=== PATIENT | female | born 1960 | race Caucasian/White ===

== ENCOUNTER 2016-07-01 20:29 | Inpatient (IN) | payer OTHER ==
[2016-07-01] MEDS ORDERED: ASPIRIN 81 MG CHEWABLE TABLETS PO ONE (20:53)
--- NOTE | 2016-07-01 20:59 | PDOC ---
History of Present Illness - General Exam Limitations: No Limitations <PeterJimmy ruffin - Last Filed: 07/01/16 21:15> - General History Source: Patient Exam Limitations: No Limitations <Joao Rose - Last Filed: 07/02/16 03:29> - General Chief Complaint: Chest Pain Stated Complaint: CHEST PAIN/HOT FLASHES - History of Present Illness Initial Comments: 07/01/16 21:01 The patient is a 55 year old female with past medical history of HTN, hypercholesterolemia, diabetes, GERD, hypothyroidism, and scleroderma, who presents to the emergency department with chest pain and hot flashes for 10 days. The patient states that her chest pain was initially intermittent but 2- 3 days ago it became constant. The patient notes that during her first episode of chest pain she lost vision briefly. The patient reports pain radiating pain through the left arm. The patient notes that pain is exacerbated on exertion. The patient reports associated clamminess, and sweats. She denies nausea, vomiting, and diarrhea. She denies fever, cough, and shortness of breath. (Jimmy Santana) Past History <EstherJimmy - Last Filed: 07/01/16 21:15> - Past Medical History Anemia: Yes Asthma: No Cancer: No Cardiac Disorders: Yes (Murmur) CVA: No COPD: No CHF: No Dementia: No Diabetes: Yes GI Disorders: Yes (GERD) Disorders: No HTN: Yes Hypercholesterolemia: Yes Liver Disease: No Suicide Attempt (Hx): No Seizures: No Thyroid Disease: Yes (HYPO) Other medical history: SCLERODERMA, HIATAL HERNIA - Surgical History Abdominal Surgery: No Appendectomy: No Cardiac Surgery: No Cholecystectomy: No Lung Surgery: No Neurologic Surgery: No Orthopedic Surgery: Yes (Laminectomy x3,Right hand surgery) - Immunization History Td Vaccination: Yes Immunization Up to Date: (UNSURE) - Psycho/Social/Smoking Cessation Hx Anxiety: No Suicidal Ideation: No Smoking Status: No Smoking History: Unknown if ever smoked Have you smoked in the past 12 months: No Number of Cigarettes Smoked Daily: 0 Information on smoking cessation initiated: No Hx Alcohol Use: No Drug/Substance Use Hx: No Substance Use Type: None Hx Substance Use Treatment: No <Joao Rose - Last Filed: 07/02/16 03:29> - Past Medical History Allergies/Adverse Reactions: Allergies Allergy/AdvReac Type Severity Reaction Status Date / Time Sulfa (Sulfonamide Allergy Mild Verified 04/07/16 15:20 Antibiotics) [Sulfa(Sulfonamide Antibiotics)] Home Medications: Ambulatory Orders Esomeprazole Mag Trihydrate [Nexium] 20 mg PO BID 01/26/12 Insulin Glargine,Hum.rec.anlog [Lantus] 46 unit SQ AM 01/26/12 Levothyroxine [Synthroid -] 50 mcg PO HS 01/26/12 Metformin HCl [Glucophage -] 800 mg PO BID@0700,1630 01/26/12 Simvastatin 40 mg PO HS 01/26/12 Zolpidem Tartrate [Ambien] 10 mg PO HS 09/25/15 Oxycodone HCl/Acetaminophen [Percocet 5-325 mg Tablet] 1 - 2 combo PO Q6H PRN # 30 tablet MDD 4 09/28/15 Iron,Carbonyl/Ascorbic Acid [Vitron-C Tablet] 1 each PO DAILY 11/13/15 Nifedipine [Nifedical Xl] 30 mg PO DAILY 11/13/15 Oxycodone HCl/Acetaminophen [Percocet 5-325 mg Tablet] 1 - 2 tab PO Q4H #20 tablet MDD 6 11/14/15 Cardiac Specific PMH - Complaint Specific PMHX Pacemaker: No <Joao Rose - Last Filed: 07/02/16 03:29> Review of Systems - Review of Systems Able to Perform ROS?: Yes Constitutional: Yes: Symptoms Reported, See HPI, Chills, Diaphoresis, Weakness HEENTM: Yes: Symptoms Reported, See HPI Cardiac (ROS): Yes: Symptoms Reported, See HPI Neurological: Yes: Symptoms reported, See HPI, Headache, Numbness <Jimmy Santana - Last Filed: 07/01/16 21:15> - Review of Systems Able to Perform ROS?: Yes Is the patient limited Portuguese proficient: No Constitutional: Yes: Symptoms Reported, See HPI, Diaphoresis HEENTM: No: Symptoms Reported Respiratory: Yes: Symptoms reported, See HPI, SOB with Exertion Cardiac (ROS): Yes: Symptoms Reported, See HPI, Chest Pain, Palpitations ABD/GI: No: Symptoms Reported : No: Symptoms Reported Musculoskeletal: No: Symptoms Reported All Other Systems: Reviewed and Negative <Joao Rose - Last Filed: 07/02/16 03:29> *Physical Exam - Physical Exam General Appearance: Yes: Nourished, Appropriately Dressed. No: Apparent Distress HEENT: positive: Normal ENT Inspection Neck: positive: Supple. negative: Tender Respiratory/Chest: positive: Lungs Clear, Normal Breath Sounds. negative: Chest Tender, Respiratory Distress Cardiovascular: positive: Regular Rhythm, Regular Rate Gastrointestinal/Abdominal: positive: Normal Bowel Sounds, Soft. negative: Tender Musculoskeletal: positive: Normal Inspection Extremity: positive: Normal Capillary Refill. negative: Pedal Edema Integumentary: positive: Normal Color Neurologic: positive: Fully Oriented, Alert, Normal Mood/Affect, Normal Response , Motor Strength 5/5 <Joao Rose - Last Filed: 07/02/16 03:29> - Vital Signs Last Vital Signs Temp Pulse Resp BP Pulse Ox 97.7 F 67 19 108/43 100 07/01/16 23:53 07/01/16 23:53 07/01/16 23:53 07/01/16 23:53 07/02/16 01:09 Heart Score/ECG Review <Jimmy Santana - Last Filed: 07/01/16 21:15> - Age Age: 45-65 - Risk Factors Risk Factors Heart Score: Yes Hx Hypercholesterolemia, Yes Hx Hypertension Based on the list above the patient has:: 1-2 risk factors - ECG Intrepretation Rhythm: Regular Rhythm - [place]: Normal - P and MT Prominent R with upright T in V1 (true posterior NE): No - QRS Poor R Wave Progression: No Q Wave Present: No - ST and T Early Repolarization: No Non Specific ST-T Wave changes: No Flattened T Waves: No - ECG Impressions Normal ECG: Yes <Joao Rose - Last Filed: 07/02/16 03:29> - ECG Impressions Comment:: 07/01/16 21:07 ECG: Normal sinus rhythm, minimal voltage criteria for LVH, may be normal variant. Borderline ECG (Jimmy Santana) ED Treatment Course - LABORATORY CBC & Chemistry Diagram: 07/01/16 20:58 07/02/16 00:30 <Joao Rose - Last Filed: 07/02/16 03:29> - ADDITIONAL ORDERS Additional order review: Laboratory Results 07/01/16 07/01/16 07/01/16 20:58 20:58 20:58 INR 1.16 Sodium 135 L Potassium 5.4 H D Chloride 110 H Carbon Dioxide 25 Anion Gap 0 L BUN 14 Creatinine 0.9 D Creat Clearance w eGFR > 60 Random Glucose 75 D Calcium 9.0 Magnesium 2.1 Total Bilirubin 2.1 H D AST 56 H D ALT 15 Alkaline Phosphatase 67 Creatine Kinase Cancelled Cancelled CK-MB (CK-2) Cancelled Troponin I Cancelled Cancelled Total Protein 6.5 Albumin 4.0 D 07/01/16 20:58 RBC 4.64 MCV 82.4 MCHC 31.5 L RDW 14.9 MPV 7.3 L Neutrophils % 58.2 Lymphocytes % 29.4 Monocytes % 6.3 Eosinophils % 3.3 Basophils % 2.8 H D - RADIOLOGY Radiology Studies Ordered: Category Date Time Status CHEST X-RAY PORTABLE* [RAD] Stat Radiology 07/01/16 20:53 Completed - Medications Given in the ED: ED Medications Discontinued Medications Generic Name Dose Route Start Last Admin Trade Name Freq PRN Reason Stop Dose Admin Aspirin 162 mg 07/01/16 20:53 07/01/16 21:03 Asa - PO 07/01/16 20:54 162 mg ONCE ONE Administration Progress Note <Jimmy Santana - Last Filed: 07/01/16 21:15> <Joao Rose - Last Filed: 07/02/16 03:29> - Progress Note Progress Note: crescendo angina? admit obs/tely fore ACS 3:00 AM trop 1.9 attempt to notify pmd and cards consult unsuccessful so far so floor called er start plavix and lovenox repeat ekg will contact cards for further management pt is pain free and hemodynamically stable (Joao Rose) Medical Decision Making <Jimmy Santana - Last Filed: 07/01/16 21:15> <Joao Rose - Last Filed: 07/02/16 03:29> - Medical Decision Making 07/01/16 20:54 Dr. Jenn Blanchard's service was called. 07/01/16 20:56 Dr. Jenn Blanchard's returned call. Case discussed. Agreed to admit. (Jimmy Santana) *DC/Admit/Observation/Transfer <Jimmy Santana - Last Filed: 07/01/16 21:15> - Discharge Dispostion Admit: Yes <Joao Rose - Last Filed: 07/02/16 03:29> Diagnosis at time of Disposition: ACS (acute coronary syndrome) - Discharge Dispostion Condition at time of disposition: Stable Decision to Admit order Date/Time: Decision to Admit Order Category Date Time Status Decision to Admit to Hospital Routine Phy Order 07/01/16 21:02 Ordered - Referrals - Attestations Scribe Attestion: 07/01/16 21:04 Documentation prepared by Jimmy Santana, acting as medical geneticist for Joao Rose MD. (Jimmy Santana)
--- NOTE | 2016-07-01 21:02 | PDOC ---
History of Present Illness - General Chief Complaint: Chest Pain Stated Complaint: CHEST PAIN/HOT FLASHES History Source: Parent(s) Exam Limitations: No Limitations - History of Present Illness Initial Comments: 07/01/16 21:01 The patient is a 55 year old female with past medical history of HTN, hypercholesterolemia, diabetes, GERD, hypothyroidism, and scleroderma, who presents to the emergency department with chest pain and hot flashes for 10 days. The patient states that her chest pain was initially intermittent but 2- 3 days ago it became constant. The patient reports pain radiating pain through the left arm. The patient notes that pain is exacerbated on exertion. The patient reports associated clamminess and sweats. She denies nausea, vomiting, and diarrhea. She denies fever, cough, and shortness of breath. Past History - Past Medical History Allergies/Adverse Reactions: Allergies Allergy/AdvReac Type Severity Reaction Status Date / Time Sulfa (Sulfonamide Allergy Mild Verified 04/07/16 15:20 Antibiotics) [Sulfa(Sulfonamide Antibiotics)] Home Medications: Ambulatory Orders Esomeprazole Mag Trihydrate [Nexium] 20 mg PO BID 01/26/12 Insulin Glargine,Hum.rec.anlog [Lantus] 46 unit SQ AM 01/26/12 Levothyroxine [Synthroid -] 50 mcg PO HS 01/26/12 Metformin HCl [Glucophage -] 800 mg PO BID@0700,1630 01/26/12 Simvastatin 40 mg PO HS 01/26/12 Zolpidem Tartrate [Ambien] 10 mg PO HS 09/25/15 Oxycodone HCl/Acetaminophen [Percocet 5-325 mg Tablet] 1 - 2 combo PO Q6H PRN # 30 tablet MDD 4 09/28/15 Iron,Carbonyl/Ascorbic Acid [Vitron-C Tablet] 1 each PO DAILY 11/13/15 Nifedipine [Nifedical Xl] 30 mg PO DAILY 11/13/15 Oxycodone HCl/Acetaminophen [Percocet 5-325 mg Tablet] 1 - 2 tab PO Q4H #20 tablet MDD 6 11/14/15 Anemia: Yes Asthma: No Cancer: No Cardiac Disorders: Yes (Murmur) CVA: No COPD: No CHF: No Dementia: No Diabetes: Yes GI Disorders: Yes (GERD) Disorders: No HTN: Yes Hypercholesterolemia: Yes Liver Disease: No Suicide Attempt (Hx): No Seizures: No Thyroid Disease: Yes (HYPO) Other medical history: SCLERODERMA, HIATAL HERNIA - Surgical History Abdominal Surgery: No Appendectomy: No Cardiac Surgery: No Cholecystectomy: No Lung Surgery: No Neurologic Surgery: No Orthopedic Surgery: Yes (Laminectomy x3,Right hand surgery) - Immunization History Td Vaccination: Yes Immunization Up to Date: (UNSURE) - Psycho/Social/Smoking Cessation Hx Anxiety: No Suicidal Ideation: No Smoking Status: No Smoking History: Unknown if ever smoked Have you smoked in the past 12 months: No Number of Cigarettes Smoked Daily: 0 Information on smoking cessation initiated: No Hx Alcohol Use: No Drug/Substance Use Hx: No Substance Use Type: None Hx Substance Use Treatment: No Cardiac Specific PMH - Complaint Specific PMHX Pacemaker: No *Physical Exam - Vital Signs Last Vital Signs Temp Pulse Resp BP Pulse Ox 98.6 F 65 15 146/74 100 07/01/16 20:33 07/01/16 20:33 07/01/16 20:33 07/01/16 20:33 07/01/16 20:33 *DC/Admit/Observation/Transfer - Discharge Dispostion Condition at time of disposition: Good
[2016-07-01 22:35] LABS: BASOPHIL 2.8 % (0-2.0); EOSINOPHIL 3.3 % (0-4.5); MCHC 31.5 g/dl (32.0-36.0); MEAN CELL VOLUME 82.4 fl (80-96); MEAN PLT VOLUME 7.3 fl (7.5-11.1); NEUTROPHILS 58.2 % (42.8-82.8); PLATELET COUNT 414 K/MM3 (134-434); RDW 14.9 % (11.6-15.6)
[2016-07-01 22:44] LABS: INR 1.16 (0.82-1.09); PROTHROMBIN TIME (PATIENT) 12.6 SEC (10.2-13.0)
[2016-07-01 22:50] LABS: ALK PHOS 67 U/L (32-92); ANION GAP 0 (8-16); BILIRUBIN,TOTAL 2.1 mg/dl (0.2-1.0); CO2 25 mmol/L (22-28); CREATININE 0.9 mg/dl (0.6-1.3); GLUCOSE,RANDOM 75 mg/dl (74-106); MAGNESIUM 2.1 mg/dL (1.8-2.4); SGOT/AST 56 U/L (10-42); SGPT/ALT 15 U/L (10-40); TOT PROT 6.5 g/dl (6.4-8.3)
[2016-07-01] MEDS ORDERED: OXYCODONE/APAP 5/325MG COMBO TABLET PO PRN (23:00)
[2016-07-01] MEDS ORDERED: ZOLPIDEM TARTRATE 5 MG TABLET PO PRN (23:14)
[2016-07-01] MEDS ORDERED: ASPIRIN 81 MG CHEWABLE TABLETS ONE (23:16)
[2016-07-02 01:35] VITALS: BMI 30.9
[2016-07-02 02:03] LABS: TROPONIN I 1.98 ng/ml (0.00-0.05)
[2016-07-02] MEDS ORDERED: CLOPIDOGREL BISULFATE 300 MG TABLET PO ONE (03:25)
[2016-07-02] MEDS ORDERED: ASPIRIN 81 MG CHEWABLE TABLETS PO ONE (03:25)
[2016-07-02] MEDS ORDERED: ENOXAPARIN NA (PORCINE) 60 MG/0.6 ML DISP.SYRIN SQ ONE (03:30)
[2016-07-02] MEDS ORDERED: ENOXAPARIN NA (PORCINE) 60 MG/0.6 ML DISP.SYRIN SQ SCH (03:30)
[2016-07-02] MEDS ORDERED: ATORVASTATIN CA 80 MG TABLET (FP) PO ONE (05:17)
[2016-07-02] MEDS ORDERED: morphine CARPU-JECT 2 MG/1 ML DISP.SYRIN IVPUSH ONE (05:19)
[2016-07-02] MEDS ORDERED: morphine CARPU-JECT 2 MG/1 ML DISP.SYRIN IVPUSH PRN (05:19)
[2016-07-02] MEDS ORDERED: NITROGLYCERIN SUBLINGUAL 1/150 0.4 MG TAB SL PRN (05:25)
--- NOTE | 2016-07-02 05:35 | CONSULT ---
Consult Consult Specialty:: Pulm/CC - History of Present Illness Chief Complaint: Chest pain/sob History of Present Illness: Pt is a 55yr old woman with PMHx of HTN, HLD, DM, GERD, hypothyroidism and scleroderma. She presents to the [place] ER with CC of chest pain and SOB intermittently x 10 days, now constant. Chest pain reported as left side, radiating through the arm, exacerbated by exertion. In the ER found to have + troponin of 1.98 without EKG changes. Pt transferred to [facility] ICU for further management. Upon assessment pt endorses 5/10 chest pain to the right side, nondescript, slight SOB and nausea and intermittent dizziness. Denies headache/ vomiting. SBP 120s, HR 60s, repeat EKG pending, 100% on NC. - History Source History Provided By: Patient, Medical Record - Past Medical History Cardio/Vascular: Yes: HTN Rheumatology: Yes: Other (scleroderma) Endocrine: Yes: Diabetes Mellitus - Alcohol/Substance Use Hx Alcohol Use: No - Smoking History Smoking history: Unknown if ever smoked Have you smoked in the past 12 months: No Aproximately how many cigarettes per day: 0 Home Medications - Allergies Allergies/Adverse Reactions: Allergies Allergy/AdvReac Type Severity Reaction Status Date / Time Sulfa (Sulfonamide Allergy Mild Verified 04/07/16 15:20 Antibiotics) [Sulfa(Sulfonamide Antibiotics)] - Home Medications Home Medications: Ambulatory Orders Esomeprazole Mag Trihydrate [Nexium] 20 mg PO BID 01/26/12 Insulin Glargine,Hum.rec.anlog [Lantus] 46 unit SQ AM 01/26/12 Levothyroxine [Synthroid -] 50 mcg PO HS 01/26/12 Metformin HCl [Glucophage -] 800 mg PO BID@0700,1630 01/26/12 Simvastatin 40 mg PO HS 01/26/12 Zolpidem Tartrate [Ambien] 10 mg PO HS 09/25/15 Oxycodone HCl/Acetaminophen [Percocet 5-325 mg Tablet] 1 - 2 combo PO Q6H PRN # 30 tablet MDD 4 09/28/15 Iron,Carbonyl/Ascorbic Acid [Vitron-C Tablet] 1 each PO DAILY 11/13/15 Nifedipine [Nifedical Xl] 30 mg PO DAILY 11/13/15 Oxycodone HCl/Acetaminophen [Percocet 5-325 mg Tablet] 1 - 2 tab PO Q4H #20 tablet MDD 6 11/14/15 Review of Systems - Review of Systems Cardiovascular: reports: Chest Pain, Shortness of Breath Respiratory: reports: SOB on Exertion Gastrointestinal: reports: Nausea Genitourinary: denies: Dysuria Musculoskeletal: reports: Other (diffuse pain secondary to scleroderma) Neurological: reports: Dizziness Physical Exam Vital Signs: Vital Signs Period Temp Pulse Resp BP Sys/Atkinson Pulse Ox Last 24 Hr 97.7 F-98.6 F 58-67 15-19 106-146/43-74 99-100 Intake & Output 06/29/16 06/30/16 07/01/16 07/02/16 23:59 23:59 23:59 23:59 Weight 175 lb 163 lb 2.273 oz Constitutional: Yes: Well Nourished, No Distress, Calm Eyes: Yes: WNL, PERRL HENT: Yes: WNL Neck: Yes: WNL Cardiovascular: Yes: Murmur (2/6 systolic), S1, S2, Other (5/10 rt side chest pain) Respiratory: Yes: WNL, CTA Bilaterally, On Nasal O2. No: Rhonchi, Tachypnea, Wheezes Gastrointestinal: Yes: Normal Bowel Sounds, Soft, Abdomen, Obese. No: Tenderness ...Rectal Exam: Yes: Deferred Extremities: Yes: Other (chronic pain secondary to scleraderma) Edema: No Peripheral Pulses WNL: (+1 left pedal, +2 rt pedal ) Integumentary: Yes: Other (diffuse skin thickening) Neurological: Yes: WNL Psychiatric: Yes: WNL Labs: Abnormal Lab Results 07/01/16 07/01/16 07/02/16 20:58 20:58 00:30 WBC 13.0 H MCHC 31.5 L MPV 7.3 L Basophils % 2.8 H D Sodium 135 L Potassium 5.4 H D Chloride 110 H Anion Gap 0 L Total Bilirubin 2.1 H D AST 56 H D CK-MB (CK-2) 4.672 H Troponin I 1.98 H* Imaging - Results Chest X-ray: Report Reviewed, Image Reviewed Assessment/Plan Pt is a 55yr old woman with PMHx of HTN, HLD, DM, GERD, hypothyroidism and scleroderma. Now in the ICU for management of acute NSTEMI. Pulm -O2 support in setting of NSTEMI ID: Leukocytosis, likely reactionary -f/u cultures -Will start empiric Ceftriaxone, though leukocytosis likely reactionary. Continue as clinically warranted -f/u lactic acid Cardiac: NSTEMI -Consult -Pt started on Lovenox in ER, will continue BID -Plavix/asa/statin -BB/ACEI as BP/HR allows -ECHO -Pt will need cardiac cath -Nitro PRN -Serial troponin -f/u repeat EKG Renal -Replete electrolytes prn for K 4-5, Magnesium goal 2.0 -I/Os Endo: DM, hypothyroid -BGM -Glycemic control -Continue home synthroid -f/u thyroid studies, pt bradycardic, rule out thyroid induced Neuro -Avoid NSAIDS in setting of acute GA -Pain management with morphine Prophylactic -DVT covered with lovenox -PPI for GERD -Zofran prn
[2016-07-02] MEDS ORDERED: CEFTRIAXONE 1 GM in DEXTROSE 5%-WATER - 50 ML IVPB SCH (06:00)
[2016-07-02] MEDS ORDERED: LISINOPRIL 5 MG TABLET (FP) PO SCH (06:00)
[2016-07-02] MEDS ORDERED: cefTRIAXone 1 GM/50 ML BAG (PRE-DOCKED) IVPB SCH (06:00)
[2016-07-02] MEDS ORDERED: METOPROLOL TARTRATE 25 MG TABLET (FP) PO SCH (06:00)
[2016-07-02 06:54] LABS: BASOPHIL 0.2 % (0-2.0); EOSINOPHIL 2.6 % (0-4.5); MCH 26.8 pg (25.7-33.7); MCHC 32.7 g/dl (32.0-36.0); MEAN CELL VOLUME 81.9 fl (80-96); MEAN PLT VOLUME 6.9 fl (7.5-11.1); NEUTROPHILS 57.9 % (42.8-82.8); PLATELET COUNT 364 K/MM3 (134-434); RDW 15.9 % (11.6-15.6); WHITE BLOOD COUNT 11.7 K/mm3 (4.0-10.0)
[2016-07-02] MEDS ORDERED: INSULIN SLIDING SCALE (NOVOLOG) 1 VIAL SQ SCH (07:00)
[2016-07-02] MEDS ORDERED: INSULIN DETEMIR 100 UNITS/ML MDV SQ SCH (07:00)
[2016-07-02 07:12] VITALS: TEMP 97.8
[2016-07-02 07:16] LABS: INR 1.25 (0.82-1.09); PROTHROMBIN TIME (PATIENT) 13.8 SEC (9.98-11.88)
[2016-07-02 07:19] LABS: ACTIVATED PTT 48.6 SECONDS (26.9-34.4)
[2016-07-02 07:20] LABS: ALBUMIN 3.4 g/dl (3.4-5.0); ALK PHOS 69 U/L (45-117); ANION GAP 11 (8-16); BILIRUBIN,TOTAL 0.5 mg/dL (0.2-1.0); CALCIUM 8.7 mg/dL (8.5-10.1); CO2 26 mmol/L (21-32); CREATININE 0.6 mg/dL (0.55-1.02); GLUCOSE,RANDOM 50 mg/dL (74-106); MAGNESIUM 2.2 mg/dL (1.8-2.4); PHOSPHOROUS 3.9 mg/dL (2.5-4.9); SGOT/AST 33 U/L (15-37); SGPT/ALT 23 U/L (12-78); TOT PROT 6.1 g/dl (6.4-8.2)
--- NOTE | 2016-07-02 08:15 | CON.CARD ---
Consult Consult Specialty:: Cardiology Referred by:: Dr. Valderrama Reason for Consultation:: chest pain, nstemi - History of Present Illness Chief Complaint: chest pain, diaphoresis, palpitations History of Present Illness: 55 year old woman with a history of HTN, HLD, DMII, scleroderma presented last night with intermittent chest pain for the past 10days. Pt. noted to have an elevated troponin. Pt. seen and examined this am in nad. She states that approx 10days ago after just standing up from eating she felt sudden onset severe palpitations, chest pressure, and diaphoresis, lightheadedness and blurry vision that lasted approx 20 minutes then resolved. she did not feel well the rest of the day so she just rested. Since then she has had daily intermittent similar symptoms that progressed until yesterday evening when it came on even more severe and didnt resolve thus she went to the ER. ER ekg showed nonspecific ST abnl, troponin was elevated with normal CK thus she was transferred to ICU. She was given Lovenox 80mg x1 at 330am, plavix 600mg, asa 325mg x1 and Lipitor. Currently pt states she still has substernal/Lsided chest discomfort that is more mild. Denies sob. No pnd, orthopnea, or LE edema. - History Source History Provided By: Patient, Medical Record Limitations to Obtaining History: No Limitations - Past Medical History Cardio/Vascular: Yes: HTN, Hyperlipdemia Rheumatology: Yes: Other (scleroderma) Endocrine: Yes: Diabetes Mellitus - Alcohol/Substance Use Hx Alcohol Use: No - Smoking History Smoking history: Unknown if ever smoked Have you smoked in the past 12 months: No Aproximately how many cigarettes per day: 0 - Social History ADL: Independent History of Recent Travel: No Home Medications - Allergies Allergies/Adverse Reactions: Allergies Allergy/AdvReac Type Severity Reaction Status Date / Time Sulfa (Sulfonamide Allergy Mild Verified 04/07/16 15:20 Antibiotics) [Sulfa(Sulfonamide Antibiotics)] - Home Medications Home Medications: Ambulatory Orders Esomeprazole Mag Trihydrate [Nexium] 20 mg PO BID 01/26/12 Insulin Glargine,Hum.rec.anlog [Lantus] 46 unit SQ AM 01/26/12 Levothyroxine [Synthroid -] 50 mcg PO HS 01/26/12 Metformin HCl [Glucophage -] 800 mg PO BID@0700,1630 01/26/12 Simvastatin 40 mg PO HS 01/26/12 Zolpidem Tartrate [Ambien] 10 mg PO HS 09/25/15 Oxycodone HCl/Acetaminophen [Percocet 5-325 mg Tablet] 1 - 2 combo PO Q6H PRN # 30 tablet MDD 4 09/28/15 Iron,Carbonyl/Ascorbic Acid [Vitron-C Tablet] 1 each PO DAILY 11/13/15 Nifedipine [Nifedical Xl] 30 mg PO DAILY 11/13/15 Oxycodone HCl/Acetaminophen [Percocet 5-325 mg Tablet] 1 - 2 tab PO Q4H #20 tablet MDD 6 11/14/15 Family Disease History - Family Disease History Family History: Denies Review of Systems - Review of Systems Constitutional: reports: Diaphoresis, Loss of Appetite. denies: No Symptoms, Chills, Fever, Lethargy, Malaise, Night Sweats, Unintentional Wgt. Loss, Weakness, Other Eyes: reports: Blurred Vision. denies: No Symptoms, Blind Spots, Double Vision , Eye Pain, Floaters, Photophobia, Recent Change in Vision, Other HENT: denies: No Symptoms, Difficult Swallowing, Ear Discharge, Ear Pain, Epistaxis, Gingival Bleeding, Hearing Loss, Mouth Swelling, Nasal Congestion, Ocular Prosthesis, Throat Pain, Toothache, Ringing in Ears, Other Neck: denies: No Symptoms, Decreased ROM, Lumps, Pain on Movement, Stiffness, Swollen Glands, Tenderness, Other Cardiovascular: reports: Chest Pain, Palpitations. denies: No Symptoms, Edema, Shortness of Breath, Other Respiratory: denies: No Symptoms, Cough, Exercise Intolerance, Hemoptysis, Orthopnea, PND, Snoring, SOB, SOB on Exertion, Wheezing, Other Gastrointestinal: denies: No Symptoms, Abdominal Pain, Bloating, Constipation, Diarrhea, Dysphagia, Indigestion, Melena, Nausea, Rectal Bleeding, Vomiting, Vomiting Blood, Other Genitourinary: denies: No Symptoms, Burning, Discharge, Dysuria, Flank Pain, Frequency, Hematuria, Incontinence, Lesions, Menses, Pain, Testicular Mass, Testicular Pain, Testicular Swelling, Urgency, Vaginal Bleeding, Other Breasts: denies: No Symptoms Reported, See HPI, Breast Implants, Discharge from Nipple, Lumps, Pain, Skin Changes, Other Musculoskeletal: denies: No Symptoms, Back Pain, Crepitus, Decreased ROM, Extremity Pain, Joint Pain, Joint Swelling, Muscle Pain, Muscle Cramps, Muscle Weakness, Other Integumentary: denies: No Symptoms, Blister, Bruising, Change in Color, Eczema, Erythema, Incision, Lesions, Lump, Pallor, Pruritis, Rash, Wound, Other Neurological: reports: Dizziness. denies: No Symptoms, Change in LOC, Change in Speech, Confusion, Headache, Incoordination, Numbness, Parasthesia, Pre- Existing Deficit, Seizure, Syncope, Tremors, Unsteady Gait, Weakness, Other Endocrine: denies: No Symptoms, Excessive Sweating, Flushing, Increased Hunger, Increased Thirst, Intolerance to Cold, Intolerance to Heat, Unexplained Weight Gain, Unexplained Weight Loss, Other Hematology/Lymphatic: denies: No Symptoms, Easily Bruised, Excessive Bleeding, Swollen Glands, Other Psychiatric: denies: No Symptoms, Altered Sleep Pattern, Anxiety, Depression, Hallucinations, Panic, Paranoia, Suicidal, Other - Risk Factors Known Risk Factors: Yes: Diabetes Mellitus, Hypercholesterolemia, Hypertension Vital Signs: Vital Signs Temperature 97.8 F 07/02/16 07:10 Pulse Rate 60 07/02/16 07:10 Respiratory Rate 18 07/02/16 07:10 Blood Pressure 90/56 07/02/16 07:10 O2 Sat by Pulse Oximetry (%) 100 07/02/16 05:23 Constitutional: Yes: Well Nourished, No Distress, Calm Eyes: Yes: WNL, Conjunctiva Clear, EOM Intact, PERRL HENT: Yes: WNL, Atraumatic, Normocephalic Neck: Yes: WNL, Supple, Trachea Midline Respiratory: Yes: WNL, Regular, CTA Bilaterally. No: Rales, Rhonchi, Wheezes Gastrointestinal: Yes: WNL, Normal Bowel Sounds, Soft. No: Distention, Tenderness Renal/: Yes: WNL Cardiovascular: Yes: WNL, Regular Rate and Rhythm. No: Bradycardia, Tachycardia , Pulse Irregular, Gallop, Rub, Varicosities JVD: No Carotid Bruit: No PMI: Non-Displaced Heart Sounds: Yes: S1, S2. No: Split S2, S3, S4, Clicks, Gallop, Rub, Bruit Murmur: No: Systolic Murmur, Diastolic Murmur Musculoskeletal: Yes: WNL Extremities: Yes: WNL Edema: No Peripheral Pulses WNL: Yes Peripheral Pulses: 2+ Left Doralis Pedis, 2+ Right Dorsalis Pedis Integumentary: Yes: WNL Neurological: Yes: WNL, Alert, Oriented, Cran Nerves II-XII Intact ...Motor Strength: WNL Psychiatric: Yes: WNL, Alert, Oriented - Other Data Labs, Other Data: CBC, BMP 07/02/16 06:15 07/02/16 06:15 INR, PTT INR 1.25 (0.82-1.09) H 07/02/16 06:15 Troponin, BNP 07/02/16 06:15 B-Natriuretic Peptide 244.56 H Troponin, BNP 07/02/16 06:15 B-Natriuretic Peptide 244.56 H ekg-sinus bradycardia 59bpm, poor R progression, nonspecific ST abnl, No sig change on subsequent ekg Imaging - Results Chest X-ray: Report Reviewed, Image Reviewed EKG: Report Reviewed, Image Reviewed Other: Report Reviewed, Image Reviewed (tele-nsr, sinus bradycardia, no sig arrhythmias) Problem List - Problems (1) ACS (acute coronary syndrome) Code(s): I24.9 - ACUTE ISCHEMIC HEART DISEASE, UNSPECIFIED (2) Diabetes mellitus Code(s): E11.9 - TYPE 2 DIABETES MELLITUS WITHOUT COMPLICATIONS Qualifiers: Diabetes mellitus type: type 2 Diabetes mellitus complication status: with skin complications Diabetes mellitus complication detail: with other skin complication Qualified Code(s): E11.628 - Type 2 diabetes mellitus with other skin complications (3) HTN (hypertension) Code(s): I10 - ESSENTIAL (PRIMARY) HYPERTENSION (4) NSTEMI (non-ST elevated myocardial infarction) Code(s): I21.4 - NON-ST ELEVATION (NSTEMI) MYOCARDIAL INFARCTION (5) HLD (hyperlipidemia) Code(s): E78.5 - HYPERLIPIDEMIA, UNSPECIFIED (6) CAD (coronary artery disease) Code(s): I25.10 - ATHSCL HEART DISEASE OF [place] CORONARY ARTERY W/O ANG PCTRS Assessment/Plan 55 year old woman with a history of HTN, HLD, DMII, scleroderma presented last night with intermittent chest pain for the past 10days and found to have an elevated troponin, with nonspecific EKG findings c/w NSTEMI. NSTEMI/Unstable angina-pt still having intermittent chest pain -given Lovenox 80mg at 330am, hold further doses -ASA 325mg x 1 given -Plavix 600mg given -hold metformin -hold anti-HTN meds for now, borderline low BP -will transfer to [facility] for cardiac cath this am -if cardiac cath shows no sig obstructive CAD would recc CTA to rule out PE
[2016-07-02 08:34] LABS: TROPONIN I 2.05 ng/ml (0.00-0.05)
--- NOTE | 2016-07-02 09:20 | HP ---
Admitting History and Physical - Primary Care Physician PCP: Jenn Valderrama - Admission Chief Complaint: chest pain History of Present Illness: 55 yrs old female admitted for chest pain She was initially at [facility] but transferred over to ICU here for elevated troponins. She c/o chest pain for the last 10 days-- everyday she had episode of chest pains. On the first day, she had severe sternal chest pain with radiation to her neck and left arm, with associated diaphoresis and palpitations which went away after few minutes. She did not seek medical attention thinking that it would go away on its own, but she called the office yesterday and was advised to go to ER . Today here in ICU , she has some mild chest pain - no dizziness, but felt dizzy yesterday and slightly SOB. History Source: Patient Limitations to Obtaining History: No Limitations - Past Medical History Cardiovascular: Yes: HTN, Hyperlipdemia Rheumatology: Yes: Other (scleroderma) Endocrine: Yes: Diabetes Mellitus - Smoking History Smoking history: Unknown if ever smoked Have you smoked in the past 12 months: No Aproximately how many cigarettes per day: 0 - Alcohol/Substance Use Hx Alcohol Use: No - Social History ADL: Independent History of Recent Travel: No Home Medications - Allergies Allergies/Adverse Reactions: Allergies Allergy/AdvReac Type Severity Reaction Status Date / Time Sulfa (Sulfonamide Allergy Mild Verified 04/07/16 15:20 Antibiotics) [Sulfa(Sulfonamide Antibiotics)] - Home Medications Home Medications: Ambulatory Orders Esomeprazole Mag Trihydrate [Nexium] 20 mg PO BID 01/26/12 Insulin Glargine,Hum.rec.anlog [Lantus] 46 unit SQ AM 01/26/12 Levothyroxine [Synthroid -] 50 mcg PO HS 01/26/12 Metformin HCl [Glucophage -] 800 mg PO BID@0700,1630 01/26/12 Simvastatin 40 mg PO HS 01/26/12 Zolpidem Tartrate [Ambien] 10 mg PO HS 09/25/15 Oxycodone HCl/Acetaminophen [Percocet 5-325 mg Tablet] 1 - 2 combo PO Q6H PRN # 30 tablet MDD 4 09/28/15 Iron,Carbonyl/Ascorbic Acid [Vitron-C Tablet] 1 each PO DAILY 11/13/15 Nifedipine [Nifedical Xl] 30 mg PO DAILY 11/13/15 Oxycodone HCl/Acetaminophen [Percocet 5-325 mg Tablet] 1 - 2 tab PO Q4H #20 tablet MDD 6 11/14/15 Review of Systems - Review of Systems Constitutional: denies: Chills, Fever, Loss of Appetite, Weakness Cardiovascular: reports: Chest Pain, Palpitations, Shortness of Breath. denies : Edema Gastrointestinal: reports: Nausea. denies: Abdominal Pain, Vomiting Physical Examination Vital Signs: Vital Signs Temperature 97.8 F 07/02/16 07:10 Pulse Rate 60 07/02/16 07:10 Respiratory Rate 18 07/02/16 07:10 Blood Pressure 90/56 07/02/16 07:10 O2 Sat by Pulse Oximetry (%) 100 07/02/16 05:23 Constitutional: Yes: No Distress, Calm Cardiovascular: Yes: Regular Rate and Rhythm, Murmur (systolic murmur heard at tricuspid area) Respiratory: Yes: CTA Bilaterally Gastrointestinal: Yes: Normal Bowel Sounds, Soft. No: Distention, Tenderness Edema: No Neurological: Yes: Alert, Oriented Psychiatric: Yes: Alert, Oriented Labs: CBC, BMP 07/02/16 06:15 07/02/16 06:15 Imaging - Results Chest X-ray: Image Reviewed EKG: Image Reviewed (sinus bradycardia) Problem List - Problems (1) Diabetes mellitus Code(s): E11.9 - TYPE 2 DIABETES MELLITUS WITHOUT COMPLICATIONS Qualifiers: Diabetes mellitus type: type 2 Diabetes mellitus complication status: with skin complications Diabetes mellitus complication detail: with other skin complication (2) ACS (acute coronary syndrome) Code(s): I24.9 - ACUTE ISCHEMIC HEART DISEASE, UNSPECIFIED (3) CAD (coronary artery disease) Code(s): I25.10 - ATHSCL HEART DISEASE OF [place] CORONARY ARTERY W/O ANG PCTRS Qualifiers: Coronary Disease-Associated Artery/Lesion type: [place] artery [place] vs. transplanted heart: [place] heart Associated angina: with unstable angina Qualified Code(s): I25.110 - Atherosclerotic heart disease of [place] coronary artery with unstable angina pectoris (4) HLD (hyperlipidemia) Code(s): E78.5 - HYPERLIPIDEMIA, UNSPECIFIED Qualifiers: Hyperlipidemia type: pure hypercholesterolemia Qualified Code(s): E78.0 - Pure hypercholesterolemia (5) HTN (hypertension) Code(s): I10 - ESSENTIAL (PRIMARY) HYPERTENSION Qualifiers: Hypertension type: essential hypertension Qualified Code(s): I10 - Essential (primary) hypertension (6) NSTEMI (non-ST elevated myocardial infarction) Code(s): I21.4 - NON-ST ELEVATION (NSTEMI) MYOCARDIAL INFARCTION (7) Scleroderma Code(s): M34.9 - SYSTEMIC SCLEROSIS, UNSPECIFIED Assessment/Plan PLAN -- spoke with Tent Assembler today -- pt currently having chest pain -- NTG as needed -- she received Lovenox, ASA and Plavix -- Keep NPO -- ON IV ceftriaxone empirically -- WBC trending down-- may dc antibiotics -- continue anticoagulation -- dc Metformin -- on sliding scale only as pt is NPO -- for transfer to [facility] for cardiac angiogram today -- Time spent 35 min
[2016-07-02 09:40] VITALS: BP 101/63
[2016-07-02 09:46] VITALS: PULSE 57
[2016-07-02 09:49] LABS: FREE T4 1.44 ng/dl (0.76-1.46); THYROID STIMULATING HORMONE 0.25 uIU/ml (0.358-3.74)
[2016-07-02] MEDS ORDERED: NIFEdipine E.R. 30 MG TABLET (FP) PO SCH (10:00)
--- NOTE | 2016-07-02 10:12 | PN ---
Teaching Attending Note Name of Resident: Aditya Avila ATTENDING PHYSICIAN STATEMENT I saw and evaluated the patient. I reviewed the resident's note and discussed the case with the resident. I agree with the resident's findings and plan as documented. SUBJECTIVE: Patient seen and examined in the ICU. Awake and alert. CP is 2/10. Intake & Output 06/29/16 06/30/16 07/01/16 07/02/16 23:59 23:59 23:59 23:59 Intake Total 100 Balance 100 Weight 175 lb 163 lb 9.328 oz Last Vital Signs Temp Pulse Resp BP Pulse Ox 97.8 F 57 L 16 101/63 100 07/02/16 07:10 07/02/16 09:41 07/02/16 09:41 07/02/16 09:41 07/02/16 09:41 Active Medications Aspirin (Asa -) 81 mg PO DAILY@2200 [facility] Atorvastatin Calcium (Lipitor -) 80 mg PO HS [facility] Ceftriaxone Sodium (Rocephin 1gm Ivpb (Pre-Docked)) 1 gm IVPB DAILY@0600 [facility] Last Admin: 07/02/16 07:10 Dose: 1 gm Clopidogrel Bisulfate (Plavix -) 75 mg PO DAILY@2200 [facility] Insulin Aspart (Novolog Vial Sliding Scale -) 1 vial SQ TIDAC [facility] PRN Reason: Protocol Last Admin: 07/02/16 07:20 Dose: Not Given Insulin Detemir (Levemir Vial) 46 units SQ AM [facility] Last Admin: 07/02/16 07:20 Dose: Not Given Levothyroxine Sodium (Synthroid -) 50 mcg PO HS [facility] Lisinopril (Prinivil) 2.5 mg PO DAILY@0600 [facility] Last Admin: 07/02/16 07:37 Dose: Not Given Metoprolol Tartrate (Lopressor -) 12.5 mg PO DAILY@0600 [facility] Last Admin: 07/02/16 07:37 Dose: Not Given Morphine Sulfate (Morphine Injection -) 1 mg IVPUSH Q3H PRN PRN Reason: PAIN Nifedipine (Procardia Xl -) 30 mg PO DAILY [facility] Nitroglycerin (Nitrostat -) 0.4 mg SL Q5M PRN PRN Reason: FOR CHEST PAIN Last Admin: 07/02/16 07:00 Dose: 0.4 mg Zolpidem Tartrate (Ambien -) 10 mg PO HS PRN PRN Reason: INSOMNIA Last Admin: 07/02/16 01:03 Dose: 10 mg Constitutional: Yes: No Distress, Calm Eyes: Yes: WNL, PERRL HENT: Yes: WNL Neck: Yes: WNL Cardiovascular: Yes: Murmur (2/6 systolic), S1, S2, Other (5/10 rt side chest pain) Respiratory: Yes: WNL, CTA Bilaterally, On Nasal O2. No: Rhonchi, Tachypnea, Wheezes Gastrointestinal: Yes: Normal Bowel Sounds, Soft, Abdomen, Obese. No: Tenderness ...Rectal Exam: Yes: Deferred Extremities: Yes: Other (chronic pain secondary to scleraderma) Edema: No Peripheral Pulses WNL: (+1 left pedal, +2 rt pedal ) Integumentary: Yes: Other (diffuse skin thickening) Neurological: Yes: WNL Psychiatric: Yes: WNL Labs: Laboratory Results - last 24 hr 07/01/16 07/01/16 07/01/16 20:58 20:58 20:58 WBC 13.0 H RBC 4.64 Hgb 12.1 Hct 38.3 MCV 82.4 MCHC 31.5 L RDW 14.9 Plt Count 414 D MPV 7.3 L Neutrophils % 58.2 Lymphocytes % 29.4 Monocytes % 6.3 Eosinophils % 3.3 Basophils % 2.8 H D INR 1.16 PTT (Actin FS) Sodium 135 L Potassium 5.4 H D Chloride 110 H Carbon Dioxide 25 Anion Gap 0 L BUN 14 Creatinine 0.9 D Creat Clearance w eGFR > 60 POC Glucometer Random Glucose 75 D Lactic Acid Calcium 9.0 Phosphorus Magnesium 2.1 Total Bilirubin 2.1 H D AST 56 H D ALT 15 Alkaline Phosphatase 67 Creatine Kinase Cancelled Creatine Kinase Index CK-MB (CK-2) Troponin I Cancelled B-Natriuretic Peptide Total Protein 6.5 Albumin 4.0 D TSH Free T4 07/01/16 07/01/16 07/02/16 20:58 23:35 00:30 WBC RBC Hgb Hct MCV MCHC RDW Plt Count MPV Neutrophils % Lymphocytes % Monocytes % Eosinophils % Basophils % INR PTT (Actin FS) Sodium Potassium Chloride Carbon Dioxide Anion Gap BUN Creatinine Creat Clearance w eGFR POC Glucometer Random Glucose Lactic Acid Calcium Phosphorus Magnesium Total Bilirubin AST ALT Alkaline Phosphatase Creatine Kinase Cancelled Cancelled Cancelled Creatine Kinase Index CK-MB (CK-2) Cancelled Troponin I Cancelled Cancelled Cancelled B-Natriuretic Peptide Total Protein Albumin TSH Free T4 07/02/16 07/02/16 07/02/16 00:30 00:30 06:15 WBC RBC Hgb Hct MCV MCHC RDW Plt Count MPV Neutrophils % Lymphocytes % Monocytes % Eosinophils % Basophils % INR PTT (Actin FS) Sodium Potassium 3.7 Chloride Carbon Dioxide Anion Gap BUN Creatinine Creat Clearance w eGFR POC Glucometer Random Glucose Lactic Acid Calcium Phosphorus Magnesium Total Bilirubin AST ALT Alkaline Phosphatase Creatine Kinase 156 142 Creatine Kinase Index 3.0 CK-MB (CK-2) 4.672 H Troponin I 1.98 H* 2.05 H* B-Natriuretic Peptide Total Protein Albumin TSH Free T4 07/02/16 07/02/16 07/02/16 06:15 06:15 06:15 WBC 11.7 H RBC 4.09 Hgb 11.0 Hct 33.4 MCV 81.9 MCHC 32.7 RDW 15.9 H Plt Count 364 MPV 6.9 L Neutrophils % 57.9 Lymphocytes % 32.1 Monocytes % 7.2 Eosinophils % 2.6 Basophils % 0.2 INR 1.25 H PTT (Actin FS) 48.6 H Sodium 143 Potassium 3.6 Chloride 106 Carbon Dioxide 26 Anion Gap 11 BUN 12 Creatinine 0.6 Creat Clearance w eGFR > 60 POC Glucometer Random Glucose 50 L Lactic Acid Calcium 8.7 Phosphorus 3.9 Magnesium 2.2 Total Bilirubin 0.5 AST 33 ALT 23 Alkaline Phosphatase 69 Creatine Kinase Creatine Kinase Index CK-MB (CK-2) Troponin I B-Natriuretic Peptide Total Protein 6.1 L Albumin 3.4 TSH Free T4 07/02/16 07/02/16 07/02/16 06:15 06:15 06:15 WBC RBC Hgb Hct MCV MCHC RDW Plt Count MPV Neutrophils % Lymphocytes % Monocytes % Eosinophils % Basophils % INR PTT (Actin FS) Sodium Potassium Chloride Carbon Dioxide Anion Gap BUN Creatinine Creat Clearance w eGFR POC Glucometer Random Glucose Lactic Acid 0.443 Calcium Phosphorus Magnesium Total Bilirubin AST ALT Alkaline Phosphatase Creatine Kinase Creatine Kinase Index CK-MB (CK-2) Troponin I B-Natriuretic Peptide 244.56 H Total Protein Albumin TSH 0.25 L D Free T4 1.44 D 07/02/16 07:17 WBC RBC Hgb Hct MCV MCHC RDW Plt Count MPV Neutrophils % Lymphocytes % Monocytes % Eosinophils % Basophils % INR PTT (Actin FS) Sodium Potassium Chloride Carbon Dioxide Anion Gap BUN Creatinine Creat Clearance w eGFR POC Glucometer 89.49324 Random Glucose Lactic Acid Calcium Phosphorus Magnesium Total Bilirubin AST ALT Alkaline Phosphatase Creatine Kinase Creatine Kinase Index CK-MB (CK-2) Troponin I B-Natriuretic Peptide Total Protein Albumin TSH Free T4 Assessment/Plan: NSTEMI HTN HPL DM GERD Hypothyroidism Scleroderma PLAN: Plavix ASA Leukocytosis O2 as needed Will be transferred to [facility] for Cardiac cath Dr Alvarez CCTime 35"
--- NOTE | 2016-07-02 11:11 | DS ---
Physical Examination Vital Signs: Vital Signs Temperature 97.8 F 07/02/16 07:10 Pulse Rate 57 L 07/02/16 09:41 Respiratory Rate 16 07/02/16 09:41 Blood Pressure 101/63 07/02/16 09:41 O2 Sat by Pulse Oximetry (%) 100 07/02/16 09:41 Labs: CBC, BMP 07/02/16 06:15 07/02/16 06:15 Discharge Summary Reason For Visit: ACUTE CORONERY SYNDROME Current Active Problems ACS (acute coronary syndrome) (Acute) CAD (coronary artery disease) (Acute) HLD (hyperlipidemia) (Acute) HTN (hypertension) (Acute) NSTEMI (non-ST elevated myocardial infarction) (Acute) Hospital Course: see H& P Condition: Stable - Instructions Referrals: Jenn Valderrama MD [Primary Care Provider] - Disposition: TRANSFER ACUTE CARE/OTHER HOSP - Home Medications Comprehensive Discharge Medication List: Ambulatory Orders Esomeprazole Mag Trihydrate [Nexium] 20 mg PO BID 01/26/12 Insulin Glargine,Hum.rec.anlog [Lantus] 46 unit SQ AM 01/26/12 Levothyroxine [Synthroid -] 50 mcg PO HS 01/26/12 Metformin HCl [Glucophage -] 800 mg PO BID@0700,1630 01/26/12 Simvastatin 40 mg PO HS 01/26/12 Zolpidem Tartrate [Ambien] 10 mg PO HS 09/25/15 Oxycodone HCl/Acetaminophen [Percocet 5-325 mg Tablet] 1 - 2 combo PO Q6H PRN # 30 tablet MDD 4 09/28/15 Iron,Carbonyl/Ascorbic Acid [Vitron-C Tablet] 1 each PO DAILY 11/13/15 Nifedipine [Nifedical Xl] 30 mg PO DAILY 11/13/15 Oxycodone HCl/Acetaminophen [Percocet 5-325 mg Tablet] 1 - 2 tab PO Q4H #20 tablet MDD 6 11/14/15
[2016-07-02 11:12] LABS: TROPONIN I 1.49 ng/ml (0.00-0.05)
--- NOTE | 2016-07-02 13:57 | EKG ---
Test Reason : Blood Pressure : / mmHG Vent. Rate : 066 BPM Atrial Rate : 066 BPM P-R Int : 160 ms QRS Dur : 070 ms QT Int : 414 ms P-R-T Axes : 025 -22 -06 degrees QTc Int : 434 ms Poor baseline [place] NORMAL SINUS RHYTHM MINIMAL VOLTAGE CRITERIA FOR LVH, MAY BE NORMAL VARIANT NO PREVIOUS ECGS AVAILABLE Confirmed by MD STEPHENS MARJORY ([id number]) on 07/02/2016 1:56:55 PM Referred By: MD HERNANDEZ Confirmed By:JOHNY STEPHENS MD
--- NOTE | 2016-07-02 14:11 | EKG ---
Test Reason : Blood Pressure : / mmHG Vent. Rate : 055 BPM Atrial Rate : 055 BPM P-R Int : 166 ms QRS Dur : 078 ms QT Int : 478 ms P-R-T Axes : 001 -15 007 degrees QTc Int : 457 ms SINUS BRADYCARDIA OTHERWISE NORMAL ECG WHEN COMPARED WITH ECG OF 01-JUL-2016 20:59, NO SIGNIFICANT CHANGE WAS FOUND Confirmed by OBDULIA HUMPHREY MD ([id number]) on 07/02/2016 2:10:55 PM Referred By: Confirmed By:OBDULIA HUMPHREY MD
[2016-07-02] MEDS ORDERED: ENOXAPARIN NA (PORCINE) 80 MG/0.8 ML DISP.SYRIN SQ SCH ×2 (18:00)
[2016-07-02] MEDS ORDERED: LEVOTHYROXINE NA 50 MCG TABLET (FP) PO SCH (22:00)
[2016-07-02] MEDS ORDERED: ATORVASTATIN CA 80 MG TABLET (FP) PO SCH (22:00)
[2016-07-02] MEDS ORDERED: CLOPIDOGREL BISULFATE 75 MG TABLET (FP) PO SCH (22:00)
[2016-07-02] MEDS ORDERED: ASPIRIN 81 MG CHEWABLE TABLETS PO SCH (22:00)
[2016-07-02] MEDS ORDERED: ATORVASTATIN CA 20 MG TABLET (FP) PO SCH (22:00)
--- NOTE | 2016-07-08 14:42 | EKG ---
Test Reason : Blood Pressure : / mmHG Vent. Rate : 059 BPM Atrial Rate : 059 BPM P-R Int : 158 ms QRS Dur : 078 ms QT Int : 438 ms P-R-T Axes : 003 -19 -16 degrees QTc Int : 433 ms SINUS BRADYCARDIA NONSPECIFIC T WAVE ABNORMALITY ABNORMAL ECG WHEN COMPARED WITH ECG OF 01-JUL-2016 20:59, NONSPECIFIC T WAVE ABNORMALITY NOW EVIDENT IN ANTERIOR LEADS Confirmed by JC PASCUAL MD ([id number]) on 07/08/2016 2:41:50 PM Referred By: Confirmed By:JC PASCUAL MD
== END 2016-07-02 10:30 | disposition short-term general hospital (02) | DRG 190 ==
LOC: FER 20:29 → FM/S 22:52 → UNDOADMOB 22:52 → JICU 22:52 → UNDOADMOB 23:22 → FM/S 23:22 → OBSVTOIN 07-02 05:10 → INTOOBSV 07-02 05:10 → JICU 07-02 05:18 → FM/S 07-02 05:18 → JICU 07-02 05:25 → UNDODISIN 07-02 10:30
PROVIDERS: ADMIT Internal Medicine; ATTEND Internal Medicine
DX: I21.4 Non-ST elevation (NSTEMI) myocardial infarction (principal); I20.0 Unstable angina; I25.10 Atherosclerotic heart disease of native coronary artery without angina pectoris; E78.5 Hyperlipidemia, unspecified; I10 Essential (primary) hypertension; K21.9 Gastro-esophageal reflux disease without esophagitis; E03.9 Hypothyroidism, unspecified; E11.9 Type 2 diabetes mellitus without complications; M34.9 Systemic sclerosis, unspecified; R07.9 Chest pain, unspecified
CPT/HCPCS: 36415; 71010-TC; 80053; 82550; 82553; 83605; 83735; 83880; 84100; 84132; 84439; 84443; 84481; 84484; 85025; 85610; 85730; 87040; 87254; 87804; 93005; 99285-25

== ENCOUNTER → 2016-08-24 | Emergency (ER) | payer OTHER ==
[2016-08-24 20:29] VITALS: BP 120/61; PULSE 64; TEMP 97.4; BMI 31.4
--- NOTE | 2016-08-24 23:54 | PDOC ---
History of Present Illness - General Chief Complaint: Blood Sugar Problem Stated Complaint: LOW BLOOD SUGAR Time Seen by Provider: 08/24/16 23:25 Past History - Past Medical History Allergies/Adverse Reactions: Allergies Allergy/AdvReac Type Severity Reaction Status Date / Time Sulfa (Sulfonamide Allergy Mild Verified 08/24/16 20:27 Antibiotics) [Sulfa(Sulfonamide Antibiotics)] Home Medications: Ambulatory Orders Esomeprazole Mag Trihydrate [Nexium] 20 mg PO BID 01/26/12 Insulin Glargine,Hum.rec.anlog [Lantus] 46 unit SQ AM 01/26/12 Levothyroxine [Synthroid -] 50 mcg PO HS 01/26/12 Metformin HCl [Glucophage -] 800 mg PO BID@0700,1630 01/26/12 Simvastatin 40 mg PO HS 01/26/12 Zolpidem Tartrate [Ambien] 10 mg PO HS 09/25/15 Oxycodone HCl/Acetaminophen [Percocet 5-325 mg Tablet] 1 - 2 combo PO Q6H PRN # 30 tablet MDD 4 09/28/15 Iron,Carbonyl/Ascorbic Acid [Vitron-C Tablet] 1 each PO DAILY 11/13/15 Nifedipine [Nifedical Xl] 30 mg PO DAILY 11/13/15 Oxycodone HCl/Acetaminophen [Percocet 5-325 mg Tablet] 1 - 2 tab PO Q4H #20 tablet MDD 6 11/14/15 Anemia: Yes Asthma: No Cancer: No Cardiac Disorders: Yes (Murmur) CVA: No COPD: No CHF: No Dementia: No Diabetes: Yes GI Disorders: Yes (GERD) Disorders: No HTN: Yes Hypercholesterolemia: Yes Liver Disease: No Suicide Attempt (Hx): No Seizures: No Thyroid Disease: Yes (HYPO) - Surgical History Abdominal Surgery: No Appendectomy: No Cardiac Surgery: No Cholecystectomy: No Lung Surgery: No Neurologic Surgery: No Orthopedic Surgery: Yes (Laminectomy x3,Right hand surgery) - Immunization History Td Vaccination: Yes Immunization Up to Date: (UNSURE) - Psycho/Social/Smoking Cessation Hx Anxiety: No Suicidal Ideation: No Smoking Status: No Smoking History: Never smoked Have you smoked in the past 12 months: No Number of Cigarettes Smoked Daily: 0 Information on smoking cessation initiated: No Hx Alcohol Use: No Drug/Substance Use Hx: No Substance Use Type: None Hx Substance Use Treatment: No *Physical Exam - Vital Signs Last Vital Signs Temp Pulse Resp BP Pulse Ox 97.4 F L 64 18 120/61 99 08/24/16 20:27 08/24/16 20:27 08/24/16 20:27 08/24/16 20:27 08/24/16 20:27 *DC/Admit/Observation/Transfer Diagnosis at time of Disposition: Hypoglycemia - Discharge Dispostion Disposition: AGAINST MEDICAL ADVICE - Patient Instructions Printed Discharge Instructions: DI for Hypoglycemia
--- NOTE | 2016-08-25 12:03 | EKG ---
Test Reason : Blood Pressure : / mmHG Vent. Rate : 062 BPM Atrial Rate : 062 BPM P-R Int : 164 ms QRS Dur : 074 ms QT Int : 436 ms P-R-T Axes : 013 -18 -06 degrees QTc Int : 442 ms NORMAL SINUS RHYTHM NORMAL ECG WHEN COMPARED WITH ECG OF 02-JUL-2016 09:21, NO SIGNIFICANT CHANGE WAS FOUND Confirmed by ANKUR IRAHETA MD ([id number]) on 08/25/2016 12:02:27 PM Referred By: Confirmed By:ANKUR IRAHETA MD
== END | disposition left against medical advice (07) ==
LOC: JER 20:18
DX: E11.649 Type 2 diabetes mellitus with hypoglycemia without coma (principal); Z79.4 Long term (current) use of insulin; Z79.84 Long term (current) use of oral hypoglycemic drugs; E03.9 Hypothyroidism, unspecified; I10 Essential (primary) hypertension; E78.00 Pure hypercholesterolemia, unspecified
CPT/HCPCS: 93005; 93010; 99282-25

== ENCOUNTER 2017-04-30 04:54 | Inpatient (IN) | payer MEDICARE, OTHER ==
--- NOTE | 2017-04-30 05:00 | PDOC ---
History of Present Illness - General Chief Complaint: Redness To Affected Area Stated Complaint: LT ELBOW REDNESS/SWELLING Time Seen by Provider: 04/30/17 04:59 - History of Present Illness Initial Comments: 04/30/17 05:38 This 56-year-old woman with a history of coronary artery disease (NSTEMI 06/23 with subsequent stent placement) insulin dependent diabetes mellitus, cellulitis and scleroderma presents with a one-day history of right elbow edema/ erythema/pain. Patient denies trauma to the area. She noted discomfort with movement of the elbow yesterday. Today () she noted progressive with worsening tenderness and swelling with severe pain on movement. There has been no fever or chills.Patient states that she has numerous small papules on her skin related to her scleroderma but has had no other lesions in the area of her current inflammation Patient has a history of right forearm cellulitis/abscess in September,. She required numerous incision and drainage procedures in this area which took months to heal. Patient states she was positive for MRSA from the abscess in this area. She denies chest pain/shortness of breath currently. She has had recent abdominal pain/constipation for which she is being evaluated by Dr. Ugalde Patient's PMD is Dr. Jenn Villegas Past History - Past Medical History Allergies/Adverse Reactions: Allergies Allergy/AdvReac Type Severity Reaction Status Date / Time Sulfa (Sulfonamide Allergy Mild Verified 08/24/16 20:27 Antibiotics) [Sulfa(Sulfonamide Antibiotics)] Home Medications: Ambulatory Orders Levothyroxine [Synthroid -] 100 mcg PO HS 01/26/12 Metformin HCl [Glucophage -] 500 mg PO BID@0700,1630 01/26/12 Zolpidem Tartrate [Ambien] 10 mg PO HS 09/25/15 Iron,Carbonyl/Ascorbic Acid [Vitron-C Tablet] 1 each PO DAILY 11/13/15 Nifedipine [Nifedical Xl] 30 mg PO DAILY 11/13/15 Aspirin [ASA -] 81 mg PO DAILY 08/25/16 Atorvastatin Ca [Lipitor] 40 mg PO HS 08/25/16 Carvedilol [Coreg -] 6.25 mg PO BID 08/25/16 Clopidogrel Bisulfate [Clopidogrel] 75 mg PO DAILY 08/25/16 Pantoprazole Sodium 40 mg PO BID 04/07/17 Metronidazole 250 mg PO TID 04/30/17 Oxycodone HCl/Acetaminophen [Percocet 5-325 mg Tablet] 1 - 2 tab PO TID MDD 6 Polyethylene Glycol [Polyox Wsr-301] 1 gm PO DAILY 04/30/17 Anemia: Yes Asthma: No Cancer: No Cardiac Disorders: Yes (Murmur) CVA: No COPD: No CHF: No Dementia: No Diabetes: Yes GI Disorders: Yes (GERD) Disorders: No HTN: Yes Hypercholesterolemia: Yes Liver Disease: No Seizures: No Thyroid Disease: Yes (HYPO) - Surgical History Abdominal Surgery: No Appendectomy: No Cardiac Surgery: No Cholecystectomy: No Lung Surgery: No Neurologic Surgery: No Orthopedic Surgery: Yes (Laminectomy x3,Right hand surgery) - Immunization History Td Vaccination: Yes Immunization Up to Date: (UNSURE) - Suicide/Smoking/Psychosocial Hx Smoking Status: No Smoking History: Never smoked Have you smoked in the past 12 months: No Number of Cigarettes Smoked Daily: 0 Hx Alcohol Use: No Drug/Substance Use Hx: No Substance Use Type: None Hx Substance Use Treatment: No Review of Systems - Review of Systems Able to Perform ROS?: Yes Comments:: 12 point review of systems is negative except for what is noted in the history of present illness *Physical Exam - Physical Exam Comments: GENERAL: Adult female, alert and oriented 3, in mild distress secondary to left elbow pain HEAD: Normal with no signs of trauma. EYES: PERRLA, EOMI, sclera anicteric, conjunctiva clear. ENT: Ears normal, nares patent, oropharynx clear without exudates. Dry mucous membranes. NECK: Normal range of motion, supple without lymphadenopathy, JVD, or masses. LUNGS: Breath sounds equal, clear to auscultation bilaterally. No wheezes, and no crackles. HEART:Regular rate and rhythm, normal S1 and S2 without murmur, rub or gallop. ABDOMEN:.normal bowel sounds No guarding,tenderness or rebound.No masses No distention. NEUROLOGICAL: Cranial nerves II through XII grossly intact. Normal speech. No focal neurological deficits. MUSCULOSKELETAL: Back non-tender to palpation, no CVA tenderness SKIN: Left elbow- Olecranon process-4 cm x 5 cm edematous/erythematous/warm to touch;nonfluctuant tiny central papule without drainage or lymphangitic streaking pain with passive and active extension of elbow left anterior tibial surface,distal aspect- 2cm X 2cm non-tender, erythematous shallow wound ED Treatment Course - LABORATORY CBC & Chemistry Diagram: 04/30/17 05:10 04/30/17 05:10 Medical Decision Making - Medical Decision Making Patient given vancomycin 1 g IV after blood cultures drawn. 2 mg morphine IV given for analgesia. Laboratory evaluation for white blood cell count of 15,900. Mild anemia is present with hemoglobin 8.9 and hematocrit of 28.9. Most recent comparable values (from June,) is Lactic acid is normal at 1.6. This 56-year-old woman with history of insulin-dependent diabetes mellitus, scleraderma and cellulitis of the right arm a year and a half ago has rapidly progressive left elbow cellulitis that will require IV antibiotics and close observation. On exam, there is no area is draining. There is a central, tiny papule that is not fluctuant. The patient much prefers not to be admitted to [facility]. The patient's PMD is Dr Jenn Villegas who does not admit to [facility]. since laboratory evaluation does not clearly indicate that the patient's infection is systemic is appropriate. Therefore, admission to [facility] was appropriate. [facility] hospitalist service has been contacted. *DC/Admit/Observation/Transfer Diagnosis at time of Disposition: Cellulitis of left elbow - Discharge Dispostion Condition at time of disposition: Stable Admit: Yes - Referrals Referrals: Jenn Valderrama MD [Primary Care Provider] - - Patient Instructions - Post Discharge Activity
[2017-04-30] MEDS ORDERED: morphine CARPU-JECT 2 MG/1 ML DISP.SYRIN IVPUSH ONE (05:36)
[2017-04-30] MEDS ORDERED: VANCOMYCIN 1,000 MG in DEXTROSE 5%-WATER - 250 ML IVPB ONE (05:37)
[2017-04-30] MEDS ORDERED: VANCOMYCIN 1,000 MG VIAL (RESTRICTED TO ID ONLY) ONE (05:40)
[2017-04-30] MEDS ORDERED: morphine CARPU-JECT 2 MG/1 ML DISP.SYRIN ONE (05:40)
[2017-04-30 05:41] LABS: BASO % 0.3 % (0-2.0); EOS % 5.6 % (0-4.5); HEMATOCRIT 28.9 % (32.4-45.2); HEMOGLOBIN 8.9 GM/dL (10.7-15.3); LYMPH % 18.3 % (8-40); MCHC 30.6 g/dl (32.0-36.0); MEAN CELL VOLUME 71.7 fl (80-96); MEAN PLT VOLUME 7.1 fl (7.5-11.1); MONO % 9.1 % (3.8-10.2); NEUT % 66.7 % (42.8-82.8); PLATELET COUNT 408 K/MM3 (134-434); RBC 4.03 M/mm3 (3.60-5.2); RDW 17.7 % (11.6-15.6); WHITE BLOOD COUNT 15.9 K/mm3 (4.0-10.0)
[2017-04-30 05:57] LABS: INR 1.12 (0.82-1.09); PROTHROMBIN TIME (PATIENT) 12.7 SEC (9.98-11.88)
[2017-04-30 06:20] LABS: ALBUMIN 3.6 g/dl (3.4-5.0); ALK PHOS 120 U/L (45-117); ANION GAP 9 (8-16); BILIRUBIN,TOTAL 0.6 mg/dL (0.2-1.0); BLOOD UREA NITROGEN 19 mg/dL (7-18); CALCIUM 8.8 mg/dL (8.5-10.1); CHLORIDE 106 mmol/L (98-107); CO2 26 mmol/L (21-32); CREATININE 0.8 mg/dL (0.55-1.02); GLUCOSE,RANDOM 137 mg/dL (74-106); POTASSIUM 4.3 mmol/L (3.5-5.1); SGOT/AST 19 U/L (15-37); SGPT/ALT 20 U/L (12-78); SODIUM 141 mmol/L (136-145); TOT PROT 6.4 g/dl (6.4-8.2)
[2017-04-30] MEDS ORDERED: morphine CARPU-JECT 4 MG/1 ML DISP.SYRIN IVPUSH ONE (06:36)
[2017-04-30] MEDS ORDERED: morphine SULFATE 4 MG/ML VIAL ONE (06:42)
[2017-04-30 08:23] LABS: URINE APPEARANCE Clear; URINE BILIRUBIN Negative (NEGATIVE); URINE GLUCOSE (UA) Negative (NEGATIVE); URINE KETONE Negative (NEGATIVE); URINE LEUK ESTERASE Negative (NEGATIVE); URINE NITRITE Negative (NEGATIVE); URINE PROTEIN Negative (NEGATIVE); URINE UROBILINOGEN 0.2 (0.2-1.0)
[2017-04-30 08:29] LABS: URINE BLOOD Trace-intact (NEGATIVE); URINE COLOR YELLOW
[2017-04-30 08:42] LABS: EPI CELLS FEW /HPF; URINE BACTERIA FEW /hpf (NEGATIVE); URINE RBC 0-3 /hpf (0-3); URINE WBC 0-3 (0-5)
[2017-04-30] MEDS: ACETAMINOPHEN 325 MG TABLET (FP) PO PRN ×2 (09:48→16:57)
--- NOTE | 2017-04-30 09:53 | PN ---
Progress Note (short form) - Note Progress Note: ID Consult dictated Cellulitis L UE Leukocytosis R/O sepsis Hx MRSA Await c/s Empiric Vancomycin Doppler L UE
[2017-04-30] MEDS ORDERED: VANCOMYCIN 1,000 MG in DEXTROSE 5%-WATER - 250 ML IVPB SCH (10:00)
[2017-04-30 12:06] VITALS: BMI 27.4
[2017-04-30] MEDS ORDERED: oxyCODONE HCL 5 MG TABLET PO ONE (12:09)
--- NOTE | 2017-04-30 13:27 | HP ---
CHIEF COMPLAINT: Right elbow pain and swelling PCP: Dr. Jenn Valderrama HISTORY OF PRESENT ILLNESS: 56 year-old woman with a PMH significant for CAD s/p NSTEMI s/p stent (06/2016) , NIDDM, scleroderma, hypothyroidism, and RUE MRSA cellulitis (multiple drainages/wound vac, 09/2015). Two days ago started to develop pain, redness, and swelling to LEFT elbow which has become progressively worse. She does not recall any trauma or skin break to the site. She reports fever at home to 99.0 and shaking chills since yesterday. Patient denies chest pain, palpitations, SOB , LA, and lower extremity edema. Denies headache, cough. Denies urinary tract symptoms. Patient was in [place] for 12 days in March where she developed an acute sinusitis. Over the past six weeks she has completed two courses of amoxicillin for a total of three weeks of treatment with resolution of sinusitis. Started on prophylactic metronidazole last week by Dr. Ugalde for severe constipation secondary to scleroderma. ER course was notable for: (1) WBC 15.9k (2) LUE duplex negative for DVT Recent Travel: [place], March 2017 PAST MEDICAL HISTORY: CAD s/p NSTEMI NIDDM Scleroderma RUE MRSA cellulitis PAST SURGICAL HISTORY: Coronary stent Social History: Smoking: no Alcohol: no Drugs: no Family History: Mother 47 colon cancer; father 50's CVA; brother alive with HTN, second brother a&w Allergies Sulfa (Sulfonamide Antibiotics) [Sulfa(Sulfonamide Antibiotics)] Allergy (Mild, Verified 08/24/16 20:27) HOME MEDICATIONS: Medication Instructions Recorded Levothyroxine [Synthroid -] 100 mcg PO HS 01/26/12 Metformin HCl [Glucophage -] 500 mg PO BID@0700,1630 01/26/12 Zolpidem Tartrate [Ambien] 10 mg PO HS 09/25/15 Iron,Carbonyl/Ascorbic Acid 1 each PO DAILY 11/13/15 [Vitron-C Tablet] Nifedipine [Nifedical Xl] 30 mg PO DAILY 11/13/15 Aspirin [ASA -] 81 mg PO DAILY 08/25/16 Atorvastatin Ca [Lipitor] 40 mg PO HS 08/25/16 Carvedilol [Coreg -] 6.25 mg PO BID 08/25/16 Clopidogrel Bisulfate [Clopidogrel] 75 mg PO DAILY 08/25/16 Pantoprazole Sodium 40 mg PO BID 09/11/16 Metronidazole 250 mg PO TID 04/30/17 Oxycodone HCl/Acetaminophen 1 - 2 tab PO TID MDD 6 04/30/17 [Percocet 5-325 mg Tablet] Polyethylene Glycol [Polyox 1 gm PO DAILY 04/30/17 Wsr-301] REVIEW OF SYSTEMS CONSTITUTIONAL: Present: fever, chills, loss of appetite, weight change Absent: diaphoresis, generalized weakness, malaise HEENT: Absent: rhinorrhea, nasal congestion, throat pain, throat swelling, difficulty swallowing, mouth swelling, ear pain, eye pain, visual changes CARDIOVASCULAR: Absent: chest pain, syncope, palpitations, irregular heart rate, lightheadedness , peripheral edema RESPIRATORY: Absent: cough, shortness of breath, dyspnea with exertion, orthopnea, wheezing, stridor, hemoptysis GASTROINTESTINAL: Absent: abdominal pain, abdominal distension, nausea, vomiting, diarrhea, constipation, melena, hematochezia GENITOURINARY: Absent: dysuria, frequency, urgency, hesitancy, hematuria, flank pain, genital pain MUSCULOSKELETAL: Absent: myalgia, arthralgia, joint swelling, back pain, neck pain SKIN: Absent: rash, itching, pallor HEMATOLOGIC/IMMUNOLOGIC: Absent: easy bleeding, easy bruising, lymphadenopathy, frequent infections ENDOCRINE: Absent: unexplained weight gain, unexplained weight loss, heat intolerance, cold intolerance NEUROLOGIC: Absent: headache, focal weakness or paresthesias, dizziness, unsteady gait, seizure, mental status changes, bladder or bowel incontinence PSYCHIATRIC: Absent: anxiety, depression, suicidal or homicidal ideation, hallucinations. PHYSICAL EXAMINATION Vital Signs - 24 hr 04/30/17 04/30/17 04/30/17 04:55 07:21 09:00 Temperature 98.9 F 99 F Pulse Rate 73 78 Respiratory 16 16 16 Rate Blood Pressure 124/55 128/70 O2 Sat by Pulse 95 95 95 Oximetry (%) GENERAL: Awake, alert, and fully oriented, in mild distress secondary to pain. HEAD: Normal with no signs of trauma. EYES: Pupils equal, round and reactive to light, extraocular movements intact, sclera anicteric, conjunctiva clear. No ptosis. EARS, NOSE, THROAT: Ears normal, nares patent, oropharynx clear without exudates. Dry mucous membranes. Poor dentition. NECK: Normal range of motion, supple without lymphadenopathy, JVD, or masses. LUNGS: Breath sounds equal, clear to auscultation bilaterally. No wheezes, and no crackles. No accessory muscle use. HEART: Regular rate and rhythm, normal S1 and S2 without murmur, rub or gallop. ABDOMEN: Soft, nontender, not distended, normoactive bowel sounds, no guarding, no rebound, no masses. UPPER EXTREMITIES: 2+ pulses, warm, well-perfused. No cyanosis. No clubbing. Right elbow with swelling, warmth, erythema and a small pustule; exquisitely tender; not fluctuant; limited ROM secondary to pain; no lymphangitis LOWER EXTREMITIES: 2+ pulses, warm, well-perfused. No calf tenderness. No peripheral edema. NEUROLOGICAL: Cranial nerves II-XII intact. Normal speech. Laboratory Results - last 24 hr 04/30/17 04/30/17 04/30/17 04:41 05:10 05:10 WBC 15.9 H D RBC 4.03 Hgb 8.9 L D Hct 28.9 L MCV 71.7 L MCH 22.0 L MCHC 30.6 L RDW 17.7 H D Plt Count 408 MPV 7.1 L Neutrophils % 66.7 Lymphocytes % 18.3 D Monocytes % 9.1 Eosinophils % 5.6 H D Basophils % 0.3 PT with INR INR Sodium 141 Potassium 4.3 Chloride 106 Carbon Dioxide 26 Anion Gap 9 BUN 19 H D Creatinine 0.8 D Creat Clearance w eGFR > 60 Random Glucose 137 H D Lactic Acid 1.6 Calcium 8.8 Total Bilirubin 0.6 AST 19 D ALT 20 Alkaline Phosphatase 120 H D Creatine Kinase Troponin I C-Reactive Protein Total Protein 6.4 Albumin 3.6 Urine Color Urine Appearance Urine pH Ur Specific [place] Urine Protein Urine Glucose (UA) Urine Ketones Urine Blood Urine Nitrite Urine Bilirubin Urine Urobilinogen Ur Leukocyte Esterase Urine RBC Urine WBC Ur Epithelial Cells Urine Bacteria 04/30/17 04/30/17 04/30/17 05:10 05:10 05:10 WBC RBC Hgb Hct MCV MCH MCHC RDW Plt Count MPV Neutrophils % Lymphocytes % Monocytes % Eosinophils % Basophils % PT with INR 12.70 H INR 1.12 Sodium Potassium Chloride Carbon Dioxide Anion Gap BUN Creatinine Creat Clearance w eGFR Random Glucose Lactic Acid Calcium Total Bilirubin AST ALT Alkaline Phosphatase Creatine Kinase 81 Troponin I < 0.02 C-Reactive Protein 0.5 H Total Protein Albumin Urine Color Urine Appearance Urine pH Ur Specific [place] Urine Protein Urine Glucose (UA) Urine Ketones Urine Blood Urine Nitrite Urine Bilirubin Urine Urobilinogen Ur Leukocyte Esterase Urine RBC Urine WBC Ur Epithelial Cells Urine Bacteria 04/30/17 08:03 WBC RBC Hgb Hct MCV MCH MCHC RDW Plt Count MPV Neutrophils % Lymphocytes % Monocytes % Eosinophils % Basophils % PT with INR INR Sodium Potassium Chloride Carbon Dioxide Anion Gap BUN Creatinine Creat Clearance w eGFR Random Glucose Lactic Acid Calcium Total Bilirubin AST ALT Alkaline Phosphatase Creatine Kinase Troponin I C-Reactive Protein Total Protein Albumin Urine Color Yellow Urine Appearance Clear Urine pH 6.0 Ur Specific [place] 1.015 Urine Protein Negative Urine Glucose (UA) Negative Urine Ketones Negative Urine Blood Trace-intact H Urine Nitrite Negative Urine Bilirubin Negative Urine Urobilinogen 0.2 Ur Leukocyte Esterase Negative Urine RBC 0-3 Urine WBC 0-3 Ur Epithelial Cells Few Urine Bacteria Few ASSESSMENT/PLAN: 56 year-old woman with a PMH significant for CAD s/p NSTEMI s/p stent (06/2016) , NIDDM, scleroderma, hypothyroidism, and RUE MRSA cellulitis (multiple drainages/wound vac, 09/2015). Admitted for right elbow cellulitis. Severe sepsis secondary to RUE abscess/cellulitis --fever 100.4, BP 89/59, cbc 15.5k, RR 24 all within 6 hours; lactic acid wnl --on clinical exam erythema, edema, warmth of right elbow with pustular head --CT RUE: subq edema along the posterior half of the elbow and at the level of the partially imaged upper arm and forearm; small amount of fluid within the deep subq tissues abutting the triceps from the mid upper arm to the olecranon process --start Vanc and Zosyn --ID following CAD s/p NSTEMI s/p stent --continue ASA, plavix, atorvastatin --hold nifedipine, carvedilol secondary to sepsis NIDDM --Novolog sliding scale coverage Scleroderma Severe constipation Dysphagia --patient states loss of 50lbs over past 6 months due to decreased PO intake secondary to dry mouth and difficulty swallowing secondary to scleroderma; she does not report choking or coughing with food intake --started last week on metronidazole by Dr. Ugalde for severe constipation that requires patient to self-disimpact --continue metronidazole PO TID, protonix BID, bowel regimen --swallow evaluation --close monitoring for signs of obstruction and/or abdominal infection Hypothyroidism --continue levothyroxine F/E/N Fluids: 2L bolus NS; then 125mL/hr Electrolytes: replete as indicated Nutrition: soft, diabetic, low sodium pending swallow evaluation DVT prophylaxis: subq heparin Physical therapy evaluation Dispo: continues to require inpatient care. Full code. Visit type - Emergency Visit Emergency Visit: Yes ED Registration Date: 04/30/17 Care time: The patient presented to the Emergency Department on the above date and was hospitalized for further evaluation of their emergent condition. - New Patient This patient is new to me today: Yes Date on this admission: 05/01/17 - Critical Care Critical Care patient: No
[2017-04-30] MEDS: CARVEDILOL 6.25 MG TABLET (FP) PO SCH ×2 (15:15→21:20)
[2017-04-30] MEDS: NIFEdipine E.R. 30 MG TABLET (FP) PO SCH (15:15)
[2017-04-30] MEDS: ASPIRIN 81 MG CHEWABLE TABLETS PO SCH (15:15)
[2017-04-30] MEDS: CLOPIDOGREL BISULFATE 75 MG TABLET (FP) PO SCH (15:15)
[2017-04-30] MEDS: DOCUSATE SODIUM 100 MG CAPSULE (FP) PO SCH ×2 (15:15→21:20)
[2017-04-30] MEDS: HEPARIN NA (PORCINE) 5,000 UNITS/ML 1ML VIAL SQ SCH ×2 (15:16→17:33)
[2017-04-30 15:50] LABS: BASO % 0.2 % (0-2.0); EOS % 4.1 % (0-4.5); HEMATOCRIT 26.8 % (32.4-45.2); HEMOGLOBIN 8.3 GM/dl (10.7-15.3); LYMPH % 16.3 % (8-40); MCH 22.1 pg (25.7-33.7); MEAN CELL VOLUME 71.3 fl (80-96); MEAN PLT VOLUME 7.6 fl (7.5-11.1); MONO % 9.7 % (3.8-10.2); NEUT % 69.7 % (42.8-82.8); PLATELET COUNT 373 K/MM3 (134-434); RBC 3.76 M/mm3 (3.60-5.2); RDW 16.9 % (11.6-15.6); WHITE BLOOD COUNT 15.5 K/mm3 (4.0-10.8)
[2017-04-30 15:58] LABS: ADD RBC MORPHOLOGY YES
[2017-04-30 16:00] LABS: MAGNESIUM 1.6 mg/dL (1.8-2.4); PHOSPHOROUS 3.4 mg/dl (2.5-4.6)
[2017-04-30] MEDS: PIPERACILLIN/TAZOB 3.375 GM/50 ML PRE-DOCKED IVPB SCH ×2 (16:08→23:20)
[2017-04-30] MEDS: POLYETHYLENE GLYCOL 3350 119 GM BTL PO SCH ×2 (16:08→21:20)
[2017-04-30] MEDS: PANTOPRAZOLE 40 MG TABLET (FP) PO SCH ×2 (16:08→21:19)
[2017-04-30] MEDS: metroNIDAZOLE 250 MG TABLET PO SCH ×2 (16:08→21:55)
[2017-04-30] MEDS: MAGNESIUM SULF 50% (8.12 MEQ/2 ML-1 GM VIAL) IVPB ONE ×2 (16:57→17:33)
[2017-04-30] MEDS: INSULIN (NOVOLOG) ASPART 100 UNITS/ML 10ML VIAL SQ SCH ×2 (16:57→21:56)
[2017-04-30] MEDS: VANCOMYCIN 1 GRAM (PRE-DOCKED) 1,000 MG/250 ML BAG IVPB SCH (17:33)
--- NOTE | 2017-04-30 18:24 | RAPID ---
Physical Examination Vital Signs: Vital Signs Temperature 101.5 F H 04/30/17 16:50 Pulse Rate 74 04/30/17 16:50 Respiratory Rate 24 04/30/17 16:50 Blood Pressure 118/54 04/30/17 16:50 O2 Sat by Pulse Oximetry (%) 95 04/30/17 09:00 Findings/Remarks: Summoned to patient's bedside by RN who states patient complaining of acute onset of mid-sternal chest pain. Patient found lying supine in bed, tearful, anxious, complaining of severe mid-sternal chest pain which awoke her from sleep. Vital signs: BP 114/46, pulse 78, RR 24, SaO2 98% on room air. Physical exam: Neuro: A&Ox3 Pulm: CTA CV: S1, S2, rrr Abd: soft, not distended; tenderness over epigastrum Ext: 2+ pulses, warm, well-perfused Assessment & Plan Acute mid-epigastric pain --r/o cardiac etiology: ECG shows sinus rhythm @ 76bpm without change from previous; troponins x 3, cbc, cmp, Mg, lactic acid; repeat CXR --r/o GI etiology: flat & upright film; continue protonix BID --r/o respiratory etiology: repeat CXR --r/o infectious etiology: continue broad spectrum Vanc and Zosyn, and PO metronidazole; unlikely abdomen is source of severe sepsis, but will monitor closely; consider CTAP if epigastric pain persists Labs: CBC, BMP 04/30/17 15:10 04/30/17 05:10
[2017-04-30 18:55] LABS: PH,URINE 6.5 (4.5-8); URINE APPEARANCE Clear; URINE BILIRUBIN Negative (NEGATIVE); URINE GLUCOSE (UA) Negative (NEGATIVE); URINE KETONE Negative (NEGATIVE); URINE NITRITE Negative (NEGATIVE); URINE PROTEIN Negative (NEGATIVE); URINE UROBILINOGEN 0.2 (0.2-1.0)
[2017-04-30 19:06] LABS: URINE BLOOD Trace-intact (NEGATIVE); URINE COLOR YELLOW
[2017-04-30 19:11] LABS: ALBUMIN 3.3 g/dl (3.5-5.0); ALK PHOS 75 U/L (32-92); ANION GAP 7 (8-16); BILIRUBIN,TOTAL 0.9 mg/dl (0.2-1.0); BLOOD UREA NITROGEN 14 mg/dl (7-18); CALCIUM 8.5 mg/dl (8.4-10.2); CHLORIDE 103 mmol/L (98-107); CO2 22 mmol/L (22-28); CREATININE 0.8 mg/dl (0.6-1.3); GLUCOSE,RANDOM 141 mg/dl (74-106); MAGNESIUM 1.5 mg/dL (1.8-2.4); SGOT/AST 17 U/L (10-42); SGPT/ALT 11 U/L (10-40); SODIUM 132 mmol/L (136-145); TOT PROT 5.5 g/dl (6.4-8.3)
[2017-04-30 19:12] LABS: BASO % 0.4 % (0-2.0); HEMATOCRIT 27.7 % (32.4-45.2); HEMOGLOBIN 8.6 GM/dl (10.7-15.3); LYMPH % 16.2 % (8-40); MCH 22.1 pg (25.7-33.7); MCHC 31.1 g/dl (32.0-36.0); MEAN CELL VOLUME 71.2 fl (80-96); MEAN PLT VOLUME 7.5 fl (7.5-11.1); MONO % 7.7 % (3.8-10.2); NEUT % 71.7 % (42.8-82.8); PLATELET COUNT 329 K/MM3 (134-434); RBC 3.89 M/mm3 (3.60-5.2); RDW 17.3 % (11.6-15.6)
[2017-04-30] MEDS: oxyCODONE HCL 5 MG TABLET PO PRN (20:03)
[2017-04-30 20:25] LABS: EPI CELLS 0-3 /HPF; URINE RBC 0-3 /hpf (0-3); URINE WBC 0-3 (0-5)
[2017-04-30 20:29] LABS: ANISOCYTOSIS 1+; OVALOCYTE 1+; TEAR DROP CELLS 1+
[2017-04-30] MEDS ORDERED: SODIUM CHLORIDE 1,000 ML IV STA (20:59)
[2017-04-30] MEDS ORDERED: INSULIN (NOVOLOG) ASPART 100 UNITS/ML 10ML VIAL ONE (21:52)
[2017-04-30] MEDS: LEVOTHYROXINE NA 100 MCG TABLET (FP) PO SCH (21:55)
[2017-04-30] MEDS: ATORVASTATIN CA 40 MG TABLET (FP) PO SCH (21:55)
[2017-04-30] MEDS ORDERED: LEVOTHYROXINE NA 50 MCG TABLET (FP) PO SCH (22:00)
[2017-04-30] MEDS ORDERED: ATORVASTATIN CA 80 MG TABLET (FP) PO SCH (22:00)
[2017-04-30] MEDS ORDERED: SODIUM CHLORIDE 1,000 ML IV SCH (22:00)
[2017-04-30] MEDS: SODIUM CHLORIDE 1,000 ML IV SCH (23:00)
[2017-05-01] MEDS: HEPARIN NA (PORCINE) 5,000 UNITS/ML 1ML VIAL SQ SCH ×3 (01:15→17:23)
[2017-05-01] MEDS: ACETAMINOPHEN 325 MG TABLET (FP) PO PRN ×2 (01:15→17:33)
[2017-05-01] MEDS: oxyCODONE HCL 5 MG TABLET PO PRN ×3 (05:47→22:15)
[2017-05-01] MEDS: metroNIDAZOLE 250 MG TABLET PO SCH ×3 (05:47→22:15)
[2017-05-01] MEDS: VANCOMYCIN 1 GRAM (PRE-DOCKED) 1,000 MG/250 ML BAG IVPB SCH ×2 (05:47→17:24)
[2017-05-01] MEDS: PIPERACILLIN/TAZOB 3.375 GM/50 ML PRE-DOCKED IVPB SCH ×2 (08:00→17:25)
[2017-05-01] MEDS ORDERED: PIPERACILLIN/TAZOB 3.375 GM/50 ML PRE-DOCKED IVPB SCH (10:00)
[2017-05-01] MEDS: ASPIRIN 81 MG CHEWABLE TABLETS PO SCH (10:04)
[2017-05-01] MEDS: NIFEdipine E.R. 30 MG TABLET (FP) PO SCH (10:04)
[2017-05-01] MEDS: CARVEDILOL 6.25 MG TABLET (FP) PO SCH ×2 (10:04→22:08)
[2017-05-01] MEDS: PANTOPRAZOLE 40 MG TABLET (FP) PO SCH ×2 (10:04→22:15)
[2017-05-01] MEDS: CLOPIDOGREL BISULFATE 75 MG TABLET (FP) PO SCH (10:04)
[2017-05-01] MEDS: POLYETHYLENE GLYCOL 3350 119 GM BTL PO SCH ×2 (10:05→22:00)
[2017-05-01] MEDS: INSULIN (NOVOLOG) ASPART 100 UNITS/ML 10ML VIAL SQ SCH ×3 (11:30→22:06)
--- NOTE | 2017-05-01 14:00 | CON.ORTH ---
Consult Consult Specialty:: Orthopedic surgery Reason for Consultation:: LEFT elbow pain - History of Present Illness History of Present Illness: 56-year-old female with scleroderma complains of LEFT arm and elbow pain since night. She was admitted to [facility] hospital and placed and intravenous antibiotics. In addition she had a Doppler of the LEFT upper shoulder to rule out deep venous thrombosis which was negative. I was consult to today he goes there was a pustule at the tip of the elbow. She has a history of MRSA infection in the RIGHT upper extremity which required multiple debridements in the past. Other than pain she has no complaints. She does not recall any trauma or injury. - Past Medical History Cardio/Vascular: Yes: HTN, Hyperlipdemia Rheumatology: Yes: Other (scleroderma) Endocrine: Yes: Diabetes Mellitus - Alcohol/Substance Use Hx Alcohol Use: No - Smoking History Smoking history: Never smoked Have you smoked in the past 12 months: No Aproximately how many cigarettes per day: 0 - Social History ADL: Independent History of Recent Travel: No Home Medications - Allergies Allergies/Adverse Reactions: Allergies Allergy/AdvReac Type Severity Reaction Status Date / Time Sulfa (Sulfonamide Allergy Mild Verified 08/24/16 20:27 Antibiotics) [Sulfa(Sulfonamide Antibiotics)] - Home Medications Home Medications: Ambulatory Orders Levothyroxine [Synthroid -] 100 mcg PO HS 01/26/12 Metformin HCl [Glucophage -] 500 mg PO BID@0700,1630 01/26/12 Zolpidem Tartrate [Ambien] 10 mg PO HS 09/25/15 Iron,Carbonyl/Ascorbic Acid [Vitron-C Tablet] 1 each PO DAILY 11/13/15 Nifedipine [Nifedical Xl] 30 mg PO DAILY 11/13/15 Aspirin [ASA -] 81 mg PO DAILY 08/25/16 Atorvastatin Ca [Lipitor] 40 mg PO HS 08/25/16 Carvedilol [Coreg -] 6.25 mg PO BID 08/25/16 Clopidogrel Bisulfate [Clopidogrel] 75 mg PO DAILY 08/25/16 Pantoprazole Sodium 40 mg PO BID 09/11/16 Metronidazole 250 mg PO TID 04/30/17 Oxycodone HCl/Acetaminophen [Percocet 5-325 mg Tablet] 1 - 2 tab PO TID MDD 6 Polyethylene Glycol [Polyox Wsr-301] 1 gm PO DAILY 04/30/17 Physical Exam for Ortho Vital Signs: Vital Signs Temperature 100.0 F H 05/01/17 05:49 Pulse Rate 60 05/01/17 05:49 Respiratory Rate 18 05/01/17 08:11 Blood Pressure 98/45 05/01/17 05:49 O2 Sat by Pulse Oximetry (%) 96 05/01/17 08:11 Labs: CBC, BMP 04/30/17 18:00 INR, PTT INR 1.12 (0.82-1.09) 04/30/17 05:10 Other Findings/Remarks: She is well-appearing and in some distress. She states this is due to LEFT arm pain. Anytime you move her arm she complains of pain. There is very mild edema to the entire upper extremity. There is very mild erythema over the LEFT brow processes. There is a 3 mm area of the pustule in this area. There is no significant bursitis in the area. She also has more mild tenderness throughout the entire upper extremity. Her fingers are stiff secondary to scleroderma. She has no lymphadenopathy. No streaking erythema. Imaging - Results Cat Scan: Image Reviewed (CAT scan of the LEFT elbow shows no gross abscess. There are calcifications consistent with her scleroderma. No evidence of osteomyelitis) Assessment/Plan Impression LEFT elbow possible abscess and cellulitis. No evidence of septic arthritis or osteomyelitis Plan: I discussed with her the findings and treatment options. I recommend an incision and drainage of the posterolateral area as well as cultures. Risks benefits alternatives were discussed. She would like to proceed. Procedure: Incision and drainage LEFT olecranon bursa: After discussion of the risks benefits alternatives, under sterile technique, the LEFT upper extremity was prepped and draped in usual sterile fashion. A 15 blade was then used to incise the bursa and about 3 cc of pus was drained. Cultures were taken. Sterile dressings were applied. Patient's upper extremity was elevated with a stockinette.
--- NOTE | 2017-05-01 14:34 | PN ---
Physical Exam: SUBJECTIVE: Patient seen and examined. OBJECTIVE: Vital Signs Period Temp Pulse Resp BP Sys/Atkinson Pulse Ox Last 24 Hr 100.0 F-101.5 F 58-78 18-24 98-127/42-56 95-98 GENERAL: The patient is awake, alert, and fully oriented, in no acute distress. HEAD: Normal with no signs of trauma. EYES: PERRL, extraocular movements intact, sclera anicteric, conjunctiva clear. No ptosis. ENT: Ears normal, nares patent, oropharynx clear without exudates, moist mucous membranes. NECK: Trachea midline, full range of motion, supple. LUNGS: Breath sounds equal, clear to auscultation bilaterally, no wheezes, no crackles, no accessory muscle use. HEART: Regular rate and rhythm, S1, S2 without murmur, rub or gallop. ABDOMEN: Soft, nontender, nondistended, normoactive bowel sounds, no guarding, no rebound, no hepatosplenomegaly, no masses. EXTREMITIES: 2+ pulses, warm, well-perfused, no edema. Warmth and erythema to left olecranon fossa. NEUROLOGICAL: Cranial nerves II through XII grossly intact. Normal speech, gait not observed. PSYCH: Normal mood, normal affect. SKIN: Warm, dry, normal turgor, no rashes or lesions noted Laboratory Results - last 24 hr 04/30/17 04/30/17 04/30/17 14:42 15:10 15:10 WBC 15.5 H D RBC 3.76 Hgb 8.3 L Hct 26.8 L MCV 71.3 L MCH 22.1 L MCHC 31.0 L RDW 16.9 H Plt Count 373 MPV 7.6 Neutrophils % 69.7 Lymphocytes % 16.3 D Monocytes % 9.7 Eosinophils % 4.1 Basophils % 0.2 Hypochromia 2+ Anisocytosis 1+ Microcytosis 1+ Tear Drop Cells 1+ Ovalocytes 1+ Sodium Potassium Chloride Carbon Dioxide Anion Gap BUN Creatinine Creat Clearance w eGFR POC Glucometer 228 Random Glucose Lactic Acid 0.9 Calcium Phosphorus Magnesium Total Bilirubin AST ALT Alkaline Phosphatase Troponin I Total Protein Albumin Urine Color Urine Appearance Urine pH Ur Specific Hildreth Urine Protein Urine Glucose (UA) Urine Ketones Urine Blood Urine Nitrite Urine Bilirubin Urine Urobilinogen Ur Leukocyte Esterase Urine RBC Urine WBC Ur Epithelial Cells 1104/30/17 04/30/17 15:10 16:42 18:00 WBC 17.0 H RBC 3.89 Hgb 8.6 L Hct 27.7 L MCV 71.2 L MCH 22.1 L MCHC 31.1 L RDW 17.3 H Plt Count 329 MPV 7.5 Neutrophils % 71.7 Lymphocytes % 16.2 Monocytes % 7.7 Eosinophils % 4.0 Basophils % 0.4 Hypochromia Anisocytosis Microcytosis Tear Drop Cells Ovalocytes Sodium Potassium Chloride Carbon Dioxide Anion Gap BUN Creatinine Creat Clearance w eGFR POC Glucometer 138 Random Glucose Lactic Acid Calcium Phosphorus 3.4 Magnesium 1.6 L D Total Bilirubin AST ALT Alkaline Phosphatase Troponin I Total Protein Albumin Urine Color Urine Appearance Urine pH Ur Specific Hildreth Urine Protein Urine Glucose (UA) Urine Ketones Urine Blood Urine Nitrite Urine Bilirubin Urine Urobilinogen Ur Leukocyte Esterase Urine RBC Urine WBC Ur Epithelial Cells 04/30/17 04/30/17 04/30/17 18:00 18:00 18:00 WBC RBC Hgb Hct MCV MCH MCHC RDW Plt Count MPV Neutrophils % Lymphocytes % Monocytes % Eosinophils % Basophils % Hypochromia Anisocytosis Microcytosis Tear Drop Cells Ovalocytes Sodium 132 L Potassium 4.0 Chloride 103 Carbon Dioxide 22 Anion Gap 7 L BUN 14 D Creatinine 0.8 Creat Clearance w eGFR > 60 POC Glucometer Random Glucose 141 H Lactic Acid 1.0 Calcium 8.5 Phosphorus Magnesium 1.5 L Total Bilirubin 0.9 D AST 17 ALT 11 D Alkaline Phosphatase 75 Troponin I < 0.03 Total Protein 5.5 L Albumin 3.3 L Urine Color Yellow Urine Appearance Clear Urine pH 6.5 Ur Specific Hildreth 1.010 Urine Protein Negative Urine Glucose (UA) Negative Urine Ketones Negative Urine Blood Trace-intact H Urine Nitrite Negative Urine Bilirubin Negative Urine Urobilinogen 0.2 Ur Leukocyte Esterase Negative Urine RBC 0-3 Urine WBC 0-3 Ur Epithelial Cells 0-3 04/30/17 04/30/17 05/01/17 21:38 23:30 07:35 WBC RBC Hgb Hct MCV MCH MCHC RDW Plt Count MPV Neutrophils % Lymphocytes % Monocytes % Eosinophils % Basophils % Hypochromia Anisocytosis Microcytosis Tear Drop Cells Ovalocytes Sodium Potassium Chloride Carbon Dioxide Anion Gap BUN Creatinine Creat Clearance w eGFR POC Glucometer 189 188 Random Glucose Lactic Acid Calcium Phosphorus Magnesium Total Bilirubin AST ALT Alkaline Phosphatase Troponin I < 0.03 L Total Protein Albumin Urine Color Urine Appearance Urine pH Ur Specific Hildreth Urine Protein Urine Glucose (UA) Urine Ketones Urine Blood Urine Nitrite Urine Bilirubin Urine Urobilinogen Ur Leukocyte Esterase Urine RBC Urine WBC Ur Epithelial Cells 05/01/17 11:49 WBC RBC Hgb Hct MCV MCH MCHC RDW Plt Count MPV Neutrophils % Lymphocytes % Monocytes % Eosinophils % Basophils % Hypochromia Anisocytosis Microcytosis Tear Drop Cells Ovalocytes Sodium Potassium Chloride Carbon Dioxide Anion Gap BUN Creatinine Creat Clearance w eGFR POC Glucometer 208 Random Glucose Lactic Acid Calcium Phosphorus Magnesium Total Bilirubin AST ALT Alkaline Phosphatase Troponin I Total Protein Albumin Urine Color Urine Appearance Urine pH Ur Specific Hildreth Urine Protein Urine Glucose (UA) Urine Ketones Urine Blood Urine Nitrite Urine Bilirubin Urine Urobilinogen Ur Leukocyte Esterase Urine RBC Urine WBC Ur Epithelial Cells Active Medications Generic Name Dose Route Start Last Admin Trade Name Freq PRN Reason Stop Dose Admin Acetaminophen 650 mg 04/30/17 09:39 05/01/17 01:15 Tylenol - PO 650 mg Q6H PRN Administration FEVER OR PAIN Aspirin 81 mg 04/30/17 14:00 05/01/17 10:04 Asa - PO 81 mg DAILY LILLY Administration Atorvastatin Calcium 40 mg 04/30/17 22:00 04/30/17 21:55 Lipitor - PO 40 mg HS LILLY Administration Carvedilol 6.25 mg 04/30/17 14:00 05/01/17 10:04 Coreg - PO 6.25 mg BID LILLY Administration Clopidogrel Bisulfate 75 mg 04/30/17 14:00 05/01/17 10:04 Plavix - PO 75 mg DAILY LILLY Administration Docusate Sodium 300 mg 04/30/17 14:45 04/30/17 21:20 Colace - PO Not Given HS LILLY Heparin Sodium (Porcine) 5,000 unit 04/30/17 14:30 05/01/17 10:04 Heparin - SQ 5,000 unit Q8H-IV LILLY Administration Vancomycin HCl 1,000 mg in 250 mls @ 166.667 mls/hr 04/30/17 18:00 05/01/17 05:47 Vancomycin (Pre-Docked) IVPB 166.667 mls/hr Q12H LILLY Administration Sodium Chloride 1,000 mls @ 125 mls/hr 04/30/17 23:00 04/30/17 23:00 Normal Saline - IV 125 mls/hr ASDIR LILLY Administration Insulin Aspart 0 units 04/30/17 16:30 05/01/17 11:30 Novolog Vial SQ 4 units ACHS LILLY Administration Protocol Levothyroxine Sodium 100 mcg 04/30/17 22:00 04/30/17 21:55 Synthroid - PO 100 mcg HS LILLY Administration Metronidazole 250 mg 04/30/17 15:30 05/01/17 13:40 Flagyl - PO 250 mg TID LILLY Administration Nifedipine 30 mg 04/30/17 14:00 05/01/17 10:04 Procardia Xl - PO 30 mg DAILY LILLY Administration Oxycodone HCl 5 mg 04/30/17 14:26 05/01/17 13:48 Roxicodone - PO 5 mg Q6H PRN Administration PAIN Pantoprazole Sodium 40 mg 04/30/17 15:15 05/01/17 10:04 Protonix - PO 40 mg BID LILLY Administration Piperacillin Sod/Tazobactam Sod 3.375 gm 05/01/17 10:00 05/01/17 13:43 Zosyn 3.375gm Ivpb (Pre-Docked) IVPB Not Given Q8H [facility]Y Protocol Polyethylene Glycol 17 gm 04/30/17 14:45 05/01/17 10:05 Miralax (For Daily Use) - PO 17 gm BID LILLY Administration Imaging: RAD/ABDOMEN FLAT UPRIGHT Abdomen: Constipation 3 views of the abdomen reveal retained stool scattered throughout the colon, scoliosis, clear lung bases and large heart. Free air, organomegaly or calcifications of significance are not seen. Correlation recommended. Impression // constipation. Reported By: Mike Fletcher MD 05/01/17 [id number] ASSESSMENT/PLAN: A: 56 year-old woman with a PMH significant for CAD s/p NSTEMI s/p stent (06/2016) , NIDDM, scleroderma, hypothyroidism, and RUE MRSA cellulitis (multiple drainages/wound vac, 09/2015). Admitted for left elbow cellulitis. P: Severe sepsis secondary to RUE abscess/cellulitis - meets SIRS criteria at present with temp and leukocytosis - lactic acid wnl - Continue Vancomycin 1g bid - Continue Zosyn - ID following - I&D performed today by Jorge A - wound and blood culture pending CAD s/p NSTEMI s/p stent - ASA - plavix - hold nifedipine, carvedilol secondary to continuing hypotension NIDDM - FSBG qACHS - Novolog sliding scale coverage Scleroderma Severe constipation - started last week on metronidazole by Dr. Ugalde - pt self disimpacts - continue metronidazole PO TID, protonix BID, bowel regimen Dysphagia - patient states loss of 50lbs over past 6 months - Denies choking or coughing with food intake - swallow evaluation pending - close monitoring for signs of obstruction and/or abdominal infection Hypothyroidism - continue levothyroxine F/E/N - NS@125 - NPO PPX - sqh - PT Dispo- Require inpatient care. Code Status- Full code. Visit type - Emergency Visit Emergency Visit: Yes ED Registration Date: 04/30/17 Care time: The patient presented to the Emergency Department on the above date and was hospitalized for further evaluation of their emergent condition. - New Patient This patient is new to me today: Yes Date on this admission: 05/01/17 - Critical Care Critical Care patient: No
--- NOTE | 2017-05-01 16:01 | PN ---
Progress Note, Physician History of Present Illness: Events noted Remains febrile I&D L UE performed by Dr Jules Cultures pending - Current Medication List Current Medications: Active Medications Acetaminophen (Tylenol -) 650 mg PO Q6H PRN PRN Reason: FEVER OR PAIN Last Admin: 05/01/17 01:15 Dose: 650 mg Aspirin (Asa -) 81 mg PO DAILY [facility] Last Admin: 05/01/17 10:04 Dose: 81 mg Atorvastatin Calcium (Lipitor -) 40 mg PO HS [facility] Last Admin: 04/30/17 21:55 Dose: 40 mg Carvedilol (Coreg -) 6.25 mg PO BID LILLY Last Admin: 05/01/17 10:04 Dose: 6.25 mg Clopidogrel Bisulfate (Plavix -) 75 mg PO DAILY [facility] Last Admin: 05/01/17 10:04 Dose: 75 mg Docusate Sodium (Colace -) 300 mg PO HS [facility] Last Admin: 04/30/17 21:20 Dose: Not Given Heparin Sodium (Porcine) (Heparin -) 5,000 unit SQ Q8H-IV L[facility]Y Last Admin: 05/01/17 10:04 Dose: 5,000 unit Vancomycin HCl (Vancomycin (Pre-Docked)) 1,000 mg in 250 mls @ 166.667 mls/hr IVPB Q12H [facility]ILLY Last Admin: 05/01/17 05:47 Dose: 166.667 mls/hr Sodium Chloride (Normal Saline -) 1,000 mls @ 125 mls/hr IV ASDIR LILLY Last Admin: 04/30/17 23:00 Dose: 125 mls/hr Piperacillin/Tazobactam/Dextrose (Zosyn 3.375gm Ivpb (Premix)) 50 mls @ 100 mls /hr IVPB Q8H-IV LILLY PRN Reason: Protocol Insulin Aspart (Novolog Vial) 0 units SQ ACHS LILLY PRN Reason: Protocol Last Admin: 05/01/17 11:30 Dose: 4 units Levothyroxine Sodium (Synthroid -) 100 mcg PO HS [facility] Last Admin: 04/30/17 21:55 Dose: 100 mcg Metronidazole (Flagyl -) 250 mg PO TID [facility] Last Admin: 05/01/17 13:40 Dose: 250 mg Nifedipine (Procardia Xl -) 30 mg PO DAILY [facility] Last Admin: 05/01/17 10:04 Dose: 30 mg Oxycodone HCl (Roxicodone -) 5 mg PO Q6H PRN PRN Reason: PAIN Last Admin: 05/01/17 13:48 Dose: 5 mg Pantoprazole Sodium (Protonix -) 40 mg PO BID [facility] Last Admin: 05/01/17 10:04 Dose: 40 mg Polyethylene Glycol (Miralax (For Daily Use) -) 17 gm PO BID [facility] Last Admin: 05/01/17 10:05 Dose: 17 gm - Objective Vital Signs: Vital Signs Temperature 100.4 F H 05/01/17 13:00 Pulse Rate 73 05/01/17 13:00 Respiratory Rate 18 05/01/17 13:00 Blood Pressure 100/53 05/01/17 13:00 O2 Sat by Pulse Oximetry (%) 97 05/01/17 13:00 Constitutional: Yes: No Distress Cardiovascular: Yes: Regular Rate and Rhythm, S1, S2 Respiratory: Yes: CTA Bilaterally Gastrointestinal: Yes: Normal Bowel Sounds, Soft Extremities: Yes: Other (L UE dressing intact, UE suspended in stockingnette) Labs: CBC, BMP 04/30/17 18:00 INR, PTT INR 1.12 (0.82-1.09) 04/30/17 05:10 Assessment/Plan S/P I&D L UE abscess Cellulitis L UE Fever/ leukocytosis Hx MRSA Await cultures Continue empiric vancomycin/ zosyn Elevation
--- NOTE | 2017-05-01 16:30 | EKG ---
Test Reason : Blood Pressure : / mmHG Vent. Rate : 076 BPM Atrial Rate : 076 BPM P-R Int : 162 ms QRS Dur : 074 ms QT Int : 380 ms P-R-T Axes : 028 -14 007 degrees QTc Int : 427 ms NORMAL SINUS RHYTHM NORMAL ECG WHEN COMPARED WITH ECG OF 24-AUG-2016 21:14, NO SIGNIFICANT CHANGE WAS FOUND Confirmed by JC PASCUAL MD ([id number] on 05/01/2017 4:30:06 PM Referred By: WAYNE HAAS Confirmed By:JC PASCUAL MD
[2017-05-01] MEDS ORDERED: INSULIN (NOVOLOG) ASPART 100 UNITS/ML 10ML VIAL ONE (17:09)
[2017-05-01] MEDS: PIPERACILLIN/TAZOB 3.375 GM 50 ML IVPB SCH (17:31)
[2017-05-01 20:45] LABS: HEMATOCRIT 24.8 % (32.4-45.2); MCH 22.2 pg (25.7-33.7); MCHC 30.4 g/dl (32.0-36.0); MEAN CELL VOLUME 73.1 fl (80-96); MEAN PLT VOLUME 7.7 fl (7.5-11.1); PLATELET COUNT 237 K/MM3 (134-434); RBC 3.39 M/mm3 (3.60-5.2); RDW 17.1 % (11.6-15.6); WHITE BLOOD COUNT 20.7 K/mm3 (4.0-10.8)
[2017-05-01 20:51] LABS: HEMOGLOBIN 7.5 GM/dl (10.7-15.3)
[2017-05-01 21:05] LABS: ALBUMIN 2.8 g/dl (3.5-5.0); ALK PHOS 70 U/L (32-92); ANION GAP 7 (8-16); BILIRUBIN,TOTAL 1.5 mg/dl (0.2-1.0); BLOOD UREA NITROGEN 9 mg/dl (7-18); CALCIUM 8.1 mg/dl (8.4-10.2); CHLORIDE 104 mmol/L (98-107); CO2 21 mmol/L (22-28); CREATININE 0.7 mg/dl (0.6-1.3); GLUCOSE,RANDOM 104 mg/dl (74-106); MAGNESIUM 1.6 mg/dL (1.8-2.4); PHOSPHOROUS 2.2 mg/dl (2.5-4.6); POTASSIUM 3.6 mmol/L (3.5-5.1); SGOT/AST 28 U/L (10-42); SGPT/ALT 26 U/L (10-40); SODIUM 132 mmol/L (136-145); TOT PROT 5.1 g/dl (6.4-8.3)
[2017-05-01] MEDS: DOCUSATE SODIUM 100 MG CAPSULE (FP) PO SCH (22:15)
[2017-05-01] MEDS: ATORVASTATIN CA 40 MG TABLET (FP) PO SCH (22:15)
[2017-05-01] MEDS: LEVOTHYROXINE NA 100 MCG TABLET (FP) PO SCH (22:15)
[2017-05-01] MEDS: SODIUM CHLORIDE 1,000 ML IV SCH (23:00)
[2017-05-02] MEDS: PIPERACILLIN/TAZOB 3.375 GM 50 ML IVPB SCH (03:02)
[2017-05-02] MEDS: HEPARIN NA (PORCINE) 5,000 UNITS/ML 1ML VIAL SQ SCH ×3 (03:06→17:35)
[2017-05-02] MEDS: oxyCODONE HCL 5 MG TABLET PO PRN ×4 (03:58→21:46)
[2017-05-02] MEDS: PIPERACILLIN/TAZOB 3.375 GM 3.375 GM/50 ML BAG IVPB SCH ×3 (05:22→17:34)
[2017-05-02 05:40] LABS: HEMATOCRIT 24.7 % (32.4-45.2); HEMOGLOBIN 7.4 GM/dL (10.7-15.3); MCH 21.4 pg (25.7-33.7); MCHC 29.9 g/dl (32.0-36.0); MEAN CELL VOLUME 71.5 fl (80-96); MEAN PLT VOLUME 7.5 fl (7.5-11.1); PLATELET COUNT 298 K/MM3 (134-434); RBC 3.45 M/mm3 (3.60-5.2); WHITE BLOOD COUNT 21.4 K/mm3 (4.0-10.0)
[2017-05-02] MEDS: VANCOMYCIN 1 GRAM (PRE-DOCKED) 1,000 MG/250 ML BAG IVPB SCH ×2 (06:15→17:34)
[2017-05-02] MEDS: INSULIN (NOVOLOG) ASPART 100 UNITS/ML 10ML VIAL SQ SCH ×4 (06:15→22:38)
[2017-05-02] MEDS: metroNIDAZOLE 250 MG TABLET PO SCH ×3 (06:15→21:46)
[2017-05-02 06:21] LABS: ANION GAP 11 (8-16); BLOOD UREA NITROGEN 9 mg/dL (7-18); CALCIUM 7.5 mg/dL (8.5-10.1); CHLORIDE 105 mmol/L (98-107); CO2 21 mmol/L (21-32); CREATININE 0.6 mg/dL (0.55-1.02); GLUCOSE,RANDOM 97 mg/dL (74-106); SODIUM 137 mmol/L (136-145)
[2017-05-02 06:26] LABS: POTASSIUM 4.2 mmol/L (3.5-5.1)
[2017-05-02] MEDS: ACETAMINOPHEN 325 MG TABLET (FP) PO PRN ×3 (06:47→21:47)
[2017-05-02] MEDS: ASPIRIN 81 MG CHEWABLE TABLETS PO SCH (09:19)
[2017-05-02] MEDS: CLOPIDOGREL BISULFATE 75 MG TABLET (FP) PO SCH (09:19)
[2017-05-02] MEDS: CARVEDILOL 6.25 MG TABLET (FP) PO SCH ×2 (09:20→22:39)
[2017-05-02] MEDS: NIFEdipine E.R. 30 MG TABLET (FP) PO SCH (09:20)
[2017-05-02] MEDS: PANTOPRAZOLE 40 MG TABLET (FP) PO SCH ×2 (09:20→21:46)
--- NOTE | 2017-05-02 09:26 | PN ---
Progress Note, Physician History of Present Illness: Lab reports + Blood c/s GPCCL C/O L UE pain, fever/ sweats Remains febrile with elevated WBC I&D L UE performed by Dr Jules Wound culture pending - Current Medication List Current Medications: Active Medications Acetaminophen (Tylenol -) 650 mg PO Q6H PRN PRN Reason: FEVER OR PAIN Last Admin: 05/02/17 06:47 Dose: 650 mg Aspirin (Asa -) [address] [facility] Last Admin: 05/01/17 10:04 Dose: 81 mg Atorvastatin Calcium (Lipitor -) [address] [facility] Last Admin: 05/01/17 22:15 Dose: 40 mg Carvedilol (Coreg -) 6.[address] [facility] Last Admin: 05/01/17 22:08 Dose: Not Given Clopidogrel Bisulfate (Plavix -) [address] [facility] Last Admin: 05/01/17 10:04 Dose: 75 mg Docusate Sodium (Colace -) [address] [facility] Last Admin: 05/01/17 22:15 Dose: 300 mg Heparin Sodium (Porcine) (Heparin -) 5,000 unit SQ Q8H-IV [facility] Last Admin: 05/02/17 03:06 Dose: 5,000 unit Vancomycin HCl (Vancomycin (Pre-Docked)) 1,000 mg in 250 mls @ 166.667 mls/hr IVPB Q12H [facility] Last Admin: 05/02/17 06:15 Dose: 166.667 mls/hr Sodium Chloride (Normal Saline -) 1,000 mls @ 125 mls/hr IV ASDIR [facility] Last Admin: 05/01/17 23:00 Dose: Not Given Piperacillin Sod/Tazobactam Sod (Zosyn 3.375gm Ivpb (Pre-Docked)) 3.375 gm in 50 mls @ 100 mls/hr IVPB Q8H-IV LILLY PRN Reason: Protocol Last Admin: 05/02/17 05:22 Dose: 100 mls/hr Insulin Aspart (Novolog Vial) 0 units SQ ACHS LILLY PRN Reason: Protocol Last Admin: 05/02/17 06:15 Dose: Not Given Levothyroxine Sodium (Synthroid -) [address] [facility] Last Admin: 05/01/17 22:15 Dose: 100 mcg Metronidazole (Flagyl -) [address] [facility] Last Admin: 05/02/17 06:15 Dose: 250 mg Nifedipine (Procardia Xl -) [address] [facility] Last Admin: 05/01/17 10:04 Dose: 30 mg Oxycodone HCl (Roxicodone -) 5 mg PO Q6H PRN PRN Reason: PAIN Last Admin: 05/02/17 03:58 Dose: 5 mg Pantoprazole Sodium (Protonix -) [address] [facility] Last Admin: 05/01/17 22:15 Dose: 40 mg Polyethylene Glycol (Miralax (For Daily Use) -) [address] [facility] Last Admin: 05/01/17 22:00 Dose: 17 gm - Objective Vital Signs: Vital Signs Temperature 100.4 F H 05/02/17 05:00 Pulse Rate 74 05/02/17 05:00 Respiratory Rate 20 05/02/17 05:00 Blood Pressure 102/51 05/02/17 05:00 O2 Sat by Pulse Oximetry (%) 100 05/01/17 21:00 Constitutional: Yes: No Distress Eyes: Yes: Conjunctiva Clear Cardiovascular: Yes: Regular Rate and Rhythm, S1, S2 Respiratory: Yes: CTA Bilaterally Gastrointestinal: Yes: Normal Bowel Sounds, Soft. No: Tenderness Extremities: Yes: Other (L UE remains swollen and very tender at elbow + Erythema/ warmth) Labs: CBC, BMP 05/02/17 04:00 05/02/17 04:00 INR, PTT INR 1.12 (0.82-1.09) 04/30/17 05:10 Assessment/Plan S/P I&D L UE abscess Cellulitis L UE Fever/ leukocytosis +BC possible staph bacteremia Hx MRSA Await cultures Continue empiric vancomycin/ zosyn Elevation
[2017-05-02] MEDS: POLYETHYLENE GLYCOL 3350 119 GM BTL PO SCH ×2 (10:00→22:40)
--- NOTE | 2017-05-02 12:11 | PN ---
Physical Exam: SUBJECTIVE: Patient seen and examined Reports feeling better, left elbow pain improving, c/o constipation, denies abdominal pain, denies N/V. OBJECTIVE: Vital Signs Period Temp Pulse Resp BP Sys/Atkinson Pulse Ox Last 24 Hr 99.3 F-101.4 F 69-74 18-20 90-102/49-53 97-100 GENERAL: The patient is awake, alert, and fully oriented, in no acute distress. HEAD: Normal with no signs of trauma. EYES: PERRL, extraocular movements intact, sclera anicteric, conjunctiva clear. No ptosis. ENT: Ears normal, nares patent, oropharynx clear without exudates, moist mucous membranes. NECK: Trachea midline, full range of motion, supple. LUNGS: Breath sounds equal, clear to auscultation bilaterally, no wheezes, no crackles, no accessory muscle use. HEART: Regular rate and rhythm, S1, S2 without murmur, rub or gallop. ABDOMEN: Soft, nontender, nondistended, normoactive bowel sounds, no guarding, no rebound, no hepatosplenomegaly, no masses. EXTREMITIES: 2+ pulses, warm, well-perfused, no edema. NEUROLOGICAL: Cranial nerves II through XII grossly intact. Normal speech, gait not observed. PSYCH: Normal mood, normal affect. SKIN: Left elbow cellulitis,with mild redness and + tenderness. Laboratory Results - last 24 hr 05/01/17 05/01/17 05/01/17 06:00 11:49 16:56 WBC Cancelled Corrected WBC (auto) Cancelled RBC Cancelled Hgb Cancelled Hct Cancelled MCV Cancelled MCH Cancelled MCHC Cancelled RDW Cancelled Plt Count Cancelled MPV Cancelled Neutrophils % Cancelled Lymphocytes % Cancelled Monocytes % Cancelled Eosinophils % Cancelled Basophils % Cancelled Manual Slide Review Platelet Comment Cancelled Sodium Potassium Chloride Carbon Dioxide Anion Gap BUN Creatinine Creat Clearance w eGFR POC Glucometer 208 183 Random Glucose Calcium Phosphorus Magnesium Total Bilirubin AST ALT Alkaline Phosphatase Troponin I Total Protein Albumin 05/01/17 05/01/17 05/01/17 20:25 20:25 20:25 WBC 20.7 H Corrected WBC (auto) RBC 3.39 L Hgb 7.5 L D Hct 24.8 L MCV 73.1 L MCH 22.2 L MCHC 30.4 L RDW 17.1 H Plt Count 237 D MPV 7.7 Neutrophils % Lymphocytes % Monocytes % Eosinophils % Basophils % Manual Slide Review No Result Required. Platelet Comment Sodium 132 L Potassium 3.6 Chloride 104 Carbon Dioxide 21 L Anion Gap 7 L BUN 9 D Creatinine 0.7 Creat Clearance w eGFR > 60 POC Glucometer Random Glucose 104 D Calcium 8.1 L Phosphorus 2.2 L D Magnesium 1.6 L Total Bilirubin 1.5 H D AST 28 D ALT 26 D Alkaline Phosphatase 70 Troponin I < 0.03 L Total Protein 5.1 L Albumin 2.8 L 05/01/17 05/02/17 05/02/17 22:01 04:00 04:00 WBC 21.4 H D Corrected WBC (auto) RBC 3.45 L Hgb 7.4 L D Hct 24.7 L MCV 71.5 L MCH 21.4 L MCHC 29.9 L RDW 18.0 H Plt Count 298 D MPV 7.5 Neutrophils % Lymphocytes % Monocytes % Eosinophils % Basophils % Manual Slide Review Platelet Comment Sodium 137 Potassium 4.2 Chloride 105 Carbon Dioxide 21 Anion Gap 11 BUN 9 D Creatinine 0.6 D Creat Clearance w eGFR POC Glucometer 149 Random Glucose 97 D Calcium 7.5 L Phosphorus Magnesium Total Bilirubin AST ALT Alkaline Phosphatase Troponin I Total Protein Albumin 05/02/17 06:11 WBC Corrected WBC (auto) RBC Hgb Hct MCV MCH MCHC RDW Plt Count MPV Neutrophils % Lymphocytes % Monocytes % Eosinophils % Basophils % Manual Slide Review Platelet Comment Sodium Potassium Chloride Carbon Dioxide Anion Gap BUN Creatinine Creat Clearance w eGFR POC Glucometer 140 Random Glucose Calcium Phosphorus Magnesium Total Bilirubin AST ALT Alkaline Phosphatase Troponin I Total Protein Albumin Active Medications Generic Name Dose Route Start Last Admin Trade Name Clau PRN Reason Stop Dose Admin Acetaminophen 650 mg 04/30/17 09:39 05/02/17 06:47 Tylenol - PO 650 mg Q6H PRN Administration FEVER OR PAIN Aspirin 81 mg 04/30/17 14:00 05/02/17 09:19 Asa - PO 81 mg DAILY LILLY Administration Atorvastatin Calcium 40 mg 04/30/17 22:00 05/01/17 22:15 Lipitor - PO 40 mg HS LILLY Administration Carvedilol 6.25 mg 04/30/17 14:00 05/02/17 09:20 Coreg - PO 6.25 mg BID LILLY Administration Clopidogrel Bisulfate 75 mg 04/30/17 14:00 05/02/17 09:19 Plavix - PO 75 mg DAILY LILLY Administration Docusate Sodium 300 mg 04/30/17 14:45 05/01/17 22:15 Colace - PO 300 mg HS LILLY Administration Heparin Sodium (Porcine) 5,000 unit 04/30/17 14:30 05/02/17 09:20 Heparin - SQ 5,000 unit Q8H-IV L[facility]Y Administration Vancomycin HCl 1,000 mg in 250 mls @ 166.667 mls/hr 04/30/17 18:00 05/02/17 06:15 Vancomycin (Pre-Docked) IVPB 166.667 mls/hr Q12H [facility]Y Administration Sodium Chloride 1,000 mls @ 125 mls/hr 04/30/17 23:00 05/01/17 23:00 Normal Saline - IV Not Given ASDIR LILLY Piperacillin Sod/Tazobactam Sod 3.375 gm in 50 mls @ 100 mls/hr 05/02/17 05: 15 05/02/17 09:21 Zosyn 3.375gm Ivpb (Pre-Docked) IVPB 100 mls/hr Q8H-IV L[facility]Y Administration Protocol Insulin Aspart 0 units 04/30/17 16:30 05/02/17 06:15 Novolog Vial SQ Not Given ACHS [facility] Protocol Levothyroxine Sodium 100 mcg 04/30/17 22:00 05/01/17 22:15 Synthroid - PO 100 mcg HS LILLY Administration Metronidazole 250 mg 04/30/17 15:30 05/02/17 06:15 Flagyl - PO 250 mg TID L[facility]Y Administration Nifedipine 30 mg 04/30/17 14:00 05/02/17 09:20 Procardia Xl - PO 30 mg DAILY [facility] Administration Oxycodone HCl 5 mg 04/30/17 14:26 05/02/17 09:20 Roxicodone - PO 5 mg Q6H PRN Administration PAIN Pantoprazole Sodium 40 mg 04/30/17 15:15 05/02/17 09:20 Protonix - PO 40 mg BID [facility] Administration Polyethylene Glycol 17 gm 04/30/17 14:45 05/01/17 22:00 Miralax (For Daily Use) - PO 17 gm BID LILLY Administration Imaging: RAD/ABDOMEN FLAT UPRIGHT Abdomen: Constipation 3 views of the abdomen reveal retained stool scattered throughout the colon, scoliosis, clear lung bases and large heart. Free air, organomegaly or calcifications of significance are not seen. Correlation recommended. Impression // constipation. Reported By: Mike Fletcher MD 05/01/17 [id number] ASSESSMENT/PLAN: This is a 56 year-old woman with a PMH significant for CAD s/p NSTEMI s/p stent (06/2016), NIDDM, scleroderma, hypothyroidism, and RUE MRSA cellulitis ( multiple drainages/wound vac, 09/2015). Admitted for left elbow cellulitis. *Severe sepsis secondary to RUE abscess/cellulitis - meets SIRS criteria at present with temp and leukocytosis - lactic acid wnl - ID following - will cont on Vancomycin and Zosyn - I&D performed today by Jorge A - wound culture positive for presumptive MRSA - BC preliminary positive - T 100.4 today, wbc trending up 21.4 *CAD s/p NSTEMI s/p stent- asymptomatic - will cont on ASA, plavix - hold nifedipine, carvedilol secondary to continuing hypertension *NIDDM - FS AC&HS - Novolog sliding scale coverage - consistent carb diet *Scleroderma *Severe constipation - started last week on metronidazole by Dr. Ugalde - pt self disimpacts - continue metronidazole PO - bowel regimen on Miralax added Senna and MOM PRN *Dysphagia- Denies choking or coughing with food intake - patient states loss of 50lbs over past 6 months -- swallow evaluation pending - close monitoring for signs of obstruction and/or abdominal infection * Anemia- likely dilutional, no signs of bleeding noted - will check fecal occult - will check Fe studies, B12, Folate *Hypothyroidism - continue levothyroxine F/E/N" Diabetic diet PPX: Heparin sq - PT Dispo- Require inpatient care. Code Status- Full code. Visit type - Emergency Visit Emergency Visit: Yes ED Registration Date: 04/30/17 Care time: The patient presented to the Emergency Department on the above date and was hospitalized for further evaluation of their emergent condition. - New Patient This patient is new to me today: Yes Date on this admission: 05/02/17 - Critical Care Critical Care patient: No
[2017-05-02] MEDS ORDERED: SENNOSIDES 8.6MG TABLET (FP) PO PRN (12:31)
[2017-05-02] MEDS ORDERED: MAGNESIUM HYDROX 2400MG/30ML ORAL SUSPENSION 30 ML CUP PO PRN (12:32)
[2017-05-02 13:02] LABS: PHOSPHOROUS 2.5 mg/dL (2.5-4.9)
[2017-05-02 13:04] LABS: LDH 300 U/L (84-246); MAGNESIUM 1.9 mg/dL (1.8-2.4)
--- NOTE | 2017-05-02 14:05 | PN ---
Progress Note (short form) - Note Progress Note: She states she is feeling much better. Her LEFT upper extremity hurts much less. Medical and infectious disease notes reviewed. Vital signs reviewed. Labs reviewed. Cultures with presumptive MRSA Physical examination: The patient is sitting up today and using her arm actively to eat her food. Yesterday she hardly would let me touch her arm. Palpation reveals much less tenderness. This is still mildly diffuse but still more localized to the olecranon process. There is no evidence of abscess or pus today. There is much less redness. Her fingers are moving better but still stiff due to the scleroderma Impression: LEFT olecranon septic bursitis/cellulitis/underlying scleroderma and calcifications, presumptive MRSA, Possible sepsis Plan:I have reviewed the findings and treatment options with the patient. At this point given the clinical improvement in the LEFT upper extremity there is no further intervention surgically necessary at this time. I do recommend continued intravenous antibiotics and treatment per infectious disease and medical team. We'll follow patient clinically while in hospital.
[2017-05-02] MEDS ORDERED: INSULIN (NOVOLOG) ASPART 100 UNITS/ML 10ML VIAL ONE (17:30)
[2017-05-02] MEDS: ATORVASTATIN CA 40 MG TABLET (FP) PO SCH (21:46)
[2017-05-02] MEDS: DOCUSATE SODIUM 100 MG CAPSULE (FP) PO SCH (21:46)
[2017-05-02] MEDS: LEVOTHYROXINE NA 100 MCG TABLET (FP) PO SCH (21:46)
[2017-05-02] MEDS: SODIUM CHLORIDE 1,000 ML IV SCH (23:58)
[2017-05-03] MEDS: PIPERACILLIN/TAZOB 3.375 GM 3.375 GM/50 ML BAG IVPB SCH ×3 (01:58→18:18)
[2017-05-03] MEDS: HEPARIN NA (PORCINE) 5,000 UNITS/ML 1ML VIAL SQ SCH ×3 (01:58→18:18)
[2017-05-03] MEDS: oxyCODONE HCL 5 MG TABLET PO PRN ×3 (05:53→18:17)
[2017-05-03] MEDS: ACETAMINOPHEN 325 MG TABLET (FP) PO PRN ×3 (05:54→18:16)
[2017-05-03] MEDS: metroNIDAZOLE 250 MG TABLET PO SCH ×3 (05:54→21:31)
[2017-05-03] MEDS: VANCOMYCIN 1 GRAM (PRE-DOCKED) 1,000 MG/250 ML BAG IVPB SCH ×2 (06:15→18:48)
--- NOTE | 2017-05-03 07:53 | PN ---
Progress Note (short form) - Note Progress Note: Physical Exam: SUBJECTIVE: Patient seen and examined, left elbow pain improving, reports pain upon movement, denies any tactile fevers. OBJECTIVE:This is a 56 year-old woman with a PMH significant for CAD s/p NSTEMI s/p stent (06/2016), NIDDM, scleroderma, hypothyroidism, and RUE MRSA cellulitis (multiple drainages/wound vac, 09/2015). Admitted for left elbow cellulitis. Vital Signs Vital Signs - 8 hr 05/03/17 05/03/17 05/03/17 06:00 08:35 10:00 Temperature 99.3 F 98.1 F Pulse Rate 67 66 Respiratory 18 18 16 Rate Blood Pressure 95/51 107/57 O2 Sat by Pulse 97 97 Oximetry (%) GENERAL: The patient is awake, alert, and fully oriented, in no acute distress. HEAD: Normal with no signs of trauma. EYES: PERRL, extraocular movements intact, sclera anicteric, conjunctiva clear. No ptosis. ENT: Ears normal, nares patent, oropharynx clear without exudates, moist mucous membranes. NECK: Trachea midline, full range of motion, supple. LUNGS: Breath sounds equal, clear to auscultation bilaterally, no wheezes, no crackles, no accessory muscle use. HEART: Regular rate and rhythm, S1, S2 without murmur, rub or gallop. ABDOMEN: Soft, nontender, nondistended, normoactive bowel sounds, no guarding, no rebound, no hepatosplenomegaly, no masses. EXTREMITIES: 2+ pulses, warm, well-perfused, no edema. LEFT UPPER EXTREMITY: erythema and point tenderness noted to the olnecran process no fluctance noted. NEUROLOGICAL: Cranial nerves II through XII grossly intact. Normal speech, gait not observed. PSYCH: Normal mood, normal affect. Active Medications Generic Name Dose Route Start Last Admin Trade Name Freq PRN Reason Stop Dose Admin Acetaminophen 650 mg 04/30/17 09:39 05/03/17 10:37 Tylenol - PO 650 mg Q6H PRN Administration FEVER OR PAIN Aspirin 81 mg 04/30/17 14:00 05/03/17 10:40 Asa - PO 81 mg DAILY LILLY Administration Atorvastatin Calcium 40 mg 04/30/17 22:00 05/02/17 21:46 Lipitor - PO 40 mg HS LILLY Administration Carvedilol 6.25 mg 04/30/17 14:00 05/03/17 10:43 Coreg - PO 6.25 mg BID LILLY Administration Clopidogrel Bisulfate 75 mg 04/30/17 14:00 05/03/17 10:44 Plavix - PO 75 mg DAILY LILLY Administration Docusate Sodium 300 mg 04/30/17 14:45 05/02/17 21:46 Colace - PO 300 mg HS LILLY Administration Heparin Sodium (Porcine) 5,000 unit 04/30/17 14:30 05/03/17 10:41 Heparin - SQ 5,000 unit Q8H-IV L[facility]Y Administration IV Flush 8 ml 05/03/17 12:53 Picc Line Flush IVPUSH PRN PRN Protocol Vancomycin HCl 1,000 mg in 250 mls @ 166.667 mls/hr 04/30/17 18:00 05/03/17 06:15 Vancomycin (Pre-Docked) IVPB 166.667 mls/hr Q12H [facility] Administration Piperacillin Sod/Tazobactam Sod 3.375 gm in 50 mls @ 100 mls/hr 05/02/17 05: 15 05/03/17 10:42 Zosyn 3.375gm Ivpb (Pre-Docked) IVPB 100 mls/hr Q8H-IV [facility] Administration Protocol Sodium Chloride 1,000 mls @ 42 mls/hr 05/03/17 12:10 Normal Saline - IV ASDIR L[facility]Y Insulin Aspart 0 units 04/30/17 16:30 05/03/17 12:01 Novolog Vial SQ 2 units ACHS LILLY Administration Protocol Levothyroxine Sodium 100 mcg 04/30/17 22:00 05/02/17 21:46 Synthroid - PO 100 mcg HS LILLY Administration Magnesium Hydroxide 30 ml 05/02/17 12:32 Milk Of Magnesia - PO PRN PRN CONSTIPATION Metronidazole 250 mg 04/30/17 15:30 05/03/17 05:54 Flagyl - PO 250 mg TID LILLY Administration Nifedipine 30 mg 04/30/17 14:00 05/03/17 10:42 Procardia Xl - PO 30 mg DAILY [facility] Administration Oxycodone HCl 5 mg 04/30/17 14:26 05/03/17 10:53 Roxicodone - PO 5 mg Q6H PRN Administration PAIN Pantoprazole Sodium 40 mg 04/30/17 15:15 05/03/17 10:36 Protonix - PO 40 mg BID [facility]Y Administration Polyethylene Glycol 17 gm 04/30/17 14:45 05/03/17 10:41 Miralax (For Daily Use) - PO 17 gm BID [facility]Y Administration Senna 2 tab 05/02/17 12:31 05/02/17 13:29 Senna - PO 2 tab HS PRN Administration CONSTIPATION CBC WBC 14.7 K/mm3 (4.0-10.8) H 05/03/17 10:00 Corrected WBC (auto) Cancelled 05/01/17 06:00 RBC 3.41 M/mm3 (3.60-5.2) L 05/03/17 10:00 Hgb 7.5 GM/dl (10.7-15.3) L 05/03/17 10:00 Hct 24.5 % (32.4-45.2) L 05/03/17 10:00 MCV 72.0 fl (80-96) L 05/03/17 10:00 MCH 22.1 pg (25.7-33.7) L 05/03/17 10:00 MCHC 30.7 g/dl (32.0-36.0) L 05/03/17 10:00 RDW 17.0 % (11.6-15.6) H 05/03/17 10:00 Plt Count 292 K/MM3 (134-434) 05/03/17 10:00 MPV 7.9 fl (7.5-11.1) 05/03/17 10:00 Neutrophils % 78.4 % (42.8-82.8) 05/03/17 10:00 Lymphocytes % 13.3 % (8-40) 05/03/17 10:00 Monocytes % 4.8 % (3.8-10.2) 05/03/17 10:00 Eosinophils % 3.2 % (0-4.5) 05/03/17 10:00 Basophils % 0.3 % (0-2.0) 05/03/17 10:00 Manual Slide Review No Result Required. 05/02/17 04:00 Hypochromia 2+ 04/30/17 15:10 Platelet Comment Cancelled 05/01/17 06:00 Anisocytosis 1+ 04/30/17 15:10 Microcytosis 1+ 04/30/17 15:10 Tear Drop Cells 1+ 04/30/17 15:10 Ovalocytes 1+ 04/30/17 15:10 CMP Sodium 137 mmol/L (136-145) 05/03/17 10:30 Potassium 3.8 mmol/L (3.5-5.1) 05/03/17 10:30 Chloride 103 mmol/L (98-107) 05/03/17 10:30 Carbon Dioxide 27 mmol/L (22-28) D 05/03/17 10:30 Anion Gap 7 (8-16) L 05/03/17 10:30 BUN 17 mg/dl (7-18) D 05/03/17 10:30 Creatinine 0.6 mg/dl (0.6-1.3) 05/03/17 10:30 Creat Clearance w eGFR > 60 (>60) 05/03/17 10:30 POC Glucometer 173 UNITS (80-120) 05/03/17 11:46 Random Glucose 94 mg/dl (74-106) 05/03/17 10:30 Lactic Acid 1.0 mmol/L (0.4-2.0) 04/30/17 18:00 Calcium 9.2 mg/dl (8.4-10.2) 05/03/17 10:30 Phosphorus 2.5 mg/dL (2.5-4.9) D 05/02/17 04:00 Magnesium 1.9 mg/dL (1.8-2.4) 05/02/17 04:00 Ferritin 50.835 ng/ml (6.9-282.5) 05/02/17 04:00 Total Bilirubin 0.5 mg/dl (0.2-1.0) D 05/03/17 10:30 AST 15 U/L (10-42) D 05/03/17 10:30 ALT 13 U/L (10-40) D 05/03/17 10:30 Alkaline Phosphatase 54 U/L (32-92) D 05/03/17 10:30 LD Total 300 U/L (84-246) H 05/02/17 04:00 Creatine Kinase 81 IU/L (26-192) 04/30/17 05:10 Troponin I < 0.03 ng/ml (0.03-0.50) L 11/25/17 20:25 C-Reactive Protein 0.5 MG/DL (0.00-0.3) H 04/30/17 05:10 Total Protein 7.0 g/dl (6.4-8.3) D 05/03/17 10:30 Albumin 4.0 g/dl (3.5-5.0) D 05/03/17 10:30 Vitamin B12 298 pg/ml (180-914) 05/02/17 04:00 Serum Folate 11 ng/ml (3.1-17.5) 05/02/17 04:00 Microbiology 05/01/17 11:15 Abscess Gram Stain - Final 05/01/17 11:15 Abscess Wound Culture - Preliminary Presumptive Mrsa (Pbp2a Pos) 04/30/17 05:10 Blood - Peripheral Venous Blood Culture - Preliminary Staphylococcus Coagulase Neg 04/30/17 05:10 Blood - Peripheral Venous Blood Culture - Preliminary NO GROWTH OBTAINED AFTER 72 HOURS, INCUBATION TO CONTINUE FOR 2 DAYS. 04/30/17 18:00 Urine - Urine Clean Catch Urine Culture - Final NO GROWTH OBTAINED Imaging: RAD/ABDOMEN FLAT UPRIGHT Abdomen: Constipation 3 views of the abdomen reveal retained stool scattered throughout the colon, scoliosis, clear lung bases and large heart. Free air, organomegaly or calcifications of significance are not seen. Correlation recommended. Impression // constipation. Reported By: Mike Fletcher MD 05/01/17 0773 ASSESSMENT/PLAN: 1) Severe sepsis secondary to RUE abscess/cellulitis - wbc trending downward, low grade temp noted, continue vanc (04/30- )and zosyn (05/02-), patient has a hx of mrsa - wound culture presum mrsa and 1 blood culture presum staph coag maybe contaminated, repeat blood cultures ordered - Dr Marie, ID consulted and followed - pt is s/p I&D, Dr Avalos, 05/01/17, ortho consulted and following 2) cardiovascular CAD s/p NSTEMI s/p stent (06/23) - continue ASA, plavix - - hold nifedipine, carvedilol secondary to continuing hypotension 3) heme microcytic anemia - hemoglobin 7.5, baseline 12, no active bleeding noted, pending stool guiac and iron studies 4) endo niddm -fingersticks achs with novolog sliding scale hypothyroidism - continue levothyroxine 5) f/e/n dysphagia - swallow eval completed, OOB for meals, OOB for 1 h. after meals, .Alternate solids with liquids and complete meal with liquids. Small amounts throughout the day replete lytes prn diabetic soft diet PPX: Heparin sq - PT Dispo- Require inpatient care. Code Status- Full code. Visit type - Emergency Visit Emergency Visit: Yes ED Registration Date: 04/30/17 Care time: The patient presented to the Emergency Department on the above date and was hospitalized for further evaluation of their emergent condition. - New Patient This patient is new to me today: Yes Date on this admission: 05/03/17 - Critical Care Critical Care patient: No - Discharge Referral Referred to [facility] Med P.C.: No
--- NOTE | 2017-05-03 08:34 | PN ---
Progress Note (short form) - Note Progress Note: The patient reports her elbow remains in pain with no relief. She feels subjectively feverish. Physical examination: The patient is afebrile and vital signs are stable. Examination of the left elbow demonstrates mild erythema. There is induration about the posterior aspect of the elbow. The wound shows no current drainage. There is scant purulence on the dressing which is dry. No gross fluctuance. There is limited range of motion secondary to pain. Her distal neurovascular exam is intact. Laboratory results: White blood cell count remains elevated at 20 Assessment: Left elbow septic bursitis Plan: The patient is to continue on IV antibiotics at this time. There is no gross fluctuance indicative of collection right now. That being said, she has had limited clinical response as far as pain and white blood cell count. Will continue to observe. May require further imaging or procedures if not improving.
--- NOTE | 2017-05-03 09:12 | PN ---
Progress Note, Physician History of Present Illness: Still with C/O L UE pain, fever/ sweats Temps lower grade, WBC pending I&D L UE performed by Dr Jorge A Jessica c/s MRSA Blood culture pending - Current Medication List Current Medications: Active Medications Acetaminophen (Tylenol -) 650 mg PO Q6H PRN PRN Reason: FEVER OR PAIN Last Admin: 05/03/17 05:54 Dose: 650 mg Aspirin (Asa -) 81 mg PO DAILY [facility] Last Admin: 05/02/17 09:19 Dose: 81 mg Atorvastatin Calcium (Lipitor -) 40 mg PO HS [facility] Last Admin: 05/02/17 21:46 Dose: 40 mg Carvedilol (Coreg -) 6.25 mg PO BID [facility] Last Admin: 05/02/17 22:39 Dose: Not Given Clopidogrel Bisulfate (Plavix -) 75 mg PO DAILY [facility] Last Admin: 05/02/17 09:19 Dose: 75 mg Docusate Sodium (Colace -) 300 mg PO [facility] Last Admin: 05/02/17 21:46 Dose: 300 mg Heparin Sodium (Porcine) (Heparin -) 5,000 unit SQ Q8H-IV [facility] Last Admin: 05/03/17 01:58 Dose: 5,000 unit Vancomycin HCl (Vancomycin (Pre-Docked)) 1,000 mg in 250 mls @ 166.667 mls/hr IVPB Q12H [facility] Last Admin: 05/03/17 06:15 Dose: 166.667 mls/hr Sodium Chloride (Normal Saline -) 1,000 mls @ 125 mls/hr IV ASDIR [facility] Last Admin: 05/02/17 23:58 Dose: 125 mls/hr Piperacillin Sod/Tazobactam Sod (Zosyn 3.375gm Ivpb (Pre-Docked)) 3.375 gm in 50 mls @ 100 mls/hr IVPB Q8H-IV [facility]ILLY PRN Reason: Protocol Last Admin: 05/03/17 01:58 Dose: 100 mls/hr Insulin Aspart (Novolog Vial) 0 units SQ ACHS LILLY PRN Reason: Protocol Last Admin: 05/02/17 22:38 Dose: Not Given Levothyroxine Sodium (Synthroid -) 100 mcg PO [facility] Last Admin: 05/02/17 21:46 Dose: 100 mcg Magnesium Hydroxide (Milk Of Magnesia -) 30 ml PO PRN PRN PRN Reason: CONSTIPATION Metronidazole (Flagyl -) 250 mg PO TID [facility] Last Admin: 05/03/17 05:54 Dose: 250 mg Nifedipine (Procardia Xl -) 30 mg PO DAILY [facility] Last Admin: 05/02/17 09:20 Dose: 30 mg Oxycodone HCl (Roxicodone -) 5 mg PO Q6H PRN PRN Reason: PAIN Last Admin: 05/03/17 05:53 Dose: 5 mg Pantoprazole Sodium (Protonix -) 40 mg PO BID [facility] Last Admin: 05/02/17 21:46 Dose: 40 mg Polyethylene Glycol (Miralax (For Daily Use) -) 17 gm PO BID [facility] Last Admin: 05/02/17 22:40 Dose: 17 gm Senna (Senna -) 2 tab PO HS PRN PRN Reason: CONSTIPATION Last Admin: 05/02/17 13:29 Dose: 2 tab - Objective Vital Signs: Vital Signs Temperature 99.3 F 05/03/17 06:00 Pulse Rate 67 05/03/17 06:00 Respiratory Rate 18 05/03/17 08:35 Blood Pressure 95/51 05/03/17 06:00 O2 Sat by Pulse Oximetry (%) 97 05/03/17 08:35 Constitutional: Yes: No Distress Cardiovascular: Yes: Regular Rate and Rhythm, Murmur, S1, S2 Respiratory: Yes: CTA Bilaterally Gastrointestinal: Yes: Normal Bowel Sounds, Soft. No: Tenderness Extremities: No: Other (L UE less swollen Still very tender with decreased ROM + erythema over olecrannon process. No fluctuance) Labs: CBC, BMP 05/02/17 04:00 INR, PTT INR 1.12 (0.82-1.09) 04/30/17 05:10 Assessment/Plan S/P I&D L UE abscess MRSA Cellulitis L UE Fever/ leukocytosis +BC possible staph bacteremia Await final blood cultures Continue vancomycin If blood c/s +MRSA will need repeat blood c/s, echo Ortho follow up
[2017-05-03 09:22] LABS: HEMATOCRIT 24.1 % (32.4-45.2); HEMOGLOBIN 7.3 GM/dl (10.7-15.3); MCHC 30.5 g/dl (32.0-36.0); MEAN PLT VOLUME 8.2 fl (7.5-11.1); PLATELET COUNT 297 K/MM3 (134-434); RBC 3.34 M/mm3 (3.60-5.2); RDW 17.2 % (11.6-15.6); WHITE BLOOD COUNT 16.2 K/mm3 (4.0-10.8)
--- NOTE | 2017-05-03 10:12 | CONSULT ---
Admitting History and Physical - Primary Care Physician PCP: Kelly Land - Admission History of Present Illness: Per EMR: This is a 56 year-old woman with a PMH significant for CAD s/p NSTEMI s/p stent (06/2016), NIDDM, scleroderma, hypothyroidism, and RUE MRSA cellulitis ( multiple drainages/wound vac, 09/2015). Admitted for left elbow cellulitis. *Severe sepsis secondary to RUE abscess/cellulitis *CAD s/p NSTEMI s/p stent- asymptomatic *NIDDM - *Scleroderma *Severe constipation - *Dysphagia- Denies choking or coughing with food intake - patient states loss of 50lbs over past 6 months -- swallow evaluation pending - close monitoring for signs of obstruction and/or abdominal infection Selected Entries 04/30/17 04/30/17 04/30/17 04:55 07:21 14:08 Breakfast Diet Tolerated Supper Temperature 98.9 F 99 F 99.0 F 04/30/17 04/30/17 04/30/17 14:16 16:50 21:35 Breakfast Diet Tolerated Supper Temperature 100.4 F H 101.5 F H 100.0 F H 05/01/17 05/01/17 05/01/17 01:12 05:49 09:35 Breakfast 25% Diet Tolerated Fair Supper Temperature 101.5 F H 100.0 F H 05/01/17 05/01/17 05/01/17 13:00 17:30 18:38 Breakfast Diet Tolerated Fair Supper 0 Temperature 100.4 F H 101.4 F H 05/01/17 05/02/17 05/02/17 21:00 05:00 09:57 Breakfast 25% Diet Tolerated Poor Supper Temperature 99.3 F 100.4 F H 05/02/17 05/02/17 05/02/17 14:57 22:00 22:39 Breakfast Diet Tolerated Poor Supper 0 Temperature 98.5 F 99.9 F H 05/03/17 05/03/17 05/03/17 02:00 06:00 09:37 Breakfast 25% Diet Tolerated Poor Supper Temperature 99.0 F 99.3 F Laboratory Tests 04/30/17 05/01/17 05/02/17 05:10 06:00 04:00 WBC 15.9 H D Cancelled 21.4 H D 05/03/17 05:30 WBC 16.2 H This is my first consult with this pt. Pt reports being followed by Dr. Cristela Ugalde. Pt reported recent Upper Endoscopy with "hardened esophagus and narrowing" from Scleroderma and significant weight loss, noted each month at MD visits. She was scheduled for a Colonoscopy this and pending a CT of abdomen. . She reports dry mouth with no benefit from Biotene products. She denies vomited or food getting stuck. She does say she eats very soft foods at home eg soup,jello, yogurt mashed potatoes, and reports pressure in lower esophagus while eating at times. She needs to manually disimpact stool, unable to have a bowel movement lately. She did so independently this am. History Source: Patient Limitations to Obtaining History: No Limitations - Past Medical History Cardiovascular: Yes: HTN, Hyperlipdemia Rheumatology: Yes: Other (scleroderma) Endocrine: Yes: Diabetes Mellitus - Smoking History Smoking history: Never smoked Have you smoked in the past 12 months: No Aproximately how many cigarettes per day: 0 - Alcohol/Substance Use Hx Alcohol Use: No - Social History ADL: Independent History of Recent Travel: No History - Admission Reason For Visit: CELLULITIS OF LEFT ELBOW - Diagnostics X-ray: Report Reviewed - General Mental Status: Alert and Oriented, Awake and Alert, Able to Follow Commands Attention: Intact Ability to Follow Directions: Excellent Head/Neck Control: WFL - Hearing Hearing: Normal Hearing Aide: No With Patient: No Speech Evaluation - Communication Primary Language: UPPER [place]ORBI[place] Communication: Yes: Within Normal Limits Oral Expression Ability: Yes: No Impairment - Speech Production Able to Make Needs Known: Yes: WNL Intelligibility: Yes: WNL - Swallow Evaluation/Bedside Assessment Current Nutritional Intake: Soft, Thin Liquids Oral Secretions: Yes: WFL Dentition: Yes: Adequate, Missing Teeth Facial Symmetry at Rest: Symmetrical Facial Symmetry on Retraction: Symmetrical Facial Movement: Controlled Sensation: Normal Against Resistance Opening: Normal Against Resistance Closing: Normal Pucker Lips: Normal Smile: Normal Lingual Movement: Normal, Symmetric (c/o dry mouth) Lingual Speed of Movement: Normal Lingual Movement Strgth Against Opposition: Normal Lingual Movement Characteristics: Normal Soft Palate Description: Normal Color, Normal Symmetry Hard Palate Description: Normal Color, Normal Symmetry Velopharyngeal Movement: Normal Laryngeal Elevation: WFL Laryngeal Movement: Able to Palpate Labial Seal: WFL Chewing: WFL Oral Prep Time: WFL A-P Transit: WFL Pocketing: None Timing of Swallow: WFL Coughing/Throat Clear: No Change in Voice: No Recommendations - Speech Evaluation, Impression/Plan Impression: Esophageal dysphagia secondary to Scleroderma. - Dysphagia Impressions/Plan Swallowing Skills: Impaired *Silent aspiration: cannot be R/O at bedside Dysphagia Treatment Plan: Safe Rate, OOB for meals, OOB for 1 h. after meals, Other (Initiate meal with sip of water.Alternate solids with liquids and complete meal with liquids. Small amounts throughout the day.) Recommendations: GI Consult - Recommendations Diet Consistency: Other (RD consult re: preferences. Very soft, moist food.) Liquids: Thin Liquids Supplement: Magic Cup (trial? Dislikes Glucerna)
[2017-05-03] MEDS: PANTOPRAZOLE 40 MG TABLET (FP) PO SCH ×2 (10:36→21:31)
[2017-05-03] MEDS: ASPIRIN 81 MG CHEWABLE TABLETS PO SCH (10:40)
[2017-05-03] MEDS: POLYETHYLENE GLYCOL 3350 119 GM BTL PO SCH ×2 (10:41→21:32)
[2017-05-03] MEDS: NIFEdipine E.R. 30 MG TABLET (FP) PO SCH (10:42)
[2017-05-03] MEDS: CARVEDILOL 6.25 MG TABLET (FP) PO SCH (10:43)
[2017-05-03] MEDS: CLOPIDOGREL BISULFATE 75 MG TABLET (FP) PO SCH (10:44)
[2017-05-03 11:20] LABS: BASO % 0.3 % (0-2.0); EOS % 3.2 % (0-4.5); HEMATOCRIT 24.5 % (32.4-45.2); HEMOGLOBIN 7.5 GM/dl (10.7-15.3); LYMPH % 13.3 % (8-40); MCH 22.1 pg (25.7-33.7); MCHC 30.7 g/dl (32.0-36.0); MEAN PLT VOLUME 7.9 fl (7.5-11.1); MONO % 4.8 % (3.8-10.2); NEUT % 78.4 % (42.8-82.8); PLATELET COUNT 292 K/MM3 (134-434); RBC 3.41 M/mm3 (3.60-5.2); WHITE BLOOD COUNT 14.7 K/mm3 (4.0-10.8)
[2017-05-03] MEDS ORDERED: SODIUM CHLORIDE 1,000 ML IV SCH ×2 (11:24→12:10)
[2017-05-03 11:51] LABS: ALK PHOS 54 U/L (32-92); ANION GAP 7 (8-16); BILIRUBIN,TOTAL 0.5 mg/dl (0.2-1.0); BLOOD UREA NITROGEN 17 mg/dl (7-18); CALCIUM 9.2 mg/dl (8.4-10.2); CHLORIDE 103 mmol/L (98-107); CO2 27 mmol/L (22-28); CREATININE 0.6 mg/dl (0.6-1.3); GLUCOSE,RANDOM 94 mg/dl (74-106); POTASSIUM 3.8 mmol/L (3.5-5.1); SGOT/AST 15 U/L (10-42); SGPT/ALT 13 U/L (10-40); SODIUM 137 mmol/L (136-145)
[2017-05-03] MEDS ORDERED: INSULIN (NOVOLOG) ASPART 100 UNITS/ML 10ML VIAL ONE ×3 (12:00→21:50)
[2017-05-03] MEDS: INSULIN (NOVOLOG) ASPART 100 UNITS/ML 10ML VIAL SQ SCH ×4 (12:01→21:52)
[2017-05-03] MEDS ORDERED: PICC LINE 8 ML FLUSH PROTOCOL IVPUSH PRN (12:53)
--- NOTE | 2017-05-03 12:59 | EKG ---
Test Reason : Blood Pressure : / mmHG Vent. Rate : 076 BPM Atrial Rate : 076 BPM P-R Int : 156 ms QRS Dur : 070 ms QT Int : 382 ms P-R-T Axes : 030 -19 003 degrees QTc Int : 429 ms NORMAL SINUS RHYTHM POOR R WAVE PROGRESSION NONSPECIFIC T WAVE ABNORMALITY WHEN COMPARED WITH ECG OF 30-APR-2017 07:33, NO SIGNIFICANT CHANGE WAS FOUND Confirmed by JC PASCUAL MD ([id number]) on 05/03/2017 12:58:35 PM Referred By: Confirmed By:JC PASCUAL MD
[2017-05-03] MEDS: LACTOBACILLUS ACIDOPHILUS 1 EACH TAB (FP) PO SCH (13:43)
[2017-05-03] MEDS ORDERED: CYANOCOBALAMIN (VITAMIN B-12) 1000 MCG/1 ML VIAL IM ONE (14:00)
[2017-05-03] MEDS: DOCUSATE SODIUM 100 MG CAPSULE (FP) PO SCH (21:31)
[2017-05-03] MEDS: LEVOTHYROXINE NA 100 MCG TABLET (FP) PO SCH (21:31)
[2017-05-03] MEDS: ATORVASTATIN CA 40 MG TABLET (FP) PO SCH (21:34)
[2017-05-04] MEDS: PIPERACILLIN/TAZOB 3.375 GM 3.375 GM/50 ML BAG IVPB SCH ×3 (02:18→18:16)
[2017-05-04] MEDS: HEPARIN NA (PORCINE) 5,000 UNITS/ML 1ML VIAL SQ SCH ×3 (02:42→18:06)
[2017-05-04] MEDS: metroNIDAZOLE 250 MG TABLET PO SCH ×3 (06:42→21:52)
[2017-05-04] MEDS: VANCOMYCIN 1 GRAM (PRE-DOCKED) 1,000 MG/250 ML BAG IVPB SCH ×2 (06:42→17:28)
[2017-05-04] MEDS: oxyCODONE HCL 5 MG TABLET PO PRN ×2 (06:50→17:25)
[2017-05-04] MEDS: ACETAMINOPHEN 325 MG TABLET (FP) PO PRN ×2 (06:51→17:24)
[2017-05-04] MEDS: INSULIN (NOVOLOG) ASPART 100 UNITS/ML 10ML VIAL SQ SCH ×5 (07:02→21:59)
[2017-05-04 08:07] LABS: SERUM IRON SATURATION 6 % (15-55); TOTAL IRON BINDING CAPACITY 199 ug/dL (250-450); UIBC 188 ug/dL (131-425)
[2017-05-04 08:38] LABS: ALBUMIN 2.4 g/dl (3.5-5.0); ALK PHOS 92 U/L (32-92); ANION GAP 7 (8-16); BLOOD UREA NITROGEN 8 mg/dl (7-18); CALCIUM 7.8 mg/dl (8.4-10.2); CHLORIDE 107 mmol/L (98-107); CO2 21 mmol/L (22-28); CREATININE 0.6 mg/dl (0.6-1.3); GLUCOSE,RANDOM 125 mg/dl (74-106); POTASSIUM 3.3 mmol/L (3.5-5.1); SGOT/AST 23 U/L (10-42); SGPT/ALT 19 U/L (10-40); SODIUM 135 mmol/L (136-145); TOT PROT 4.7 g/dl (6.4-8.3)
[2017-05-04 08:42] LABS: BASO % 0.1 % (0-2.0); EOS % 4.4 % (0-4.5); HEMATOCRIT 22.8 % (32.4-45.2); HEMOGLOBIN 7.1 GM/dl (10.7-15.3); MCH 22.1 pg (25.7-33.7); MEAN CELL VOLUME 71.3 fl (80-96); MEAN PLT VOLUME 7.7 fl (7.5-11.1); MONO % 7.1 % (3.8-10.2); NEUT % 72.4 % (42.8-82.8); PLATELET COUNT 310 K/MM3 (134-434); RDW 17.1 % (11.6-15.6); WHITE BLOOD COUNT 10.5 K/mm3 (4.0-10.8)
--- NOTE | 2017-05-04 08:47 | PN ---
Progress Note, Physician History of Present Illness: Still with C/O L UE pain, fever/ sweats Temps down, afebrile WBC pending I&D L UE performed by Dr Jules Wound c/s MRSA Blood culture SCN x 1 bottle ( contaminant ) - Current Medication List Current Medications: Active Medications Acetaminophen (Tylenol -) 650 mg PO Q6H PRN PRN Reason: FEVER OR PAIN Last Admin: 05/04/17 06:51 Dose: 650 mg Aspirin (Asa -) 81 mg PO DAILY [facility] Last Admin: 05/03/17 10:40 Dose: 81 mg Atorvastatin Calcium (Lipitor -) 40 mg PO HS [facility] Last Admin: 05/03/17 21:34 Dose: 40 mg Carvedilol (Coreg -) 6.25 mg PO BID [facility] Last Admin: 05/03/17 10:43 Dose: 6.25 mg Clopidogrel Bisulfate (Plavix -) 75 mg PO DAILY [facility] Last Admin: 05/03/17 10:44 Dose: 75 mg Docusate Sodium (Colace -) 300 mg PO HS [facility] Last Admin: 05/03/17 21:31 Dose: 300 mg Heparin Sodium (Porcine) (Heparin -) 5,000 unit SQ Q8H-IV [facility] Last Admin: 05/04/17 02:42 Dose: 5,000 unit IV Flush (Picc Line Flush) 8 ml IVPUSH PRN PRN PRN Reason: Protocol Vancomycin HCl (Vancomycin (Pre-Docked)) 1,000 mg in 250 mls @ 166.667 mls/hr IVPB Q12H [facility] Last Admin: 05/04/17 06:42 Dose: 166.667 mls/hr Piperacillin Sod/Tazobactam Sod (Zosyn 3.375gm Ivpb (Pre-Docked)) 3.375 gm in 50 mls @ 100 mls/hr IVPB Q8H-IV [facility] PRN Reason: Protocol Last Admin: 05/04/17 02:18 Dose: 100 mls/hr Sodium Chloride (Normal Saline -) 1,000 mls @ 42 mls/hr IV ASDIR [facility] Last Admin: 05/03/17 13:02 Dose: 42 mls/hr Insulin Aspart (Novolog Vial) 0 units SQ ACHS [facility] PRN Reason: Protocol Last Admin: 05/04/17 07:02 Dose: Not Given Lactobacillus Acidophilus (Bacid -) 1 tab PO DAILY [facility] Last Admin: 05/03/17 13:43 Dose: 1 tab Levothyroxine Sodium (Synthroid -) 100 mcg PO HS [facility] Last Admin: 05/03/17 21:31 Dose: 100 mcg Magnesium Hydroxide (Milk Of Magnesia -) 30 ml PO PRN PRN PRN Reason: CONSTIPATION Metronidazole (Flagyl -) 250 mg PO TID [facility] Last Admin: 05/04/17 06:42 Dose: 250 mg Nifedipine (Procardia Xl -) 30 mg PO DAILY [facility] Last Admin: 05/03/17 10:42 Dose: 30 mg Oxycodone HCl (Roxicodone -) 5 mg PO Q6H PRN PRN Reason: PAIN Last Admin: 05/04/17 06:50 Dose: 5 mg Pantoprazole Sodium (Protonix -) 40 mg PO BID [facility] Last Admin: 05/03/17 21:31 Dose: 40 mg Polyethylene Glycol (Miralax (For Daily Use) -) 17 gm PO BID [facility] Last Admin: 05/03/17 21:32 Dose: 17 gm Potassium Chloride (K-Dur -) 40 meq PO ONCE ONE Stop: 05/04/17 08:42 Senna (Senna -) 2 tab PO HS PRN PRN Reason: CONSTIPATION Last Admin: 05/02/17 13:29 Dose: 2 tab - Objective Vital Signs: Vital Signs Temperature 99.6 F 05/04/17 06:10 Pulse Rate 65 05/04/17 06:10 Respiratory Rate 16 05/04/17 06:10 Blood Pressure 97/51 05/04/17 06:10 O2 Sat by Pulse Oximetry (%) 100 05/04/17 06:10 Constitutional: Yes: No Distress Eyes: Yes: Conjunctiva Clear Cardiovascular: Yes: Regular Rate and Rhythm, S1, S2 Respiratory: Yes: CTA Bilaterally Gastrointestinal: Yes: Normal Bowel Sounds, Soft. No: Tenderness Extremities: Yes: Other (decreased edema L UE. +Erythema, tenderness at olecrannon bursa. No fluctuance) Labs: CBC, BMP 05/04/17 07:00 INR, PTT INR 1.12 (0.82-1.09) 04/30/17 05:10 Assessment/Plan S/P I&D L UE abscess MRSA Cellulitis L UE improving Fever/ leukocytosis- improving +BC SCN = contaminant Continue vancomycin Elevation , analgesics
[2017-05-04] MEDS ORDERED: POTASSIUM CHLORIDE TABS 20 MEQ TABLET.ER (FP) PO ONE (09:15)
[2017-05-04] MEDS: LACTOBACILLUS ACIDOPHILUS 1 EACH TAB (FP) PO SCH (10:05)
[2017-05-04] MEDS: ASPIRIN 81 MG CHEWABLE TABLETS PO SCH (10:05)
--- NOTE | 2017-05-04 10:05 | PN ---
Progress Note (short form) - Note Progress Note: She is feeling better with less LEFT elbow pain. However she continues to have chills and sweats. Her white blood cell count is down significantly. Physical examination shows no evidence of abscess. There is very mild serous drainage from the I&D site. However she has diffuse tenderness over the olecranon process. There is mild redness. Impression is LEFT elbow MRSA olecranon bursa Plan: Although she is feeling better and concerned that she is not getting better quicker and that she is still having chills and sweats. I recommended an MRI of the LEFT elbow to rule out osteomyelitis or abscess that is not clinically evident. Continue elevation and antibiotics
[2017-05-04] MEDS: CLOPIDOGREL BISULFATE 75 MG TABLET (FP) PO SCH (10:06)
[2017-05-04] MEDS: PANTOPRAZOLE 40 MG TABLET (FP) PO SCH ×2 (10:06→21:51)
[2017-05-04] MEDS: POLYETHYLENE GLYCOL 3350 119 GM BTL PO SCH ×2 (11:08→21:51)
[2017-05-04] MEDS ORDERED: IRON SUCROSE INJECTION 200 MG in SODIUM CHLORIDE 240 ML IVPB ONE (11:19)
--- NOTE | 2017-05-04 11:21 | PN ---
Physical Exam: SUBJECTIVE: Patient seen and examined, reports feeling slightly improved does report pain to the left elbow, that worsens upon movement. OBJECTIVE:This is a 56 year-old woman with a PMH significant for CAD s/p NSTEMI s/p stent (06/2016), NIDDM, scleroderma, hypothyroidism, and RUE MRSA cellulitis (multiple drainages/wound vac, 09/2015). Admitted for sepsis and left elbow cellulitis Vital Signs Period Temp Pulse Resp BP Sys/Atkinson Pulse Ox Last 24 Hr 99.1 F-99.6 F 63-65 16-18 92-98/43-51 100-100 Vital Signs - 8 hr 05/04/17 05/04/17 06:10 09:05 Temperature 99.6 F 99.2 F Pulse Rate 65 64 Respiratory 16 18 Rate Blood Pressure 97/51 98/47 O2 Sat by Pulse 100 Oximetry (%) GENERAL: The patient is awake, alert, and fully oriented, in no acute distress. HEAD: Normal with no signs of trauma. EYES: PERRL, extraocular movements intact, sclera anicteric, conjunctiva clear. No ptosis. ENT: Ears normal, nares patent, oropharynx clear without exudates, moist mucous membranes. NECK: Trachea midline, full range of motion, supple. LUNGS: Breath sounds equal, clear to auscultation bilaterally, no wheezes, no crackles, no accessory muscle use. HEART: Regular rate and rhythm, S1, S2 without murmur, rub or gallop. ABDOMEN: Soft, nontender, nondistended, normoactive bowel sounds, no guarding, no rebound, no hepatosplenomegaly, no masses. EXTREMITIES: 2+ pulses, warm, well-perfused, no edema. LEFT LOWER EXTREMITY: erythema and tenderness noted to olecran process,no fluctance is noted. NEUROLOGICAL: Cranial nerves II through XII grossly intact. Normal speech, gait not observed. PSYCH: Normal mood, normal affect. SKIN: Warm, dry, normal turgor, no rashes or lesions noted Laboratory Results - last 24 hr CBC WBC 10.5 K/mm3 (4.0-10.8) 05/04/17 07:00 Corrected WBC (auto) Cancelled 05/01/17 06:00 RBC 3.20 M/mm3 (3.60-5.2) L 05/04/17 07:00 Hgb 7.1 GM/dl (10.7-15.3) L 05/04/17 07:00 Hct 22.8 % (32.4-45.2) L 05/04/17 07:00 MCV 71.3 fl (80-96) L 05/04/17 07:00 MCH 22.1 pg (25.7-33.7) L 05/04/17 07:00 MCHC 31.0 g/dl (32.0-36.0) L 05/04/17 07:00 RDW 17.1 % (11.6-15.6) H 05/04/17 07:00 Plt Count 310 K/MM3 (134-434) 05/04/17 07:00 MPV 7.7 fl (7.5-11.1) 05/04/17 07:00 Neutrophils % 72.4 % (42.8-82.8) 05/04/17 07:00 Lymphocytes % 16.0 % (8-40) D 05/04/17 07:00 Monocytes % 7.1 % (3.8-10.2) 05/04/17 07:00 Eosinophils % 4.4 % (0-4.5) 05/04/17 07:00 Basophils % 0.1 % (0-2.0) 05/04/17 07:00 Manual Slide Review No Result Required. 05/03/17 05:30 Hypochromia 2+ 04/30/17 15:10 Platelet Comment Cancelled 05/01/17 06:00 Anisocytosis 1+ 04/30/17 15:10 Microcytosis 1+ 04/30/17 15:10 Tear Drop Cells 1+ 04/30/17 15:10 Ovalocytes 1+ 04/30/17 15:10 Haptoglobin 325 mg/dL (34-200) H 05/03/17 05:30 CMP Sodium 135 mmol/L (136-145) L 05/04/17 07:00 Potassium 3.3 mmol/L (3.5-5.1) L 05/04/17 07:00 Chloride 107 mmol/L (98-107) 05/04/17 07:00 Carbon Dioxide 21 mmol/L (22-28) L D 05/04/17 07:00 Anion Gap 7 (8-16) L 05/04/17 07:00 BUN 8 mg/dl (7-18) D 05/04/17 07:00 Creatinine 0.6 mg/dl (0.6-1.3) 05/04/17 07:00 Creat Clearance w eGFR > 60 (>60) 05/04/17 07:00 POC Glucometer 215 UNITS (80-120) 05/04/17 11:29 Random Glucose 125 mg/dl (74-106) H D 05/04/17 07:00 Lactic Acid 1.0 mmol/L (0.4-2.0) 04/30/17 18:00 Calcium 7.8 mg/dl (8.4-10.2) L 05/04/17 07:00 Phosphorus 2.5 mg/dL (2.5-4.9) D 05/02/17 04:00 Magnesium 1.9 mg/dL (1.8-2.4) 05/02/17 04:00 Iron 11 ug/dL (27-159) L 05/03/17 05:30 TIBC 199 ug/dL (250-450) L 05/03/17 05:30 Iron Saturation 6 % (15-55) L 05/03/17 05:30 Ferritin 50.835 ng/ml (6.9-282.5) 05/02/17 04:00 Total Bilirubin 1.0 mg/dl (0.2-1.0) D 05/04/17 07:00 AST 23 U/L (10-42) D 05/04/17 07:00 ALT 19 U/L (10-40) D 05/04/17 07:00 Alkaline Phosphatase 92 U/L (32-92) D 05/04/17 07:00 LD Total 300 U/L (84-246) H 05/02/17 04:00 Creatine Kinase 81 IU/L (26-192) 04/30/17 05:10 Troponin I < 0.03 ng/ml (0.03-0.50) L 05/01/17 20:25 C-Reactive Protein 0.5 MG/DL (0.00-0.3) H 04/30/17 05:10 Total Protein 4.7 g/dl (6.4-8.3) L D 05/04/17 07:00 Albumin 2.4 g/dl (3.5-5.0) L D 05/04/17 07:00 Vitamin B12 298 pg/ml (180-914) 05/02/17 04:00 Serum Folate 11 ng/ml (3.1-17.5) 05/02/17 04:00 Active Medications Generic Name Dose Route Start Last Admin Trade Name Freq PRN Reason Stop Dose Admin Acetaminophen 650 mg 04/30/17 09:39 05/04/17 06:51 Tylenol - PO 650 mg Q6H PRN Administration FEVER OR PAIN Aspirin 81 mg 04/30/17 14:00 05/04/17 10:05 Asa - PO 81 mg DAILY [facility] Administration Atorvastatin Calcium 40 mg 04/30/17 22:00 05/03/17 21:34 Lipitor - PO 40 mg HS [facility] Administration Carvedilol 6.25 mg 04/30/17 14:00 05/03/17 10:43 Coreg - PO 6.25 mg BID [facility] Administration Clopidogrel Bisulfate 75 mg 04/30/17 14:00 05/04/17 10:06 Plavix - PO 75 mg DAILY [facility] Administration Docusate Sodium 300 mg 04/30/17 14:45 05/03/17 21:31 Colace - PO 300 mg HS [facility] Administration Heparin Sodium (Porcine) 5,000 unit 04/30/17 14:30 05/04/17 10:06 Heparin - SQ 5,000 unit Q8H-IV [facility] Administration IV Flush 8 ml 05/03/17 12:53 Picc Line Flush IVPUSH PRN PRN Protocol Vancomycin HCl 1,000 mg in 250 mls @ 166.667 mls/hr 04/30/17 18:00 05/04/17 06:42 Vancomycin (Pre-Docked) IVPB 166.667 mls/hr Q12H [facility] Administration Piperacillin Sod/Tazobactam Sod 3.375 gm in 50 mls @ 100 mls/hr 05/02/17 05: 15 05/04/17 10:06 Zosyn 3.375gm Ivpb (Pre-Docked) IVPB 100 mls/hr Q8H-IV [facility] Administration Protocol Sodium Chloride 1,000 mls @ 42 mls/hr 05/03/17 12:10 05/03/17 13:02 Normal Saline - IV 42 mls/hr ASDIR [facility] Administration Iron Sucrose 200 mg/ Sodium 250 mls @ 250 mls/hr 05/04/17 11:19 Chloride IVPB 05/04/17 12:18 ONCE ONE Insulin Aspart 0 units 04/30/17 16:30 05/04/17 07:02 Novolog Vial SQ Not Given ACHS [facility] Protocol Lactobacillus Acidophilus 1 tab 05/03/17 13:15 05/04/17 10:05 Bacid - PO 1 tab DAILY [facility] Administration Levothyroxine Sodium 100 mcg 04/30/17 22:00 05/03/17 21:31 Synthroid - PO 100 mcg HS [facility] Administration Magnesium Hydroxide 30 ml 05/02/17 12:32 Milk Of Magnesia - PO PRN PRN CONSTIPATION Metronidazole 250 mg 04/30/17 15:30 05/04/17 06:42 Flagyl - PO 250 mg TID [facility] Administration Nifedipine 30 mg 04/30/17 14:00 05/03/17 10:42 Procardia Xl - PO 30 mg DAILY [facility] Administration Oxycodone HCl 5 mg 04/30/17 14:26 05/04/17 06:50 Roxicodone - PO 5 mg Q6H PRN Administration PAIN Pantoprazole Sodium 40 mg 04/30/17 15:15 05/04/17 10:06 Protonix - PO 40 mg BID [facility] Administration Polyethylene Glycol 17 gm 04/30/17 14:45 05/04/17 11:08 Miralax (For Daily Use) - PO 17 gm BID [facility] Administration Senna 2 tab 05/02/17 12:31 05/02/17 13:29 Senna - PO 2 tab HS PRN Administration CONSTIPATION Microbiology 04/30/17 05:10 Blood - Peripheral Venous Blood Culture - Final Staphylococcus Epidermidis 05/01/17 11:15 Abscess Gram Stain - Final 05/01/17 11:15 Abscess Wound Culture - Final Mr S Aureus 04/30/17 05:10 Blood - Peripheral Venous Blood Culture - Preliminary NO GROWTH OBTAINED AFTER 96 HOURS, INCUBATION TO CONTINUE FOR 1 DAYS. 04/30/17 18:00 Urine - Urine Clean Catch Urine Culture - Final NO GROWTH OBTAINED ASSESSMENT/PLAN: 1) Severe sepsis secondary to RUE abscess/cellulitis - leukocystosis resolved, low grade temp noted, continue vanc (04/30- )and zosyn (05/02-) - wound culture MRSA, blood culture staph epidermis, likely contaminated, repeat blood cultures pending - ongoing pain and erythema to left lower extremity, mri of left lower extremity ordered to r/o cellulitis - Dr Marie, ID consulted and followed - pt is s/p I&D, Dr Avalos, 05/01/17, ortho consulted and following 2) cardiovascular CAD s/p NSTEMI s/p stent (06/23) - continue ASA, plavix - - hold nifedipine, carvedilol secondary to continuing hypotension 3) heme microcytic anemia - hemoglobin 7.5, baseline 12, no active bleeding noted, pending stool guiac, iron studies notable for iron deficiency anemia, venofer 200mg x 1 ordered, 4) endo niddm -fingersticks achs with novolog sliding scale hypothyroidism - continue levothyroxine 5) f/e/n dysphagia - swallow eval completed, OOB for meals, OOB for 1 h. after meals, .Alternate solids with liquids and complete meal with liquids. Small amounts throughout the day replete lytes prn diabetic soft diet PPX: Heparin sq - PT Dispo- Require inpatient care. Code Status- Full code. Visit type - Emergency Visit Emergency Visit: Yes ED Registration Date: 04/30/17 Care time: The patient presented to the Emergency Department on the above date and was hospitalized for further evaluation of their emergent condition. - New Patient This patient is new to me today: No - Critical Care Critical Care patient: No - Discharge Referral Referred to [facility] No
[2017-05-04] MEDS ORDERED: IRON SUCROSE INJECTION 200 MG in SODIUM CHLORIDE 100 ML IVPB ONE (12:00)
[2017-05-04] MEDS ORDERED: INSULIN (NOVOLOG) ASPART 100 UNITS/ML 10ML VIAL ONE (12:16)
[2017-05-04] MEDS: SODIUM CHLORIDE 0.9%/KCL 20 MEQ/1,000 ML INFUS.BAG IV SCH (17:27)
[2017-05-04] MEDS: DOCUSATE SODIUM 100 MG CAPSULE (FP) PO SCH (21:51)
[2017-05-04] MEDS: LEVOTHYROXINE NA 100 MCG TABLET (FP) PO SCH (21:51)
[2017-05-04] MEDS: ATORVASTATIN CA 40 MG TABLET (FP) PO SCH (21:52)
[2017-05-05] MEDS: ACETAMINOPHEN 325 MG TABLET (FP) PO PRN ×3 (01:26→21:20)
[2017-05-05] MEDS: oxyCODONE HCL 5 MG TABLET PO PRN ×3 (01:27→19:43)
[2017-05-05] MEDS: PIPERACILLIN/TAZOB 3.375 GM 3.375 GM/50 ML BAG IVPB SCH ×3 (01:28→17:41)
[2017-05-05] MEDS: HEPARIN NA (PORCINE) 5,000 UNITS/ML 1ML VIAL SQ SCH ×3 (01:28→17:58)
[2017-05-05] MEDS: VANCOMYCIN 1 GRAM (PRE-DOCKED) 1,000 MG/250 ML BAG IVPB SCH ×2 (06:42→17:41)
[2017-05-05] MEDS: metroNIDAZOLE 250 MG TABLET PO SCH ×3 (06:42→21:11)
[2017-05-05] MEDS: INSULIN (NOVOLOG) ASPART 100 UNITS/ML 10ML VIAL SQ SCH ×4 (06:49→21:32)
[2017-05-05 08:35] LABS: BASO % 0.5 % (0-2.0); EOS % 6.5 % (0-4.5); HEMATOCRIT 24.1 % (32.4-45.2); HEMOGLOBIN 7.4 GM/dl (10.7-15.3); LYMPH % 22.5 % (8-40); MCH 22.1 pg (25.7-33.7); MEAN CELL VOLUME 71.3 fl (80-96); MEAN PLT VOLUME 7.7 fl (7.5-11.1); MONO % 8.7 % (3.8-10.2); NEUT % 61.8 % (42.8-82.8); PLATELET COUNT 338 K/MM3 (134-434); RBC 3.38 M/mm3 (3.60-5.2); RDW 17.1 % (11.6-15.6); WHITE BLOOD COUNT 9.4 K/mm3 (4.0-10.8)
[2017-05-05 08:49] LABS: ANION GAP 6 (8-16); BLOOD UREA NITROGEN 6 mg/dl (7-18); CHLORIDE 103 mmol/L (98-107); CO2 23 mmol/L (22-28); CREATININE 0.7 mg/dl (0.6-1.3); GLUCOSE,RANDOM 134 mg/dl (74-106); MAGNESIUM 1.9 mg/dL (1.8-2.4); PHOSPHOROUS 2.9 mg/dl (2.5-4.6); POTASSIUM 3.8 mmol/L (3.5-5.1); SODIUM 132 mmol/L (136-145)
[2017-05-05] MEDS ORDERED: PT OWN MED DRAWER 7, Y5N ONE ×2 (09:14→17:55)
--- NOTE | 2017-05-05 09:22 | PN ---
Progress Note, Physician History of Present Illness: Still with C/O L UE pain Temps down, afebrile WBC pending Wound c/s MRSA Blood culture SCN x 1 bottle ( contaminant ) MRI L UE done, results pending - Current Medication List Current Medications: Active Medications Acetaminophen (Tylenol -) 650 mg PO Q6H PRN PRN Reason: FEVER OR PAIN Last Admin: 05/05/17 01:26 Dose: 650 mg Aspirin (Asa -) 81 mg PO DAILY [facility] Last Admin: 05/04/17 10:05 Dose: 81 mg Atorvastatin Calcium (Lipitor -) 40 mg PO HS [facility] Last Admin: 05/04/17 21:52 Dose: 40 mg Carvedilol (Coreg -) 6.25 mg PO BID [facility] Last Admin: 05/03/17 10:43 Dose: 6.25 mg Clopidogrel Bisulfate (Plavix -) 75 mg PO DAILY [facility] Last Admin: 05/04/17 10:06 Dose: 75 mg Docusate Sodium (Colace -) 300 mg PO HS [facility] Last Admin: 05/04/17 21:51 Dose: 300 mg Heparin Sodium (Porcine) (Heparin -) 5,000 unit SQ Q8H-IV [facility] Last Admin: 05/05/17 01:28 Dose: 5,000 unit IV Flush (Picc Line Flush) 8 ml IVPUSH PRN PRN PRN Reason: Protocol Vancomycin HCl (Vancomycin (Pre-Docked)) 1,000 mg in 250 mls @ 166.667 mls/hr IVPB Q12H [facility] Last Admin: 05/05/17 06:42 Dose: 166.667 mls/hr Piperacillin Sod/Tazobactam Sod (Zosyn 3.375gm Ivpb (Pre-Docked)) 3.375 gm in 50 mls @ 100 mls/hr IVPB Q8H-IV [facility]Y PRN Reason: Protocol Last Admin: 05/05/17 01:28 Dose: 100 mls/hr Potassium Chloride/Sodium Chloride (Ns+20 Meq Kcl -) 20 meq in 1,000 mls @ 42 mls/hr IV ASDIR [facility] Last Admin: 05/04/17 17:27 Dose: 42 mls/hr Insulin Aspart (Novolog Vial) 0 units SQ ACHS [facility] PRN Reason: Protocol Last Admin: 05/05/17 06:49 Dose: Not Given Lactobacillus Acidophilus (Bacid -) 1 tab PO DAILY [facility] Last Admin: 05/04/17 10:05 Dose: 1 tab Levothyroxine Sodium (Synthroid -) 100 mcg PO HS [facility] Last Admin: 05/04/17 21:51 Dose: 100 mcg Magnesium Hydroxide (Milk Of Magnesia -) 30 ml PO PRN PRN PRN Reason: CONSTIPATION Metronidazole (Flagyl -) 250 mg PO TID [facility] Last Admin: 05/05/17 06:42 Dose: 250 mg Nifedipine (Procardia Xl -) 30 mg PO DAILY [facility] Last Admin: 05/03/17 10:42 Dose: 30 mg Oxycodone HCl (Roxicodone -) 5 mg PO Q6H PRN PRN Reason: PAIN Last Admin: 05/05/17 01:27 Dose: 5 mg Pantoprazole Sodium (Protonix -) 40 mg PO BID [facility] Last Admin: 05/04/17 21:51 Dose: 40 mg Polyethylene Glycol (Miralax (For Daily Use) -) 17 gm PO BID [facility] Last Admin: 05/04/17 21:51 Dose: 17 gm Senna (Senna -) 2 tab PO HS PRN PRN Reason: CONSTIPATION Last Admin: 05/02/17 13:29 Dose: 2 tab - Objective Vital Signs: Vital Signs Temperature 98.5 F 05/05/17 08:59 Pulse Rate 73 05/05/17 08:59 Respiratory Rate 18 05/05/17 08:59 Blood Pressure 125/53 05/05/17 08:59 O2 Sat by Pulse Oximetry (%) 100 05/05/17 08:23 Constitutional: Yes: No Distress Eyes: Yes: Conjunctiva Clear Neck: Yes: Supple Cardiovascular: Yes: Regular Rate and Rhythm, S1, S2 Respiratory: Yes: CTA Bilaterally Extremities: Yes: Other (decreased L UE edema + erythema/ swelling L olecrannon process) Labs: CBC, BMP 05/05/17 07:50 05/05/17 07:00 INR, PTT INR 1.12 (0.82-1.09) 04/30/17 05:10 Assessment/Plan S/P I&D L UE abscess MRSA Cellulitis L UE improving Fever/ leukocytosis- improved +BC SCN = contaminant Continue vancomycin Elevation , analgesics Await MRI result
[2017-05-05] MEDS: PANTOPRAZOLE 40 MG TABLET (FP) PO SCH ×2 (09:43→21:11)
[2017-05-05] MEDS: CLOPIDOGREL BISULFATE 75 MG TABLET (FP) PO SCH (09:43)
[2017-05-05] MEDS: ASPIRIN 81 MG CHEWABLE TABLETS PO SCH (09:44)
[2017-05-05] MEDS: LACTOBACILLUS ACIDOPHILUS 1 EACH TAB (FP) PO SCH (09:44)
[2017-05-05] MEDS: POLYETHYLENE GLYCOL 3350 119 GM BTL PO SCH ×2 (09:44→21:11)
[2017-05-05] MEDS: CARVEDILOL 6.25 MG TABLET (FP) PO SCH ×2 (10:21→21:11)
--- NOTE | 2017-05-05 11:32 | PN ---
Physical Exam: SUBJECTIVE: Patient seen and examined, reports left elbow pain, denies any tactile fevers. OBJECTIVE:This is a 56 year-old woman with a PMH significant for CAD s/p NSTEMI s/p stent (06/2016), NIDDM, scleroderma, hypothyroidism, and RUE MRSA cellulitis (multiple drainages/wound vac, 09/2015). Admitted for sepsis and left elbow cellulitis Vital Signs Period Temp Pulse Resp BP Sys/Atkinson Pulse Ox Last 24 Hr 97.6 F-99.4 F 51-73 16-20 102-125/42-58 100-100 GENERAL: The patient is awake, alert, and fully oriented, in no acute distress. HEAD: Normal with no signs of trauma. EYES: PERRL, extraocular movements intact, sclera anicteric, conjunctiva clear. No ptosis. ENT: Ears normal, nares patent, oropharynx clear without exudates, moist mucous membranes. NECK: Trachea midline, full range of motion, supple. LUNGS: Breath sounds equal, clear to auscultation bilaterally, no wheezes, no crackles, no accessory muscle use. HEART: Regular rate and rhythm, S1, S2 without murmur, rub or gallop. ABDOMEN: Soft, nontender, nondistended, normoactive bowel sounds, no guarding, no rebound, no hepatosplenomegaly, no masses. EXTREMITIES: 2+ pulses, warm, well-perfused, no edema. LEFT LOWER EXTREMITY: erythema and tenderness noted to olecran process,no fluctance is noted. NEUROLOGICAL: Cranial nerves II through XII grossly intact. Normal speech, gait not observed. PSYCH: Normal mood, normal affect. SKIN: Warm, dry, normal turgor, no rashes or lesions noted Laboratory Results - last 24 hr 05/04/17 05/04/17 05/04/17 11:29 17:22 21:57 WBC RBC Hgb Hct MCV MCH MCHC RDW Plt Count MPV Neutrophils % Lymphocytes % Monocytes % Eosinophils % Basophils % Sodium Potassium Chloride Carbon Dioxide Anion Gap BUN Creatinine POC Glucometer 215 147 130 Random Glucose Calcium Phosphorus Magnesium 05/05/17 05/05/17 05/05/17 06:46 07:00 07:50 WBC 9.4 RBC 3.38 L Hgb 7.4 L Hct 24.1 L MCV 71.3 L MCH 22.1 L MCHC 31.0 L RDW 17.1 H Plt Count 338 MPV 7.7 Neutrophils % 61.8 Lymphocytes % 22.5 D Monocytes % 8.7 Eosinophils % 6.5 H Basophils % 0.5 D Sodium 132 L Potassium 3.8 Chloride 103 Carbon Dioxide 23 Anion Gap 6 L BUN 6 L D Creatinine 0.7 POC Glucometer 114 Random Glucose 134 H Calcium 8.0 L Phosphorus 2.9 D Magnesium 1.9 05/05/17 11:01 WBC RBC Hgb Hct MCV MCH MCHC RDW Plt Count MPV Neutrophils % Lymphocytes % Monocytes % Eosinophils % Basophils % Sodium Potassium Chloride Carbon Dioxide Anion Gap BUN Creatinine POC Glucometer 211 Random Glucose Calcium Phosphorus Magnesium Active Medications Generic Name Dose Route Start Last Admin Trade Name Freq PRN Reason Stop Dose Admin Acetaminophen 650 mg 04/30/17 09:39 05/05/17 01:26 Tylenol - PO 650 mg Q6H PRN Administration FEVER OR PAIN Aspirin 81 mg 04/30/17 14:00 05/05/17 09:44 Asa - PO 81 mg DAILY [facility] Administration Atorvastatin Calcium 40 mg 04/30/17 22:00 05/04/17 21:52 Lipitor - PO 40 mg HS [facility] Administration Carvedilol 6.25 mg 04/30/17 14:00 05/05/17 10:21 Coreg - PO 6.25 mg BID LILLY Administration Clopidogrel Bisulfate 75 mg 04/30/17 14:00 05/05/17 09:43 Plavix - PO 75 mg DAILY [facility] Administration Docusate Sodium 300 mg 04/30/17 14:45 05/04/17 21:51 Colace - PO 300 mg HS [facility] Administration Heparin Sodium (Porcine) 5,000 unit 04/30/17 14:30 05/05/17 09:44 Heparin - SQ 5,000 unit Q8H-IV [facility] Administration IV Flush 8 ml 05/03/17 12:53 Picc Line Flush IVPUSH PRN PRN Protocol Vancomycin HCl 1,000 mg in 250 mls @ 166.667 mls/hr 04/30/17 18:00 05/05/17 06:42 Vancomycin (Pre-Docked) IVPB 166.667 mls/hr Q12H [facility] Administration Piperacillin Sod/Tazobactam Sod 3.375 gm in 50 mls @ 100 mls/hr 05/02/17 05: 15 05/05/17 09:40 Zosyn 3.375gm Ivpb (Pre-Docked) IVPB 100 mls/hr Q8H-IV [facility] Administration Protocol Potassium Chloride/Sodium Chloride 20 meq in 1,000 mls @ 42 mls/hr 05/04/17 12 :45 05/04/17 17:27 Ns+20 Meq Kcl - IV 42 mls/hr ASDIR [facility] Administration Insulin Aspart 0 units 04/30/17 16:30 05/05/17 06:49 Novolog Vial SQ Not Given ACHS [facility] Protocol Lactobacillus Acidophilus 1 tab 05/03/17 13:15 05/05/17 09:44 Bacid - PO 1 tab DAILY [facility] Administration Levothyroxine Sodium 100 mcg 04/30/17 22:00 05/04/17 21:51 Synthroid - PO 100 mcg HS [facility] Administration Magnesium Hydroxide 30 ml 05/02/17 12:32 Milk Of Magnesia - PO PRN PRN CONSTIPATION Metronidazole 250 mg 04/30/17 15:30 05/05/17 06:42 Flagyl - PO 250 mg TID [facility] Administration Nifedipine 30 mg 04/30/17 14:00 05/03/17 10:42 Procardia Xl - PO 30 mg DAILY [facility] Administration Oxycodone HCl 5 mg 04/30/17 14:26 05/05/17 01:27 Roxicodone - PO 5 mg Q6H PRN Administration PAIN Pantoprazole Sodium 40 mg 04/30/17 15:15 05/05/17 09:43 Protonix - PO 40 mg BID [facility] Administration Polyethylene Glycol 17 gm 04/30/17 14:45 05/05/17 09:44 Miralax (For Daily Use) - PO Not Given BID [facility] Potassium Chloride 20 meq 05/05/17 11:30 K-Dur - PO DAILY [facility] Senna 2 tab 05/02/17 12:31 05/02/17 13:29 Senna - PO 2 tab HS PRN Administration CONSTIPATION Microbiology 04/30/17 05:10 Blood - Peripheral Venous Blood Culture - Final NO GROWTH AFTER 5 DAYS INCUBATION 05/03/17 09:44 Blood - Peripheral Venous Blood Culture - Preliminary NO GROWTH OBTAINED AFTER 24 HOURS, INCUBATION TO CONTINUE FOR 4 DAYS. 05/03/17 09:44 Blood - Peripheral Venous Blood Culture - Preliminary NO GROWTH OBTAINED AFTER 24 HOURS, INCUBATION TO CONTINUE FOR 4 DAYS. 04/30/17 05:10 Blood - Peripheral Venous Blood Culture - Final Staphylococcus Epidermidis 05/01/17 11:15 Abscess Gram Stain - Final 05/01/17 11:15 Abscess Wound Culture - Final Mr Azar Aureus 04/30/17 18:00 Urine - Urine Clean Catch Urine Culture - Final NO GROWTH OBTAINED ASSESSMENT/PLAN: 1) Severe sepsis secondary to RUE abscess/cellulitis - leukocystosis resolved, low grade temp noted, continue vanc (04/30- )and zosyn (05/02-) - wound culture MRSA, blood culture staph epidermis, likely contaminated, repeat blood cultures NTD - MRI of left upper extermity, no osteomyelitis, small to moderate joint effusion, soft tissue edema - Dr Marie, ID consulted and followed - pt is s/p I&D, Dr Avalos, 05/01/17, ortho consulted and following 2) cardiovascular CAD s/p NSTEMI s/p stent (06/23) - continue ASA, plavix - - hold nifedipine, carvedilol secondary to continuing hypotension 3) heme microcytic anemia - secondary to iron deficency, venofer (05/04/17) will require four more infusions, hemoglobin 7.4, baseline 12, - no active bleeding noted, pending stool guiac 4) endo niddm -fingersticks achs with novolog sliding scale hypothyroidism - continue levothyroxine 5) f/e/n dysphagia - swallow eval completed, OOB for meals, OOB for 1 h. after meals, Alternate solids with liquids and complete meal with liquids. Small amounts throughout the day replete potassium and magnesium diabetic soft diet PPX: Heparin sq - PT Dispo- Require inpatient care. Code Status- Full code. Visit type - Emergency Visit Emergency Visit: Yes ED Registration Date: 04/30/17 Care time: The patient presented to the Emergency Department on the above date and was hospitalized for further evaluation of their emergent condition. - New Patient This patient is new to me today: No - Critical Care Critical Care patient: No - Discharge Referral Referred to [facility] No
[2017-05-05] MEDS: POTASSIUM CHLORIDE TABS 10 MEQ TABLET.ER (FP) PO SCH (11:55)
[2017-05-05] MEDS: MAG HYDROX/ALH/SMC/DPHA/LIDO 240 ML MOUTHWASH MM SCH ×4 (11:56→23:18)
--- NOTE | 2017-05-05 12:49 | PN ---
Progress Note, LINE MAINTAINER SECTION - Note Progress Note: Selected Entries 05/04/17 05/04/17 05/04/17 06:10 09:05 10:36 Breakfast 75% Lunch Temperature 99.6 F 99.2 F 05/04/17 05/04/17 05/04/17 13:34 14:31 20:50 Breakfast Lunch 50% Temperature 98.5 F 99.4 F 05/05/17 05/05/17 05/05/17 06:00 07:30 08:59 Breakfast 75% Lunch Temperature 97.6 F 98.5 F Laboratory Tests 05/03/17 05/04/17 05/05/17 05:30 07:00 07:50 WBC 16.2 H 10.5 9.4 Compensatory swallowing strategies reviewed with Ms. Cardoza. Appreciate RD consult.
[2017-05-05] MEDS: SODIUM CHLORIDE 0.9%/KCL 20 MEQ/1,000 ML INFUS.BAG IV SCH (13:20)
[2017-05-05] MEDS ORDERED: INSULIN (NOVOLOG) ASPART 100 UNITS/ML 10ML VIAL ONE ×2 (16:10→18:41)
[2017-05-05] MEDS ORDERED: REFRIGERATED ANITBIOTICS ONE ×2 (17:56→21:08)
[2017-05-05] MEDS: LEVOTHYROXINE NA 100 MCG TABLET (FP) PO SCH (21:11)
[2017-05-05] MEDS: DOCUSATE SODIUM 100 MG CAPSULE (FP) PO SCH (21:11)
[2017-05-05] MEDS: ATORVASTATIN CA 40 MG TABLET (FP) PO SCH (21:11)
[2017-05-06] MEDS: PIPERACILLIN/TAZOB 3.375 GM 3.375 GM/50 ML BAG IVPB SCH (01:14)
[2017-05-06] MEDS: HEPARIN NA (PORCINE) 5,000 UNITS/ML 1ML VIAL SQ SCH ×2 (01:14→10:34)
[2017-05-06] MEDS ORDERED: REFRIGERATED ANITBIOTICS ONE ×3 (05:43→23:26)
[2017-05-06] MEDS: VANCOMYCIN 1 GRAM (PRE-DOCKED) 1,000 MG/250 ML BAG IVPB SCH ×2 (05:48→22:42)
[2017-05-06] MEDS: metroNIDAZOLE 250 MG TABLET PO SCH ×3 (05:48→21:37)
[2017-05-06] MEDS: MAG HYDROX/ALH/SMC/DPHA/LIDO 240 ML MOUTHWASH MM SCH ×3 (05:56→18:13)
[2017-05-06] MEDS: INSULIN (NOVOLOG) ASPART 100 UNITS/ML 10ML VIAL SQ SCH ×4 (06:01→21:52)
--- NOTE | 2017-05-06 09:29 | PN ---
Physical Exam: SUBJECTIVE: Patient seen and examined, reports pain to the right elbow denies fever. drainage noted from left EJ, case discussed with A IWONA Cross, right IJ TLC placed OBJECTIVE:his is a 56 year-old woman with a PMH significant for CAD s/p NSTEMI s /p stent (06/2016), NIDDM, scleroderma, hypothyroidism, and RUE MRSA cellulitis (multiple drainages/wound vac, 09/2015). Admitted for sepsis and left elbow cellulitis Vital Signs Period Temp Pulse Resp BP Sys/Atkinson Pulse Ox Last 24 Hr 98.7 F-99.0 F 58-102 18-20 102-113/43-57 96-98 GENERAL: The patient is awake, alert, and fully oriented, in no acute distress. HEAD: Normal with no signs of trauma. EYES: PERRL, extraocular movements intact, sclera anicteric, conjunctiva clear. No ptosis. ENT: Ears normal, nares patent, oropharynx clear without exudates, moist mucous membranes. NECK: Trachea midline, full range of motion, supple. LUNGS: Breath sounds equal, clear to auscultation bilaterally, no wheezes, no crackles, no accessory muscle use. HEART: Regular rate and rhythm, S1, S2 without murmur, rub or gallop. ABDOMEN: Soft, nontender, nondistended, normoactive bowel sounds, no guarding, no rebound, no hepatosplenomegaly, no masses. EXTREMITIES: 2+ pulses, warm, well-perfused, no edema. RIGHT LOWER EXTREMITY:erythema and tenderness to olceran process, purulent drainage noted, less than 3 second capillary refill, + radial pulse NEUROLOGICAL: Cranial nerves II through XII grossly intact. Normal speech, gait not observed. PSYCH: Normal mood, normal affect. SKIN: Warm, dry, normal turgor, no rashes or lesions noted Laboratory Results - last 24 hr 05/05/17 05/05/17 05/05/17 11:00 11:01 16:04 POC Glucometer 211 224 Stool Occult Blood Negative 05/05/17 05/06/17 21:23 05:52 POC Glucometer 137 127 Stool Occult Blood Active Medications Generic Name Dose Route Start Last Admin Trade Name Freq PRN Reason Stop Dose Admin Acetaminophen 650 mg 04/30/17 09:39 05/05/17 21:20 Tylenol - PO 650 mg Q6H PRN Administration FEVER OR PAIN Aspirin 81 mg 04/30/17 14:00 05/05/17 09:44 Asa - PO 81 mg DAILY LILLY Administration Atorvastatin Calcium 40 mg 04/30/17 22:00 05/05/17 21:11 Lipitor - PO 40 mg HS LILLY Administration Carvedilol 6.25 mg 04/30/17 14:00 05/05/17 21:11 Coreg - PO 6.25 mg BID LILLY Administration Clopidogrel Bisulfate 75 mg 04/30/17 14:00 05/05/17 09:43 Plavix - PO 75 mg DAILY LILLY Administration Docusate Sodium 300 mg 04/30/17 14:45 05/05/17 21:11 Colace - PO Not Given HS LILLY Heparin Sodium (Porcine) 5,000 unit 04/30/17 14:30 05/06/17 01:14 Heparin - SQ 5,000 unit Q8H-IV LILLY Administration IV Flush 8 ml 05/03/17 12:53 Picc Line Flush IVPUSH PRN PRN Protocol Vancomycin HCl 1,000 mg in 250 mls @ 166.667 mls/hr 04/30/17 18:00 05/06/17 05:48 Vancomycin (Pre-Docked) IVPB 166.667 mls/hr Q12H LILLY Administration Piperacillin Sod/Tazobactam Sod 3.375 gm in 50 mls @ 100 mls/hr 05/02/17 05: 15 05/06/17 01:14 Zosyn 3.375gm Ivpb (Pre-Docked) IVPB 100 mls/hr Q8H-IV LILLY Administration Protocol Potassium Chloride/Sodium Chloride 20 meq in 1,000 mls @ 42 mls/hr 05/04/17 12 :45 05/05/17 13:20 Ns+20 Meq Kcl - IV 42 mls/hr ASDIR LILLY Administration Insulin Aspart 0 units 04/30/17 16:30 05/06/17 06:01 Novolog Vial SQ Not Given ACHS LILLY Protocol Lactobacillus Acidophilus 1 tab 05/03/17 13:15 05/05/17 09:44 Bacid - PO 1 tab DAILY LILLY Administration Levothyroxine Sodium 100 mcg 04/30/17 22:00 05/05/17 21:11 Synthroid - PO 100 mcg HS LILLY Administration Lidocaine/Aluminum/Magnesium/Simeth 5 ml 11/29/17 11:45 05/06/17 05:56 Magic Mouthwash *Sjr Formula* - MM 5 ml Q6HPO LILLY Administration Magnesium Hydroxide 30 ml 05/02/17 12:32 Milk Of Magnesia - PO PRN PRN CONSTIPATION Metronidazole 250 mg 04/30/17 15:30 05/06/17 05:48 Flagyl - PO 250 mg TID LILLY Administration Nifedipine 30 mg 04/30/17 14:00 05/03/17 10:42 Procardia Xl - PO 30 mg DAILY LILLY Administration Oxycodone HCl 5 mg 04/30/17 14:26 05/05/17 19:43 Roxicodone - PO 5 mg Q6H PRN Administration PAIN Pantoprazole Sodium 40 mg 04/30/17 15:15 05/05/17 21:11 Protonix - PO 40 mg BID LILLY Administration Polyethylene Glycol 17 gm 04/30/17 14:45 05/05/17 21:11 Miralax (For Daily Use) - PO Not Given BID LILLY Potassium Chloride 20 meq 05/05/17 11:30 05/05/17 11:55 K-Dur - PO 20 meq DAILY LILLY Administration Senna 2 tab 05/02/17 12:31 05/02/17 13:29 Senna - PO 2 tab HS PRN Administration CONSTIPATION Microbiology 05/03/17 09:44 Blood - Peripheral Venous Blood Culture - Preliminary NO GROWTH OBTAINED AFTER 48 HOURS, INCUBATION TO CONTINUE FOR 3 DAYS. 05/03/17 09:44 Blood - Peripheral Venous Blood Culture - Preliminary NO GROWTH OBTAINED AFTER 48 HOURS, INCUBATION TO CONTINUE FOR 3 DAYS. 04/30/17 05:10 Blood - Peripheral Venous Blood Culture - Final NO GROWTH AFTER 5 DAYS INCUBATION 04/30/17 05:10 Blood - Peripheral Venous Blood Culture - Final Staphylococcus Epidermidis 05/01/17 11:15 Abscess Gram Stain - Final 05/01/17 11:15 Abscess Wound Culture - Final Mr S Aureus 04/30/17 18:00 Urine - Urine Clean Catch Urine Culture - Final NO GROWTH OBTAINED ASSESSMENT/PLAN: 1) Severe sepsis secondary to RUE abscess/cellulitis - leukocystosis noted, low grade temp noted, continue vanc (04/30- )and zosyn (05/02-) - wound culture MRSA, blood culture staph epidermis, likely contaminated, repeat blood cultures NTD - MRI of left upper extermity, no osteomyelitis, small to moderate joint effusion, soft tissue edema - Dr Marie, ID consulted and followed - pt is s/p I&D, Dr Avalos, 05/01/17, drainage returned with increase of pain, discussed with Dr Avalos pt is pending OR today 2) cardiovascular CAD s/p NSTEMI s/p stent (06/23) - continue ASA, plavix -continue nifedipine, carvedilol 3) heme microcytic anemia - secondary to iron deficency, venofer (05/04/17 and 05/05/17) will require 3 more infusions, hemoglobin 7.4, baseline 12, - 2 units of prbc ordered pt is pending OR today - no active bleeding noted, stool guiac negative 4) endo niddm -fingersticks achs with novolog sliding scale hypothyroidism - continue levothyroxine 5) f/e/n dysphagia - swallow eval completed, OOB for meals, OOB for 1 h. after meals, Alternate solids with liquids and complete meal with liquids. Small amounts throughout the day replete potassium and magnesium diabetic soft diet PPX: Heparin sq - PT Dispo- Require inpatient care. Code Status- Full code. Visit type - Emergency Visit Emergency Visit: Yes ED Registration Date: 04/30/17 Care time: The patient presented to the Emergency Department on the above date and was hospitalized for further evaluation of their emergent condition. - New Patient This patient is new to me today: No - Critical Care Critical Care patient: No - Discharge Referral Referred to [facility] No
--- NOTE | 2017-05-06 09:33 | PN ---
Progress Note, Physician History of Present Illness: Still with C/O L UE pain Kenrick pus draining from L olecrannon bursa Temps down, afebrile Wound c/s MRSA MRI No osteomyelitis - Current Medication List Current Medications: Active Medications Acetaminophen (Tylenol -) 650 mg PO Q6H PRN PRN Reason: FEVER OR PAIN Last Admin: 05/05/17 21:20 Dose: 650 mg Aspirin (Asa -) 81 mg PO DAILY [facility] Last Admin: 05/05/17 09:44 Dose: 81 mg Atorvastatin Calcium (Lipitor -) 40 mg PO HS LILLY Last Admin: 05/05/17 21:11 Dose: 40 mg Carvedilol (Coreg -) 6.25 mg PO BID [facility] Last Admin: 05/05/17 21:11 Dose: 6.25 mg Clopidogrel Bisulfate (Plavix -) 75 mg PO DAILY [facility] Last Admin: 05/05/17 09:43 Dose: 75 mg Docusate Sodium (Colace -) 300 mg PO HS [facility] Last Admin: 05/05/17 21:11 Dose: Not Given Heparin Sodium (Porcine) (Heparin -) 5,000 unit SQ Q8H-IV LILLY Last Admin: 05/06/17 01:14 Dose: 5,000 unit IV Flush (Picc Line Flush) 8 ml IVPUSH PRN PRN PRN Reason: Protocol Potassium Chloride/Sodium Chloride (Ns+20 Meq Kcl -) 20 meq in 1,000 mls @ 42 mls/hr IV ASDIR LILLY Last Admin: 05/05/17 13:20 Dose: 42 mls/hr Vancomycin HCl 1,000 mg/ (Dextrose) 250 mls @ 250 mls/hr IVPB BID LILLY PRN Reason: Protocol Insulin Aspart (Novolog Vial) 0 units SQ ACHS LILLY PRN Reason: Protocol Last Admin: 05/06/17 06:01 Dose: Not Given Lactobacillus Acidophilus (Bacid -) 1 tab PO DAILY [facility] Last Admin: 05/05/17 09:44 Dose: 1 tab Levothyroxine Sodium (Synthroid -) 100 mcg PO HS [facility] Last Admin: 05/05/17 21:11 Dose: 100 mcg Lidocaine/Aluminum/Magnesium/Simeth (Magic Mouthwash *Sjr Formula* -) 5 ml MM Q6HPO [facility] Last Admin: 05/06/17 05:56 Dose: 5 ml Magnesium Hydroxide (Milk Of Magnesia -) 30 ml PO PRN PRN PRN Reason: CONSTIPATION Metronidazole (Flagyl -) 250 mg PO TID [facility] Last Admin: 05/06/17 05:48 Dose: 250 mg Nifedipine (Procardia Xl -) 30 mg PO DAILY [facility] Last Admin: 05/03/17 10:42 Dose: 30 mg Oxycodone HCl (Roxicodone -) 5 mg PO Q6H PRN PRN Reason: PAIN Last Admin: 05/05/17 19:43 Dose: 5 mg Pantoprazole Sodium (Protonix -) 40 mg PO BID [facility] Last Admin: 05/05/17 21:11 Dose: 40 mg Polyethylene Glycol (Miralax (For Daily Use) -) 17 gm PO BID [facility] Last Admin: 05/05/17 21:11 Dose: Not Given Potassium Chloride (K-Dur -) 20 meq PO DAILY [facility] Last Admin: 05/05/17 11:55 Dose: 20 meq Senna (Senna -) 2 tab PO HS PRN PRN Reason: CONSTIPATION Last Admin: 05/02/17 13:29 Dose: 2 tab - Objective Vital Signs: Vital Signs Temperature 99.0 F 05/06/17 06:00 Pulse Rate 65 05/06/17 06:00 Respiratory Rate 18 05/06/17 06:00 Blood Pressure 113/43 05/06/17 06:00 O2 Sat by Pulse Oximetry (%) 98 05/06/17 08:37 Constitutional: Yes: No Distress Eyes: Yes: Conjunctiva Clear Cardiovascular: Yes: Regular Rate and Rhythm, S1, S2 Respiratory: Yes: CTA Bilaterally Gastrointestinal: Yes: Normal Bowel Sounds, Soft. No: Tenderness Extremities: Yes: Other (+ erythema, L olecrannon bursa + kenrick pus expressible) Labs: CBC, BMP 05/05/17 07:50 05/05/17 07:00 INR, PTT INR 1.12 (0.82-1.09) 04/30/17 05:10 Assessment/Plan Infected L olecrannon bursa MRSA Cellulitis L UE Fever/ leukocytosis- improved +BC SCN = contaminant Continue vancomycin Surgical follow up ? I&D Elevation , analgesics
[2017-05-06] MEDS ORDERED: IRON SUCROSE INJECTION 200 MG in SODIUM CHLORIDE 90 ML IVPB ONE ×2 (10:00→12:00)
[2017-05-06 10:11] LABS: BASO % 0.5 % (0-2.0); EOS % 5.4 % (0-4.5); HEMATOCRIT 24.7 % (32.4-45.2); HEMOGLOBIN 7.6 GM/dl (10.7-15.3); LYMPH % 22.5 % (8-40); MCH 21.7 pg (25.7-33.7); MCHC 30.8 g/dl (32.0-36.0); MEAN CELL VOLUME 70.3 fl (80-96); MEAN PLT VOLUME 7.5 fl (7.5-11.1); MONO % 6.5 % (3.8-10.2); NEUT % 65.1 % (42.8-82.8); PLATELET COUNT 382 K/MM3 (134-434); RBC 3.51 M/mm3 (3.60-5.2); RDW 17.4 % (11.6-15.6); WHITE BLOOD COUNT 11.2 K/mm3 (4.0-10.8)
[2017-05-06 10:24] LABS: ANION GAP 6 (8-16); BLOOD UREA NITROGEN 4 mg/dl (7-18); CALCIUM 8.5 mg/dl (8.4-10.2); CHLORIDE 103 mmol/L (98-107); CO2 23 mmol/L (22-28); CREATININE 0.7 mg/dl (0.6-1.3); GLUCOSE,RANDOM 175 mg/dl (74-106); MAGNESIUM 1.9 mg/dL (1.8-2.4); PHOSPHOROUS 3.3 mg/dl (2.5-4.6); POTASSIUM 4.2 mmol/L (3.5-5.1); SODIUM 132 mmol/L (136-145)
[2017-05-06] MEDS: CARVEDILOL 6.25 MG TABLET (FP) PO SCH ×2 (10:32→21:37)
[2017-05-06] MEDS: oxyCODONE HCL 5 MG TABLET PO PRN ×3 (10:32→23:58)
[2017-05-06] MEDS: LACTOBACILLUS ACIDOPHILUS 1 EACH TAB (FP) PO SCH (10:34)
[2017-05-06] MEDS: ASPIRIN 81 MG CHEWABLE TABLETS PO SCH (10:34)
[2017-05-06] MEDS: POTASSIUM CHLORIDE TABS 10 MEQ TABLET.ER (FP) PO SCH (10:34)
[2017-05-06] MEDS: POLYETHYLENE GLYCOL 3350 119 GM BTL PO SCH ×2 (10:34→21:38)
[2017-05-06] MEDS: NIFEdipine E.R. 30 MG TABLET (FP) PO SCH (10:35)
[2017-05-06] MEDS: CLOPIDOGREL BISULFATE 75 MG TABLET (FP) PO SCH (10:35)
[2017-05-06] MEDS: PANTOPRAZOLE 40 MG TABLET (FP) PO SCH ×2 (10:35→21:37)
--- NOTE | 2017-05-06 10:50 | PN ---
Progress Note (short form) - Note Progress Note: she is feeling about the same. She had the MRI. MRI was reviewed yesterday by me and showed no evidence of abscess or osteomyelitis. her white blood cell count was coming down and she is feeling better however this morning she started having pus drainage from the elbow again. Physical examination: LEFT elbow: Overall looks better still. However there remains a little bit of redness over the olecranon bursa. There is tenderness here. The area of tenderness is much smaller. There is kenrick pus draining from the same area as before. This was not draining for the last several days. I milked the area and there was more pus. No abscesses palpated. Impression LEFT elbow septic olecranon bursitis with return of drainage Plan: I discussed the options with the patient and the other medical team members and we have decided to proceedWith formal incision and drainage in the operating room today. I discussed the risks benefits alternatives with the patient. She understands that opening the skin in a patient with scleroderma is often fraught with complications including failure of the wound to heal and she may need multiple debridements and even plastic surgery coverage of the wound at some point. She understands it could also eventually become osteomyelitis and she could require extensive intravenous antibiotic treatment. She would like to proceed.
--- NOTE | 2017-05-06 11:54 | PROC ---
Central Line Insertion - Procedure Note TIME OUT performed prior to this procedure with verbal confirmation of correct patient identity, correct side, agreement of the procedure, correct patient position, availability of necessary equipment. INR 1.12. The consent form is complete and accurate. Risk of possible infection, bleeding and pneumothorax have been discussed with the patient. Safety precautions based on patient history or medication use has been addressed. Indication: Poor Venous Access (Scleroderma. Going to OR today and needs blood transfusion) Central Line: Triple Lumen Catheter Position: Supine Area prepped with Chlorhexidine solution then draped using sterile barrier protection. Anesthesia: Lidocaine 1% Technique used: Seldinger Ultrasound Guided Assistance: Yes Site: Right Internal Jugular Dark venous non-pulsatile flow noted from hub of needle. The catheter was introduced. Guide wire removed intact. Each port aspirated then flushed with sterile normal saline and capped. Line secured to skin with silk suture. Biopatch placed around base of line. Sterile occlusive dressing applied. No complications. Patient tolerated the procedure well. STAT chest xray ordered to confirm position and rule out pneumothorax
[2017-05-06] MEDS: SODIUM CHLORIDE 0.9%/KCL 20 MEQ/1,000 ML INFUS.BAG IV SCH (12:49)
[2017-05-06] MEDS ORDERED: FUROSEMIDE 40 MG/4 ML INJECTABLE VIAL IVPUSH ONE (14:00)
[2017-05-06] MEDS ORDERED: MIDAZOLAM HCL 2 MG/2 ML SINGLE DOSE VIAL ONE (14:56)
[2017-05-06] MEDS ORDERED: PROPOFOL 20 ML ONE (14:56)
[2017-05-06] MEDS ORDERED: ONDANSETRON 4 MG/2 ML VIAL IVPUSH PRN (16:20)
--- NOTE | 2017-05-06 16:33 | OP ---
Operative Note - Note: Operative Date: 05/06/17 Pre-Operative Diagnosis: LEFT elbow abscess Operation: incision and drainage LEFT elbow, olecranon bursectomy Findings: positive gross pus, significant calcifications Post-Operative Diagnosis: Same as Pre-op Surgeon: Jony Jules I Plant Maintenance Mechanic: Melchor Zamudio Anesthesia: MAC Specimens Removed: cultures Estimated Blood Loss (mls): 50 Operative Report Dictated: Yes
--- NOTE | 2017-05-06 17:05 | OP ---
DATE OF OPERATION: 05/06/2017 PREOPERATIVE DIAGNOSIS: Left elbow infected olecranon bursa. POSTOPERATIVE DIAGNOSIS: Left elbow infected olecranon bursa. OPERATIVE PROCEDURE: 1. Incision and drainage of left elbow. 2. Left olecranon bursectomy. SURGEON: Jony Jules MD SUPERVISOR LONG GOODS: IWONA Montgomery ANESTHESIA: Sedation and local. COMPLICATIONS: None. ESTIMATED BLOOD LOSS: 50 mL INDICATION FOR PROCEDURE: The patient is a 56-year-old female with the above finding, indicated for operative treatment. Risks, benefits, and alternatives were discussed with the patient at length. Proper informed consent was obtained. DESCRIPTION OF PROCEDURE: After proper identification of the patient and correct operative site, patient was brought to the operating room and placed supine on the operating table. All prominences were well padded. Sedation was given by the anesthesiologist. Local anesthesia was given with 2% lidocaine. The left upper extremity was prepped and draped in the usual sterile fashion. Tourniquet was not inflated throughout the procedure. A longitudinal incision was made over the olecranon process. Incision was taken sharply through the skin down to the level of the extensor mechanism. Gross pus was found coming from distal to the olecranon process, but nothing was found proximal. Significant calcifications due to her scleroderma were found. This was debrided, and pus was trapped within these calcifications. Thorough debridement of the entire area was performed. Pulse lavage was used for irrigation as well. No further pus was noted at this time, and the wound was repaired and closed loosely with a 0 Prolene suture. Sterile dressing and splint were placed. The patient was reversed from anesthesia and brought to recovery in stable condition. Her arm was elevated. Cultures were sent. IWONA Montgomery, the power plant assistant, was integral throughout the procedure. Procedure could not have been performed without a skilled operative power plant assistant. Chung [id number]
[2017-05-06] MEDS: ATORVASTATIN CA 40 MG TABLET (FP) PO SCH (21:37)
[2017-05-06] MEDS: LEVOTHYROXINE NA 100 MCG TABLET (FP) PO SCH (21:37)
[2017-05-06] MEDS: DOCUSATE SODIUM 100 MG CAPSULE (FP) PO SCH (21:38)
[2017-05-06] MEDS ORDERED: INSULIN (NOVOLOG) ASPART 100 UNITS/ML 10ML VIAL ONE (21:50)
[2017-05-06] MEDS: ACETAMINOPHEN 325 MG TABLET (FP) PO PRN (23:57)
[2017-05-07] MEDS: MAG HYDROX/ALH/SMC/DPHA/LIDO 240 ML MOUTHWASH MM SCH ×4 (00:09→17:34)
[2017-05-07 02:31] LABS: BASO % 0.4 % (0-2.0); EOS % 3.9 % (0-4.5); HEMATOCRIT 28.9 % (32.4-45.2); HEMOGLOBIN 9.3 GM/dL (10.7-15.3); LYMPH % 20.3 % (8-40); MCH 23.3 pg (25.7-33.7); MCHC 32.3 g/dl (32.0-36.0); MEAN CELL VOLUME 72.3 fl (80-96); MEAN PLT VOLUME 7.3 fl (7.5-11.1); MONO % 11.8 % (3.8-10.2); NEUT % 63.6 % (42.8-82.8); PLATELET COUNT 355 K/MM3 (134-434); RDW 17.8 % (11.6-15.6); WHITE BLOOD COUNT 10.5 K/mm3 (4.0-10.0)
[2017-05-07] MEDS ORDERED: REFRIGERATED ANITBIOTICS ONE ×4 (06:20→16:57)
[2017-05-07] MEDS: metroNIDAZOLE 250 MG TABLET PO SCH ×3 (06:27→21:48)
[2017-05-07] MEDS: ACETAMINOPHEN 325 MG TABLET (FP) PO PRN (06:27)
[2017-05-07] MEDS: oxyCODONE HCL 5 MG TABLET PO PRN ×3 (06:28→21:47)
[2017-05-07] MEDS: VANCOMYCIN 1 GRAM (PRE-DOCKED) 1,000 MG/250 ML BAG IVPB SCH ×2 (06:29→17:34)
[2017-05-07] MEDS: INSULIN (NOVOLOG) ASPART 100 UNITS/ML 10ML VIAL SQ SCH ×4 (06:51→21:51)
--- NOTE | 2017-05-07 08:21 | PN ---
Progress Note, Physician History of Present Illness: S/P I&D L elbow abscess, olecrannon bursectomy Temps down, afebrile - Current Medication List Current Medications: Active Medications Acetaminophen (Tylenol -) 650 mg PO Q6H PRN PRN Reason: FEVER OR PAIN Last Admin: 05/07/17 06:27 Dose: 650 mg Aspirin (Asa -) 81 mg PO DAILY [facility] Last Admin: 05/06/17 10:34 Dose: Not Given Atorvastatin Calcium (Lipitor -) 40 mg PO HS [facility] Last Admin: 05/06/17 21:37 Dose: 40 mg Carvedilol (Coreg -) 6.25 mg PO BID [facility] Last Admin: 05/06/17 21:37 Dose: 6.25 mg Clopidogrel Bisulfate (Plavix -) 75 mg PO DAILY [facility] Last Admin: 05/06/17 10:35 Dose: 75 mg Docusate Sodium (Colace -) 300 mg PO HS [facility] Last Admin: 05/06/17 21:38 Dose: Not Given IV Flush (Picc Line Flush) 8 ml IVPUSH PRN PRN PRN Reason: Protocol Vancomycin HCl (Vancomycin (Pre-Docked)) 1,000 mg in 250 mls @ 250 mls/hr IVPB BID@0600,1800 LILLY PRN Reason: Protocol Last Admin: 05/07/17 06:29 Dose: 250 mls/hr Insulin Aspart (Novolog Vial) 0 units SQ ACHS LILLY PRN Reason: Protocol Last Admin: 05/07/17 06:51 Dose: Not Given Lactobacillus Acidophilus (Bacid -) 1 tab PO DAILY [facility] Last Admin: 05/06/17 10:34 Dose: 1 tab Levothyroxine Sodium (Synthroid -) 100 mcg PO HS [facility] Last Admin: 05/06/17 21:37 Dose: 100 mcg Lidocaine/Aluminum/Magnesium/Simeth (Magic Mouthwash *Sjr Formula* -) 5 ml MM Q6HPO [facility] Last Admin: 05/07/17 06:37 Dose: 5 ml Magnesium Hydroxide (Milk Of Magnesia -) 30 ml PO PRN PRN PRN Reason: CONSTIPATION Metronidazole (Flagyl -) 250 mg PO TID [facility] Last Admin: 05/07/17 06:27 Dose: 250 mg Nifedipine (Procardia Xl -) 30 mg PO DAILY [facility] Last Admin: 05/06/17 10:35 Dose: 30 mg Ondansetron HCl (Zofran Injection) 4 mg IVPUSH Q6H PRN PRN Reason: NAUSEA AND/OR VOMITING Last Admin: 05/06/17 17:15 Dose: 4 mg Oxycodone HCl (Roxicodone -) 5 mg PO Q6H PRN PRN Reason: PAIN Last Admin: 05/07/17 06:28 Dose: 5 mg Pantoprazole Sodium (Protonix -) 40 mg PO BID [facility] Last Admin: 05/06/17 21:37 Dose: 40 mg Polyethylene Glycol (Miralax (For Daily Use) -) 17 gm PO BID [facility] Last Admin: 05/06/17 21:38 Dose: Not Given Potassium Chloride (K-Dur -) 20 meq PO DAILY [facility] Last Admin: 05/06/17 10:34 Dose: Not Given Senna (Senna -) 2 tab PO HS PRN PRN Reason: CONSTIPATION Last Admin: 05/02/17 13:29 Dose: 2 tab - Objective Vital Signs: Vital Signs Temperature 98.0 F 05/07/17 04:00 Pulse Rate 56 L 05/07/17 04:00 Respiratory Rate 18 05/07/17 04:00 Blood Pressure 106/52 05/07/17 04:00 O2 Sat by Pulse Oximetry (%) 96 05/06/17 22:00 Constitutional: Yes: No Distress Eyes: Yes: Conjunctiva Clear Cardiovascular: Yes: Regular Rate and Rhythm, S1, S2 Respiratory: Yes: CTA Bilaterally Gastrointestinal: Yes: Normal Bowel Sounds, Soft. No: Tenderness Extremities: Yes: Other (post op dressing in place) Labs: CBC, BMP 05/07/17 02:00 05/06/17 Unknown INR, PTT INR 1.12 (0.82-1.09) 04/30/17 05:10 Assessment/Plan Infected L olecrannon bursa MRSA S/P I&D, bursectomy Cellulitis L UE Fever/ leukocytosis- improved +BC SCN = contaminant Continue vancomycin Local wound care Elevation , analgesics Contact precautions
[2017-05-07 08:44] LABS: BASO % 0.5 % (0-2.0); EOS % 4.6 % (0-4.5); HEMOGLOBIN 9.6 GM/dl (10.7-15.3); LYMPH % 18.2 % (8-40); MCH 22.8 pg (25.7-33.7); MEAN CELL VOLUME 73.6 fl (80-96); MEAN PLT VOLUME 7.4 fl (7.5-11.1); MONO % 10.4 % (3.8-10.2); NEUT % 66.3 % (42.8-82.8); PLATELET COUNT 385 K/MM3 (134-434); RBC 4.21 M/mm3 (3.60-5.2); RDW 16.8 % (11.6-15.6); WHITE BLOOD COUNT 10.8 K/mm3 (4.0-10.8)
[2017-05-07 08:46] LABS: ADD RBC MORPHOLOGY YES
--- NOTE | 2017-05-07 09:17 | PN ---
Physical Exam: SUBJECTIVE: Patient seen and examined, denies any tactile fever, does report pain to left elbow. patient is s/p left elbow I&D OBJECTIVE:his is a 56 year-old woman with a PMH significant for CAD s/p NSTEMI s /p stent (06/2016), NIDDM, scleroderma, hypothyroidism, and RUE MRSA cellulitis (multiple drainages/wound vac, 09/2015). Admitted for sepsis and left elbow cellulitis, s/p left elbow, olecranon bursectomy Vital Signs Period Temp Pulse Resp BP Sys/Atkinson Pulse Ox Last 24 Hr 98.0 F-99.2 F 55-73 16-19 91-125/46-54 88-100 GENERAL: The patient is awake, alert, and fully oriented, in no acute distress. HEAD: Normal with no signs of trauma. EYES: PERRL, extraocular movements intact, sclera anicteric, conjunctiva clear. No ptosis. ENT: Ears normal, nares patent, oropharynx clear without exudates, moist mucous membranes. NECK: Trachea midline, full range of motion, supple. LUNGS: Breath sounds equal, clear to auscultation bilaterally, no wheezes, no crackles, no accessory muscle use. HEART: Regular rate and rhythm, S1, S2 without murmur, rub or gallop. ABDOMEN: Soft, nontender, nondistended, normoactive bowel sounds, no guarding, no rebound, no hepatosplenomegaly, no masses. EXTREMITIES: 2+ pulses, warm, well-perfused, no edema. LEFT UPPER EXTREMITY: surgical dressing in place, patient is able to move the digits of the hand without any difficulty, less than 3 second capillary refill, +3 pedal pulse NEUROLOGICAL: Cranial nerves II through XII grossly intact. Normal speech, gait not observed. PSYCH: Normal mood, normal affect. SKIN: Warm, dry, normal turgor, no rashes or lesions noted Laboratory Results - last 24 hr CBC WBC 10.8 K/mm3 (4.0-10.8) 05/07/17 08:15 Corrected WBC (auto) Cancelled 05/01/17 06:00 RBC 4.21 M/mm3 (3.60-5.2) 05/07/17 08:15 Hgb 9.6 GM/dl (10.7-15.3) L D 05/07/17 08:15 Hct 31.0 % (32.4-45.2) L D 05/07/17 08:15 MCV 73.6 fl (80-96) L 05/07/17 08:15 MCH 22.8 pg (25.7-33.7) L 05/07/17 08:15 MCHC 31.0 g/dl (32.0-36.0) L 05/07/17 08:15 RDW 16.8 % (11.6-15.6) H 05/07/17 08:15 Plt Count 385 K/MM3 (134-434) 05/07/17 08:15 MPV 7.4 fl (7.5-11.1) L 05/07/17 08:15 Neutrophils % 66.3 % (42.8-82.8) 05/07/17 08:15 Lymphocytes % 18.2 % (8-40) 05/07/17 08:15 Monocytes % 10.4 % (3.8-10.2) H 05/07/17 08:15 Eosinophils % 4.6 % (0-4.5) H 05/07/17 08:15 Basophils % 0.5 % (0-2.0) 05/07/17 08:15 Manual Slide Review No Result Required. 05/03/17 05:30 Hypochromia 1+ 05/07/17 08:15 Platelet Comment Cancelled 05/01/17 06:00 Anisocytosis 1+ 05/07/17 08:15 Microcytosis 1+ 05/07/17 08:15 Tear Drop Cells 1+ 04/30/17 15:10 Ovalocytes 1+ 04/30/17 15:10 Haptoglobin 325 mg/dL (34-200) H 05/03/17 05:30 CMP Sodium 133 mmol/L (136-145) L 05/07/17 06:00 Potassium 3.8 mmol/L (3.5-5.1) 05/07/17 06:00 Chloride 99 mmol/L (98-107) 05/07/17 06:00 Carbon Dioxide 25 mmol/L (22-28) 05/07/17 06:00 Anion Gap 9 (8-16) 05/07/17 06:00 BUN 5 mg/dl (7-18) L D 05/07/17 06:00 Creatinine 0.7 mg/dl (0.6-1.3) 05/07/17 06:00 Creat Clearance w eGFR > 60 (>60) 05/04/17 07:00 POC Glucometer 245 UNITS (80-120) 05/07/17 11:27 Random Glucose 161 mg/dl (74-106) H 05/07/17 06:00 Lactic Acid 1.0 mmol/L (0.4-2.0) 04/30/17 18:00 Calcium 8.3 mg/dl (8.4-10.2) L 05/07/17 06:00 Phosphorus 4.6 mg/dl (2.5-4.6) D 05/07/17 06:00 Magnesium 1.8 mg/dL (1.8-2.4) 05/07/17 06:00 Iron 11 ug/dL (27-159) L 05/03/17 05:30 TIBC 199 ug/dL (250-450) L 05/03/17 05:30 Iron Saturation 6 % (15-55) L 05/03/17 05:30 Ferritin 50.835 ng/ml (6.9-282.5) 05/02/17 04:00 Total Bilirubin 1.0 mg/dl (0.2-1.0) D 05/04/17 07:00 AST 23 U/L (10-42) D 05/04/17 07:00 ALT 19 U/L (10-40) D 05/04/17 07:00 Alkaline Phosphatase 92 U/L (32-92) D 05/04/17 07:00 LD Total 300 U/L (84-246) H 05/02/17 04:00 Creatine Kinase 81 IU/L (26-192) 04/30/17 05:10 Troponin I < 0.03 ng/ml (0.03-0.50) L 05/01/17 20:25 C-Reactive Protein 0.5 MG/DL (0.00-0.3) H 04/30/17 05:10 Total Protein 4.7 g/dl (6.4-8.3) L D 05/04/17 07:00 Albumin 2.4 g/dl (3.5-5.0) L D 05/04/17 07:00 Vitamin B12 298 pg/ml (180-914) 05/02/17 04:00 Serum Folate 11 ng/ml (3.1-17.5) 05/02/17 04:00 Active Medications Generic Name Dose Route Start Last Admin Trade Name Freq PRN Reason Stop Dose Admin Acetaminophen 650 mg 04/30/17 09:39 05/07/17 06:27 Tylenol - PO 650 mg Q6H PRN Administration FEVER OR PAIN Aspirin 81 mg 04/30/17 14:00 05/06/17 10:34 Asa - PO Not Given DAILY LILLY Atorvastatin Calcium 40 mg 04/30/17 22:00 05/06/17 21:37 Lipitor - PO 40 mg HS LILLY Administration Carvedilol 6.25 mg 04/30/17 14:00 05/06/17 21:37 Coreg - PO 6.25 mg BID LILLY Administration Clopidogrel Bisulfate 75 mg 04/30/17 14:00 05/06/17 10:35 Plavix - PO 75 mg DAILY LILLY Administration Docusate Sodium 300 mg 04/30/17 14:45 05/06/17 21:38 Colace - PO Not Given HS LILLY IV Flush 8 ml 05/03/17 12:53 Picc Line Flush IVPUSH PRN PRN Protocol Vancomycin HCl 1,000 mg in 250 mls @ 250 mls/hr 05/06/17 18:00 05/07/17 06:29 Vancomycin (Pre-Docked) IVPB 250 mls/hr BID@0600,1800 LILLY Administration Protocol Insulin Aspart 0 units 04/30/17 16:30 05/07/17 06:51 Novolog Vial SQ Not Given ACHS LILLY Protocol Lactobacillus Acidophilus 1 tab 05/03/17 13:15 05/06/17 10:34 Bacid - PO 1 tab DAILY LILLY Administration Levothyroxine Sodium 100 mcg 04/30/17 22:00 05/06/17 21:37 Synthroid - PO 100 mcg HS LILLY Administration Lidocaine/Aluminum/Magnesium/Simeth 5 ml 05/05/17 11:45 05/07/17 06:37 Magic Mouthwash *Sjr Formula* - MM 5 ml Q6HPO LILLY Administration Magnesium Hydroxide 30 ml 05/02/17 12:32 Milk Of Magnesia - PO PRN PRN CONSTIPATION Metronidazole 250 mg 04/30/17 15:30 05/07/17 06:27 Flagyl - PO 250 mg TID LILLY Administration Nifedipine 30 mg 04/30/17 14:00 05/06/17 10:35 Procardia Xl - PO 30 mg DAILY LILLY Administration Ondansetron HCl 4 mg 05/06/17 16:20 05/06/17 17:15 Zofran Injection IVPUSH 4 mg Q6H PRN Administration NAUSEA AND/OR VOMITING Oxycodone HCl 5 mg 04/30/17 14:26 05/07/17 06:28 Roxicodone - PO 5 mg Q6H PRN Administration PAIN Pantoprazole Sodium 40 mg 04/30/17 15:15 05/06/17 21:37 Protonix - PO 40 mg BID LILLY Administration Polyethylene Glycol 17 gm 04/30/17 14:45 05/06/17 21:38 Miralax (For Daily Use) - PO Not Given BID LILLY Potassium Chloride 20 meq 05/05/17 11:30 05/06/17 10:34 K-Dur - PO Not Given DAILY LILLY Senna 2 tab 05/02/17 12:31 05/02/17 13:29 Senna - PO 2 tab HS PRN Administration CONSTIPATION Microbiology 05/06/17 17:00 Elbow - Left Gram Stain - Final 05/06/17 17:00 Elbow - Left Gram Stain - Final 05/03/17 09:44 Blood - Peripheral Venous Blood Culture - Preliminary NO GROWTH OBTAINED AFTER 96 HOURS, INCUBATION TO CONTINUE FOR 1 DAYS. 05/03/17 09:44 Blood - Peripheral Venous Blood Culture - Preliminary NO GROWTH OBTAINED AFTER 96 HOURS, INCUBATION TO CONTINUE FOR 1 DAYS. 04/30/17 05:10 Blood - Peripheral Venous Blood Culture - Final NO GROWTH AFTER 5 DAYS INCUBATION 04/30/17 05:10 Blood - Peripheral Venous Blood Culture - Final Staphylococcus Epidermidis 05/01/17 11:15 Abscess Gram Stain - Final 05/01/17 11:15 Abscess Wound Culture - Final Mr S Aureus 04/30/17 18:00 Urine - Urine Clean Catch Urine Culture - Final NO GROWTH OBTAINED IMAGING MRI of left upper extermity, no osteomyelitis, small to moderate joint effusion , soft tissue edema ASSESSMENT/PLAN: 1) ID sepsis secondary to cellulitis - s/p left olecranon bursectomy, 05/06/17, post op day 1 (Dr Avalos) - leukocystosis resolved, low grade temp noted, continue vanc (04/30- )and zosyn (05/02-) - wound culture MRSA, pending intraoperative culture, repeat blood cultures NTD - Dr Marie, ID consulted and followed 2) cardiovascular CAD s/p NSTEMI s/p stent (06/23) - continue ASA, plavix -continue nifedipine, decrease carvedilol to 3.125mg BID 3) heme microcytic anemia - secondary to iron deficency, venofer (05/04/17 and 05/05/17) will require 3 more infusions, hemoglobin 7.4, baseline 12, - 2 units of prbc 05/06/17, repeat hgb 9.6, repeat cbc in AM - no active bleeding noted, stool guiac negative 4) endo niddm -fingersticks achs with novolog sliding scale hypothyroidism - continue levothyroxine 5) f/e/n dysphagia - swallow eval completed, OOB for meals, OOB for 1 h. after meals, Alternate solids with liquids and complete meal with liquids. Small amounts throughout the day replete potassium and magnesium diabetic soft diet PPX: - Heparin sq - PT Dispo- Require inpatient care. Code Status- Full code. Visit type - Emergency Visit Emergency Visit: Yes ED Registration Date: 04/30/17 Care time: The patient presented to the Emergency Department on the above date and was hospitalized for further evaluation of their emergent condition. - New Patient This patient is new to me today: No - Critical Care Critical Care patient: No - Discharge Referral Referred to [facility] Med P.C.: No
[2017-05-07] MEDS ORDERED: CARVEDILOL 6.25 MG TABLET (FP) PO SCH (10:03)
[2017-05-07] MEDS: ASPIRIN 81 MG CHEWABLE TABLETS PO SCH (10:12)
[2017-05-07] MEDS: POLYETHYLENE GLYCOL 3350 119 GM BTL PO SCH ×2 (10:12→21:49)
[2017-05-07] MEDS: LACTOBACILLUS ACIDOPHILUS 1 EACH TAB (FP) PO SCH (10:12)
[2017-05-07] MEDS: POTASSIUM CHLORIDE TABS 10 MEQ TABLET.ER (FP) PO SCH (10:12)
[2017-05-07] MEDS: PANTOPRAZOLE 40 MG TABLET (FP) PO SCH ×2 (10:12→21:48)
[2017-05-07] MEDS: CLOPIDOGREL BISULFATE 75 MG TABLET (FP) PO SCH (10:12)
[2017-05-07] MEDS: NIFEdipine E.R. 30 MG TABLET (FP) PO SCH (10:13)
[2017-05-07] MEDS ORDERED: CARVEDILOL 3.125 MG TABLET (FP) PO SCH (10:15)
[2017-05-07 10:19] LABS: ANISOCYTOSIS 1+
[2017-05-07 10:38] LABS: ANION GAP 9 (8-16); BLOOD UREA NITROGEN 5 mg/dl (7-18); CALCIUM 8.3 mg/dl (8.4-10.2); CHLORIDE 99 mmol/L (98-107); CO2 25 mmol/L (22-28); CREATININE 0.7 mg/dl (0.6-1.3); GLUCOSE,RANDOM 161 mg/dl (74-106); MAGNESIUM 1.8 mg/dL (1.8-2.4); PHOSPHOROUS 4.6 mg/dl (2.5-4.6); POTASSIUM 3.8 mmol/L (3.5-5.1); SODIUM 133 mmol/L (136-145)
[2017-05-07] MEDS: CARVEDILOL 6.25 MG TABLET (FP) PO SCH (10:57)
[2017-05-07] MEDS ORDERED: MAGNESIUM SULF 50% (8.12 MEQ/2 ML-1 GM VIAL) IVPB ONE (11:15)
[2017-05-07] MEDS ORDERED: INSULIN (NOVOLOG) ASPART 100 UNITS/ML 10ML VIAL ONE ×2 (11:16→16:56)
[2017-05-07] MEDS: HEPARIN NA (PORCINE) 5,000 UNITS/ML 1ML VIAL SQ SCH ×2 (16:50→21:46)
[2017-05-07] MEDS: DOCUSATE SODIUM 100 MG CAPSULE (FP) PO SCH (21:47)
[2017-05-07] MEDS: CARVEDILOL 3.125 MG TABLET (FP) PO SCH (21:47)
[2017-05-07] MEDS: LEVOTHYROXINE NA 100 MCG TABLET (FP) PO SCH (21:48)
[2017-05-07] MEDS: ATORVASTATIN CA 40 MG TABLET (FP) PO SCH (21:48)
[2017-05-07] MEDS: MICONAZOLE NITRATE 100 MG SUPP SUPP.VAG PV SCH (21:49)
--- NOTE | 2017-05-07 23:28 | PN ---
Progress Note (short form) - Note Progress Note: Pt reports elbow pain is somewhat less. Physical examination: The patient is afebrile and vital signs are stable. Examination of the left elbow demonstrates a healing wound. Moderate serosanguinous drainage. Moderate swelling. Her distal neurovascular exam is intact. Assessment: Left elbow septic bursitis s/p I+D Plan: -continue iv abx -dressing changed, continue elevation, splint -will continue to monitor closely
[2017-05-08] MEDS: MAG HYDROX/ALH/SMC/DPHA/LIDO 240 ML MOUTHWASH MM SCH ×5 (00:10→23:16)
[2017-05-08] MEDS ORDERED: REFRIGERATED ANITBIOTICS ONE ×2 (06:27→23:13)
[2017-05-08] MEDS: metroNIDAZOLE 250 MG TABLET PO SCH ×3 (06:30→21:16)
[2017-05-08] MEDS: VANCOMYCIN 1 GRAM (PRE-DOCKED) 1,000 MG/250 ML BAG IVPB SCH ×2 (06:30→18:10)
[2017-05-08] MEDS: INSULIN (NOVOLOG) ASPART 100 UNITS/ML 10ML VIAL SQ SCH ×4 (06:33→22:17)
[2017-05-08] MEDS: oxyCODONE HCL 5 MG TABLET PO PRN ×2 (06:40→14:23)
--- NOTE | 2017-05-08 08:49 | PN ---
Physical Exam: SUBJECTIVE: Patient seen and examined at [facility], conversing very well, no acute distress. Pain well controlled by meds, reports poor po intake, non toxic appearing OBJECTIVE: Vital Signs Period Temp Pulse Resp BP Sys/Atkinson Pulse Ox Last 24 Hr 98.1 F-99.1 F 58-72 16-19 98-123/53-58 96-100 GENERAL: The patient is awake, alert, and fully oriented, in no acute distress. HEAD: Normal with no signs of trauma. EYES: extraocular movements intact, sclera anicteric, conjunctiva clear. No ptosis. ENT: Ears normal, nares patent NECK: Trachea midline, full range of motion, supple. Rt IJ in place LUNGS: Breath sounds equal, clear to auscultation bilaterally, no wheezes, no crackles, no accessory muscle use. HEART: Regular rate and rhythm, S1, S2 without murmur, rub or gallop. ABDOMEN: Soft, nontender, nondistended,no guarding, no rebound EXTREMITIES: warm, no edema. Left arm in cast elevated, wiggling fingers NEUROLOGICAL: Cranial nerves II through XII grossly intact. Normal speech, gait not observed. PSYCH: Normal mood, normal affect. SKIN: Warm, dry, normal turgor, no rashes or lesions noted Laboratory Results - last 24 hr 05/07/17 05/07/17 05/07/17 06:00 08:15 11:27 Hypochromia 1+ Anisocytosis 1+ Microcytosis 1+ Sodium 133 L Potassium 3.8 Chloride 99 Carbon Dioxide 25 Anion Gap 9 BUN 5 L D Creatinine 0.7 POC Glucometer 245 Random Glucose 161 H Calcium 8.3 L Phosphorus 4.6 D Magnesium 1.8 05/07/17 05/07/17 05/08/17 16:51 21:50 06:33 Hypochromia Anisocytosis Microcytosis Sodium Potassium Chloride Carbon Dioxide Anion Gap BUN Creatinine POC Glucometer 186 144 141 Random Glucose Calcium Phosphorus Magnesium Active Medications Generic Name Dose Route Start Last Admin Trade Name Freq PRN Reason Stop Dose Admin Acetaminophen 650 mg 04/30/17 09:39 05/07/17 06:27 Tylenol - PO 650 mg Q6H PRN Administration FEVER OR PAIN Aspirin 81 mg 04/30/17 14:00 05/07/17 10:12 Asa - PO 81 mg DAILY LILLY Administration Atorvastatin Calcium 40 mg 04/30/17 22:00 05/07/17 21:48 Lipitor - PO 40 mg HS LILLY Administration Carvedilol 3.125 mg 05/07/17 10:15 05/07/17 21:47 Coreg - PO 3.125 mg BID LILLY Administration Clopidogrel Bisulfate 75 mg 04/30/17 14:00 05/07/17 10:12 Plavix - PO 75 mg DAILY LILLY Administration Docusate Sodium 300 mg 04/30/17 14:45 05/07/17 21:47 Colace - PO 300 mg HS LILLY Administration Heparin Sodium (Porcine) 5,000 unit 05/07/17 16:15 05/07/17 21:46 Heparin - SQ 5,000 unit BID LILLY Administration IV Flush 8 ml 05/03/17 12:53 Picc Line Flush IVPUSH PRN PRN Protocol Vancomycin HCl 1,000 mg in 250 mls @ 250 mls/hr 05/06/17 18:00 05/08/17 06:30 Vancomycin (Pre-Docked) IVPB 250 mls/hr BID@0600,1800 LILLY Administration Protocol Insulin Aspart 0 units 04/30/17 16:30 05/08/17 06:33 Novolog Vial SQ Not Given ACHS [facility] Protocol Lactobacillus Acidophilus 1 tab 05/03/17 13:15 05/07/17 10:12 Bacid - PO 1 tab DAILY LILLY Administration Levothyroxine Sodium 100 mcg 04/30/17 22:00 05/07/17 21:48 Synthroid - PO 100 mcg HS LILLY Administration Lidocaine/Aluminum/Magnesium/Simeth 5 ml 05/05/17 11:45 05/08/17 06:30 Magic Mouthwash *Sjr Formula* - MM 5 ml Q6HPO LILLY Administration Magnesium Hydroxide 30 ml 05/02/17 12:32 Milk Of Magnesia - PO PRN PRN CONSTIPATION Metronidazole 250 mg 04/30/17 15:30 05/08/17 06:30 Flagyl - PO 250 mg TID LILLY Administration Miconazole Nitrate 100 mg 05/07/17 16:00 05/07/17 21:49 Monistat-7 Vaginal Suppository - PV 1 supp HS LILLY Administration Nifedipine 30 mg 04/30/17 14:00 05/07/17 10:13 Procardia Xl - PO 30 mg DAILY LILLY Administration Ondansetron HCl 4 mg 05/06/17 16:20 05/06/17 17:15 Zofran Injection IVPUSH 4 mg Q6H PRN Administration NAUSEA AND/OR VOMITING Oxycodone HCl 5 mg 04/30/17 14:26 05/08/17 06:40 Roxicodone - PO 5 mg Q6H PRN Administration PAIN Pantoprazole Sodium 40 mg 04/30/17 15:15 05/07/17 21:48 Protonix - PO 40 mg BID LILLY Administration Polyethylene Glycol 17 gm 04/30/17 14:45 05/07/17 21:49 Miralax (For Daily Use) - PO Not Given BID LILLY Potassium Chloride 20 meq 05/05/17 11:30 05/07/17 10:12 K-Dur - PO 20 meq DAILY LILLY Administration Senna 2 tab 05/02/17 12:31 05/02/17 13:29 Senna - PO 2 tab HS PRN Administration CONSTIPATION ASSESSMENT/PLAN: 1) ID sepsis secondary to cellulitis-pt appears non toxic, vitals stable, afebrile, wbc slightly trending up - s/p Left elbow septic bursitis s/p I+D 05/06/17, post op day 2 (Dr Avalos) -continue vancomycin - wound culture MRSA, pending intraoperative culture, repeat blood cultures NTD - Dr Marie, ID consulted and followed -dressing changed, continue elevation, splint -will continue to monitor closely -monitor CBC 2) cardiovascular -no cardiac complaints CAD s/p NSTEMI s/p stent (06/23) - continue ASA, plavix -continue nifedipine, decrease carvedilol to 3.125mg BID 3) heme microcytic anemia - secondary to iron deficency, venofer (05/04/17 and 05/05/17) will require 3 more infusions, baseline Hb -12, - 2 units of prbc 05/06/17, repeat hgb 9.6, repeat cbc in AM - no active bleeding noted, stool guiac negative -h/h-10.9/33.7 today 4) endo niddm -fingersticks achs -BS in 150s. -novolog sliding scale hypothyroidism - continue levothyroxine 5)GI dysphagia, poor appetite,Patient awaiting food from home, did not like food here - swallow eval completed, OOB for meals, OOB for 1 h. after meals, Alternate solids with liquids and complete meal with liquids. Small amounts throughout the day replete potassium and magnesium diabetic soft diet -Pt reports poor appetite, refused supplements. -continue IVF Constipation- "stomach issues"-Pt reports that had started her on Flagyl and was supposed to go back to him for colonoscopy -will need to call his office on week to find duration of treatment. PPX: - Heparin sq - PT Dispo- Require inpatient care. Code Status- DNR/DNI-I spoke to pt and confirmed. States Sister in Law Sony Rdz as [id number] Visit type - Emergency Visit Emergency Visit: No - New Patient This patient is new to me today: Yes Date on this admission: 05/08/17 - Critical Care Critical Care patient: No - Discharge Referral Referred to [facility] Med P.C.: No
[2017-05-08] MEDS: POLYETHYLENE GLYCOL 3350 119 GM BTL PO SCH ×2 (10:00→21:16)
[2017-05-08] MEDS: LACTOBACILLUS ACIDOPHILUS 1 EACH TAB (FP) PO SCH (10:37)
[2017-05-08] MEDS: ASPIRIN 81 MG CHEWABLE TABLETS PO SCH (10:37)
[2017-05-08] MEDS: CARVEDILOL 3.125 MG TABLET (FP) PO SCH ×2 (10:37→21:16)
[2017-05-08] MEDS: HEPARIN NA (PORCINE) 5,000 UNITS/ML 1ML VIAL SQ SCH ×2 (10:37→21:15)
[2017-05-08] MEDS: POTASSIUM CHLORIDE TABS 10 MEQ TABLET.ER (FP) PO SCH (10:38)
[2017-05-08] MEDS: CLOPIDOGREL BISULFATE 75 MG TABLET (FP) PO SCH (10:38)
[2017-05-08] MEDS: NIFEdipine E.R. 30 MG TABLET (FP) PO SCH (10:38)
[2017-05-08] MEDS: PANTOPRAZOLE 40 MG TABLET (FP) PO SCH ×2 (10:39→21:15)
[2017-05-08 11:30] LABS: MEAN CELL VOLUME 75.2 fl (80-96); WHITE BLOOD COUNT 15.2 K/mm3 (4.0-10.8)
[2017-05-08 11:35] LABS: BASO % 0.5 % (0-2.0); EOS % 3.4 % (0-4.5); HEMATOCRIT 33.7 % (32.4-45.2); HEMOGLOBIN 10.9 GM/dl (10.7-15.3); LYMPH % 13.8 % (8-40); MCH 24.3 pg (25.7-33.7); MCHC 32.3 g/dl (32.0-36.0); MEAN PLT VOLUME 7.5 fl (7.5-11.1); MONO % 7.3 % (3.8-10.2); PLATELET COUNT 457 K/MM3 (134-434); RBC 4.48 M/mm3 (3.60-5.2); RDW 17.3 % (11.6-15.6)
[2017-05-08 11:41] LABS: ANION GAP 6 (8-16); BLOOD UREA NITROGEN 6 mg/dl (7-18); CALCIUM 8.6 mg/dl (8.4-10.2); CHLORIDE 101 mmol/L (98-107); CO2 27 mmol/L (22-28); CREATININE 0.7 mg/dl (0.6-1.3); GLUCOSE,RANDOM 154 mg/dl (74-106); SODIUM 134 mmol/L (136-145)
--- NOTE | 2017-05-08 17:17 | PN ---
Progress Note (short form) - Note Progress Note: Feels better. AF. Dsg changed. Minimal serous drainage. Mild eccymosis without mild but diminishing erythema. Decreased tenderness and pain with rom. No abcess palpated. wbc 15, surgical cultures NGTD reincubated. Imp: sp ID septic olecranon bursitis. Plan: as she is improving, further I&D not indicated at this point. would cont elevation and iv abx per med and ID. Will follow.
[2017-05-08] MEDS: DOCUSATE SODIUM 100 MG CAPSULE (FP) PO SCH (21:15)
[2017-05-08] MEDS: ATORVASTATIN CA 40 MG TABLET (FP) PO SCH (21:16)
[2017-05-08] MEDS: LEVOTHYROXINE NA 100 MCG TABLET (FP) PO SCH (21:16)
[2017-05-08] MEDS ORDERED: INSULIN (NOVOLOG) ASPART 100 UNITS/ML 10ML VIAL ONE (22:13)
[2017-05-08] MEDS: MICONAZOLE NITRATE 100 MG SUPP SUPP.VAG PV SCH (22:16)
[2017-05-09] MEDS: oxyCODONE HCL 5 MG TABLET PO PRN ×4 (02:46→22:20)
[2017-05-09] MEDS: MAG HYDROX/ALH/SMC/DPHA/LIDO 240 ML MOUTHWASH MM SCH ×3 (06:23→17:03)
[2017-05-09] MEDS: VANCOMYCIN 1 GRAM (PRE-DOCKED) 1,000 MG/250 ML BAG IVPB SCH ×2 (06:23→17:01)
[2017-05-09] MEDS: metroNIDAZOLE 250 MG TABLET PO SCH ×3 (06:24→21:41)
--- NOTE | 2017-05-09 07:31 | PN ---
Physical Exam: SUBJECTIVE: Patient seen and examined at bedside today. Ms. Cardoza has been under the care of team for left elbow bursitis, +MRSA, sepsis, and need for IV antibiotics Overnight pt states she has had chills and sweating without a fever documented. Her pain has been strong overnight and given pain meds as needed with some relief. OBJECTIVE: Vital Signs Period Temp Pulse Resp BP Sys/Atkinson Pulse Ox Last 24 Hr 97.6 F-99.4 F 50-59 16-18 91-101/44-59 95-100 GENERAL: The patient is awake, alert, and fully oriented, in no acute distress. LUNGS: Breath sounds equal, clear to auscultation bilaterally, no wheezes, no crackles, no accessory muscle use. HEART: Regular rate and rhythm, S1, S2 without murmur, rub or gallop. ABDOMEN: Soft, nontender, nondistended, normoactive bowel sounds, EXTREMITIES: 2+ pulses, warm, well-perfused, no edema. + left arm with wrapped gauze for infectious bursitis/+MRSA in wound+ pulses, - swelling to proximal or distal area. Color pink, no obvious drainage. NEUROLOGICAL: Cranial nerves II through XII grossly intact. Normal speech, gait not observed. PSYCH: Normal mood, normal affect. SKIN: Warm, dry, normal turgor, no rashes or lesions noted Laboratory Results - last 24 hr 05/08/17 05/08/17 05/08/17 11:00 11:00 22:10 WBC 15.2 H D RBC 4.48 Hgb 10.9 D Hct 33.7 MCV 75.2 L MCH 24.3 L MCHC 32.3 RDW 17.3 H Plt Count 457 H MPV 7.5 Neutrophils % 75.0 Lymphocytes % 13.8 D Monocytes % 7.3 Eosinophils % 3.4 Basophils % 0.5 Sodium 134 L Potassium 4.0 Chloride 101 Carbon Dioxide 27 Anion Gap 6 L BUN 6 L Creatinine 0.7 POC Glucometer 170 Random Glucose 154 H Calcium 8.6 Magnesium 2.0 05/09/17 06:53 WBC RBC Hgb Hct MCV MCH MCHC RDW Plt Count MPV Neutrophils % Lymphocytes % Monocytes % Eosinophils % Basophils % Sodium Potassium Chloride Carbon Dioxide Anion Gap BUN Creatinine POC Glucometer 125 Random Glucose Calcium Magnesium Laboratory Tests 05/09/17 05/09/17 06:30 06:30 WBC 13.7 H Hgb 10.4 L Hct 32.5 Plt Count 450 H Sodium 137 Potassium 4.3 Chloride 103 Carbon Dioxide 27 Anion Gap 7 L BUN 7 Creatinine 0.7 Random Glucose 111 H D Active Medications Generic Name Dose Route Start Last Admin Trade Name Freq PRN Reason Stop Dose Admin Acetaminophen 650 mg 04/30/17 09:39 05/07/17 06:27 Tylenol - PO 650 mg Q6H PRN Administration FEVER OR PAIN Aspirin 81 mg 04/30/17 14:00 05/08/17 10:37 Asa - PO 81 mg DAILY LILLY Administration Atorvastatin Calcium 40 mg 04/30/17 22:00 05/08/17 21:16 Lipitor - PO 40 mg HS LILLY Administration Carvedilol 3.125 mg 05/07/17 10:15 05/08/17 21:16 Coreg - PO 3.125 mg BID LILLY Administration Clopidogrel Bisulfate 75 mg 04/30/17 14:00 05/08/17 10:38 Plavix - PO 75 mg DAILY LILLY Administration Docusate Sodium 300 mg 04/30/17 14:45 05/08/17 21:15 Colace - PO 300 mg HS LILLY Administration Heparin Sodium (Porcine) 5,000 unit 05/07/17 16:15 05/08/17 21:15 Heparin - SQ 5,000 unit BID LILLY Administration IV Flush 8 ml 05/03/17 12:53 Picc Line Flush IVPUSH PRN PRN Protocol Vancomycin HCl 1,000 mg in 250 mls @ 250 mls/hr 05/06/17 18:00 05/09/17 06:23 Vancomycin (Pre-Docked) IVPB 250 mls/hr BID@0600,1800 LILLY Administration Protocol Insulin Aspart 0 units 04/30/17 16:30 05/08/17 22:17 Novolog Vial SQ 2 units ACHS LILLY Administration Protocol Lactobacillus Acidophilus 1 tab 05/03/17 13:15 05/08/17 10:37 Bacid - PO 1 tab DAILY LILLY Administration Levothyroxine Sodium 100 mcg 04/30/17 22:00 05/08/17 21:16 Synthroid - PO 100 mcg HS LILLY Administration Lidocaine/Aluminum/Magnesium/Simeth 5 ml 05/05/17 11:45 05/09/17 06:23 Magic Mouthwash *Sjr Formula* - MM 5 ml Q6HPO LILLY Administration Magnesium Hydroxide 30 ml 05/02/17 12:32 Milk Of Magnesia - PO PRN PRN CONSTIPATION Metronidazole 250 mg 04/30/17 15:30 05/09/17 06:24 Flagyl - PO 250 mg TID LILLY Administration Miconazole Nitrate 100 mg 05/07/17 16:00 05/08/17 22:16 Monistat-7 Vaginal Suppository - PV 1 supp HS LILLY Administration Nifedipine 30 mg 04/30/17 14:00 05/08/17 10:38 Procardia Xl - PO 30 mg DAILY LILLY Administration Ondansetron HCl 4 mg 05/06/17 16:20 05/06/17 17:15 Zofran Injection IVPUSH 4 mg Q6H PRN Administration NAUSEA AND/OR VOMITING Oxycodone HCl 5 mg 04/30/17 14:26 05/09/17 02:46 Roxicodone - PO 5 mg Q6H PRN Administration PAIN Pantoprazole Sodium 40 mg 04/30/17 15:15 05/08/17 21:15 Protonix - PO 40 mg BID LILLY Administration Polyethylene Glycol 17 gm 04/30/17 14:45 05/08/17 21:16 Miralax (For Daily Use) - PO Not Given BID LILLY Potassium Chloride 20 meq 05/05/17 11:30 05/08/17 10:38 K-Dur - PO 20 meq DAILY LILLY Administration Senna 2 tab 05/02/17 12:31 05/02/17 13:29 Senna - PO 2 tab HS PRN Administration CONSTIPATION ASSESSMENT/PLAN: This 56 yr old female with left olecran region +MRSA infection. Under the care of orthopedic for wound site and care of wound with I/D initially. ID following pt for ABT use. Pt requiring continual IV antibiotics as well as daily monitoring of wound and care. Problem List - Problems (1) H/O heart artery stent Assessment/Plan: -h/o stents -continue with ASA and Plavix -if + blood cultures, will need Echo Code(s): Z95.5 - PRESENCE OF CORONARY ANGIOPLASTY IMPLANT AND GRAFT (2) Adult hypothyroidism Assessment/Plan: -continue synthyroid in AM Code(s): E03.9 - HYPOTHYROIDISM, UNSPECIFIED (3) MRSA (methicillin resistant staph aureus) culture positive Assessment/Plan: -contact isolation for MRSA -continue flagyl vanco for wound cx positive -follow up all cultures. -appreciate ID input Code(s): Z22.322 - CARRIER OR SUSPECTED CARRIER OF METHICILLIN RESIS STAPH (4) Anemia Assessment/Plan: -received 2 units of PRBC post I/D -monitoring daily CBC, -monitor for any SOB, hypotension, or symptomatic anemia Code(s): D64.9 - ANEMIA, UNSPECIFIED Qualifiers: Anemia type: other cause (5) Scleroderma Assessment/Plan: -appreciate speech and swallow consult input -on soft diet -currently no diff in swallowing Code(s): M34.9 - SYSTEMIC SCLEROSIS, UNSPECIFIED (6) Diabetes mellitus Assessment/Plan: -finger sticks before meals and bedtime with sliding scale -continue home glucaphage -ADA diet -continue education re: dm Code(s): E11.9 - TYPE 2 DIABETES MELLITUS WITHOUT COMPLICATIONS Qualifiers: Diabetes mellitus type: type 2 Diabetes mellitus complication status: with skin complications Diabetes mellitus complication detail: with other skin complication Diabetes mellitus exterminator termite insulin use: with group home use Qualified Code(s): E11.628 - Type 2 diabetes mellitus with other skin complications; Z79.4 - intermediate accountant (current) use of insulin; Z79.4 - shelter ( current) use of insulin; Z79.4 - shelter (current) use of insulin; Z79.4 - intermediate accountant (current) use of insulin (7) Leukocytosis Code(s): D72.829 - ELEVATED WHITE BLOOD CELL COUNT, UNSPECIFIED Qualifiers: Leukocytosis type: leukemoid reaction Qualified Code(s): D72.823 - Leukemoid reaction (8) Abscess of forearm, right Code(s): L02.413 - CUTANEOUS ABSCESS OF RIGHT UPPER LIMB (9) PIC line (peripherally inserted central catheter) removal Code(s): Z45.2 - ENCOUNTER FOR ADJUSTMENT AND MANAGEMENT OF VAD (10) NSTEMI (non-ST elevated myocardial infarction) Code(s): I21.4 - NON-ST ELEVATION (NSTEMI) MYOCARDIAL INFARCTION (11) CAD (coronary artery disease) Assessment/Plan: - Code(s): I25.10 - ATHSCL HEART DISEASE OF [place] CORONARY ARTERY W/O ANG PCTRS Qualifiers: Coronary Disease-Associated Artery/Lesion type: [place] artery [place] vs. transplanted heart: [place] heart Associated angina: with unstable angina Qualified Code(s): I25.110 - Atherosclerotic heart disease of [place] coronary artery with unstable angina pectoris (12) HLD (hyperlipidemia) Assessment/Plan: -continue with statin Code(s): E78.5 - HYPERLIPIDEMIA, UNSPECIFIED Qualifiers: Hyperlipidemia type: pure hypercholesterolemia Qualified Code(s): E78.00 - Pure hypercholesterolemia, unspecified; E78.0 - Pure hypercholesterolemia (13) HTN (hypertension) Assessment/Plan: -monitor blood pressure -continue with coreg, nifedipine Code(s): I10 - ESSENTIAL (PRIMARY) HYPERTENSION Qualifiers: Hypertension type: essential hypertension Qualified Code(s): I10 - Essential (primary) hypertension Visit type - Emergency Visit Emergency Visit: Yes ED Registration Date: 04/30/17 Care time: The patient presented to the Emergency Department on the above date and was hospitalized for further evaluation of their emergent condition. - New Patient This patient is new to me today: Yes Date on this admission: 05/09/17 - Critical Care Critical Care patient: No - Discharge Referral Referred to [facility] Med [facility] No
[2017-05-09 08:55] LABS: BASO % 0.3 % (0-2.0); EOS % 4.4 % (0-4.5); HEMATOCRIT 32.5 % (32.4-45.2); HEMOGLOBIN 10.4 GM/dl (10.7-15.3); LYMPH % 15.8 % (8-40); MCH 24.4 pg (25.7-33.7); MCHC 32.1 g/dl (32.0-36.0); MEAN PLT VOLUME 7.5 fl (7.5-11.1); MONO % 6.6 % (3.8-10.2); NEUT % 72.9 % (42.8-82.8); PLATELET COUNT 450 K/MM3 (134-434); RBC 4.27 M/mm3 (3.60-5.2); RDW 17.9 % (11.6-15.6); WHITE BLOOD COUNT 13.7 K/mm3 (4.0-10.8)
[2017-05-09 09:18] LABS: ALK PHOS 93 U/L (32-92); ANION GAP 7 (8-16); BILIRUBIN,TOTAL 0.4 mg/dl (0.2-1.0); BLOOD UREA NITROGEN 7 mg/dl (7-18); CALCIUM 8.4 mg/dl (8.4-10.2); CHLORIDE 103 mmol/L (98-107); CO2 27 mmol/L (22-28); CREATININE 0.7 mg/dl (0.6-1.3); GLUCOSE,RANDOM 111 mg/dl (74-106); POTASSIUM 4.3 mmol/L (3.5-5.1); SGOT/AST 37 U/L (10-42); SGPT/ALT 46 U/L (10-40); SODIUM 137 mmol/L (136-145); TOT PROT 5.8 g/dl (6.4-8.3)
[2017-05-09] MEDS: LACTOBACILLUS ACIDOPHILUS 1 EACH TAB (FP) PO SCH (10:14)
[2017-05-09] MEDS: CARVEDILOL 3.125 MG TABLET (FP) PO SCH ×2 (10:14→22:22)
[2017-05-09] MEDS: HEPARIN NA (PORCINE) 5,000 UNITS/ML 1ML VIAL SQ SCH ×2 (10:14→21:42)
[2017-05-09] MEDS: ASPIRIN 81 MG CHEWABLE TABLETS PO SCH (10:14)
[2017-05-09] MEDS: POTASSIUM CHLORIDE TABS 10 MEQ TABLET.ER (FP) PO SCH (10:15)
[2017-05-09] MEDS: CLOPIDOGREL BISULFATE 75 MG TABLET (FP) PO SCH (10:15)
[2017-05-09] MEDS: PANTOPRAZOLE 40 MG TABLET (FP) PO SCH ×2 (10:15→21:40)
[2017-05-09] MEDS: POLYETHYLENE GLYCOL 3350 119 GM BTL PO SCH ×2 (10:39→21:42)
[2017-05-09] MEDS: NIFEdipine E.R. 30 MG TABLET (FP) PO SCH (11:00)
[2017-05-09] MEDS: INSULIN SLIDING SCALE (NOVOLOG) 1 VIAL SQ SCH ×2 (11:29→17:00)
[2017-05-09] MEDS: ACETAMINOPHEN 325 MG TABLET (FP) PO PRN (13:43)
[2017-05-09] MEDS ORDERED: oxyCODONE HCL 5 MG TABLET ONE (15:29)
[2017-05-09] MEDS ORDERED: INSULIN (NOVOLOG) ASPART 100 UNITS/ML 10ML VIAL ONE (16:59)
[2017-05-09] MEDS ORDERED: LEVOTHYROXINE NA 100 MCG TABLET (FP) PO SCH (19:30)
[2017-05-09] MEDS: LEVOTHYROXINE NA 100 MCG TABLET (FP) PO SCH (20:13)
[2017-05-09] MEDS: ATORVASTATIN CA 40 MG TABLET (FP) PO SCH (21:40)
[2017-05-09] MEDS: DOCUSATE SODIUM 100 MG CAPSULE (FP) PO SCH (21:40)
[2017-05-09] MEDS: MICONAZOLE NITRATE 100 MG SUPP SUPP.VAG PV SCH (21:41)
[2017-05-10] MEDS ORDERED: REFRIGERATED ANITBIOTICS ONE ×2 (00:26→23:48)
[2017-05-10] MEDS: MAG HYDROX/ALH/SMC/DPHA/LIDO 240 ML MOUTHWASH MM SCH ×4 (00:28→18:15)
[2017-05-10] MEDS: oxyCODONE HCL 5 MG TABLET PO PRN ×2 (03:58→16:52)
[2017-05-10] MEDS: VANCOMYCIN 1 GRAM (PRE-DOCKED) 1,000 MG/250 ML BAG IVPB SCH (06:32)
[2017-05-10] MEDS: LEVOTHYROXINE NA 100 MCG TABLET (FP) PO SCH (06:32)
[2017-05-10] MEDS: metroNIDAZOLE 250 MG TABLET PO SCH ×3 (06:32→21:25)
[2017-05-10] MEDS: INSULIN SLIDING SCALE (NOVOLOG) 1 VIAL SQ SCH ×3 (06:33→16:47)
--- NOTE | 2017-05-10 07:46 | PN ---
Physical Exam: SUBJECTIVE: Patient seen and examined ,denies any tactile fever, reports pain to the left elbow, denies any paresthesia to the extremity, patient adamantly declines PICC line, states "I rather than have another PICC line" OBJECTIVE: 56 year-old woman with a PMH significant for CAD s/p NSTEMI s/p stent (06/2016), NIDDM, scleroderma, hypothyroidism, and RUE MRSA cellulitis ( multiple drainages/wound vac, 09/2015). Admitted for sepsis and left elbow cellulitis, s/p left elbow, olecranon bursectomy, POD #4 (Dr Avalos) Vital Signs Period Temp Pulse Resp BP Sys/Atkinson Pulse Ox Last 24 Hr 98.0 F-99.6 F 56-75 16-18 98-103/46-56 95-96 GENERAL: The patient is awake, alert, and fully oriented, in no acute distress. HEAD: Normal with no signs of trauma. EYES: PERRL, extraocular movements intact, sclera anicteric, conjunctiva clear. No ptosis. ENT: Ears normal, nares patent, oropharynx clear without exudates, moist mucous membranes. NECK: Trachea midline, full range of motion, supple. LUNGS: Breath sounds equal, clear to auscultation bilaterally, no wheezes, no crackles, no accessory muscle use. HEART: Regular rate and rhythm, S1, S2 without murmur, rub or gallop.right IJ tlc, no erythema noted ABDOMEN: Soft, nontender, nondistended, normoactive bowel sounds, no guarding, no rebound, no hepatosplenomegaly, no masses. EXTREMITIES: 2+ pulses, warm, well-perfused, no edema. LEFT UPPER EXTREMITY: surgical site to the olceran process, simple interrupted sutures intact, wound midline and well approximated, scant erythema noted, no drainage NEUROLOGICAL: Cranial nerves II through XII grossly intact. Normal speech, gait not observed. PSYCH: Normal mood, normal affect. SKIN: Warm, dry, normal turgor, no rashes or lesions noted Laboratory Results - last 24 hr CBC WBC 12.9 K/mm3 (4.0-10.8) H 05/10/17 09:50 Corrected WBC (auto) Cancelled 05/01/17 06:00 RBC 4.26 M/mm3 (3.60-5.2) 05/10/17 09:50 Hgb 10.0 GM/dl (10.7-15.3) L 05/10/17 09:50 Hct 32.2 % (32.4-45.2) L 05/10/17 09:50 MCV 75.4 fl (80-96) L 05/10/17 09:50 MCH 23.4 pg (25.7-33.7) L 05/10/17 09:50 MCHC 31.0 g/dl (32.0-36.0) L 05/10/17 09:50 RDW 18.8 % (11.6-15.6) H 05/10/17 09:50 Plt Count 453 K/MM3 (134-434) H 05/10/17 09:50 MPV 7.4 fl (7.5-11.1) L 05/10/17 09:50 Neutrophils % 70.5 % (42.8-82.8) 05/10/17 09:50 Lymphocytes % 15.8 % (8-40) 05/10/17 09:50 Monocytes % 7.0 % (3.8-10.2) 05/10/17 09:50 Eosinophils % 5.6 % (0-4.5) H 05/10/17 09:50 Basophils % 1.1 % (0-2.0) D 05/10/17 09:50 Manual Slide Review No Result Required. 05/03/17 05:30 Hypochromia 1+ 05/07/17 08:15 Platelet Comment Cancelled 05/01/17 06:00 Anisocytosis 1+ 05/07/17 08:15 Microcytosis 1+ 05/07/17 08:15 Tear Drop Cells 1+ 04/30/17 15:10 Ovalocytes 1+ 04/30/17 15:10 Haptoglobin 325 mg/dL (34-200) H 05/03/17 05:30 CMP Sodium 134 mmol/L (136-145) L 05/10/17 08:00 Potassium 4.5 mmol/L (3.5-5.1) 05/10/17 08:00 Chloride 102 mmol/L (98-107) 05/10/17 08:00 Carbon Dioxide 24 mmol/L (22-28) 05/10/17 08:00 Anion Gap 8 (8-16) 05/10/17 08:00 BUN 8 mg/dl (7-18) 05/10/17 08:00 Creatinine 0.7 mg/dl (0.6-1.3) 05/10/17 08:00 Creat Clearance w eGFR > 60 (>60) 05/10/17 08:00 POC Glucometer 163 UNITS (80-120) 05/10/17 11:36 Random Glucose 136 mg/dl (74-106) H D 05/10/17 08:00 Lactic Acid 1.0 mmol/L (0.4-2.0) 04/30/17 18:00 Calcium 8.5 mg/dl (8.4-10.2) 05/10/17 08:00 Phosphorus 3.9 mg/dl (2.5-4.6) 05/10/17 08:00 Magnesium 1.8 mg/dL (1.8-2.4) 05/10/17 08:00 Iron 11 ug/dL (27-159) L 05/03/17 05:30 TIBC 199 ug/dL (250-450) L 05/03/17 05:30 Iron Saturation 6 % (15-55) L 05/03/17 05:30 Ferritin 50.835 ng/ml (6.9-282.5) 05/02/17 04:00 Total Bilirubin 0.4 mg/dl (0.2-1.0) 05/10/17 08:00 AST 24 U/L (10-42) D 05/10/17 08:00 ALT 33 U/L (10-40) D 05/10/17 08:00 Alkaline Phosphatase 85 U/L (32-92) 05/10/17 08:00 LD Total 300 U/L (84-246) H 05/02/17 04:00 Creatine Kinase 81 IU/L (26-192) 04/30/17 05:10 Troponin I < 0.03 ng/ml (0.03-0.50) L 05/01/17 20:25 C-Reactive Protein 0.5 MG/DL (0.00-0.3) H 04/30/17 05:10 Total Protein 5.2 g/dl (6.4-8.3) L 05/10/17 08:00 Albumin 2.7 g/dl (3.5-5.0) L 05/10/17 08:00 Vitamin B12 298 pg/ml (180-914) 05/02/17 04:00 Serum Folate 11 ng/ml (3.1-17.5) 05/02/17 04:00 TSH 4.30 uIU/ml (0.358-3.74) H D 05/10/17 08:00 Free T4 1.39 ng/dl (0.76-1.46) D 05/10/17 08:00 Active Medications Generic Name Dose Route Start Last Admin Trade Name Freq PRN Reason Stop Dose Admin Acetaminophen 650 mg 04/30/17 09:39 05/09/17 13:43 Tylenol - PO 650 mg Q6H PRN Administration FEVER OR PAIN Aspirin 81 mg 04/30/17 14:00 05/09/17 10:14 Asa - PO 81 mg DAILY LILLY Administration Atorvastatin Calcium 40 mg 04/30/17 22:00 05/09/17 21:40 Lipitor - PO 40 mg HS LILLY Administration Carvedilol 3.125 mg 05/07/17 10:15 05/09/17 22:22 Coreg - PO 3.125 mg BID LILLY Administration Clopidogrel Bisulfate 75 mg 04/30/17 14:00 05/09/17 10:15 Plavix - PO 75 mg DAILY LILLY Administration Docusate Sodium 300 mg 04/30/17 14:45 05/09/17 21:40 Colace - PO 300 mg HS LILLY Administration Heparin Sodium (Porcine) 5,000 unit 05/07/17 16:15 05/09/17 21:42 Heparin - SQ 5,000 unit BID LILLY Administration IV Flush 8 ml 05/03/17 12:53 Picc Line Flush IVPUSH PRN PRN Protocol Vancomycin HCl 1,000 mg in 250 mls @ 250 mls/hr 05/06/17 18:00 05/10/17 06:32 Vancomycin (Pre-Docked) IVPB 250 mls/hr BID@0600,1800 LILLY Administration Protocol Insulin Aspart 1 vial 05/09/17 11:00 05/10/17 06:33 Novolog Vial Sliding Scale - SQ Not Given TIDAC [facility] Protocol Lactobacillus Acidophilus 1 tab 05/03/17 13:15 05/09/17 10:14 Bacid - PO 1 tab DAILY LILLY Administration Levothyroxine Sodium 100 mcg 05/09/17 20:15 05/10/17 06:32 Synthroid - PO 100 mcg DAILY@0700 LILLY Administration Lidocaine/Aluminum/Magnesium/Simeth 5 ml 05/05/17 11:45 05/10/17 06:32 Magic Mouthwash *Sjr Formula* - MM 5 ml Q6HPO LILLY Administration Magnesium Hydroxide 30 ml 05/02/17 12:32 Milk Of Magnesia - PO PRN PRN CONSTIPATION Metronidazole 250 mg 04/30/17 15:30 05/10/17 06:32 Flagyl - PO 250 mg TID LILLY Administration Miconazole Nitrate 100 mg 05/07/17 16:00 05/09/17 21:41 Monistat-7 Vaginal Suppository - PV 1 supp HS LILLY Administration Nifedipine 30 mg 04/30/17 14:00 05/09/17 11:00 Procardia Xl - PO 30 mg DAILY LILLY Administration Ondansetron HCl 4 mg 05/06/17 16:20 05/06/17 17:15 Zofran Injection IVPUSH 4 mg Q6H PRN Administration NAUSEA AND/OR VOMITING Oxycodone HCl 5 mg 05/09/17 15:35 05/10/17 03:58 Roxicodone - PO 5 mg Q6H PRN Administration PAIN Pantoprazole Sodium 40 mg 04/30/17 15:15 05/09/17 21:40 Protonix - PO 40 mg BID LILLY Administration Polyethylene Glycol 17 gm 04/30/17 14:45 05/09/17 21:42 Miralax (For Daily Use) - PO 17 gm BID LILLY Administration Potassium Chloride 20 meq 05/05/17 11:30 05/09/17 10:15 K-Dur - PO 20 meq DAILY LILLY Administration Senna 2 tab 05/02/17 12:31 05/02/17 13:29 Senna - PO 2 tab HS PRN Administration CONSTIPATION Microbiology 05/06/17 17:00 Elbow - Left Gram Stain - Final 05/06/17 17:00 Elbow - Left Wound Culture - Preliminary 05/06/17 17:00 Elbow - Left Gram Stain - Final 05/06/17 17:00 Elbow - Left Wound Culture - Final NO GROWTH AFTER 48 HOURS INCUBATION 05/03/17 09:44 Blood - Peripheral Venous Blood Culture - Final NO GROWTH AFTER 5 DAYS INCUBATION 05/03/17 09:44 Blood - Peripheral Venous Blood Culture - Final NO GROWTH AFTER 5 DAYS INCUBATION 04/30/17 05:10 Blood - Peripheral Venous Blood Culture - Final NO GROWTH AFTER 5 DAYS INCUBATION 04/30/17 05:10 Blood - Peripheral Venous Blood Culture - Final Staphylococcus Epidermidis 05/01/17 11:15 Abscess Gram Stain - Final 05/01/17 11:15 Abscess Wound Culture - Final Mr Azar Aureus 04/30/17 18:00 Urine - Urine Clean Catch Urine Culture - Final NO GROWTH OBTAINED ASSESSMENT/PLAN: 1) ID sepsis (resolved) secondary to cellulitis- - non toxic, vitals stable, afebrile,wbc slightly trending downward up - s/p Left elbow septic bursitis s/p I+D 05/06/17, post op day 4 (Dr Avalos) -continue vancomycin, change dosage to daily - wound culture MRSA, pending intraoperative culture, repeat blood cultures NTD - Dr Marie, ID consulted and followed -dressing changed, continue elevation, splint -pt declines picc will need a tunnel cather 2) cardiovascular -no cardiac complaints CAD s/p NSTEMI s/p stent (06/23) - continue ASA, plavix -continue nifedipine, carvedilol to 3.125mg BID 3) 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 -novolog sliding scale hypothyroidism - continue levothyroxine, tsh wn; 5)GI dysphagia, poor appetite,Patient awaiting food from home, did not like food here - swallow eval completed, OOB for meals, OOB for 1 h. after meals, Alternate solids with liquids and complete meal with liquids. Small amounts throughout the day diabetic soft diet -Pt reports poor appetite, refused supplements. -continue IVF Constipation- "stomach issues"-Pt reports that had started her on Flagyl and was supposed to go back to him for colonoscopy -will need to call his office on weekdays to find duration of treatment. PPX: - Heparin sq - PT Dispo- Require inpatient care. Code Status- DNR/DNI-I spoke to pt and confirmed. States Sister in Law Sony Rdz as [id number] Visit type - Emergency Visit Emergency Visit: Yes ED Registration Date: 04/30/17 Care time: The patient presented to the Emergency Department on the above date and was hospitalized for further evaluation of their emergent condition. - New Patient This patient is new to me today: No - Critical Care Critical Care patient: No - Discharge Referral Referred to [facility] Med P.C.: No
--- NOTE | 2017-05-10 08:55 | PN ---
Progress Note (short form) - Note Progress Note: Pt reports persistent elbow pain. Physical examination: The patient is afebrile and vital signs are stable. Examination of the left elbow again demonstrates a healing wound. Small brown tinged serous fluid drainage. Moderate swelling. Her distal neurovascular exam is intact. Assessment: Left elbow septic bursitis s/p I+D Plan: -continue iv abx -dressing changed, continue elevation, splint -follow up labs today, wbcs trending down
[2017-05-10] MEDS ORDERED: IRON SUCROSE INJECTION 200 MG in SODIUM CHLORIDE 90 ML IVPB ONE (09:00)
[2017-05-10 09:07] LABS: ALBUMIN 2.7 g/dl (3.5-5.0); ALK PHOS 85 U/L (32-92); ANION GAP 8 (8-16); BILIRUBIN,TOTAL 0.4 mg/dl (0.2-1.0); BLOOD UREA NITROGEN 8 mg/dl (7-18); CALCIUM 8.5 mg/dl (8.4-10.2); CHLORIDE 102 mmol/L (98-107); CO2 24 mmol/L (22-28); CREATININE 0.7 mg/dl (0.6-1.3); GLUCOSE,RANDOM 136 mg/dl (74-106); MAGNESIUM 1.8 mg/dL (1.8-2.4); PHOSPHOROUS 3.9 mg/dl (2.5-4.6); POTASSIUM 4.5 mmol/L (3.5-5.1); SGOT/AST 24 U/L (10-42); SGPT/ALT 33 U/L (10-40); SODIUM 134 mmol/L (136-145); TOT PROT 5.2 g/dl (6.4-8.3)
--- NOTE | 2017-05-10 09:26 | PN ---
Progress Note, Physician History of Present Illness: S/P I&D L elbow abscess, olecrannon bursectomy C/O L elbow pain Afebrile WBC pending - Current Medication List Current Medications: Active Medications Acetaminophen (Tylenol -) 650 mg PO Q6H PRN PRN Reason: FEVER OR PAIN Last Admin: 05/09/17 13:43 Dose: 650 mg Aspirin (Asa -) 81 mg PO DAILY [facility] Last Admin: 05/09/17 10:14 Dose: 81 mg Atorvastatin Calcium (Lipitor -) 40 mg PO HS [facility] Last Admin: 05/09/17 21:40 Dose: 40 mg Carvedilol (Coreg -) 3.125 mg PO BID [facility] Last Admin: 05/09/17 22:22 Dose: 3.125 mg Clopidogrel Bisulfate (Plavix -) 75 mg PO DAILY [facility] Last Admin: 05/09/17 10:15 Dose: 75 mg Docusate Sodium (Colace -) 300 mg PO HS [facility] Last Admin: 05/09/17 21:40 Dose: 300 mg Heparin Sodium (Porcine) (Heparin -) 5,000 unit SQ BID [facility] Last Admin: 05/09/17 21:42 Dose: 5,000 unit IV Flush (Picc Line Flush) 8 ml IVPUSH PRN PRN PRN Reason: Protocol Vancomycin HCl (Vancomycin (Pre-Docked)) 1,000 mg in 250 mls @ 250 mls/hr IVPB BID@0600,1800 [facility] PRN Reason: Protocol Last Admin: 05/10/17 06:32 Dose: 250 mls/hr Iron Sucrose 200 mg/ Sodium (Chloride) 100 mls @ 100 mls/hr IVPB ONCE ONE Stop: 05/10/17 09:59 Insulin Aspart (Novolog Vial Sliding Scale -) 1 vial SQ TIDAC [facility] PRN Reason: Protocol Last Admin: 05/10/17 06:33 Dose: Not Given Lactobacillus Acidophilus (Bacid -) 1 tab PO DAILY [facility] Last Admin: 05/09/17 10:14 Dose: 1 tab Levothyroxine Sodium (Synthroid -) 100 mcg PO DAILY@0700 [facility] Last Admin: 05/10/17 06:32 Dose: 100 mcg Lidocaine/Aluminum/Magnesium/Simeth (Magic Mouthwash *Sjr Formula* -) 5 ml MM Q6HPO [facility] Last Admin: 05/10/17 06:32 Dose: 5 ml Magnesium Hydroxide (Milk Of Magnesia -) 30 ml PO PRN PRN PRN Reason: CONSTIPATION Metronidazole (Flagyl -) 250 mg PO TID [facility] Last Admin: 05/10/17 06:32 Dose: 250 mg Miconazole Nitrate (Monistat-7 Vaginal Suppository -) 100 mg PV HS [facility] Last Admin: 05/09/17 21:41 Dose: 1 supp Nifedipine (Procardia Xl -) 30 mg PO DAILY [facility] Last Admin: 05/09/17 11:00 Dose: 30 mg Ondansetron HCl (Zofran Injection) 4 mg IVPUSH Q6H PRN PRN Reason: NAUSEA AND/OR VOMITING Last Admin: 05/06/17 17:15 Dose: 4 mg Oxycodone HCl (Roxicodone -) 5 mg PO Q6H PRN PRN Reason: PAIN Last Admin: 05/10/17 03:58 Dose: 5 mg Pantoprazole Sodium (Protonix -) 40 mg PO BID [facility] Last Admin: 05/09/17 21:40 Dose: 40 mg Polyethylene Glycol (Miralax (For Daily Use) -) 17 gm PO BID [facility] Last Admin: 05/09/17 21:42 Dose: 17 gm Potassium Chloride (K-Dur -) 20 meq PO DAILY [facility] Last Admin: 05/09/17 10:15 Dose: 20 meq Senna (Senna -) 2 tab PO HS PRN PRN Reason: CONSTIPATION Last Admin: 05/02/17 13:29 Dose: 2 tab - Objective Vital Signs: Vital Signs Temperature 98.8 F 05/10/17 08:50 Pulse Rate 57 L 05/10/17 08:50 Respiratory Rate 18 05/10/17 09:00 Blood Pressure 102/46 05/10/17 08:50 O2 Sat by Pulse Oximetry (%) 100 05/10/17 09:00 Constitutional: Yes: No Distress Eyes: Yes: Conjunctiva Clear Cardiovascular: Yes: Regular Rate and Rhythm, Murmur, S1, S2 Respiratory: Yes: CTA Bilaterally Gastrointestinal: Yes: Normal Bowel Sounds, Soft. No: Tenderness Extremities: Yes: Other (decreased L UE swelling. Erythema over L olecrannon. Sutures in place. No wound drainage) Labs: CBC, BMP 05/10/17 08:00 INR, PTT INR 1.12 (0.82-1.09) 04/30/17 05:10 Assessment/Plan Infected L olecrannon bursa MRSA S/P I&D, bursectomy Cellulitis L UE Fever - improved +BC SCN = contaminant Continue vancomycin Local wound care PICC v. tunnelled catheter for outpatient antibiotic therapy Elevation , analgesics Contact precautions
[2017-05-10] MEDS: ASPIRIN 81 MG CHEWABLE TABLETS PO SCH (09:39)
[2017-05-10] MEDS: LACTOBACILLUS ACIDOPHILUS 1 EACH TAB (FP) PO SCH (09:40)
[2017-05-10] MEDS: HEPARIN NA (PORCINE) 5,000 UNITS/ML 1ML VIAL SQ SCH ×2 (09:40→21:23)
[2017-05-10] MEDS: POLYETHYLENE GLYCOL 3350 119 GM BTL PO SCH ×2 (09:41→21:25)
[2017-05-10] MEDS: POTASSIUM CHLORIDE TABS 10 MEQ TABLET.ER (FP) PO SCH (09:41)
[2017-05-10] MEDS: CLOPIDOGREL BISULFATE 75 MG TABLET (FP) PO SCH (09:42)
[2017-05-10] MEDS: PANTOPRAZOLE 40 MG TABLET (FP) PO SCH ×2 (09:42→21:24)
[2017-05-10] MEDS: NIFEdipine E.R. 30 MG TABLET (FP) PO SCH (09:42)
[2017-05-10] MEDS: CARVEDILOL 3.125 MG TABLET (FP) PO SCH ×2 (09:43→21:24)
[2017-05-10 10:08] LABS: BASO % 1.1 % (0-2.0); EOS % 5.6 % (0-4.5); HEMATOCRIT 32.2 % (32.4-45.2); LYMPH % 15.8 % (8-40); MCH 23.4 pg (25.7-33.7); MEAN CELL VOLUME 75.4 fl (80-96); MEAN PLT VOLUME 7.4 fl (7.5-11.1); NEUT % 70.5 % (42.8-82.8); PLATELET COUNT 453 K/MM3 (134-434); RBC 4.26 M/mm3 (3.60-5.2); RDW 18.8 % (11.6-15.6); WHITE BLOOD COUNT 12.9 K/mm3 (4.0-10.8)
[2017-05-10] MEDS ORDERED: PICC LINE 8 ML FLUSH PROTOCOL IVPUSH PRN (10:17)
[2017-05-10] MEDS ORDERED: INSULIN (NOVOLOG) ASPART 100 UNITS/ML 10ML VIAL ONE (12:01)
[2017-05-10] MEDS: ACETAMINOPHEN 325 MG TABLET (FP) PO PRN (16:52)
[2017-05-10] MEDS: DOCUSATE SODIUM 100 MG CAPSULE (FP) PO SCH (21:23)
[2017-05-10] MEDS: ATORVASTATIN CA 40 MG TABLET (FP) PO SCH (21:25)
[2017-05-10] MEDS: MICONAZOLE NITRATE 100 MG SUPP SUPP.VAG PV SCH (22:38)
[2017-05-11] MEDS: oxyCODONE HCL 5 MG TABLET PO PRN ×2 (02:31→10:05)
[2017-05-11] MEDS ORDERED: REFRIGERATED ANITBIOTICS ONE ×2 (05:14→21:24)
[2017-05-11] MEDS: LEVOTHYROXINE NA 100 MCG TABLET (FP) PO SCH (05:59)
[2017-05-11] MEDS: metroNIDAZOLE 250 MG TABLET PO SCH (06:00)
[2017-05-11] MEDS: MAG HYDROX/ALH/SMC/DPHA/LIDO 240 ML MOUTHWASH MM SCH ×4 (06:00→18:33)
[2017-05-11] MEDS: INSULIN SLIDING SCALE (NOVOLOG) 1 VIAL SQ SCH ×3 (06:45→18:31)
[2017-05-11 08:32] LABS: BASO % 0.2 % (0-2.0); EOS % 5.7 % (0-4.5); HEMOGLOBIN 9.6 GM/dl (10.7-15.3); MCH 23.8 pg (25.7-33.7); MCHC 31.1 g/dl (32.0-36.0); MEAN CELL VOLUME 76.6 fl (80-96); MEAN PLT VOLUME 7.5 fl (7.5-11.1); MONO % 7.3 % (3.8-10.2); NEUT % 67.8 % (42.8-82.8); PLATELET COUNT 428 K/MM3 (134-434); RBC 4.05 M/mm3 (3.60-5.2); RDW 19.1 % (11.6-15.6); WHITE BLOOD COUNT 10.2 K/mm3 (4.0-10.8)
[2017-05-11] MEDS: CLOPIDOGREL BISULFATE 75 MG TABLET (FP) PO SCH (09:10)
[2017-05-11] MEDS: ASPIRIN 81 MG CHEWABLE TABLETS PO SCH (09:10)
[2017-05-11] MEDS: NIFEdipine E.R. 30 MG TABLET (FP) PO SCH (09:10)
[2017-05-11] MEDS: CARVEDILOL 3.125 MG TABLET (FP) PO SCH ×2 (09:10→21:51)
[2017-05-11 09:12] LABS: ALBUMIN 2.7 g/dl (3.5-5.0); ANION GAP 8 (8-16); BILIRUBIN,TOTAL 0.7 mg/dl (0.2-1.0); BLOOD UREA NITROGEN 8 mg/dl (7-18); CALCIUM 8.4 mg/dl (8.4-10.2); CHLORIDE 103 mmol/L (98-107); CO2 27 mmol/L (22-28); CREATININE 0.7 mg/dl (0.6-1.3); GLUCOSE,RANDOM 121 mg/dl (74-106); MAGNESIUM 1.9 mg/dL (1.8-2.4); POTASSIUM 4.4 mmol/L (3.5-5.1); SGOT/AST 17 U/L (10-42); SGPT/ALT 26 U/L (10-40); SODIUM 138 mmol/L (136-145); TOT PROT 5.2 g/dl (6.4-8.3)
--- NOTE | 2017-05-11 09:27 | PN ---
Progress Note, Physician History of Present Illness: Less arm pain and swelling Temps down Afebrile WBC improved - Current Medication List Current Medications: Active Medications Acetaminophen (Tylenol -) 650 mg PO Q6H PRN PRN Reason: FEVER OR PAIN Last Admin: 05/10/17 16:52 Dose: 650 mg Aspirin (Asa -) 81 mg PO DAILY [facility] Last Admin: 05/10/17 09:39 Dose: 81 mg Atorvastatin Calcium (Lipitor -) 40 mg PO HS [facility] Last Admin: 05/10/17 21:25 Dose: 40 mg Carvedilol (Coreg -) 3.125 mg PO BID [facility] Last Admin: 05/10/17 21:24 Dose: 3.125 mg Clopidogrel Bisulfate (Plavix -) 75 mg PO DAILY [facility] Last Admin: 05/10/17 09:42 Dose: 75 mg Docusate Sodium (Colace -) 300 mg PO [facility] Last Admin: 05/10/17 21:23 Dose: 300 mg Heparin Sodium (Porcine) (Heparin -) 5,000 unit SQ BID [facility] Last Admin: 05/10/17 21:23 Dose: 5,000 unit IV Flush (Picc Line Flush) 8 ml IVPUSH PRN PRN PRN Reason: Protocol IV Flush (Picc Line Flush) 8 ml IVPUSH PRN PRN PRN Reason: Protocol Insulin Aspart (Novolog Vial Sliding Scale -) 1 vial SQ TIDAC [facility] PRN Reason: Protocol Last Admin: 05/10/17 16:47 Dose: 2 units Lactobacillus Acidophilus (Bacid -) 1 tab PO DAILY [facility] Last Admin: 05/10/17 09:40 Dose: 1 tab Levothyroxine Sodium (Synthroid -) 100 mcg PO DAILY@0700 [facility] Last Admin: 05/11/17 05:59 Dose: 100 mcg Lidocaine/Aluminum/Magnesium/Simeth (Magic Mouthwash *Sjr Formula* -) 5 ml MM Q6HPO [facility] Last Admin: 05/11/17 06:00 Dose: 5 ml Magnesium Hydroxide (Milk Of Magnesia -) 30 ml PO PRN PRN PRN Reason: CONSTIPATION Metronidazole (Flagyl -) 250 mg PO TID [facility] Last Admin: 05/11/17 06:00 Dose: 250 mg Miconazole Nitrate (Monistat-7 Vaginal Suppository -) 100 mg PV [facility] Last Admin: 05/10/17 22:38 Dose: 1 supp Nifedipine (Procardia Xl -) 30 mg PO DAILY [facility] Last Admin: 05/10/17 09:42 Dose: 30 mg Ondansetron HCl (Zofran Injection) 4 mg IVPUSH Q6H PRN PRN Reason: NAUSEA AND/OR VOMITING Last Admin: 05/06/17 17:15 Dose: 4 mg Oxycodone HCl (Roxicodone -) 5 mg PO Q6H PRN PRN Reason: PAIN Last Admin: 05/11/17 02:31 Dose: 5 mg Pantoprazole Sodium (Protonix -) 40 mg PO BID [facility] Last Admin: 05/10/17 21:24 Dose: 40 mg Polyethylene Glycol (Miralax (For Daily Use) -) 17 gm PO BID [facility] Last Admin: 05/10/17 21:25 Dose: Not Given Potassium Chloride (K-Dur -) 20 meq PO DAILY [facility] Last Admin: 05/10/17 09:41 Dose: 20 meq Senna (Senna -) 2 tab PO HS PRN PRN Reason: CONSTIPATION Last Admin: 05/02/17 13:29 Dose: 2 tab - Objective Vital Signs: Vital Signs Temperature 98.4 F 05/11/17 06:00 Pulse Rate 86 05/11/17 06:00 Respiratory Rate 18 05/11/17 06:00 Blood Pressure 102/49 05/11/17 06:00 O2 Sat by Pulse Oximetry (%) 100 05/11/17 06:32 Constitutional: Yes: No Distress Cardiovascular: Yes: Regular Rate and Rhythm, S1, S2 Respiratory: Yes: CTA Bilaterally Gastrointestinal: Yes: Normal Bowel Sounds, Soft Extremities: Yes: Other (decreased L UE swelling/ erythema Sutures in place, L olecranon bursa No drainage) Labs: CBC, BMP 05/11/17 06:00 05/11/17 06:00 INR, PTT INR 1.12 (0.82-1.09) 04/30/17 05:10 Assessment/Plan Infected L olecrannon bursa MRSA S/P I&D, bursectomy Cellulitis L UE Fever - improved +BC SCN = contaminant Vancomycin on hold (elevated trough) Check vancomycin trough Local wound care PICC v. tunnelled catheter for outpatient antibiotic therapy Elevation , analgesics Contact precautions
[2017-05-11] MEDS ORDERED: PT OWN MED DRAWER 7, Y5N ONE (09:41)
[2017-05-11] MEDS: VANCOMYCIN 1,250 MG in DEXTROSE 5%-WATER - 250 ML IVPB SCH (11:00)
[2017-05-11] MEDS: LACTOBACILLUS ACIDOPHILUS 1 EACH TAB (FP) PO SCH (11:51)
[2017-05-11] MEDS: HEPARIN NA (PORCINE) 5,000 UNITS/ML 1ML VIAL SQ SCH (11:51)
--- NOTE | 2017-05-11 12:03 | PN ---
Physical Exam: SUBJECTIVE: Patient seen and examined, reports feeling well, reports minimal pain to the left elbow, denies any fever. OBJECTIVE:56 year-old woman with a PMH significant for CAD s/p NSTEMI s/p stent (06/2016), NIDDM, scleroderma, hypothyroidism, and RUE MRSA cellulitis ( multiple drainages/wound vac, 09/2015). Admitted for sepsis and left elbow cellulitis, s/p left elbow, olecranon bursectomy, POD #5 (Dr Avalos) Vital Signs Period Temp Pulse Resp BP Sys/Atkinson Pulse Ox Last 24 Hr 98.4 F-98.5 F 66-103 18-18 98-103/47-56 98-100 GENERAL: The patient is awake, alert, and fully oriented, in no acute distress. HEAD: Normal with no signs of trauma. EYES: PERRL, extraocular movements intact, sclera anicteric, conjunctiva clear. No ptosis. ENT: Ears normal, nares patent, oropharynx clear without exudates, moist mucous membranes. NECK: Trachea midline, full range of motion, supple. LUNGS: Breath sounds equal, clear to auscultation bilaterally, no wheezes, no crackles, no accessory muscle use. HEART: Regular rate and rhythm, S1, S2 without murmur, rub or gallop. ABDOMEN: Soft, nontender, nondistended, normoactive bowel sounds, no guarding, no rebound, no hepatosplenomegaly, no masses. EXTREMITIES: 2+ pulses, warm, well-perfused, no edema. LEFT EXTREMITY: 3 cm vertical incision to olcrean process, erythema resolved, + 1 edema, less than 3 second capillary refill, +3 radial pulse. NEUROLOGICAL: Cranial nerves II through XII grossly intact. Normal speech, gait not observed. PSYCH: Normal mood, normal affect. SKIN: Warm, dry, normal turgor, no rashes or lesions noted Laboratory Results - last 24 hr 05/10/17 05/10/17 05/10/17 08:00 11:36 16:46 WBC RBC Hgb Hct MCV MCH MCHC RDW Plt Count MPV Neutrophils % Lymphocytes % Monocytes % Eosinophils % Basophils % Sodium Potassium Chloride Carbon Dioxide Anion Gap BUN Creatinine Creat Clearance w eGFR POC Glucometer 163 199 Random Glucose Calcium Phosphorus Magnesium Total Bilirubin AST ALT Total Protein Albumin Free T3 2.1 Random Vancomycin 05/11/17 05/11/17 05/11/17 05:54 06:00 06:00 WBC 10.2 RBC 4.05 Hgb 9.6 L Hct 31.0 L MCV 76.6 L MCH 23.8 L MCHC 31.1 L RDW 19.1 H Plt Count 428 MPV 7.5 Neutrophils % 67.8 Lymphocytes % 19.0 D Monocytes % 7.3 Eosinophils % 5.7 H Basophils % 0.2 Sodium Potassium Chloride Carbon Dioxide Anion Gap BUN Creatinine Creat Clearance w eGFR POC Glucometer 127 Random Glucose Calcium Phosphorus Magnesium Total Bilirubin AST ALT Total Protein Albumin Free T3 Random Vancomycin 11.240 05/11/17 05/11/17 06:00 11:37 WBC RBC Hgb Hct MCV MCH MCHC RDW Plt Count MPV Neutrophils % Lymphocytes % Monocytes % Eosinophils % Basophils % Sodium 138 Potassium 4.4 Chloride 103 Carbon Dioxide 27 Anion Gap 8 BUN 8 Creatinine 0.7 Creat Clearance w eGFR > 60 POC Glucometer 120 Random Glucose 121 H Calcium 8.4 Phosphorus 4.0 Magnesium 1.9 Total Bilirubin 0.7 D AST 17 D ALT 26 D Total Protein 5.2 L Albumin 2.7 L Free T3 Random Vancomycin Active Medications Generic Name Dose Route Start Last Admin Trade Name Freq PRN Reason Stop Dose Admin Acetaminophen 650 mg 04/30/17 09:39 05/10/17 16:52 Tylenol - PO 650 mg Q6H PRN Administration FEVER OR PAIN Aspirin 81 mg 04/30/17 14:00 05/11/17 09:10 Asa - PO 81 mg DAILY [facility] Administration Atorvastatin Calcium 40 mg 04/30/17 22:00 05/10/17 21:25 Lipitor - PO 40 mg HS [facility] Administration Carvedilol 3.125 mg 05/07/17 10:15 05/11/17 09:10 Coreg - PO 3.125 mg BID [facility] Administration Clopidogrel Bisulfate 75 mg 04/30/17 14:00 05/11/17 09:10 Plavix - PO 75 mg DAILY [facility] Administration Docusate Sodium 300 mg 04/30/17 14:45 05/10/17 21:23 Colace - PO 300 mg HS [facility] Administration Heparin Sodium (Porcine) 5,000 unit 05/07/17 16:15 05/11/17 11:51 Heparin - SQ Not Given BID [facility] IV Flush 8 ml 05/03/17 12:53 Picc Line Flush IVPUSH PRN PRN Protocol IV Flush 8 ml 05/10/17 10:17 Picc Line Flush IVPUSH PRN PRN Protocol Vancomycin HCl 1,250 mg/ 250 mls @ 166.667 mls/hr 05/11/17 12:00 Dextrose IVPB DAILY@1200 [facility] Protocol Insulin Aspart 1 vial 05/09/17 11:00 05/11/17 11:50 Novolog Vial Sliding Scale - SQ Not Given TIDAC [facility] Protocol Lactobacillus Acidophilus 1 tab 05/03/17 13:15 05/11/17 11:51 Bacid - PO Not Given DAILY [facility] Levothyroxine Sodium 100 mcg 05/09/17 20:15 05/11/17 05:59 Synthroid - PO 100 mcg DAILY@0700 [facility] Administration Lidocaine/Aluminum/Magnesium/Simeth 5 ml 05/05/17 11:45 05/11/17 06:00 Magic Mouthwash *Sjr Formula* - MM 5 ml Q6HPO [facility] Administration Magnesium Hydroxide 30 ml 05/02/17 12:32 Milk Of Magnesia - PO PRN PRN CONSTIPATION Metronidazole 250 mg 04/30/17 15:30 05/11/17 06:00 Flagyl - PO 250 mg TID [facility] Administration Miconazole Nitrate 100 mg 05/07/17 16:00 05/10/17 22:38 Monistat-7 Vaginal Suppository - PV 1 supp HS [facility] Administration Nifedipine 30 mg 04/30/17 14:00 05/11/17 09:10 Procardia Xl - PO 30 mg DAILY [facility] Administration Ondansetron HCl 4 mg 05/06/17 16:20 05/06/17 17:15 Zofran Injection IVPUSH 4 mg Q6H PRN Administration NAUSEA AND/OR VOMITING Oxycodone HCl 5 mg 05/09/17 15:35 05/11/17 10:05 Roxicodone - PO 5 mg Q6H PRN Administration PAIN Pantoprazole Sodium 40 mg 04/30/17 15:15 05/10/17 21:24 Protonix - PO 40 mg BID [facility] Administration Polyethylene Glycol 17 gm 04/30/17 14:45 05/10/17 21:25 Miralax (For Daily Use) - PO Not Given BID [facility] Potassium Chloride 20 meq 05/05/17 11:30 05/10/17 09:41 K-Dur - PO 20 meq DAILY [facility] Administration Senna 2 tab 05/02/17 12:31 05/02/17 13:29 Senna - PO 2 tab HS PRN Administration CONSTIPATION Microbiology 05/06/17 17:00 Elbow - Left Gram Stain - Final 05/06/17 17:00 Elbow - Left Wound Culture - Final Staphylococcus Coagulase Neg 05/06/17 17:00 Elbow - Left Gram Stain - Final 05/06/17 17:00 Elbow - Left Wound Culture - Final NO GROWTH AFTER 48 HOURS INCUBATION 05/03/17 09:44 Blood - Peripheral Venous Blood Culture - Final NO GROWTH AFTER 5 DAYS INCUBATION 05/03/17 09:44 Blood - Peripheral Venous Blood Culture - Final NO GROWTH AFTER 5 DAYS INCUBATION 04/30/17 05:10 Blood - Peripheral Venous Blood Culture - Final NO GROWTH AFTER 5 DAYS INCUBATION 04/30/17 05:10 Blood - Peripheral Venous Blood Culture - Final Staphylococcus Epidermidis 05/01/17 11:15 Abscess Gram Stain - Final 05/01/17 11:15 Abscess Wound Culture - Final Mr S Aureus 04/30/17 18:00 Urine - Urine Clean Catch Urine Culture - Final NO GROWTH OBTAINED ASSESSMENT/PLAN: 1) ID sepsis (resolved) secondary to cellulites, afebrile, no leukocytosis - s/p Left elbow septic bursitis s/p I+D 05/06/17, post op day 5 (Dr Avalos) -continue vancomycin, change dosage to daily - wound culture MRSA,intraoperative cultures, prelim staph aureus, repeat blood cultures NTD - Dr Marie, ID consulted and followed -dressing changed, continue elevation, splint -pt declines picc, scheduled for tunnel cather today for an aditional 2 weeks of vancomycin 2) cardiovascular -no cardiac complaints CAD s/p NSTEMI s/p stent (06/23) - continue ASA, plavix -continue nifedipine, carvedilol 3) heme microcytic anemia - secondary to iron deficency, venofer (05/04/17, 05/05/17, 05/10/17) will require 2 more infusions, baseline Hb -12, - 2 units of prbc 05/06/17, repeat hgb 9, stable - no active bleeding noted, stool guiac negative 4) endo niddm -fingersticks achs -BS in 150s. -novolog sliding scale hypothyroidism - continue levothyroxine, tsh wn; 5)GI dysphagia, poor appetite,Patient awaiting food from home, did not like food here - swallow eval completed, OOB for meals, OOB for 1 h. after meals, Alternate solids with liquids and complete meal with liquids. Small amounts throughout the day diabetic soft diet -Pt reports poor appetite, refused supplements. PPX: - Heparin sq - PT Dispo- Require inpatient care. Code Status- DNR/DNI-I spoke to pt and confirmed. States Sister in Law Sony Rdz as [id number] Visit type - Emergency Visit Emergency Visit: Yes ED Registration Date: 04/30/17 Care time: The patient presented to the Emergency Department on the above date and was hospitalized for further evaluation of their emergent condition. - New Patient This patient is new to me today: No - Critical Care Critical Care patient: No
[2017-05-11 14:04] LABS: ALK PHOS 95 U/L (32-92)
[2017-05-11] MEDS: POLYETHYLENE GLYCOL 3350 119 GM BTL PO SCH ×2 (16:37→21:52)
[2017-05-11] MEDS: PANTOPRAZOLE 40 MG TABLET (FP) PO SCH ×2 (16:37→21:53)
[2017-05-11] MEDS: POTASSIUM CHLORIDE TABS 10 MEQ TABLET.ER (FP) PO SCH (16:38)
--- NOTE | 2017-05-11 18:04 | PN ---
Progress Note (short form) - Note Progress Note: feeling better. Afebrile. White blood cell count down. Elbow less painful. Minimal serous drainage. No pus. Resolving infection Continue antibiotics
[2017-05-11] MEDS: DOCUSATE SODIUM 100 MG CAPSULE (FP) PO SCH (21:51)
[2017-05-11] MEDS: ATORVASTATIN CA 40 MG TABLET (FP) PO SCH (21:51)
[2017-05-11] MEDS: MICONAZOLE NITRATE 100 MG SUPP SUPP.VAG PV SCH (22:44)
[2017-05-12 05:26] VITALS: PULSE 53
[2017-05-12] MEDS ORDERED: REFRIGERATED ANITBIOTICS ONE ×2 (05:59→11:39)
[2017-05-12] MEDS: LEVOTHYROXINE NA 100 MCG TABLET (FP) PO SCH (06:44)
[2017-05-12] MEDS: oxyCODONE HCL 5 MG TABLET PO PRN (06:44)
[2017-05-12] MEDS: MAG HYDROX/ALH/SMC/DPHA/LIDO 240 ML MOUTHWASH MM SCH ×3 (06:45→12:09)
[2017-05-12] MEDS: INSULIN SLIDING SCALE (NOVOLOG) 1 VIAL SQ SCH ×3 (08:39→17:05)
[2017-05-12] MEDS ORDERED: PT OWN MED DRAWER 7, Y5N ONE ×2 (09:07→11:38)
--- NOTE | 2017-05-12 09:31 | PN ---
Progress Note, Physician History of Present Illness: Less L elbow pain No fever/ chills Tolerating antibiotic Vancomycin adjusted for elevated trough - Current Medication List Current Medications: Active Medications Acetaminophen (Tylenol -) 650 mg PO Q6H PRN PRN Reason: FEVER OR PAIN Last Admin: 05/10/17 16:52 Dose: 650 mg Aspirin (Asa -) 81 mg PO DAILY [facility] Last Admin: 05/11/17 09:10 Dose: 81 mg Atorvastatin Calcium (Lipitor -) 40 mg PO HS [facility] Last Admin: 05/11/17 21:51 Dose: 40 mg Carvedilol (Coreg -) 3.125 mg PO BID [facility] Last Admin: 05/11/17 21:51 Dose: 3.125 mg Clopidogrel Bisulfate (Plavix -) 75 mg PO DAILY [facility] Last Admin: 05/11/17 09:10 Dose: 75 mg Docusate Sodium (Colace -) 300 mg PO HS [facility] Last Admin: 05/11/17 21:51 Dose: 300 mg Heparin Sodium (Porcine) (Heparin -) 5,000 unit SQ BID [facility] Last Admin: 05/11/17 11:51 Dose: Not Given IV Flush (Picc Line Flush) 8 ml IVPUSH PRN PRN PRN Reason: Protocol IV Flush (Picc Line Flush) 8 ml IVPUSH PRN PRN PRN Reason: Protocol Vancomycin HCl 1,250 mg/ (Dextrose) 250 mls @ 166.667 mls/hr IVPB DAILY@1200 [facility] PRN Reason: Protocol Last Admin: 05/11/17 11:00 Dose: 166.667 mls/hr Insulin Aspart (Novolog Vial Sliding Scale -) 1 vial SQ TIDAC [facility] PRN Reason: Protocol Last Admin: 05/12/17 08:39 Dose: Not Given Lactobacillus Acidophilus (Bacid -) 1 tab PO DAILY [facility] Last Admin: 05/11/17 11:51 Dose: Not Given Levothyroxine Sodium (Synthroid -) 100 mcg PO DAILY@0700 [facility] Last Admin: 05/12/17 06:44 Dose: 100 mcg Lidocaine/Aluminum/Magnesium/Simeth (Magic Mouthwash *Sjr Formula* -) 5 ml MM Q6HPO [facility] Last Admin: 05/12/17 06:45 Dose: 5 ml Magnesium Hydroxide (Milk Of Magnesia -) 30 ml PO PRN PRN PRN Reason: CONSTIPATION Miconazole Nitrate (Monistat-7 Vaginal Suppository -) 100 mg PV HS [facility] Stop: 05/12/17 22:01 Last Admin: 05/11/17 22:44 Dose: 1 supp Nifedipine (Procardia Xl -) 30 mg PO DAILY [facility] Last Admin: 05/11/17 09:10 Dose: 30 mg Ondansetron HCl (Zofran Injection) 4 mg IVPUSH Q6H PRN PRN Reason: NAUSEA AND/OR VOMITING Last Admin: 05/06/17 17:15 Dose: 4 mg Oxycodone HCl (Roxicodone -) 5 mg PO Q6H PRN PRN Reason: PAIN Last Admin: 05/12/17 06:44 Dose: 5 mg Pantoprazole Sodium (Protonix -) 40 mg PO BID [facility] Last Admin: 05/11/17 21:53 Dose: 40 mg Polyethylene Glycol (Miralax (For Daily Use) -) 17 gm PO BID [facility] Last Admin: 05/11/17 21:52 Dose: Not Given Potassium Chloride (K-Dur -) 20 meq PO DAILY [facility] Last Admin: 05/11/17 16:38 Dose: Not Given Senna (Senna -) 2 tab PO HS PRN PRN Reason: CONSTIPATION Last Admin: 05/02/17 13:29 Dose: 2 tab - Objective Vital Signs: Vital Signs Temperature 98.6 F 05/12/17 05:25 Pulse Rate 53 L 05/12/17 05:25 Respiratory Rate 18 05/12/17 05:25 Blood Pressure 98/59 05/12/17 05:25 O2 Sat by Pulse Oximetry (%) 96 05/12/17 05:25 Constitutional: Yes: No Distress Eyes: Yes: Conjunctiva Clear Cardiovascular: Yes: Regular Rate and Rhythm, S1, S2 Respiratory: Yes: CTA Bilaterally Gastrointestinal: Yes: Normal Bowel Sounds, Soft. No: Tenderness Extremities: Yes: Other (decreased L UE swelling + residual area of erythema L olecrannon process Surgical wound with sutures in place. No wound drainage) Labs: CBC, BMP 05/11/17 06:00 05/11/17 06:00 INR, PTT INR 1.12 (0.82-1.09) 04/30/17 05:10 Assessment/Plan Infected L olecrannon bursa MRSA S/P I&D, bursectomy Cellulitis L UE Fever - improved +BC SCN = contaminant Continue Vancomycin Local wound care Elevation , analgesics Contact precautions
[2017-05-12] MEDS: LACTOBACILLUS ACIDOPHILUS 1 EACH TAB (FP) PO SCH (09:35)
[2017-05-12] MEDS: CARVEDILOL 3.125 MG TABLET (FP) PO SCH (09:35)
[2017-05-12] MEDS: ASPIRIN 81 MG CHEWABLE TABLETS PO SCH (09:35)
[2017-05-12] MEDS: HEPARIN NA (PORCINE) 5,000 UNITS/ML 1ML VIAL SQ SCH (09:36)
[2017-05-12] MEDS: POTASSIUM CHLORIDE TABS 10 MEQ TABLET.ER (FP) PO SCH (09:36)
[2017-05-12] MEDS: NIFEdipine E.R. 30 MG TABLET (FP) PO SCH (09:37)
[2017-05-12] MEDS: PANTOPRAZOLE 40 MG TABLET (FP) PO SCH (09:37)
[2017-05-12] MEDS: ACETAMINOPHEN 325 MG TABLET (FP) PO PRN (09:37)
[2017-05-12] MEDS: POLYETHYLENE GLYCOL 3350 119 GM BTL PO SCH (09:37)
[2017-05-12] MEDS: CLOPIDOGREL BISULFATE 75 MG TABLET (FP) PO SCH (09:37)
[2017-05-12] MEDS: VANCOMYCIN 1,250 MG in DEXTROSE 5%-WATER - 250 ML IVPB SCH (12:09)
--- NOTE | 2017-05-12 13:34 | DS ---
Physical Exam: SUBJECTIVE: Patient seen and examined, reports feeling better, denies any tactile fever. OBJECTIVE:56 year-old woman with a PMH significant for CAD s/p NSTEMI s/p stent (06/2016), NIDDM, scleroderma, hypothyroidism, and RUE MRSA cellulitis ( multiple drainages/wound vac, 09/2015). Two days ago started to develop pain, redness, and swelling to LEFT elbow which has become progressively worse. She does not recall any trauma or skin break to the site. She reports fever at home to 99.0 and shaking chills since yesterday. Patient denies chest pain, palpitations, SOB, LA, and lower extremity edema. Denies headache, cough. Denies urinary tract symptoms. Patient was in [place] for 12 days in March where she developed an acute sinusitis. Over the past six weeks she has completed two courses of amoxicillin for a total of three weeks of treatment with resolution of sinusitis. Started on prophylactic metronidazole last week by Dr. Ugalde for severe constipation secondary to scleroderma. ER course was notable for: (1) WBC 15.9k (2) LUE duplex negative for DVT Vital Signs Period Temp Pulse Resp BP Sys/Atkinson Pulse Ox Last 24 Hr 98.2 F-98.7 F 53-76 18-18 92-112/41-59 96-100 PHYSICAL EXAM GENERAL: The patient is awake, alert, and fully oriented, in no acute distress. HEAD: Normal with no signs of trauma. EYES: PERRL, extraocular movements intact, sclera anicteric, conjunctiva clear. No ptosis. ENT: Ears normal, nares patent, oropharynx clear without exudates, moist mucous membranes. NECK: Trachea midline, full range of motion, supple. LUNGS: Breath sounds equal, clear to auscultation bilaterally, no wheezes, no crackles, no accessory muscle use. HEART: Regular rate and rhythm, S1, S2 without murmur, rub or gallop. ABDOMEN: Soft, nontender, nondistended, normoactive bowel sounds, no guarding, no rebound, no hepatosplenomegaly, no masses. EXTREMITIES: 2+ pulses, warm, well-perfused, no edema. LEFT EXTREMITY: 3 cm vertical incision to olcrean process, erythema resolved, + 1 edema, less than 3 second capillary refill, +3 radial pulse. NEUROLOGICAL: Cranial nerves II through XII grossly intact. Normal speech, gait not observed. PSYCH: Normal mood, normal affect. SKIN: Warm, dry, normal turgor, no rashes or lesions noted LABS Laboratory Results - last 24 hr 05/11/17 05/11/17 05/12/17 06:00 17:27 06:56 POC Glucometer 141 127 Alkaline Phosphatase 95 H 05/12/17 12:08 POC Glucometer 153 Alkaline Phosphatase Microbiology 05/06/17 17:00 Elbow - Left Gram Stain - Final 05/06/17 17:00 Elbow - Left Wound Culture - Final Staphylococcus Coagulase Neg 05/06/17 17:00 Elbow - Left Gram Stain - Final 05/06/17 17:00 Elbow - Left Wound Culture - Final NO GROWTH AFTER 48 HOURS INCUBATION 05/03/17 09:44 Blood - Peripheral Venous Blood Culture - Final NO GROWTH AFTER 5 DAYS INCUBATION 05/03/17 09:44 Blood - Peripheral Venous Blood Culture - Final NO GROWTH AFTER 5 DAYS INCUBATION 04/30/17 05:10 Blood - Peripheral Venous Blood Culture - Final NO GROWTH AFTER 5 DAYS INCUBATION 04/30/17 05:10 Blood - Peripheral Venous Blood Culture - Final Staphylococcus Epidermidis 05/01/17 11:15 Abscess Gram Stain - Final 05/01/17 11:15 Abscess Wound Culture - Final Mr S Aureus 04/30/17 18:00 Urine - Urine Clean Catch Urine Culture - Final NO GROWTH OBTAINED HOSPITAL COURSE: 1)sepsis (resolved) secondary to cellulites, afebrile, no leukocytosis, - s/p Left elbow septic bursitis s/p I+D 05/06/17, post op day 6 (Dr Avalos), treated with vancomycin, change dosage to daily due to elevated through - wound culture MRSA,intraoperative cultures, prelim staph aureus, repeat blood cultures NTD - Dr Marie, ID consulted and followed -dressing changed, continue elevation, splint -pt declines picc, scheduled for tunnel cather today for an aditional 2 weeks of vancomycin 2) cardiovascular -no cardiac complaints CAD s/p NSTEMI s/p stent (06/23) - continue ASA, plavix -continue nifedipine, carvedilol 3) heme microcytic anemia - secondary to iron deficency, venofer (05/04/17, 05/05/17, 05/10/17) will require 2 more infusions, baseline Hb -12, - 2 units of prbc 05/06/17, repeat hgb 9, stable - no active bleeding noted, stool guiac negative 4) endo niddm -fingersticks achs -BS in 150s. -novolog sliding scale hypothyroidism - continue levothyroxine, tsh wnl 5)GI dysphagia, poor appetite,Patient awaiting food from home, did not like food here - swallow eval completed, OOB for meals, OOB for 1 h. after meals, Alternate solids with liquids and complete meal with liquids. Small amounts throughout the day diabetic soft diet -Pt reports poor appetite, refused supplements. Date of Admission:04/30/17 Date of Discharge: 05/12/17 Minutes to complete discharge: 45 Discharge Summary Reason For Visit: CELLULITIS OF LEFT ELBOW Current Active Problems Adult hypothyroidism (Acute) Anemia (Acute) Cellulitis of left elbow (Acute) H/O heart artery stent (Acute) MRSA (methicillin resistant staph aureus) culture positive (Acute) Condition: Stable - Instructions Diet, Activity, Other Instructions: please return to [place] for your daily vancomycin infusion for the next 14 days on 05/13/17 and 05/17/17 you are scheduled to receive your venofer infusions at [place] please follow up with Dr Avalos within 1 week continue daily dressing changes to left elbow please follow up with Dr Villegas within 1 week if any new or persistent symptoms develop please return to the emergency department Referrals: Jenn Valderrama MD [Primary Care Provider] - Disposition: HOME - Home Medications Comprehensive Discharge Medication List: Ambulatory Orders Levothyroxine [Synthroid -] 100 mcg PO HS 01/26/12 Metformin HCl [Glucophage -] 500 mg PO BID@0700,1630 01/26/12 Zolpidem Tartrate [Ambien] 10 mg PO HS 09/25/15 Iron,Carbonyl/Ascorbic Acid [Vitron-C Tablet] 1 each PO DAILY 11/13/15 Nifedipine [Nifedical Xl] 30 mg PO DAILY 11/13/15 Aspirin [ASA -] 81 mg PO DAILY 08/25/16 Atorvastatin Ca [Lipitor] 40 mg PO HS 08/25/16 Carvedilol [Coreg -] 6.25 mg PO BID 08/25/16 Clopidogrel Bisulfate [Clopidogrel] 75 mg PO DAILY 08/25/16 Pantoprazole Sodium 40 mg PO BID 09/11/16 Metronidazole 250 mg PO TID 04/30/17 Oxycodone HCl/Acetaminophen [Percocet 5-325 mg Tablet] 1 - 2 tab PO TID [facility] 6 Polyethylene Glycol [Polyox [id number]] 1 gm PO DAILY 04/30/17 This patient is new to me today: No Emergency Visit: Yes ED Registration Date: 04/30/17 Care time: The patient presented to the Emergency Department on the above date and was hospitalized for further evaluation of their emergent condition. Critical Care patient: No - Discharge Referral Referred to [facility] No
[2017-05-12 14:16] VITALS: BP 98/55; TEMP 98.4
== END 2017-05-12 17:12 | disposition home or self-care (01) | DRG 855 ==
LOC: FER 04:54 → FM/S 07:21 → JSAMEDAYSX 05-11 13:27 → FM/S 05-11 17:30
PROVIDERS: ADMIT Internal Medicine; ATTEND Nurse Practitioner Family
PROC: 0R9M3ZX Drainage of Left Elbow Joint, Percutaneous Approach, Diagnostic (ICD-10-PCS; 2017-05-01)
PROC: 0R9M3ZX Drainage of Left Elbow Joint, Percutaneous Approach, Diagnostic (ICD-10-PCS; 2017-05-06)
PROC: 05HM33Z Insertion of Infusion Device into Right Internal Jugular Vein, Percutaneous Approach (ICD-10-PCS; 2017-05-06)
PROC: 0MD40ZZ Extraction of Left Elbow Bursa and Ligament, Open Approach (ICD-10-PCS; principal; 2017-05-06 15:45)
DX: A41.9 Sepsis, unspecified organism (principal); M71.522 Other bursitis, not elsewhere classified, left elbow; R65.20 Severe sepsis without septic shock; M34.9 Systemic sclerosis, unspecified; I95.9 Hypotension, unspecified; R13.10 Dysphagia, unspecified; Z22.322 Carrier or suspected carrier of Methicillin resistant Staphylococcus aureus; I25.10 Atherosclerotic heart disease of native coronary artery without angina pectoris; I25.2 Old myocardial infarction; Z95.5 Presence of coronary angioplasty implant and graft; E11.9 Type 2 diabetes mellitus without complications; E03.9 Hypothyroidism, unspecified; Z79.84 Long term (current) use of oral hypoglycemic drugs; E78.5 Hyperlipidemia, unspecified; K21.9 Gastro-esophageal reflux disease without esophagitis; I10 Essential (primary) hypertension; K59.00 Constipation, unspecified; D50.9 Iron deficiency anemia, unspecified
CPT/HCPCS: 36415; 36430; 36511; 36558; 71010-TC; 73201-TC-RT; 73221-TC-LT; 74020-TC; 77001-TC; 80048; 80053; 81003; 81015; 82272; 82550; 82607; 82728; 82746; 83010; 83540; 83550; 83605; 83615; 83735; 84100; 84439; 84443; 84481; 84484; 85025; 85027; 85610; 86140; 86850; 86900; 86901; 86922; 87040; 87070; 87077; 87086; 87186; 87205; 93005; 93010; 93971; 94760; 97116-GP; 97161-GP; 99282-25; C1751; G0480; J1644; J1756; P9038; P9058

== ENCOUNTER 2017-05-13 12:28 | Day surgery (SDC) | payer MEDICARE ==
[2017-05-13 12:57] VITALS: BP 112/58; PULSE 63; TEMP 98
[2017-05-13] MEDS ORDERED: VANCOMYCIN 1,250 MG in DEXTROSE 5%-WATER - 250 ML IVPB ONE (13:00)
[2017-05-13] MEDS ORDERED: IRON SUCROSE INJECTION 200 MG in SODIUM CHLORIDE 100 ML IVPB ONE (15:00)
== END 2017-05-13 16:20 | disposition home or self-care (01) ==
LOC: FM/S 12:28 → FINFUSION 12:28
PROVIDERS: ATTEND Internal Medicine
DX: L03.114 Cellulitis of left upper limb (principal)
CPT/HCPCS: 96365; J1756

== ENCOUNTER 2017-05-14 11:39 | Day surgery (SDC) | payer MEDICARE ==
[2017-05-14 12:22] VITALS: PULSE 63; TEMP 98.1; BMI 60.5
[2017-05-14] MEDS ORDERED: VANCOMYCIN 1,250 MG in DEXTROSE 5%-WATER - 250 ML IVPB ONE (12:30)
== END 2017-05-14 14:25 | disposition home or self-care (01) ==
LOC: FINFUSION 11:39 → FM/S 11:41 → FINFUSION 14:25
PROVIDERS: ATTEND Internal Medicine
DX: L03.114 Cellulitis of left upper limb (principal)
CPT/HCPCS: 96365

== ENCOUNTER 2017-05-15 11:09 | Day surgery (SDC) | payer MEDICARE ==
[2017-05-15 11:28] VITALS: BP 106/62; PULSE 68; TEMP 97.9
[2017-05-15] MEDS ORDERED: VANCOMYCIN 1,250 MG in SODIUM CHLORIDE 250 ML IVPB ONE (11:45)
== END 2017-05-15 13:30 | disposition home or self-care (01) ==
LOC: FINFUSION 11:09 → FM/S 11:12 → FINFUSION 13:30
PROVIDERS: ATTEND Internal Medicine
DX: L03.114 Cellulitis of left upper limb (principal)
CPT/HCPCS: 96365; 96366

== ENCOUNTER 2017-05-16 11:53 | Day surgery (SDC) | payer MEDICARE ==
[2017-05-16 11:53] VITALS: TEMP 98.2
[~2017-05-16 11:53] MED LIST: REFRIGERATED ANITBIOTICS ONE
[2017-05-16] MEDS ORDERED: VANCOMYCIN 1,250 MG in SODIUM CHLORIDE 250 ML IVPB ONE (12:00)
[2017-05-16 14:07] VITALS: BP 133/57; PULSE 60
== END 2017-05-16 14:11 | disposition home or self-care (01) ==
LOC: FINFUSION 11:53 → FM/S 11:54 → FINFUSION 14:11
PROVIDERS: ATTEND Internal Medicine
DX: L03.114 Cellulitis of left upper limb (principal)
CPT/HCPCS: 96365; 96366

== ENCOUNTER 2017-05-17 00:03 | Observation (INO) | payer MEDICARE ==
[2017-05-17] MEDS ORDERED: FAMOTIDINE 20 MG/50 ML IVPB 20 MG/50 ML MG IVPB ONE ×2 (00:46→01:57)
--- NOTE | 2017-05-17 00:47 | PDOC ---
History of Present Illness - General Chief Complaint: Pain, Acute Stated Complaint: BURNING IN CHEST SINCE 11 AM Time Seen by Provider: 05/17/17 00:29 - History of Present Illness Initial Comments: 05/17/17 02:23 Hx of scleroderma, presents with severe burning epigastric pain all day and vomiting dark material. In ED, vomited coffee ground emesis. Hx of EGD for scleroderma, as per patient, no stomach pathology. On oral PPI. Denies dizzines, melena, n/v. 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 admission for serial hct Past History - Past Medical History Allergies/Adverse Reactions: Allergies Allergy/AdvReac Type Severity Reaction Status Date / Time Sulfa (Sulfonamide Allergy Mild Verified 05/17/17 00:05 Antibiotics) [Sulfa(Sulfonamide Antibiotics)] Home Medications: Ambulatory Orders Levothyroxine [Synthroid -] 100 mcg PO HS 01/26/12 Metformin HCl [Glucophage -] 500 mg PO BID@0700,1630 01/26/12 Zolpidem Tartrate [Ambien] 10 mg PO HS 09/25/15 Iron,Carbonyl/Ascorbic Acid [Vitron-C Tablet] 1 each PO DAILY 11/13/15 Nifedipine [Nifedical Xl] 30 mg PO DAILY 11/13/15 Aspirin [ASA -] 81 mg PO DAILY 08/25/16 Atorvastatin Ca [Lipitor] 40 mg PO HS 08/25/16 Clopidogrel Bisulfate [Clopidogrel] 75 mg PO DAILY 08/25/16 Pantoprazole Sodium 40 mg PO BID 09/11/16 Polyethylene Glycol [Polyox Wsr-301] 1 gm PO DAILY 04/30/17 Acetaminophen [Tylenol .Regular Strength -] 650 mg PO Q6H PRN tablet 05/12/17 Carvedilol [Coreg -] 3.125 mg PO BID #60 tablet 05/12/17 Docusate Sodium [Colace -] 300 mg PO HS #30 capsule 05/12/17 Lactobacillus Acidophilus [Bacid -] 1 tab PO DAILY #30 tab 05/12/17 Picc Line Flush [Picc Line Flush -] 8 ml IVPUSH PRN PRN ml 05/12/17 Sennosides [Senna -] 2 tab PO HS PRN #60 tablet 05/12/17 Vancomycin 1,250 mg IVPB DAILY@1200 #14 vial 05/12/17 Mag Hydrox/Alh/Smc/Dpha/Lido [Magic Mouthwash *Sjr Formula* -] 5 ml MM Q6HPO #1 bottle 05/13/17 Oxycodone HCl/Acetaminophen [Percocet 5-325 mg Tablet] 1 tab PO Q6H PRN #20 tablet MDD 4 05/13/17 Anemia: Yes Asthma: No Cancer: No Cardiac Disorders: Yes (Murmur, NSTEMI, stent) CVA: No COPD: No CHF: No Dementia: No Diabetes: Yes GI Disorders: Yes (GERD) Disorders: No HTN: Yes Hypercholesterolemia: Yes Liver Disease: No Seizures: No Thyroid Disease: Yes (HYPO) - Surgical History Abdominal Surgery: No Appendectomy: No Cardiac Surgery: No Cholecystectomy: No Lung Surgery: No Neurologic Surgery: No Orthopedic Surgery: Yes (Laminectomy x3,Right hand surgery) - Immunization History Td Vaccination: Yes Immunization Up to Date: (UNSURE) - Suicide/Smoking/Psychosocial Hx Smoking Status: No Smoking History: Never smoked Have you smoked in the past 12 months: No Number of Cigarettes Smoked Daily: 0 Information on smoking cessation initiated: No Hx Alcohol Use: No Drug/Substance Use Hx: No Substance Use Type: None Hx Substance Use Treatment: No *Physical Exam - Vital Signs Last Vital Signs Temp Pulse Resp BP Pulse Ox 64 16 141/65 100 05/17/17 00:08 05/17/17 00:08 05/17/17 00:08 05/17/17 00:08 ED Treatment Course - LABORATORY CBC & Chemistry Diagram: 05/17/17 00:38 05/17/17 00:38 *DC/Admit/Observation/Transfer Diagnosis at time of Disposition: Upper gastrointestinal bleed - Discharge Dispostion Condition at time of disposition: Stable Admit: Yes - Referrals Referrals: Jenn Valderraam MD [Primary Care Provider] - - Patient Instructions - Post Discharge Activity
[2017-05-17] MEDS ORDERED: FAMOTIDINE IV 20 MG/12 ML VIAL IVPUSH ONE ×2 (00:50→01:55)
[2017-05-17 01:15] LABS: BASOPHIL 0.6 % (0-2.0); EOSINOPHIL 4.3 % (0-4.5); MCH 24.6 pg (25.7-33.7); MCHC 31.7 g/dl (32.0-36.0); MEAN CELL VOLUME 77.6 fl (80-96); MEAN PLT VOLUME 6.6 fl (7.5-11.1); NEUTROPHILS 68.6 % (42.8-82.8); PLATELET COUNT 588 K/MM3 (134-434); RDW 22.7 % (11.6-15.6); WHITE BLOOD COUNT 15.1 K/mm3 (4.0-10.0)
[2017-05-17 01:25] LABS: INR 1.27 (0.82-1.09); PROTHROMBIN TIME (PATIENT) 14.4 SEC (9.98-11.88)
[2017-05-17 01:28] LABS: ACTIVATED PTT 33.1 SECONDS (26.9-34.4)
[2017-05-17 01:51] LABS: ALBUMIN 3.6 g/dl (3.4-5.0); ALK PHOS 105 U/L (45-117); ANION GAP 11 (8-16); BILIRUBIN,TOTAL 0.5 mg/dL (0.2-1.0); CALCIUM 10.4 mg/dL (8.5-10.1); CO2 28 mmol/L (21-32); CREATININE 0.7 mg/dL (0.55-1.02); GLUCOSE,RANDOM 133 mg/dL (74-106); SGOT/AST 16 U/L (15-37); SGPT/ALT 24 U/L (12-78); TOT PROT 6.5 g/dl (6.4-8.2)
[2017-05-17 02:17] LABS: ANISOCYTOSIS 2+; MICROCYTOSIS 2+; POIKILOCYTOSIS 1+
[2017-05-17 02:18] LABS: PLATELET ESTIMATE SLT INCREASE
[2017-05-17] MEDS ORDERED: DEXTROSE 5%-0.45% SALINE 1,000 ML IV SCH (03:00)
[2017-05-17 03:05] LABS: CPK 35 IU/L (26-192); TROPONIN I < 0.02 ng/ml (0.00-0.05)
[2017-05-17 03:56] VITALS: BMI 27.2
--- NOTE | 2017-05-17 08:02 | HP ---
CHIEF COMPLAINT: burning epigastric pain PCP: Dr Villegas Follow Up Rep: Dr Parsons GI: Dr Ugalde HISTORY OF PRESENT ILLNESS: Patient is a 56 y /o male with a past medical history of CAD (NSTEMI, plavix), scleroderma, MRSA cellulitis (05/10/17, s/p left olceran bursectomy), iron deficency anemia, hypothyroidism, GERD, and hiatal hernia. Patient reports one episode of coffee ground emesis at 2200 yesterday (05/16/17), patient reports ongoing epigastric tenderness. She reports being unable to tolerate liquids due to ongoing nausea. ER course was notable for: (1) hgb 10.4 (2)chest xray no acute pathology (3)stool guiac negative Recent Travel: none PAST MEDICAL HISTORY: see hpi PAST SURGICAL HISTORY: see hpi Social History: single resides at home Smoking:none Alcohol:none Drugs: none Family History: non contributory to this admission Allergies Sulfa (Sulfonamide Antibiotics) [Sulfa(Sulfonamide Antibiotics)] Allergy (Mild, Verified 05/17/17 00:05) HOME MEDICATIONS: Home Medications Medication Instructions Recorded Levothyroxine [Synthroid -] 100 mcg PO HS 01/26/12 Metformin HCl [Glucophage -] 500 mg PO BID@0700,1630 01/26/12 Zolpidem Tartrate [Ambien] 10 mg PO HS 09/25/15 Iron,Carbonyl/Ascorbic Acid 1 each PO DAILY 11/13/15 [Vitron-C Tablet] Nifedipine [Nifedical Xl] 30 mg PO DAILY 11/13/15 Aspirin [ASA -] 81 mg PO DAILY 08/25/16 Atorvastatin Ca [Lipitor] 40 mg PO HS 08/25/16 Clopidogrel Bisulfate [Clopidogrel] 75 mg PO DAILY 08/25/16 Pantoprazole Sodium 40 mg PO BID 09/11/16 Polyethylene Glycol [Polyox 1 gm PO DAILY 04/30/17 Wsr-301] Acetaminophen [Tylenol .Regular 650 mg PO Q6H PRN tablet 05/12/17 Strength -] Carvedilol [Coreg -] 3.125 mg PO BID #60 tablet 05/12/17 Docusate Sodium [Colace -] 300 mg PO HS #30 capsule 05/12/17 Lactobacillus Acidophilus [Bacid -] 1 tab PO DAILY #30 tab 05/12/17 Picc Line Flush [Picc Line Flush -] 8 ml IVPUSH PRN PRN ml 05/12/17 Sennosides [Senna -] 2 tab PO HS PRN #60 tablet 05/12/17 Vancomycin 1,250 mg IVPB DAILY@1200 #14 vial 05/12/17 Mag Hydrox/Alh/Smc/Dpha/Lido 5 ml MM Q6HPO #1 bottle 05/13/17 [Magic Mouthwash *Sjr Formula* -] Oxycodone HCl/Acetaminophen 1 tab PO Q6H PRN #20 tablet MDD 4 05/13/17 [Percocet 5-325 mg Tablet] REVIEW OF SYSTEMS CONSTITUTIONAL: Absent: fever, chills, diaphoresis, generalized weakness, malaise, loss of appetite, weight change HEENT: Absent: rhinorrhea, nasal congestion, throat pain, throat swelling, difficulty swallowing, mouth swelling, ear pain, eye pain, visual changes CARDIOVASCULAR: Absent: chest pain, syncope, palpitations, irregular heart rate, lightheadedness , peripheral edema RESPIRATORY: Absent: cough, shortness of breath, dyspnea with exertion, orthopnea, wheezing, stridor, hemoptysis GASTROINTESTINAL: Present: nausea, vomiting, hematochezia Absent: abdominal pain, abdominal distension, diarrhea, constipation, melena, GENITOURINARY: Absent: dysuria, frequency, urgency, hesitancy, hematuria, flank pain, genital pain MUSCULOSKELETAL: Absent: myalgia, arthralgia, joint swelling, back pain, neck pain SKIN: Absent: rash, itching, pallor HEMATOLOGIC/IMMUNOLOGIC: Absent: easy bleeding, easy bruising, lymphadenopathy, frequent infections ENDOCRINE: Absent: unexplained weight gain, unexplained weight loss, heat intolerance, cold intolerance NEUROLOGIC: Absent: headache, focal weakness or paresthesias, dizziness, unsteady gait, seizure, mental status changes, bladder or bowel incontinence PSYCHIATRIC: Absent: anxiety, depression, suicidal or homicidal ideation, hallucinations. PHYSICAL EXAMINATION Vital Signs - 24 hr 05/17/17 05/17/17 05/17/17 00:08 01:01 02:51 Temperature 98.9 F Pulse Rate 64 Pulse Rate [ 62 Left] Respiratory 16 16 Rate Blood Pressure 141/65 Blood Pressure 100/61 [Right] O2 Sat by Pulse 100 Oximetry (%) 05/17/17 05/17/17 05/17/17 03:53 03:58 06:07 Temperature 97.8 F Pulse Rate 63 Pulse Rate [ Left] Respiratory 18 Rate Blood Pressure 112/59 Blood Pressure [Right] O2 Sat by Pulse 98 95 Oximetry (%) 05/17/17 06:16 Temperature 98.1 F Pulse Rate 61 Pulse Rate [ Left] Respiratory 17 Rate Blood Pressure 95/47 Blood Pressure [Right] O2 Sat by Pulse Oximetry (%) GENERAL: Awake, alert, and fully oriented, in no acute distress. HEAD: Normal with no signs of trauma. EYES: Pupils equal, round and reactive to light, extraocular movements intact, sclera anicteric, conjunctiva clear. No lid lag. EARS, NOSE, THROAT: Ears normal, nares patent, oropharynx clear without exudates. Moist mucous membranes. NECK: Normal range of motion, supple without lymphadenopathy, JVD, or masses. LUNGS: Breath sounds equal, clear to auscultation bilaterally. No wheezes, and no crackles. No accessory muscle use. HEART: Regular rate and rhythm, normal S1 and S2 without murmur, rub or gallop. ABDOMEN: Soft, epigastric tenderness, not distended, normoactive bowel sounds, no guarding, no rebound, no masses. No hepatomegaly or splenomegaly. MUSCULOSKELETAL: Normal range of motion at all joints. No bony deformities or tenderness. No CVA tenderness. UPPER EXTREMITIES: 2+ pulses, warm, well-perfused. No cyanosis. No clubbing. No peripheral edema. LOWER EXTREMITIES: 2+ pulses, warm, well-perfused. No calf tenderness. No peripheral edema. NEUROLOGICAL: Cranial nerves II-XII intact. Normal speech. Normal gait. PSYCHIATRIC: Cooperative. Good eye contact. Appropriate mood and affect. SKIN: Warm, dry, normal turgor, no rashes or lesions noted, normal capillary refill. Laboratory Results - last 24 hr 05/17/17 05/17/17 05/17/17 00:38 00:38 00:38 WBC 15.1 H D RBC 4.50 Hgb 11.1 D Hct 34.9 D MCV 77.6 L D MCH 24.6 L MCHC 31.7 L RDW 22.7 H D Plt Count 588 H D MPV 6.6 L Neutrophils % 68.6 Lymphocytes % 18.8 Monocytes % 7.7 Eosinophils % 4.3 Basophils % 0.6 Platelet Estimate Slt increase Poikilocytosis 1+ Anisocytosis 2+ Microcytosis 2+ PT with INR 14.40 H INR 1.27 H PTT (Actin FS) 33.1 D Sodium 138 Potassium 4.4 Chloride 99 Carbon Dioxide 28 D Anion Gap 11 BUN 22 H D Creatinine 0.7 Creat Clearance w eGFR > 60 Random Glucose 133 H D Calcium 10.4 H D Total Bilirubin 0.5 AST 16 ALT 24 Alkaline Phosphatase 105 Creatine Kinase Troponin I Total Protein 6.5 Albumin 3.6 Stool Occult Blood 05/17/17 05/17/17 00:38 00:43 WBC RBC Hgb Hct MCV MCH MCHC RDW Plt Count MPV Neutrophils % Lymphocytes % Monocytes % Eosinophils % Basophils % Platelet Estimate Poikilocytosis Anisocytosis Microcytosis PT with INR INR PTT (Actin FS) Sodium Potassium Chloride Carbon Dioxide Anion Gap BUN Creatinine Creat Clearance w eGFR Random Glucose Calcium Total Bilirubin AST ALT Alkaline Phosphatase Creatine Kinase 35 Troponin I < 0.02 Total Protein Albumin Stool Occult Blood Negative ASSESSMENT/PLAN: f/e/n - npo-->ivf d51/2ns @42ml/hr - replete lytes prn ppx - protonix gtt - hold ac due to upper GI bleed - scd/jerry dispo: requires observation admission Problem List - Problem (1) Upper gastrointestinal bleed Assessment/Plan: - start protonix gtt - npo-->ivf d51/2ns @42ml/hr - appreciate GI input, Doc Code(s): K92.2 - GASTROINTESTINAL HEMORRHAGE, UNSPECIFIED (2) Adult hypothyroidism Assessment/Plan: - continue home dose levothyroixne Code(s): E03.9 - HYPOTHYROIDISM, UNSPECIFIED (3) Anemia Assessment/Plan: - iron deficency anemia, hgb 11 stable, last dose of venofer today - strict monitoring of cbc Code(s): D64.9 - ANEMIA, UNSPECIFIED Qualifiers: Anemia type: iron deficiency Iron deficiency anemia type: inadequate dietary iron intake Qualified Code(s): D50.8 - Other iron deficiency anemias (4) CAD (coronary artery disease) Assessment/Plan: - continue lipitor and plavix, patient is s/p stent Code(s): I25.10 - ATHSCL HEART DISEASE OF [place] CORONARY ARTERY W/O ANG PCTRS Qualifiers: Coronary Disease-Associated Artery/Lesion type: [place] artery [place] vs. transplanted heart: [place] heart Associated angina: with unstable angina Qualified Code(s): I25.110 - Atherosclerotic heart disease of [place] coronary artery with unstable angina pectoris (5) Cellulitis of left elbow Code(s): L03.114 - CELLULITIS OF LEFT UPPER LIMB (6) Diabetes mellitus Assessment/Plan: - hold metformin patient is npo Code(s): E11.9 - TYPE 2 DIABETES MELLITUS WITHOUT COMPLICATIONS Qualifiers: Diabetes mellitus type: type 2 Diabetes mellitus complication status: with skin complications Diabetes mellitus complication detail: with other skin complication Diabetes mellitus meterman insulin use: with jail use Qualified Code(s): E11.628 - Type 2 diabetes mellitus with other skin complications; Z79.4 - USP (current) use of insulin; Z79.4 - ocean transportation intermediary ( current) use of insulin; Z79.4 - USP (current) use of insulin; Z79.4 - USP (current) use of insulin (7) HLD (hyperlipidemia) Assessment/Plan: - continue statin, liver enzymes wnl Code(s): E78.5 - HYPERLIPIDEMIA, UNSPECIFIED Qualifiers: Hyperlipidemia type: pure hypercholesterolemia Qualified Code(s): E78.00 - Pure hypercholesterolemia, unspecified; E78.0 - Pure hypercholesterolemia (8) HTN (hypertension) Assessment/Plan: - continue coreg and nifadempine, patient's blood pressure is 90's systolic at home, strict b/p monitoring. Code(s): I10 - ESSENTIAL (PRIMARY) HYPERTENSION Qualifiers: Hypertension type: essential hypertension Qualified Code(s): I10 - Essential (primary) hypertension Visit type - Emergency Visit Emergency Visit: Yes ED Registration Date: 05/17/17 Care time: The patient presented to the Emergency Department on the above date and was hospitalized for further evaluation of their emergent condition. - New Patient This patient is new to me today: No - Critical Care Critical Care patient: No
[2017-05-17] MEDS ORDERED: PICC LINE 8 ML FLUSH PROTOCOL IVPUSH PRN (08:49)
[2017-05-17] MEDS ORDERED: ACETAMINOPHEN 325 MG TABLET (FP) PO PRN (08:49)
[2017-05-17] MEDS ORDERED: SENNOSIDES 8.6MG TABLET (FP) PO PRN (08:49)
[2017-05-17 09:14] LABS: EOSINOPHIL 5.5 % (0-4.5); MCH 24.4 pg (25.7-33.7); MCHC 31.5 g/dl (32.0-36.0); MEAN CELL VOLUME 77.4 fl (80-96); MEAN PLT VOLUME 7.1 fl (7.5-11.1); NEUTROPHILS 63.1 % (42.8-82.8); PLATELET COUNT 573 K/MM3 (134-434); RDW 22.4 % (11.6-15.6); WHITE BLOOD COUNT 11.9 K/mm3 (4.0-10.8)
[2017-05-17 09:20] LABS: AMYLASE 55 U/L (25-125); ANION GAP 6 (8-16); CALCIUM 9.9 mg/dl (8.4-10.2); CO2 27 mmol/L (22-28); CREATININE 0.7 mg/dl (0.6-1.3); GLUCOSE,RANDOM 129 mg/dl (74-106)
[2017-05-17] MEDS ORDERED: PANTOPRAZOLE SODIUM 40 MG VIAL IVPUSH SCH (10:00)
[2017-05-17] MEDS ORDERED: PATIENT'S OWN MEDICATION (NON-FORMULARY) (Polyethylene Glycol [Polyox Wsr-301] 1 GM) PO SCH (10:00)
[2017-05-17] MEDS ORDERED: PT OWN MED DRAWER 7, Y5N ONE (10:22)
[2017-05-17] MEDS ORDERED: IRON SUCROSE INJECTION 200 MG in SODIUM CHLORIDE 90 ML IVPB ONE (10:30)
[2017-05-17] MEDS: CLOPIDOGREL BISULFATE 75 MG TABLET (FP) PO SCH (10:33)
[2017-05-17] MEDS: LACTOBACILLUS ACIDOPHILUS 1 EACH TAB (FP) PO SCH (10:33)
[2017-05-17] MEDS: NIFEdipine E.R. 30 MG TABLET (FP) PO SCH (10:33)
[2017-05-17] MEDS: CARVEDILOL 3.125 MG TABLET (FP) PO SCH ×3 (10:33→21:26)
[2017-05-17] MEDS: PANTOPRAZOLE SODIUM 80 MG in SODIUM CHLORIDE 100 ML IVPB SCH (10:34)
[2017-05-17] MEDS ORDERED: REFRIGERATED ANITBIOTICS ONE ×5 (11:43→22:42)
[2017-05-17] MEDS ORDERED: VANCOMYCIN 1,250 MG in DEXTROSE 5%-WATER - 250 ML IVPB ONE (12:00)
[2017-05-17] MEDS: MAG HYDROX/ALH/SMC/DPHA/LIDO 240 ML MOUTHWASH MM SCH ×2 (12:07→17:53)
--- NOTE | 2017-05-17 13:59 | CON.GI ---
Consult Consult Specialty:: GI Referred by:: Hospitalist Ervni - History of Present Illness History of Present Illness: A 56 yof with scleroderma acutely developed severe GERD-like symptoms and vomiting yesterday after a meal. Still has residual dyspepsia and GERD-like symptoms today. Denies dysphagia, odynophagia, nausea, fever, chills, jaundice, abdominal pain, changes in bowel habits, unintentional weight loss. Denies history of reflux esophagitis, gastric, or duodenal ulcer, gastritis, esophagitis. Had upper endoscopy in June of this year. Takes prescription PPI. - History Source History Provided By: Patient - Past Medical History Cardio/Vascular: Yes: HTN, Hyperlipdemia ...: No Rheumatology: Yes: Other (scleroderma) Endocrine: Yes: Diabetes Mellitus - Alcohol/Substance Use Hx Alcohol Use: No - Smoking History Smoking history: Never smoked Have you smoked in the past 12 months: No Aproximately how many cigarettes per day: 0 - Social History ADL: Independent History of Recent Travel: No Home Medications - Allergies Allergies/Adverse Reactions: Allergies Allergy/AdvReac Type Severity Reaction Status Date / Time Sulfa (Sulfonamide Allergy Mild Verified 05/17/17 00:05 Antibiotics) [Sulfa(Sulfonamide Antibiotics)] - Home Medications Home Medications: Ambulatory Orders Levothyroxine [Synthroid -] 100 mcg PO HS 01/26/12 Metformin HCl [Glucophage -] 500 mg PO BID@0700,1630 01/26/12 Zolpidem Tartrate [Ambien] 10 mg PO HS 09/25/15 Iron,Carbonyl/Ascorbic Acid [Vitron-C Tablet] 1 each PO DAILY 11/13/15 Nifedipine [Nifedical Xl] 30 mg PO DAILY 11/13/15 Aspirin [ASA -] 81 mg PO DAILY 08/25/16 Atorvastatin Ca [Lipitor] 40 mg PO HS 08/25/16 Clopidogrel Bisulfate [Clopidogrel] 75 mg PO DAILY 08/25/16 Pantoprazole Sodium 40 mg PO BID 09/11/16 Polyethylene Glycol [Polyox Wsr-301] 1 gm PO DAILY 04/30/17 Acetaminophen [Tylenol .Regular Strength -] 650 mg PO Q6H PRN tablet 05/12/17 Carvedilol [Coreg -] 3.125 mg PO BID #60 tablet 05/12/17 Docusate Sodium [Colace -] 300 mg PO HS #30 capsule 05/12/17 Lactobacillus Acidophilus [Bacid -] 1 tab PO DAILY #30 tab 05/12/17 Picc Line Flush [Picc Line Flush -] 8 ml IVPUSH PRN PRN ml 05/12/17 Sennosides [Senna -] 2 tab PO HS PRN #60 tablet 05/12/17 Vancomycin 1,250 mg IVPB DAILY@1200 #14 vial 05/12/17 Mag Hydrox/Alh/Smc/Dpha/Lido [Magic Mouthwash *Sjr Formula* -] 5 ml MM Q6HPO #1 bottle 05/13/17 Oxycodone HCl/Acetaminophen [Percocet 5-325 mg Tablet] 1 tab PO Q6H PRN #20 tablet MDD 4 05/13/17 Family Disease History - Family Disease History Family History: Unremarkable Review of Systems Findings/Remarks: Please refer to H&P and history of present illness Physical Exam-GI Vital Signs: Vital Signs Temperature 98.1 F 05/17/17 06:16 Pulse Rate 61 05/17/17 06:16 Respiratory Rate 17 05/17/17 09:13 Blood Pressure 95/47 05/17/17 06:16 O2 Sat by Pulse Oximetry (%) 95 05/17/17 09:13 Constitutional: Yes: Well Nourished, No Distress, Calm Eyes: Yes: Conjunctiva Clear HENT: Yes: Atraumatic Neck: Yes: Supple Cardiovascular: Yes: Regular Rate and Rhythm Gastrointestinal Inspection: No: Distention ...Auscultate: Yes: Normoactive Bowel Sounds ...Palpate: Yes: Soft, Tenderness, Epigastium. No: Firm/Rigid, Guarding, Mass, Tenderness, Rebound Neurological: Yes: Alert, Oriented Labs: CBC, BMP 05/17/17 08:00 05/17/17 08:00 INR, PTT INR 1.27 (0.82-1.09) H 05/17/17 00:38 Laboratory Results - last 24 hr 05/17/17 05/17/17 05/17/17 00:38 00:38 00:38 WBC 15.1 H D RBC 4.50 Hgb 11.1 D Hct 34.9 D MCV 77.6 L D MCH 24.6 L MCHC 31.7 L RDW 22.7 H D Plt Count 588 H D MPV 6.6 L Neutrophils % 68.6 Lymphocytes % 18.8 Monocytes % 7.7 Eosinophils % 4.3 Basophils % 0.6 Platelet Estimate Slt increase Poikilocytosis 1+ Anisocytosis 2+ Microcytosis 2+ PT with INR 14.40 H INR 1.27 H PTT (Actin FS) 33.1 D Sodium 138 Potassium 4.4 Chloride 99 Carbon Dioxide 28 D Anion Gap 11 BUN 22 H D Creatinine 0.7 Creat Clearance w eGFR > 60 Random Glucose 133 H D Calcium 10.4 H D Total Bilirubin 0.5 AST 16 ALT 24 Alkaline Phosphatase 105 Creatine Kinase Troponin I Total Protein 6.5 Albumin 3.6 Total Amylase Lipase Stool Occult Blood 05/17/17 05/17/17 05/17/17 00:38 00:43 08:00 WBC 11.9 H RBC 4.28 Hgb 10.4 L Hct 33.2 MCV 77.4 L MCH 24.4 L MCHC 31.5 L RDW 22.4 H D Plt Count 573 H D MPV 7.1 L Neutrophils % 63.1 Lymphocytes % 23.0 D Monocytes % 7.4 Eosinophils % 5.5 H Basophils % 1.0 D Platelet Estimate Poikilocytosis Anisocytosis Microcytosis PT with INR INR PTT (Actin FS) Sodium Potassium Chloride Carbon Dioxide Anion Gap BUN Creatinine Creat Clearance w eGFR Random Glucose Calcium Total Bilirubin AST ALT Alkaline Phosphatase Creatine Kinase 35 Troponin I < 0.02 Total Protein Albumin Total Amylase Lipase Stool Occult Blood Negative 05/17/17 08:00 WBC RBC Hgb Hct MCV MCH MCHC RDW Plt Count MPV Neutrophils % Lymphocytes % Monocytes % Eosinophils % Basophils % Platelet Estimate Poikilocytosis Anisocytosis Microcytosis PT with INR INR PTT (Actin FS) Sodium 136 Potassium 4.3 Chloride 103 Carbon Dioxide 27 Anion Gap 6 L BUN 19 H D Creatinine 0.7 Creat Clearance w eGFR Random Glucose 129 H Calcium 9.9 Total Bilirubin AST ALT Alkaline Phosphatase Creatine Kinase Troponin I Total Protein Albumin Total Amylase 55 D Lipase 37 Stool Occult Blood Problem List - Problems (1) Scleroderma Code(s): M34.9 - SYSTEMIC SCLEROSIS, UNSPECIFIED Assessment/Plan A 56-year-old female with microcytic, hypochromic anemia and history of scleroderma, on chronic PPI, developed severe GERD-like symptoms with vomiting. No evidence to suspect acute gastrointestinal bleed. Plan upper endoscopy tomorrow morning to evaluate for reflux esophagitis, gastritis, duodenitis, gastric, duodenal ulcer disease. Start clear liquid diet, continue PPI. Monitor for melena. Repeat CBC in the morning. Iron profile. Diagnostic colonoscopy as an outpatient for hypochromic, microcytic anemia, if hasn't been done recently.
--- NOTE | 2017-05-17 14:56 | EKG ---
Test Reason : Blood Pressure : / mmHG Vent. Rate : 060 BPM Atrial Rate : 060 BPM P-R Int : 152 ms QRS Dur : 064 ms QT Int : 396 ms P-R-T Axes : -24 -22 -03 degrees QTc Int : 396 ms NORMAL SINUS RHYTHM NORMAL ECG WHEN COMPARED WITH ECG OF 30-APR-2017 18:10, NO SIGNIFICANT CHANGE WAS FOUND Confirmed by ANKUR IRAHETA MD ([id number]) on 05/17/2017 2:56:07 PM Referred By: MD KAUFMAN Confirmed By:ANKUR IRAHETA MD
[2017-05-17] MEDS ORDERED: ATORVASTATIN CA 40 MG TABLET (FP) PO SCH (22:00)
[2017-05-17] MEDS ORDERED: LEVOTHYROXINE NA 100 MCG TABLET (FP) PO SCH (22:00)
[2017-05-17] MEDS ORDERED: DOCUSATE SODIUM 100 MG CAPSULE (FP) PO SCH (22:00)
[2017-05-18] MEDS: MAG HYDROX/ALH/SMC/DPHA/LIDO 240 ML MOUTHWASH MM SCH ×4 (05:05→17:42)
[2017-05-18] MEDS ORDERED: REFRIGERATED ANITBIOTICS ONE ×4 (06:15→18:27)
[2017-05-18] MEDS: PANTOPRAZOLE SODIUM 80 MG in SODIUM CHLORIDE 100 ML IVPB SCH (06:21)
[2017-05-18 07:33] LABS: BASOPHIL 0.8 % (0-2.0); MCH 24.7 pg (25.7-33.7); MCHC 31.5 g/dl (32.0-36.0); MEAN CELL VOLUME 78.2 fl (80-96); MEAN PLT VOLUME 7.1 fl (7.5-11.1); NEUTROPHILS 61.1 % (42.8-82.8); PLATELET COUNT 546 K/MM3 (134-434); RDW 22.6 % (11.6-15.6)
[2017-05-18 08:11] LABS: ALBUMIN 3.1 g/dl (3.5-5.0); ALK PHOS 62 U/L (32-92); ANION GAP 4 (8-16); BILIRUBIN,TOTAL 0.7 mg/dl (0.2-1.0); CALCIUM 8.9 mg/dl (8.4-10.2); CO2 27 mmol/L (22-28); CREATININE 0.7 mg/dl (0.6-1.3); GLUCOSE,RANDOM 137 mg/dl (74-106); SGOT/AST 22 U/L (10-42); SGPT/ALT 15 U/L (10-40); TOT PROT 5.5 g/dl (6.4-8.3)
[2017-05-18] MEDS: CARVEDILOL 3.125 MG TABLET (FP) PO SCH (10:01)
[2017-05-18] MEDS: LACTOBACILLUS ACIDOPHILUS 1 EACH TAB (FP) PO SCH (10:01)
[2017-05-18] MEDS: CLOPIDOGREL BISULFATE 75 MG TABLET (FP) PO SCH (10:01)
[2017-05-18] MEDS: NIFEdipine E.R. 30 MG TABLET (FP) PO SCH (10:01)
[2017-05-18] MEDS ORDERED: PROPOFOL 20 ML ONE ×2 (10:37)
--- NOTE | 2017-05-18 11:38 | PROC ---
Endoscopy Procedure Endoscopy procedure completed. Please see scanned procedure report. EGD revealed mild duodenitis, gastritis, esophagitis. Biopsie staken. Protonix 40 mg po qd Carafate 1 gm po qid x 7 days GERD lifestyle, diet Follow in office in 2 weeks for biopsy results
[2017-05-18] MEDS ORDERED: VANCOMYCIN 1,000 MG VIAL (RESTRICTED TO ID ONLY) IVPB SCH (12:00)
--- NOTE | 2017-05-18 12:17 | DS ---
Physical Exam: SUBJECTIVE: Patient seen and examined, tolerating diet denies any abdominal pain. OBJECTIVE:Patient is a 56 y /o male with a past medical history of CAD (NSTEMI, plavix), scleroderma, MRSA cellulitis (05/10/17, s/p left olceran bursectomy), iron deficency anemia, hypothyroidism, GERD, and hiatal hernia. Patient reports one episode of coffee ground emesis at 2200 yesterday (05/16/17), patient reports ongoing epigastric tenderness. She reports being unable to tolerate liquids due to ongoing nausea. ER course was notable for: (1) hgb 10.4 (2)chest xray no acute pathology (3)stool guiac negative Vital Signs Period Temp Pulse Resp BP Sys/Atkinson Pulse Ox Last 24 Hr 97.8 F-98.2 F 53-64 18-18 89-100/49-50 95-100 PHYSICAL EXAM GENERAL: Awake, alert, and fully oriented, in no acute distress. HEAD: Normal with no signs of trauma. EYES: Pupils equal, round and reactive to light, extraocular movements intact, sclera anicteric, conjunctiva clear. No lid lag. EARS, NOSE, THROAT: Ears normal, nares patent, oropharynx clear without exudates. Moist mucous membranes. NECK: Normal range of motion, supple without lymphadenopathy, JVD, or masses. LUNGS: Breath sounds equal, clear to auscultation bilaterally. No wheezes, and no crackles. No accessory muscle use. HEART: Regular rate and rhythm, normal S1 and S2 without murmur, rub or gallop. ABDOMEN: Soft, epigastric tenderness, not distended, normoactive bowel sounds, no guarding, no rebound, no masses. No hepatomegaly or splenomegaly. MUSCULOSKELETAL: Normal range of motion at all joints. No bony deformities or tenderness. No CVA tenderness. UPPER EXTREMITIES: 2+ pulses, warm, well-perfused. No cyanosis. No clubbing. No peripheral edema. LEFT UPPER EXTREMITY: no erythema noted, sutures noted to the anterior elbow, less than 3 second capillary refill, + 3 radial pulse LOWER EXTREMITIES: 2+ pulses, warm, well-perfused. No calf tenderness. No peripheral edema. NEUROLOGICAL: Cranial nerves II-XII intact. Normal speech. Normal gait. PSYCHIATRIC: Cooperative. Good eye contact. Appropriate mood and affect. SKIN: Warm, dry, normal turgor, no rashes or lesions noted, normal capillary refill. Laboratory Results - last 24 hr 05/18/17 05/18/17 07:00 07:00 WBC 9.0 RBC 4.32 Hgb 10.6 L Hct 33.8 MCV 78.2 L MCH 24.7 L MCHC 31.5 L RDW 22.6 H Plt Count 546 H MPV 7.1 L Neutrophils % 61.1 Lymphocytes % 23.7 Monocytes % 8.4 Eosinophils % 6.0 H Basophils % 0.8 Sodium 136 Potassium 4.0 Chloride 105 Carbon Dioxide 27 Anion Gap 4 L BUN 12 D Creatinine 0.7 Creat Clearance w eGFR > 60 Random Glucose 137 H Calcium 8.9 Total Bilirubin 0.7 AST 22 D ALT 15 D Alkaline Phosphatase 62 D Total Protein 5.5 L Albumin 3.1 L HOSPITAL COURSE: Patient was admitted from the emergency department for a upper GI bleed, she was started on a protonix gtt on hospital day 1. Dr Roach, GI was consulted, patient was brought to EGD and was notable for gastritis, all biopsies are pending. She was started on carafate and protonix bid. Patient is tolerating regular soft diet. she has a past medical history of iron deficency anemia, hgb 11 which is stable last dose of venofer was during this admission. Patient will require outpatient follow up with Dr Villegas, Pcp, in regards to iron levels. Patient's b/p remained stable on home medications, nifedpine and coreg was continued, b/p was 90's systolic which is patient's baseline PLAN - discharge home - continue vancomycin infusions at the infusion center as per the recommendation of infectious disease physician (Frank) - continue protonix and carafate, strict followup with Dr Roach within 1 week Date of Admission:05/17/17 Date of Discharge: 05/18/17 Minutes to complete discharge: 45 Discharge Summary Reason For Visit: BURNING IN CHEST SINCE 11 AM Current Active Problems Upper gastrointestinal bleed (Acute) Condition: Stable - Instructions Diet, Activity, Other Instructions: resume all medications as prescribed continue bland soft diet please continue to take carafate daily please follow up with GI Dr Roach within 1 week for results of your biopsy if any new or persistent symptoms develop please return to the emergency department Referrals: Roland Roach MD [Staff Physician] - Jenn Valderrama MD [Primary Care Provider] - Disposition: HOME - Home Medications Comprehensive Discharge Medication List: Ambulatory Orders Levothyroxine [Synthroid -] 100 mcg PO HS 01/26/12 Metformin HCl [Glucophage -] 500 mg PO BID@0700,1630 01/26/12 Zolpidem Tartrate [Ambien] 10 mg PO HS 09/25/15 Iron,Carbonyl/Ascorbic Acid [Vitron-C Tablet] 1 each PO DAILY 11/13/15 Nifedipine [Nifedical Xl] 30 mg PO DAILY 11/13/15 Aspirin [ASA -] 81 mg PO DAILY 08/25/16 Atorvastatin Ca [Lipitor] 40 mg PO HS 08/25/16 Clopidogrel Bisulfate [Clopidogrel] 75 mg PO DAILY 08/25/16 Pantoprazole Sodium 40 mg PO BID 09/11/16 Polyethylene Glycol [Polyox Wsr-301] 1 gm PO DAILY 04/30/17 Acetaminophen [Tylenol .Regular Strength -] 650 mg PO Q6H PRN tablet 05/12/17 Carvedilol [Coreg -] 3.125 mg PO BID #60 tablet 05/12/17 Docusate Sodium [Colace -] 300 mg PO HS #30 capsule 05/12/17 Lactobacillus Acidophilus [Bacid -] 1 tab PO DAILY #30 tab 05/12/17 Picc Line Flush [Picc Line Flush -] 8 ml IVPUSH PRN PRN ml 05/12/17 Sennosides [Senna -] 2 tab PO HS PRN #60 tablet 05/12/17 Vancomycin 1,250 mg IVPB DAILY@1200 #14 vial 05/12/17 Mag Hydrox/Alh/Smc/Dpha/Lido [Magic Mouthwash *Sjr Formula* -] 5 ml MM Q6HPO #1 bottle 05/13/17 Oxycodone HCl/Acetaminophen [Percocet 5-325 mg Tablet] 1 tab PO Q6H PRN #20 tablet MDD 4 05/13/17 Problem List - Problems (1) Upper gastrointestinal bleed Code(s): K92.2 - GASTROINTESTINAL HEMORRHAGE, UNSPECIFIED (2) Adult hypothyroidism Code(s): E03.9 - HYPOTHYROIDISM, UNSPECIFIED (3) Anemia Code(s): D64.9 - ANEMIA, UNSPECIFIED Qualifiers: Anemia type: iron deficiency Iron deficiency anemia type: inadequate dietary iron intake Qualified Code(s): D50.8 - Other iron deficiency anemias (4) CAD (coronary artery disease) Code(s): I25.10 - ATHSCL HEART DISEASE OF [place] CORONARY ARTERY W/O ANG PCTRS Qualifiers: Coronary Disease-Associated Artery/Lesion type: [place] artery [place] vs. transplanted heart: [place] heart Associated angina: with unstable angina Qualified Code(s): I25.110 - Atherosclerotic heart disease of [place] coronary artery with unstable angina pectoris (5) Cellulitis of left elbow Code(s): L03.114 - CELLULITIS OF LEFT UPPER LIMB (6) Diabetes mellitus Code(s): E11.9 - TYPE 2 DIABETES MELLITUS WITHOUT COMPLICATIONS Qualifiers: Diabetes mellitus type: type 2 Diabetes mellitus complication status: with skin complications Diabetes mellitus complication detail: with other skin complication Diabetes mellitus exterminator helper insulin use: with prison use Qualified Code(s): E11.628 - Type 2 diabetes mellitus with other skin complications; Z79.4 - prison (current) use of insulin; 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; Z79.4 - prison (current) use of insulin; Z79.4 - prison (current) use of insulin (7) HLD (hyperlipidemia) Code(s): E78.5 - HYPERLIPIDEMIA, UNSPECIFIED Qualifiers: Hyperlipidemia type: pure hypercholesterolemia Qualified Code(s): E78.00 - Pure hypercholesterolemia, unspecified; E78.0 - Pure hypercholesterolemia (8) HTN (hypertension) Code(s): I10 - ESSENTIAL (PRIMARY) HYPERTENSION Qualifiers: Hypertension type: essential hypertension Qualified Code(s): I10 - Essential (primary) hypertension This patient is new to me today: No Emergency Visit: Yes ED Registration Date: 05/17/17 Care time: The patient presented to the Emergency Department on the above date and was hospitalized for further evaluation of their emergent condition. Critical Care patient: No - Discharge Referral Referred to [facility] Med [facility] No
[2017-05-18] MEDS ORDERED: PT OWN MED DRAWER 7, Y5N ONE (13:20)
[2017-05-18] MEDS: SUCRALFATE 1 GM/10 ML UNIT DOSE CUPS PO SCH ×2 (13:26→17:42)
[2017-05-18 14:49] VITALS: BP 118/62; PULSE 64; TEMP 98.3
[2017-05-18 15:48] LABS: FERRITIN 411.501 ng/ml (6.9-282.5)
[2017-05-18] MEDS ORDERED: LEVOTHYROXINE NA 100 MCG TABLET (FP) PO SCH (21:00)
[2017-05-19] MEDS ORDERED: PANTOPRAZOLE 40 MG TABLET (FP) PO SCH (10:00)
[2017-05-19 14:16] LABS: SERUM IRON 142 ug/dL (27-159); TOTAL IRON BINDING CAPACITY 207 ug/dL (250-450); UIBC 65 ug/dL (131-425)
--- NOTE | 2017-05-20 12:55 | PATH ---
Surgical Pathology Report Patient Name: EVERT AMARO Med. Rec. #: [id number] /Age/Gender: 1960 (Age: 56) / F Account: [id number] Location: [facility] MED[facility] Taken: 05/18/2017 Received: 05/18/2017 Reported: 05/20/2017 Physicians: Roland Roach M.D. Specimen(s) Received A: DUODENAL BIOPSY B: ANTRAL BIOPSY C: BX GE JUNCTION D: BX MID ESOPHAGUS Clinical History Preoperative diagnosis: Anemia, upper GI bleeding Postoperative diagnosis: Duodenitis, esophagitis, gastritis Final Diagnosis A. DUODENUM, BIOPSY: DUODENAL MUCOSA WITH AALIYAH GLAND HYPERPLASIA. NO HISTOLOGIC EVIDENCE OF GLUTEN SENSITIVE ENTEROPATHY (CELIAC SPRUE) IDENTIFIED. B. STOMACH, ANTRUM, BIOPSY: GASTRIC ANTRAL MUCOSA WITH REACTIVE GASTRITIS. IMMUNOSTAIN FOR H. PYLORI IS NEGATIVE. C. GE JUNCTION, BIOPSY: GASTRIC TYPE MUCOSA WITH ACUTE AND CHRONIC INFLAMMATION. NO INTESTINAL METAPLASIA IDENTIFIED (NO MILLARD'S IDENTIFIED). D. MID ESOPHAGUS, BIOPSY: SQUAMOUS EPITHELIUM WITH PAPILLOMATOSIS SUGGESTIVE OF REFLUX ESOPHAGITIS. NO EOSINOPHILIC ESOPHAGITIS IDENTIFIED. Electronically Signed Jamie Saunders M.D. Gross Description A. Received in formalin, labeled "duodenal biopsy" are 2 sanders, irregular portions of soft tissue measuring 0.1 and 0.4 cm. in greatest dimension. The specimens are submitted in toto in one cassette. B. Received in formalin, labeled "antral biopsy" is a sanders, irregular portion of soft tissue measuring 0.3 cm. in greatest dimension. The specimen is submitted in toto in one cassette. C. Received in formalin, labeled "GE junction" is a sanders, irregular portion of soft tissue measuring 0.4 cm. in greatest dimension. The specimen is submitted in toto in one cassette. D. Received in formalin, labeled "mid esophagus" are 2 sanders, irregular portions of soft tissue measuring 0.3 and 0.4 cm. in greatest dimension. The specimens are submitted in toto in one cassette. 05/19/201705/19/2017
== END 2017-05-18 18:30 | disposition home or self-care (01) ==
LOC: FER 00:03 → FM/S 02:48
PROVIDERS: ADMIT Internal Medicine; ATTEND Nurse Practitioner Family
DX: K92.2 Gastrointestinal hemorrhage, unspecified (principal); K29.70 Gastritis, unspecified, without bleeding; K20.9 Esophagitis, unspecified; E03.9 Hypothyroidism, unspecified; D50.8 Other iron deficiency anemias; I25.10 Atherosclerotic heart disease of native coronary artery without angina pectoris; I10 Essential (primary) hypertension; Z95.5 Presence of coronary angioplasty implant and graft; Z79.01 Long term (current) use of anticoagulants; E78.5 Hyperlipidemia, unspecified; L03.114 Cellulitis of left upper limb
CPT/HCPCS: 36415; 71010-TC; 80048; 80053; 82150; 82272; 82550; 82728; 83540; 83550; 83690; 84484; 85025; 85610; 85730; 88305-TC; 88342-TC; 93005; 93010; 99285-25; G0378; G0480; J1756

== ENCOUNTER 2017-05-19 11:27 | Day surgery (SDC) | payer MEDICARE ==
[2017-05-19] MEDS ORDERED: VANCOMYCIN 1,250 MG in DEXTROSE 5%-WATER - 250 ML IVPB ONE (12:00)
[2017-05-19 12:43] VITALS: BP 120/65; PULSE 61; TEMP 98.2
== END 2017-05-19 14:10 | disposition home or self-care (01) ==
LOC: FINFUSION 11:27 → FM/S 11:39 → FINFUSION 14:10
PROVIDERS: ATTEND Internal Medicine
DX: L03.114 Cellulitis of left upper limb (principal)
CPT/HCPCS: 96365; 96366

== ENCOUNTER 2017-05-20 11:49 | Day surgery (SDC) | payer MEDICARE ==
[2017-05-20] MEDS ORDERED: VANCOMYCIN 1,250 MG in DEXTROSE 5%-WATER - 250 ML IVPB ONE (12:00)
[2017-05-20 12:26] VITALS: BP 89/51; PULSE 54; TEMP 98.1
== END 2017-05-20 14:00 | disposition home or self-care (01) ==
LOC: FINFUSION 11:49 → FM/S 11:50 → FINFUSION 14:00
PROVIDERS: ATTEND Internal Medicine
DX: L03.114 Cellulitis of left upper limb (principal)
CPT/HCPCS: 96365; 96366

== ENCOUNTER 2017-05-21 11:55 | Day surgery (SDC) | payer MEDICARE ==
[2017-05-21] MEDS ORDERED: VANCOMYCIN 1,250 MG in DEXTROSE 5%-WATER - 250 ML IVPB ONE (13:00)
[2017-05-21 14:41] VITALS: BP 108/67; PULSE 72; TEMP 97.8
== END 2017-05-21 14:50 | disposition home or self-care (01) ==
LOC: FINFUSION 11:55 → FM/S 12:10 → FINFUSION 14:50
PROVIDERS: ATTEND Internal Medicine
DX: L03.114 Cellulitis of left upper limb (principal)
CPT/HCPCS: 96365

== ENCOUNTER 2017-05-22 11:46 | Day surgery (SDC) | payer MEDICARE ==
[2017-05-22 12:18] VITALS: BP 101/48; TEMP 98.6
[2017-05-22 13:50] VITALS: PULSE 62
== END 2017-05-22 13:47 | disposition home or self-care (01) ==
LOC: FINFUSION 11:46 → EDSTATUS 15:56
PROVIDERS: ATTEND Internal Medicine
DX: L03.114 Cellulitis of left upper limb (principal)
CPT/HCPCS: 96365

== ENCOUNTER 2017-05-23 11:40 | Day surgery (SDC) | payer MEDICARE ==
[2017-05-23] MEDS ORDERED: REFRIGERATED ANITBIOTICS ONE (11:46)
[2017-05-23 12:42] VITALS: BP 110/60; PULSE 67
[2017-05-23] MEDS ORDERED: VANCOMYCIN 1,250 MG in DEXTROSE 5%-WATER - 250 ML IVPB ONE (13:00)
[2017-05-23] MEDS ORDERED: TRIPLE LUMEN FLUSH 4 ML ML IVPUSH ONE (14:30)
== END 2017-05-23 14:30 | disposition home or self-care (01) ==
LOC: FINFUSION 11:40 → FM/S 11:42 → FINFUSION 14:30
PROVIDERS: ATTEND Internal Medicine
DX: L03.114 Cellulitis of left upper limb (principal)
CPT/HCPCS: 96365

== ENCOUNTER 2017-05-24 13:21 | Day surgery (SDC) | payer MEDICARE ==
[2017-05-24] MEDS ORDERED: VANCOMYCIN 1,250 MG in DEXTROSE 5%-WATER - 250 ML IVPB ONE (14:00)
== END 2017-05-24 16:35 | disposition home or self-care (01) ==
LOC: FINFUSION 13:21 → FM/S 13:22 → FINFUSION 16:35
PROVIDERS: ATTEND Internal Medicine
DX: L03.114 Cellulitis of left upper limb (principal)
CPT/HCPCS: 96365; 96366

== ENCOUNTER 2017-05-25 12:31 | Day surgery (SDC) | payer MEDICARE ==
[2017-05-25] MEDS ORDERED: VANCOMYCIN 1,250 MG in DEXTROSE 5%-WATER - 250 ML IVPB ONE (13:00)
[2017-05-25] MEDS ORDERED: PORTA CATH FLUSH 10 ML IVPUSH ONE (13:05)
[2017-05-25 13:26] VITALS: TEMP 98.6
[2017-05-25 14:25] VITALS: BP 128/72; PULSE 72
== END 2017-05-25 14:25 | disposition home or self-care (01) ==
LOC: FINFUSION 12:31 → FM/S 12:33 → FINFUSION 14:25
PROVIDERS: ATTEND Internal Medicine
DX: L03.114 Cellulitis of left upper limb (principal)
CPT/HCPCS: 96365; 96366

== ENCOUNTER 2017-05-26 13:42 | Day surgery (SDC) | payer MEDICARE ==
[2017-05-26] MEDS ORDERED: VANCOMYCIN 1,250 MG in DEXTROSE 5%-WATER - 250 ML IVPB ONE (14:30)
[2017-05-26 14:35] VITALS: TEMP 98.3
[2017-05-26 16:22] VITALS: BP 128/74; PULSE 74
== END 2017-05-26 15:30 | disposition home or self-care (01) ==
LOC: FINFUSION 13:42 → FM/S 13:44 → FINFUSION 15:30
PROVIDERS: ATTEND Internal Medicine
DX: L03.114 Cellulitis of left upper limb (principal)
CPT/HCPCS: 36415; 85651; 86140; 96365; G0480

== ENCOUNTER 2017-05-27 11:52 | Day surgery (SDC) | payer MEDICARE ==
[2017-05-27] MEDS ORDERED: VANCOMYCIN 1,250 MG in DEXTROSE 5%-WATER - 250 ML IVPB ONE (12:20)
[2017-05-27 12:27] VITALS: TEMP 98.3
[2017-05-27 14:05] VITALS: BP 110/61; PULSE 66
== END 2017-05-27 14:03 | disposition home or self-care (01) ==
LOC: FINFUSION 11:52 → FM/S 11:53 → FINFUSION 14:03
PROVIDERS: ATTEND Internal Medicine
DX: L03.114 Cellulitis of left upper limb (principal)
CPT/HCPCS: 96365; 96366

== ENCOUNTER 2017-05-28 11:42 | Day surgery (SDC) | payer MEDICARE ==
[2017-05-28] MEDS ORDERED: VANCOMYCIN 1,250 MG in DEXTROSE 5%-WATER - 250 ML IVPB ONE (12:00)
== END 2017-05-28 13:25 | disposition home or self-care (01) ==
LOC: FINFUSION 11:42 → FM/S 11:44 → FINFUSION 13:25
PROVIDERS: ATTEND Internal Medicine
DX: L03.114 Cellulitis of left upper limb (principal)
CPT/HCPCS: 96365; 96366

== ENCOUNTER 2017-05-29 11:34 | Day surgery (SDC) | payer MEDICARE ==
[2017-05-29] MEDS ORDERED: VANCOMYCIN 1,250 MG in DEXTROSE 5%-WATER - 250 ML IVPB SCH (12:30)
[2017-05-29 12:55] VITALS: BP 131/64; PULSE 59; TEMP 98.4
[2017-05-29 12:58] VITALS: BMI 24.9
== END 2017-05-29 15:00 | disposition home or self-care (01) ==
LOC: FINFUSION 11:34 → FM/S 11:38 → FINFUSION 11:38 → FM/S 15:00 → EDSTATUS 23:57
PROVIDERS: ATTEND Internal Medicine
DX: L03.114 Cellulitis of left upper limb (principal)
CPT/HCPCS: 96365; 96366

== ENCOUNTER 2017-05-30 11:47 | Day surgery (SDC) | payer MEDICARE ==
[2017-05-30 13:15] VITALS: BP 113/61; PULSE 68; TEMP 97.8; BMI 24.9
[2017-05-30] MEDS ORDERED: VANCOMYCIN 1,250 MG in DEXTROSE 5%-WATER - 250 ML IVPB ONE (15:00)
== END 2017-05-30 14:30 | disposition home or self-care (01) ==
LOC: FM/S 11:47 → FINFUSION 11:47
PROVIDERS: ATTEND Internal Medicine
DX: L03.114 Cellulitis of left upper limb (principal)
CPT/HCPCS: 96365; 96366

== ENCOUNTER 2017-05-31 11:16 | Day surgery (SDC) | payer MEDICARE ==
[2017-05-31] MEDS ORDERED: VANCOMYCIN 1,250 MG in DEXTROSE 5%-WATER - 250 ML IVPB SCH (11:45)
== END 2017-05-31 15:16 | disposition home or self-care (01) ==
LOC: FINFUSION 11:16 → FM/S 11:17 → FINFUSION 15:16
PROVIDERS: ATTEND Internal Medicine
DX: L03.114 Cellulitis of left upper limb (principal)
CPT/HCPCS: 96365; 96366

== ENCOUNTER 2017-06-01 12:27 | Day surgery (SDC) | payer MEDICARE ==
[2017-06-01] MEDS ORDERED: VANCOMYCIN 1,250 MG in DEXTROSE 5%-WATER - 250 ML IVPB ONE (13:00)
== END 2017-06-01 15:30 | disposition home or self-care (01) ==
LOC: FINFUSION 12:27 → FM/S 12:28 → FINFUSION 15:30
PROVIDERS: ATTEND Internal Medicine
DX: L03.114 Cellulitis of left upper limb (principal)
CPT/HCPCS: 96365; 96366

== ENCOUNTER 2017-06-02 12:01 | Day surgery (SDC) | payer MEDICARE ==
[2017-06-02 12:21] VITALS: BP 107/59; PULSE 65; TEMP 98.3; BMI 24.9
[2017-06-02] MEDS ORDERED: VANCOMYCIN 1,250 MG in DEXTROSE 5%-WATER - 250 ML IVPB ONE (12:30)
== END 2017-06-02 14:05 | disposition home or self-care (01) ==
LOC: FINFUSION 12:01 → FM/S 12:02 → FINFUSION 14:05
PROVIDERS: ATTEND Internal Medicine
DX: L03.114 Cellulitis of left upper limb (principal)
CPT/HCPCS: 96365; 96366

== ENCOUNTER 2017-06-03 12:10 | Day surgery (SDC) | payer MEDICARE ==
[2017-06-03] MEDS ORDERED: VANCOMYCIN 1,250 MG in DEXTROSE 5%-WATER - 250 ML IVPB ONE (12:45)
[2017-06-03 12:59] VITALS: BP 100/59; PULSE 60; TEMP 98.1
== END 2017-06-03 14:45 | disposition home or self-care (01) ==
LOC: FINFUSION 12:10 → FM/S 12:12 → FINFUSION 14:45
PROVIDERS: ATTEND Internal Medicine
DX: L03.114 Cellulitis of left upper limb (principal)
CPT/HCPCS: 96365

== ENCOUNTER 2017-06-04 11:38 | Day surgery (SDC) | payer MEDICARE ==
[2017-06-04] MEDS ORDERED: VANCOMYCIN 1,250 MG in DEXTROSE 5%-WATER - 250 ML IVPB ONE (12:15)
[2017-06-04 15:02] VITALS: BP 105/52; PULSE 63; TEMP 98.3
== END 2017-06-04 15:05 | disposition home or self-care (01) ==
LOC: FINFUSION 11:38 → FM/S 11:40 → FINFUSION 15:05
PROVIDERS: ATTEND Internal Medicine
DX: L03.114 Cellulitis of left upper limb (principal)
CPT/HCPCS: 96365; 96366

== ENCOUNTER 2017-06-05 11:38 | Day surgery (SDC) | payer MEDICARE ==
[2017-06-05 12:01] VITALS: BP 132/76; PULSE 76; TEMP 98.4
[2017-06-05] MEDS ORDERED: VANCOMYCIN 1 GRAM (PRE-DOCKED) 1,000 MG/250 ML BAG IVPB SCH (12:30)
[2017-06-05] MEDS ORDERED: PORTA CATH FLUSH 10 ML IVPUSH ONE (14:18)
== END 2017-06-05 13:30 | disposition home or self-care (01) ==
LOC: FINFUSION 11:38 → FM/S 11:40 → FINFUSION 13:30
PROVIDERS: ATTEND Internal Medicine
DX: L03.114 Cellulitis of left upper limb (principal)
CPT/HCPCS: 96365; 96366

== ENCOUNTER 2017-06-06 11:40 | Day surgery (SDC) | payer MEDICARE ==
[2017-06-06] MEDS ORDERED: REFRIGERATED ANITBIOTICS ONE (11:47)
[2017-06-06 11:55] VITALS: BP 128/74; TEMP 98.3
[2017-06-06] MEDS ORDERED: VANCOMYCIN 500 MG/100 ML PRE-DOCKED IVPB ONE (12:00)
[2017-06-06 14:49] VITALS: PULSE 74
[2017-06-07] MEDS ORDERED: VANCOMYCIN 1 GRAM (PRE-DOCKED) 1,000 MG/250 ML BAG IVPB SCH (12:00)
== END 2017-06-06 13:23 | disposition home or self-care (01) ==
LOC: FINFUSION 11:40 → FM/S 11:41 → FINFUSION 13:23
PROVIDERS: ATTEND Internal Medicine
DX: L03.114 Cellulitis of left upper limb (principal)
CPT/HCPCS: 96365; 96366

== ENCOUNTER 2017-06-07 11:42 | Day surgery (SDC) | payer MEDICARE ==
[2017-06-07 13:09] VITALS: BP 111/51; PULSE 83; TEMP 98.5
[2017-06-07] MEDS ORDERED: VANCOMYCIN 1,250 MG in DEXTROSE 5%-WATER - 250 ML IVPB ONE (13:10)
== END 2017-06-07 13:11 | disposition home or self-care (01) ==
LOC: FINFUSION 11:42 → FM/S 12:31 → FINFUSION 13:11
PROVIDERS: ATTEND Internal Medicine
DX: L03.114 Cellulitis of left upper limb (principal)
CPT/HCPCS: 96365; 96366

== ENCOUNTER 2017-06-08 12:17 | Day surgery (SDC) | payer MEDICARE ==
[2017-06-08] MEDS ORDERED: VANCOMYCIN 1,250 MG in DEXTROSE 5%-WATER - 250 ML IVPB ONE (13:00)
[2017-06-08 13:51] VITALS: TEMP 97.8
[2017-06-08 14:31] VITALS: BP 105/61; PULSE 61
== END 2017-06-08 14:31 | disposition home or self-care (01) ==
LOC: FINFUSION 12:17 → FM/S 12:20 → FINFUSION 14:31
PROVIDERS: ATTEND Internal Medicine
DX: L03.114 Cellulitis of left upper limb (principal)
CPT/HCPCS: 96365; 96366

== ENCOUNTER 2017-06-09 11:25 | Day surgery (SDC) | payer MEDICARE ==
[2017-06-09] MEDS ORDERED: VANCOMYCIN 1,250 MG in DEXTROSE 5%-WATER - 250 ML IVPB ONE (12:00)
[2017-06-09 12:32] VITALS: BP 104/65; PULSE 64; TEMP 98; BMI 26.5
== END 2017-06-09 13:03 | disposition home or self-care (01) ==
LOC: FINFUSION 11:25 → FM/S 11:26 → FINFUSION 13:03
PROVIDERS: ATTEND Internal Medicine
DX: L03.114 Cellulitis of left upper limb (principal)
CPT/HCPCS: 96365

== ENCOUNTER 2017-06-10 10:52 | Day surgery (SDC) | payer MEDICARE ==
[2017-06-10 11:15] VITALS: BP 124/72; PULSE 75; TEMP 98
[2017-06-10] MEDS ORDERED: VANCOMYCIN 1,250 MG in DEXTROSE 5%-WATER - 250 ML IVPB ONE (12:00)
[2017-06-10 12:21] LABS: BASO % 0.4 % (0-2.0); EOS % 6.4 % (0-4.5); HEMATOCRIT 38.5 % (32.4-45.2); HEMOGLOBIN 12.3 GM/dl (10.7-15.3); LYMPH % 24.9 % (8-40); MCH 26.9 pg (25.7-33.7); MEAN CELL VOLUME 84.2 fl (80-96); MEAN PLT VOLUME 7.3 fl (7.5-11.1); MONO % 5.9 % (3.8-10.2); NEUT % 62.4 % (42.8-82.8); PLATELET COUNT 322 K/MM3 (134-434); RBC 4.58 M/mm3 (3.60-5.2); RDW 25.9 % (11.6-15.6); WHITE BLOOD COUNT 9.9 K/mm3 (4.0-10.8)
[2017-06-10 12:29] LABS: ANION GAP 8 (8-16); BLOOD UREA NITROGEN 18 mg/dl (7-18); CALCIUM 9.6 mg/dl (8.4-10.2); CHLORIDE 101 mmol/L (98-107); CO2 25 mmol/L (22-28); CREATININE 0.9 mg/dl (0.6-1.3); GLUCOSE,RANDOM 137 mg/dl (74-106); POTASSIUM 4.2 mmol/L (3.5-5.1); SODIUM 134 mmol/L (136-145)
[2017-06-10 12:38] LABS: ADD RBC MORPHOLOGY YES
[2017-06-10 13:10] LABS: ANISOCYTOSIS 2+; OVALOCYTE 1+; TEAR DROP CELLS 1+
== END 2017-06-10 13:15 | disposition home or self-care (01) ==
LOC: FINFUSION 10:52 → FM/S 10:55 → FINFUSION 13:15
PROVIDERS: ATTEND Internal Medicine
DX: L03.114 Cellulitis of left upper limb (principal)
CPT/HCPCS: 36415; 80048; 85025; 85651; 86140; 96365; G0480

== ENCOUNTER 2017-06-11 11:15 | Day surgery (SDC) | payer MEDICARE ==
[2017-06-11] MEDS ORDERED: VANCOMYCIN 1,250 MG in DEXTROSE 5%-WATER - 250 ML IVPB ONE (12:00)
[2017-06-11 12:49] VITALS: PULSE 72; TEMP 98.4
[2017-06-11 13:14] VITALS: BP 128/76
== END 2017-06-11 13:15 | disposition home or self-care (01) ==
LOC: FINFUSION 11:15 → FM/S 11:21 → FINFUSION 13:15
PROVIDERS: ATTEND Internal Medicine
DX: L03.114 Cellulitis of left upper limb (principal)
CPT/HCPCS: 96365; 96366

== ENCOUNTER 2017-06-12 11:52 | Day surgery (SDC) | payer MEDICARE ==
[2017-06-12] MEDS ORDERED: REFRIGERATED ANITBIOTICS ONE (12:00)
[2017-06-12] MEDS ORDERED: VANCOMYCIN 1 GRAM (PRE-DOCKED) 1,000 MG/250 ML BAG IVPB SCH (12:15)
[2017-06-12 12:53] VITALS: BP 104/60; PULSE 60; TEMP 98.6; BMI 26.5
== END 2017-06-12 13:25 | disposition home or self-care (01) ==
LOC: FINFUSION 11:52 → FM/S 11:53 → FINFUSION 13:25
PROVIDERS: ATTEND Internal Medicine
DX: L03.114 Cellulitis of left upper limb (principal)
CPT/HCPCS: 96365

== ENCOUNTER 2017-06-13 11:33 | Day surgery (SDC) | payer MEDICARE ==
[2017-06-13] MEDS ORDERED: VANCOMYCIN 1,250 MG in DEXTROSE 5%-WATER - 250 ML IVPB ONE (11:45)
[2017-06-13] MEDS ORDERED: REFRIGERATED ANITBIOTICS ONE (11:47)
[2017-06-13 12:33] VITALS: TEMP 98.1; BMI 26.5
[2017-06-13 13:06] VITALS: BP 110/65; PULSE 63
== END 2017-06-13 13:30 | disposition home or self-care (01) ==
LOC: FINFUSION 11:33 → FM/S 11:34 → FINFUSION 11:34 → FM/S 13:30 → EDSTATUS 14:28
PROVIDERS: ATTEND Internal Medicine
DX: L03.114 Cellulitis of left upper limb (principal)
CPT/HCPCS: 96365

== ENCOUNTER 2017-06-14 11:23 | Day surgery (SDC) | payer MEDICARE ==
[2017-06-14 11:50] VITALS: BP 106/64; PULSE 68; TEMP 97.9; BMI 26.5
[2017-06-14] MEDS ORDERED: VANCOMYCIN 1,250 MG in DEXTROSE 5%-WATER - 250 ML IVPB ONE (12:00)
== END 2017-06-14 13:12 | disposition home or self-care (01) ==
LOC: FINFUSION 11:23 → FM/S 11:25 → FINFUSION 13:12
PROVIDERS: ATTEND Internal Medicine
DX: L03.114 Cellulitis of left upper limb (principal)
CPT/HCPCS: 96365

== ENCOUNTER 2017-06-15 11:59 | Day surgery (SDC) | payer MEDICARE ==
[2017-06-15] MEDS ORDERED: VANCOMYCIN 1,250 MG in DEXTROSE 5%-WATER - 250 ML IVPB ONE (12:30)
[2017-06-15 14:11] VITALS: BP 110/56; PULSE 64; TEMP 98; BMI 26.5
== END 2017-06-15 14:04 | disposition home or self-care (01) ==
LOC: FINFUSION 11:59 → FM/S 12:01 → FINFUSION 14:04
PROVIDERS: ATTEND Internal Medicine
DX: L03.114 Cellulitis of left upper limb (principal)
CPT/HCPCS: 96365; 96366

== ENCOUNTER 2017-06-16 12:37 | Day surgery (SDC) | payer MEDICARE ==
[2017-06-16] MEDS ORDERED: VANCOMYCIN 1,250 MG in DEXTROSE 5%-WATER - 250 ML IVPB ONE (13:15)
[2017-06-16 13:56] VITALS: BP 120/72; PULSE 70; TEMP 97.8
== END 2017-06-16 15:30 | disposition home or self-care (01) ==
LOC: FINFUSION 12:37 → FM/S 12:42 → FINFUSION 15:30
PROVIDERS: ATTEND Internal Medicine
DX: L03.114 Cellulitis of left upper limb (principal)
CPT/HCPCS: 96365

== ENCOUNTER 2017-06-17 12:48 | Day surgery (SDC) | payer MEDICARE ==
[2017-06-17 13:04] VITALS: BP 109/57; PULSE 70; TEMP 98.4; BMI 26.5
[2017-06-17] MEDS ORDERED: VANCOMYCIN 1,250 MG in DEXTROSE 5%-WATER - 250 ML IVPB ONE (13:30)
== END 2017-06-17 14:40 | disposition home or self-care (01) ==
LOC: FINFUSION 12:48 → FM/S 12:49 → FINFUSION 14:40
PROVIDERS: ATTEND Internal Medicine
DX: L03.114 Cellulitis of left upper limb (principal)
CPT/HCPCS: 96365

== ENCOUNTER 2017-06-18 11:48 | Day surgery (SDC) | payer MEDICARE ==
[2017-06-18] MEDS ORDERED: VANCOMYCIN 1,250 MG in DEXTROSE 5%-WATER - 250 ML IVPB ONE (12:30)
[2017-06-18 14:16] VITALS: BP 102/54; PULSE 58; TEMP 97.8; BMI 26.5
== END 2017-06-18 13:50 | disposition home or self-care (01) ==
LOC: FINFUSION 11:48 → FM/S 11:53 → FINFUSION 13:50
PROVIDERS: ATTEND Internal Medicine
DX: L03.114 Cellulitis of left upper limb (principal)
CPT/HCPCS: 96365; 96366

== ENCOUNTER 2017-06-19 11:46 | Day surgery (SDC) | payer MEDICARE ==
[2017-06-19] MEDS ORDERED: REFRIGERATED ANITBIOTICS ONE (11:53)
[2017-06-19 12:44] VITALS: TEMP 98.1
[2017-06-19] MEDS ORDERED: VANCOMYCIN 1 GRAM (PRE-DOCKED) 1,000 MG/250 ML BAG IVPB SCH (12:45)
== END 2017-06-19 13:49 | disposition home or self-care (01) ==
LOC: FINFUSION 11:46 → FM/S 11:49 → FINFUSION 13:49
PROVIDERS: ATTEND Internal Medicine
DX: L03.114 Cellulitis of left upper limb (principal)
CPT/HCPCS: 96365

== ENCOUNTER 2017-06-20 10:41 | Day surgery (SDC) | payer MEDICARE ==
[2017-06-20 12:17] VITALS: BP 95/62; PULSE 64; TEMP 98.4
[2017-06-20 12:23] VITALS: BMI 26.2
[2017-06-20] MEDS ORDERED: VANCOMYCIN 1,250 MG in DEXTROSE 5%-WATER - 250 ML IVPB ONE (13:00)
== END 2017-06-20 14:02 | disposition home or self-care (01) ==
LOC: FINFUSION 10:41 → FM/S 11:37 → FINFUSION 14:02
PROVIDERS: ATTEND Internal Medicine
DX: L03.114 Cellulitis of left upper limb (principal)
CPT/HCPCS: 96365

== ENCOUNTER 2017-06-21 11:54 | Day surgery (SDC) | payer MEDICARE ==
[2017-06-21 12:30] VITALS: PULSE 63; TEMP 97.8; BMI 26.2
[2017-06-21] MEDS ORDERED: VANCOMYCIN 1,250 MG in DEXTROSE 5%-WATER - 250 ML IVPB ONE (12:30)
[2017-06-21 14:12] VITALS: BP 88/56
== END 2017-06-21 14:09 | disposition home or self-care (01) ==
LOC: FINFUSION 11:54 → FM/S 12:04 → FINFUSION 14:09
PROVIDERS: ATTEND Internal Medicine
DX: L03.114 Cellulitis of left upper limb (principal)
CPT/HCPCS: 96365; 96366

== ENCOUNTER 2017-06-22 12:01 | Day surgery (SDC) | payer MEDICARE ==
[2017-06-22 12:18] VITALS: BP 99/50; PULSE 66; TEMP 97.9; BMI 26.5
[2017-06-22] MEDS ORDERED: VANCOMYCIN 1,250 MG in DEXTROSE 5%-WATER - 250 ML IVPB ONE (12:30)
== END 2017-06-22 13:30 | disposition home or self-care (01) ==
LOC: FINFUSION 12:01 → FM/S 12:04 → FINFUSION 13:30
PROVIDERS: ATTEND Internal Medicine
DX: L03.114 Cellulitis of left upper limb (principal)
CPT/HCPCS: 96365; 96366; 96367

== ENCOUNTER 2017-06-23 11:32 | Day surgery (SDC) | payer MEDICARE ==
[2017-06-23] MEDS ORDERED: VANCOMYCIN 1,250 MG in DEXTROSE 5%-WATER - 250 ML IVPB ONE (12:00)
[2017-06-23 12:01] VITALS: BP 100/54; PULSE 62; TEMP 97.8
== END 2017-06-23 13:57 | disposition home or self-care (01) ==
LOC: FINFUSION 11:32 → FM/S 11:34 → FINFUSION 13:57
PROVIDERS: ATTEND Internal Medicine
DX: L03.114 Cellulitis of left upper limb (principal)
CPT/HCPCS: 96365; 96366

== ENCOUNTER 2017-06-24 10:54 | Day surgery (SDC) | payer MEDICARE ==
[2017-06-24] MEDS ORDERED: VANCOMYCIN 1,250 MG in DEXTROSE 5%-WATER - 250 ML IVPB ONE (11:30)
[2017-06-24 11:52] VITALS: TEMP 98; BMI 26.5
[2017-06-24 13:23] VITALS: BP 107/55; PULSE 68
== END 2017-06-24 13:30 | disposition home or self-care (01) ==
LOC: FINFUSION 10:54 → FM/S 10:55 → FINFUSION 13:30
PROVIDERS: ATTEND Internal Medicine
DX: L03.114 Cellulitis of left upper limb (principal)
CPT/HCPCS: 96365

== ENCOUNTER 2017-06-25 12:27 | Day surgery (SDC) | payer MEDICARE ==
[2017-06-25 12:42] VITALS: BMI 58.4
[2017-06-25] MEDS ORDERED: VANCOMYCIN 1,250 MG in DEXTROSE 5%-WATER - 250 ML IVPB ONE (13:00)
== END 2017-06-25 13:40 | disposition home or self-care (01) ==
LOC: FINFUSION 12:27 → FM/S 12:32 → FINFUSION 13:40
PROVIDERS: ATTEND Internal Medicine
DX: L03.114 Cellulitis of left upper limb (principal)
CPT/HCPCS: 96365; 96366

== ENCOUNTER 2017-06-26 12:57 | Day surgery (SDC) | payer MEDICARE | END 2017-06-26 13:10 | disposition home or self-care (01) | LOC: FINFUSION 12:57 → FM/S 12:58 → FINFUSION 13:10 | PROVIDERS: ATTEND Internal Medicine | PROC: 3C1ZX8Z Irrigation of Indwelling Device using Irrigating Substance, External Approach (ICD-10-PCS; principal; 2017-06-26) | DX: Z45.2 Encounter for adjustment and management of vascular access device (principal); L03.114 Cellulitis of left upper limb | CPT/HCPCS: 96523 ==

== ENCOUNTER 2017-06-27 13:07 | Day surgery (SDC) | payer MEDICARE | END 2017-06-27 13:40 | disposition home or self-care (01) | LOC: FINFUSION 13:07 → FM/S 13:08 → FINFUSION 13:40 | PROVIDERS: ATTEND Internal Medicine | PROC: 3C1ZX8Z Irrigation of Indwelling Device using Irrigating Substance, External Approach (ICD-10-PCS; principal; 2017-06-27) | DX: Z45.2 Encounter for adjustment and management of vascular access device (principal); L03.114 Cellulitis of left upper limb | CPT/HCPCS: 96523 ==

== ENCOUNTER 2017-06-28 11:37 | Day surgery (SDC) | payer MEDICARE | END 2017-06-28 12:29 | disposition home or self-care (01) | LOC: FINFUSION 11:37 → FM/S 11:40 → FINFUSION 12:29 | PROVIDERS: ATTEND Internal Medicine | PROC: 3C1ZX8Z Irrigation of Indwelling Device using Irrigating Substance, External Approach (ICD-10-PCS; principal; 2017-06-28) | DX: Z45.2 Encounter for adjustment and management of vascular access device (principal); L03.114 Cellulitis of left upper limb | CPT/HCPCS: 96523 ==

== ENCOUNTER 2017-06-29 12:10 | Day surgery (SDC) | payer MEDICARE ==
[2017-06-29 12:47] VITALS: BP 109/57; PULSE 75; TEMP 98.1
== END 2017-06-29 12:53 | disposition home or self-care (01) ==
LOC: FINFUSION 12:10 → FM/S 12:11 → FINFUSION 12:53
PROVIDERS: ATTEND Internal Medicine
PROC: 3C1ZX8Z Irrigation of Indwelling Device using Irrigating Substance, External Approach (ICD-10-PCS; principal; 2017-06-29)
DX: Z45.2 Encounter for adjustment and management of vascular access device (principal); L03.114 Cellulitis of left upper limb
CPT/HCPCS: 96523

== ENCOUNTER 2017-06-30 13:13 | Day surgery (SDC) | payer MEDICARE ==
[2017-06-30 13:46] LABS: WHITE BLOOD COUNT 8.8 K/mm3 (4.0-10.8)
[2017-06-30 13:51] LABS: HEMATOCRIT 36.9 % (32.4-45.2); HEMOGLOBIN 11.9 GM/dl (10.7-15.3); MCH 28.3 pg (25.7-33.7); MCHC 32.4 g/dl (32.0-36.0); MEAN CELL VOLUME 87.3 fl (80-96); MEAN PLT VOLUME 7.3 fl (7.5-11.1); PLATELET COUNT 319 K/MM3 (134-434); RBC 4.23 M/mm3 (3.60-5.2); RDW 23.2 % (11.6-15.6)
[2017-06-30 13:53] VITALS: BMI 26.5
[2017-06-30 14:15] LABS: ALBUMIN 3.8 g/dl (3.5-5.0); ALK PHOS 68 U/L (32-92); ANION GAP 9 (8-16); BLOOD UREA NITROGEN 18 mg/dl (7-18); CALCIUM 9.3 mg/dl (8.4-10.2); CHLORIDE 102 mmol/L (98-107); CHOLESTEROL 98 mg/dl; CO2 24 mmol/L (22-28); CREATININE 0.8 mg/dl (0.6-1.3); GLUCOSE,RANDOM 149 mg/dl (74-106); HDL CHOLESTEROL 34 mg/dl (29-89); LDL CHOLESTEROL (ONLY DFH) 46 mg/dl; SGOT/AST 24 U/L (10-42); SGPT/ALT 18 U/L (10-40); SODIUM 135 mmol/L (136-145); TOT PROT 6.3 g/dl (6.4-8.3); TRIGLYCERIDES 89 mg/dl (35-160)
[2017-06-30 16:36] LABS: ERYTHROCYTE SEDIMENTATION RATE 15 mm/hr (0-30)
== END 2017-06-30 13:45 | disposition home or self-care (01) ==
LOC: FINFUSION 13:13 → FM/S 13:14 → FINFUSION 13:45
PROVIDERS: ATTEND Internal Medicine
PROC: 3C1ZX8Z Irrigation of Indwelling Device using Irrigating Substance, External Approach (ICD-10-PCS; principal; 2017-06-30)
DX: Z45.2 Encounter for adjustment and management of vascular access device (principal); L03.114 Cellulitis of left upper limb
CPT/HCPCS: 36415; 80053; 80061; 82306; 82607; 82728; 83036; 83540; 83550; 84443; 85027; 85651; 96523

== ENCOUNTER 2017-07-01 14:33 | Day surgery (SDC) | payer MEDICARE | END 2017-07-01 14:52 | disposition home or self-care (01) | LOC: FINFUSION 14:33 → FM/S 14:35 → FINFUSION 14:52 | PROVIDERS: ATTEND Internal Medicine | PROC: 3C1ZX8Z Irrigation of Indwelling Device using Irrigating Substance, External Approach (ICD-10-PCS; principal; 2017-07-01) | DX: Z45.2 Encounter for adjustment and management of vascular access device (principal); L03.114 Cellulitis of left upper limb | CPT/HCPCS: 96523 ==

== ENCOUNTER 2017-07-02 13:20 | Day surgery (SDC) | payer MEDICARE ==
[2017-07-02 13:48] VITALS: BP 130/84; PULSE 80; TEMP 98
== END 2017-07-02 13:51 | disposition home or self-care (01) ==
LOC: FINFUSION 13:20 → FM/S 13:22 → FINFUSION 13:51
PROVIDERS: ATTEND Internal Medicine
PROC: 3C1ZX8Z Irrigation of Indwelling Device using Irrigating Substance, External Approach (ICD-10-PCS; principal; 2017-07-02)
DX: Z45.2 Encounter for adjustment and management of vascular access device (principal); L03.114 Cellulitis of left upper limb
CPT/HCPCS: 96523

== ENCOUNTER 2017-07-03 13:57 | Day surgery (SDC) | payer MEDICARE | END 2017-07-03 14:15 | disposition home or self-care (01) | LOC: FINFUSION 13:57 → FM/S 13:58 → FINFUSION 14:15 | PROVIDERS: ATTEND Internal Medicine | PROC: 3C1ZX8Z Irrigation of Indwelling Device using Irrigating Substance, External Approach (ICD-10-PCS; principal; 2017-07-03) | DX: Z45.2 Encounter for adjustment and management of vascular access device (principal); L03.114 Cellulitis of left upper limb | CPT/HCPCS: 96523 ==

== ENCOUNTER 2017-07-04 14:52 | Day surgery (SDC) | payer MEDICARE | END 2017-07-04 15:00 | disposition home or self-care (01) | LOC: FINFUSION 14:52 → FM/S 14:53 → FINFUSION 15:00 | PROVIDERS: ATTEND Internal Medicine | PROC: 3C1ZX8Z Irrigation of Indwelling Device using Irrigating Substance, External Approach (ICD-10-PCS; principal; 2017-07-04) | DX: Z45.2 Encounter for adjustment and management of vascular access device (principal); L03.114 Cellulitis of left upper limb | CPT/HCPCS: 96523 ==

== ENCOUNTER 2017-07-05 14:12 | Day surgery (SDC) | payer MEDICARE ==
[2017-07-05 14:32] VITALS: BP 122/76; PULSE 74; TEMP 98.3
== END 2017-07-05 14:35 | disposition home or self-care (01) ==
LOC: FINFUSION 14:12 → FM/S 14:15 → FINFUSION 14:35
PROVIDERS: ATTEND Internal Medicine
PROC: 3C1ZX8Z Irrigation of Indwelling Device using Irrigating Substance, External Approach (ICD-10-PCS; principal; 2017-07-05)
DX: Z45.2 Encounter for adjustment and management of vascular access device (principal); L03.114 Cellulitis of left upper limb
CPT/HCPCS: 96523

== ENCOUNTER 2017-07-06 12:42 | Day surgery (SDC) | payer MEDICARE ==
[2017-07-13 10:38] VITALS: BP 134/74; PULSE 76; TEMP 98; BMI 26.5
== END 2017-07-06 13:15 | disposition home or self-care (01) ==
LOC: FINFUSION 12:42 → FM/S 12:44 → FINFUSION 13:15
PROVIDERS: ATTEND Internal Medicine
PROC: 3C1ZX8Z Irrigation of Indwelling Device using Irrigating Substance, External Approach (ICD-10-PCS; principal; 2017-07-06)
DX: Z45.2 Encounter for adjustment and management of vascular access device (principal); L03.114 Cellulitis of left upper limb
CPT/HCPCS: 96523

== ENCOUNTER 2017-07-07 11:04 | Day surgery (SDC) | payer MEDICARE | END 2017-07-07 11:21 | disposition home or self-care (01) | LOC: FINFUSION 11:04 → FM/S 11:07 → FINFUSION 11:21 | PROVIDERS: ATTEND Internal Medicine | PROC: 3C1ZX8Z Irrigation of Indwelling Device using Irrigating Substance, External Approach (ICD-10-PCS; principal; 2017-07-07) | DX: Z45.2 Encounter for adjustment and management of vascular access device (principal) | CPT/HCPCS: 96523 ==

== ENCOUNTER 2017-07-08 13:03 | Day surgery (SDC) | payer MEDICARE, OTHER ==
[2017-07-08 13:20] VITALS: BP 127/65; PULSE 78; TEMP 97.9
== END 2017-07-08 13:30 | disposition home or self-care (01) ==
LOC: FINFUSION 13:03 → FM/S 13:05 → FINFUSION 13:30
PROVIDERS: ATTEND Internal Medicine
PROC: 3C1ZX8Z Irrigation of Indwelling Device using Irrigating Substance, External Approach (ICD-10-PCS; principal; 2017-07-08)
DX: Z45.2 Encounter for adjustment and management of vascular access device (principal); L03.114 Cellulitis of left upper limb
CPT/HCPCS: 96365; 96366; 96523

== ENCOUNTER 2017-07-09 14:52 | Day surgery (SDC) | payer MEDICARE, OTHER ==
[2017-07-09 15:20] VITALS: BP 99/56; PULSE 72; TEMP 98.2
== END 2017-07-09 15:11 | disposition home or self-care (01) ==
LOC: FINFUSION 14:52 → FM/S 14:57 → FINFUSION 15:11
PROVIDERS: ATTEND Internal Medicine
PROC: 3C1ZX8Z Irrigation of Indwelling Device using Irrigating Substance, External Approach (ICD-10-PCS; principal; 2017-07-09)
DX: Z45.2 Encounter for adjustment and management of vascular access device (principal); L03.114 Cellulitis of left upper limb
CPT/HCPCS: 96523

== ENCOUNTER 2017-07-10 13:49 | Day surgery (SDC) | payer MEDICARE, OTHER ==
[2017-07-13 10:44] VITALS: BP 126/80; PULSE 80; TEMP 97.8; BMI 26.5
== END 2017-07-10 14:36 | disposition home or self-care (01) ==
LOC: FINFUSION 13:49 → FM/S 13:52 → FINFUSION 14:36
PROVIDERS: ATTEND Internal Medicine
PROC: 3C1ZX8Z Irrigation of Indwelling Device using Irrigating Substance, External Approach (ICD-10-PCS; principal; 2017-07-10)
DX: Z45.2 Encounter for adjustment and management of vascular access device (principal); L03.114 Cellulitis of left upper limb
CPT/HCPCS: 96523

== ENCOUNTER → 2017-07-12 | Day surgery (SDC) | payer MEDICARE, OTHER | END | disposition home or self-care (01) | LOC: JRADIR 09:50 | PROVIDERS: ATTEND Internal Medicine | PROC: 0JPV0XZ Removal of Tunneled Vascular Access Device from Upper Extremity Subcutaneous Tissue and Fascia, Open Approach (ICD-10-PCS; principal; 2017-07-12) | DX: Z45.2 Encounter for adjustment and management of vascular access device (principal) | CPT/HCPCS: 36589 ==

== ENCOUNTER 2017-10-26 21:17 | Observation (INO) | payer MEDICARE, OTHER ==
[2017-10-26 21:26] VITALS: BMI 26.5
--- NOTE | 2017-10-26 21:45 | PDOC ---
History of Present Illness - General History Source: Patient, Old Records Exam Limitations: No Limitations - History of Present Illness Initial Comments: 10/26/17 22:10 The patient is a 57 year old female with a past medical history of NSTEMI w/ stent, scleroderma, hypercholesterolemia, diabetes, GERD/hiatal hernia, hypothyroidism, recent septic bursitis of elbow who presents to the emergency department today with epigastric pain radiating to back and b/l shoulder blades and shortness of breath for 1 day. The patient reports she woke up at 4 am this morning secondary to her mid epigastric pain. She reports associated shortness of breath secondary to her epigastric pain. She describes her pain as non- radiating and denies any exacerbating or alleviating factors. No change w/ exertion, no change w/ eating, no leg swelling, last hospitalization was May. She denies nausea, vomiting, fevers, and leg swelling. The patient notes that she had a wisdom tooth removed 5 days ago and has taken Tylenol extra strength for the pain. <Jimmy Santana - Last Filed: 10/26/17 22:09> <Jessica Thomas - Last Filed: 10/27/17 03:29> - General Chief Complaint: Pain, Acute Stated Complaint: epigartic pain Time Seen by Provider: 10/26/17 21:27 Past History <Jimmy Santana - Last Filed: 10/26/17 22:09> - Past Medical History Anemia: Yes Asthma: No Cancer: No Cardiac Disorders: Yes (Murmur, NSTEMI, stent) CVA: No COPD: No CHF: No Dementia: No Diabetes: Yes GI Disorders: Yes (GERD) Disorders: No HTN: Yes Hypercholesterolemia: Yes Liver Disease: No Seizures: No Thyroid Disease: Yes (HYPO) - Surgical History Abdominal Surgery: No Appendectomy: No Cardiac Surgery: No Cholecystectomy: No Lung Surgery: No Neurologic Surgery: No Orthopedic Surgery: Yes (Laminectomy x3,Right hand surgery) - Immunization History Td Vaccination: Yes Immunization Up to Date: (UNSURE) - Suicide/Smoking/Psychosocial Hx Smoking Status: No Smoking History: Never smoked Have you smoked in the past 12 months: No Number of Cigarettes Smoked Daily: 0 Hx Alcohol Use: No Drug/Substance Use Hx: No Substance Use Type: None Hx Substance Use Treatment: No <Jessica Thomas - Last Filed: 10/27/17 03:29> - Past Medical History Allergies/Adverse Reactions: Allergies Allergy/AdvReac Type Severity Reaction Status Date / Time Sulfa (Sulfonamide Allergy Mild Verified 10/26/17 21:20 Antibiotics) [Sulfa(Sulfonamide Antibiotics)] Home Medications: Ambulatory Orders Levothyroxine [Synthroid -] 100 mcg PO HS 01/26/12 metFORMIN HCL [Glucophage -] 500 mg PO BID@0700,1630 01/26/12 Zolpidem Tartrate [Ambien] 10 mg PO HS 09/25/15 Iron,Carbonyl/Ascorbic Acid [Vitron-C Tablet] 1 each PO DAILY 11/13/15 Nifedipine [Nifedical Xl] 30 mg PO DAILY 11/13/15 Aspirin [ASA -] 81 mg PO DAILY 08/25/16 Atorvastatin Ca [Lipitor] 40 mg PO HS 08/25/16 Clopidogrel Bisulfate [Clopidogrel] 75 mg PO DAILY 08/25/16 Pantoprazole Sodium 40 mg PO BID 09/11/16 Acetaminophen [Tylenol .Regular Strength -] 650 mg PO Q6H PRN tablet 05/12/17 Carvedilol [Coreg -] 3.125 mg PO BID #60 tablet 05/12/17 Lactobacillus Acidophilus [Bacid -] 1 tab PO DAILY #30 tab 05/12/17 Oxycodone HCl/Acetaminophen [Percocet 5-325 mg Tablet] 1 tab PO Q6H PRN #20 tablet MDD 4 05/13/17 Review of Systems - Review of Systems Able to Perform ROS?: Yes Comments:: 10/26/17 22:10 See HPI. All other systems reviewed and unremarkable <Jimmy Santana - Last Filed: 10/26/17 22:09> *Physical Exam - Vital Signs Last Vital Signs Temp Pulse Resp BP Pulse Ox 98.8 F 67 18 113/56 100 10/26/17 21:18 10/26/17 21:18 10/26/17 21:18 10/26/17 21:18 10/26/17 21:18 - Physical Exam Comments: 10/26/17 22:13 GENERAL: Awake, alert, and fully oriented, in no acute distress HEENT: EOMI, NAY MMM, + healing surgical site L wisdom tooth w/ sutures in place, no swelling, no erythema, no purulent drainage. NECK: NCAT, no midline cervical tenderness CARDIOVASCULAR: RRR, nl s1/s2, + SAGAR LUNGS: CTABL, no w/r/r, + crackles R base chest: no chest wall tenderness to palpation. ABDOMEN: Soft, + TTP epig w/ guarding, no rebound, negative toth's. EXTREMITIES: No edema, WWP, no rash NEURO: Neuro grossly intact, gait WNL, moving all 4. A&O x 3, mood/affect WNL. SKIN: Warm, Dry, normal turgor, no rashes or lesions noted. <Jimmy Santana - Last Filed: 10/26/17 22:09> - Vital Signs Last Vital Signs Temp Pulse Resp BP Pulse Ox 98.8 F 67 18 113/56 100 10/26/17 21:18 10/26/17 21:18 10/26/17 21:18 10/26/17 21:18 10/26/17 21:18 <Jessica Thomas - Last Filed: 10/27/17 03:29> Moderate Sedation - Procedure Monitoring Vital Signs: Vital Signs Temp Pulse Resp BP Pulse Ox 98.8 F 67 18 113/56 100 10/26/17 21:18 10/26/17 21:18 10/26/17 21:18 10/26/17 21:18 10/26/17 21:18 <Jimmy Santana - Last Filed: 10/26/17 22:09> - Procedure Monitoring Vital Signs: Vital Signs Temp Pulse Resp BP Pulse Ox 98.8 F 67 18 113/56 100 10/26/17 21:18 10/26/17 21:18 10/26/17 21:18 10/26/17 21:18 10/26/17 21:18 <Jessica Thomas - Last Filed: 10/27/17 03:29> Heart Score/ECG Review #1 General ECG Interpretation: Sinus Rhythm, Normal Rate, Normal Intervals, No acute ischemic changes Compared to previous ECG there are: No significant change <Jessica Thomas - Last Filed: 10/27/17 03:29> ED Treatment Course - LABORATORY CBC & Chemistry Diagram: 10/26/17 21:55 10/26/17 21:55 - Medications Given in the ED: ED Medications Discontinued Medications Generic Name Dose Route Start Last Admin Trade Name Clau PRN Reason Stop Dose Admin Al Hydroxide/Mg Hydroxide 30 ml 10/26/17 21:47 10/26/17 22:07 Mylanta Oral Suspension - PO 10/26/17 21:48 30 ml ONCE ONE Administration Famotidine 20 mg in 12 mls @ 144 mls/hr 10/26/17 21:47 10/26/17 22:07 Pepcid 20 Mg/12 Ml Push IVPUSH 10/26/17 21:51 144 mls/hr ONCE ONE Administration Lidocaine HCl 20 ml 10/26/17 21:47 10/26/17 22:07 Xylocaine 2% Viscous Oral - PO 10/26/17 21:48 20 ml ONCE ONE Administration <Jimmy Santana - Last Filed: 10/26/17 22:09> - LABORATORY CBC & Chemistry Diagram: 10/26/17 21:55 10/26/17 21:55 - ADDITIONAL ORDERS Additional order review: 10/26/17 23:39 Laboratory Tests 10/26/17 10/26/17 21:55 21:55 Total Bilirubin 0.4 D AST 26 ALT 20 D Alkaline Phosphatase 80 Troponin I < 0.03 10/27/17 01:44 Laboratory Tests 10/26/17 23:20 Lipase 129 Pt's pain steadily increasing despite ED interviention with GI meds and progressive up-titration of narcotics. STAT CT C/A/P r/o aortic dissection ordered. - RADIOLOGY Radiology Studies Ordered: 10/26/17 22:29 CXR: My read: no infiltrate, no PTX, mediastinum normal width. <Jessica Thomas - Last Filed: 10/27/17 03:29> Medical Decision Making - Medical Decision Making 10/26/17 22:30 57yoF hx of NSTEMI w/ stent, scleroderma, GIB, septic bursitis presnts w/ burning/stabbing epigastric pain x 18h, constant, unremitting, no exacerbating or relieving factors, WITHOUT n/v/d, no change in stool color/consistency. DDx broad, includes [place], pancreatitis, GERD/ulcer, less likely dissection/PE considering location and abdominal tenderness. EKG CXR labs --> pt is not a ddimer candidate 2/2 rheumatologic d/o GI cocktail reeval. <Jessica Thomas - Last Filed: 10/27/17 03:29> *DC/Admit/Observation/Transfer - Attestations Scribe Attestion: 10/26/17 22:10 Documentation prepared by Jimmy Santana, acting as medical insurance verifier for Jessica Thomas MD. <Jimmy Santana - Last Filed: 10/26/17 22:09> - Discharge Dispostion Decision to Admit order: Yes <Jessica Thomas - Last Filed: 10/27/17 03:29> - Discharge Dispostion Condition at time of disposition: Stable
[2017-10-26] MEDS ORDERED: MAG HYDROX/AL HYDROX/SIMETH 30 ML UNIT-DOSE CUP PO ONE (21:47)
[2017-10-26] MEDS ORDERED: FAMOTIDINE IV 20 MG/12 ML VIAL IVPUSH ONE (21:47)
[2017-10-26] MEDS ORDERED: LIDOCAINE VISCOUS 2% ORAL/TOP 20 ML UNIT-DOSE CUP PO ONE (21:47)
[2017-10-26] MEDS ORDERED: FAMOTIDINE 20 MG/50 ML IVPB 20 MG/50 ML MG IVPB ONE (21:59)
[2017-10-26] MEDS ORDERED: LIDOCAINE VISCOUS 2% ORAL/TOP 20 ML UNIT-DOSE CUP ONE (22:00)
[2017-10-26] MEDS ORDERED: MAG HYDROX/AL HYDROX/SIMETH 30 ML UNIT-DOSE CUP ONE (22:00)
[2017-10-26 22:27] LABS: BASO % 0.3 % (0-2.0); HEMATOCRIT 33.7 % (32.4-45.2); HEMOGLOBIN 11.1 GM/dl (10.7-15.3); LYMPH % 20.1 % (8-40); MCH 28.9 pg (25.7-33.7); MCHC 32.9 g/dl (32.0-36.0); MEAN CELL VOLUME 87.8 fl (80-96); MEAN PLT VOLUME 6.9 fl (7.5-11.1); MONO % 6.6 % (3.8-10.2); PLATELET COUNT 358 K/MM3 (134-434); RBC 3.83 M/mm3 (3.60-5.2); RDW 13.9 % (11.6-15.6); WHITE BLOOD COUNT 12.7 K/mm3 (4.0-10.8)
[2017-10-26 22:48] LABS: ACTIVATED PTT 31.8 SECONDS (24.0-38.9)
[2017-10-26 22:53] LABS: INR 1.2 (0.82-1.09); PROTHROMBIN TIME (PATIENT) 13.4 SEC (10.2-13.0)
[2017-10-26 23:00] LABS: ALBUMIN 3.7 g/dl (3.5-5.0); ALK PHOS 80 U/L (32-92); ANION GAP 10 (8-16); BLOOD UREA NITROGEN 19 mg/dl (7-18); CALCIUM 8.7 mg/dl (8.4-10.2); CHLORIDE 102 mmol/L (98-107); CO2 24 mmol/L (22-28); CREATININE 0.9 mg/dl (0.6-1.3); GLUCOSE,RANDOM 140 mg/dl (74-106); POTASSIUM 4.3 mmol/L (3.5-5.1); SGOT/AST 26 U/L (10-42); SGPT/ALT 20 U/L (10-40); SODIUM 136 mmol/L (136-145); TOT PROT 6.1 g/dl (6.4-8.3)
[2017-10-26 23:16] LABS: BILIRUBIN,TOTAL 0.4 mg/dl (0.2-1.0)
[2017-10-26] MEDS ORDERED: morphine CARPU-JECT 4 MG/1 ML DISP.SYRIN IVPUSH ONE (23:36)
[2017-10-26] MEDS ORDERED: SODIUM CHLORIDE 1,000 ML IV STA (23:37)
[2017-10-27] MEDS ORDERED: morphine SULFATE 4 MG/ML VIAL ONE (00:10)
[2017-10-27] MEDS ORDERED: morphine CARPU-JECT 4 MG/1 ML DISP.SYRIN IVPUSH ONE (00:52)
[2017-10-27] MEDS ORDERED: morphine CARPU-JECT 10 MG/1 ML DISP.SYRIN ONE (01:17)
[2017-10-27] MEDS ORDERED: ONDANSETRON 4 MG/2 ML VIAL IVPUSH ONE (01:31)
[2017-10-27] MEDS ORDERED: HYDROmorphone HCL CARPU-JECT 1 MG/1 ML DISP.SYRIN IVPUSH ONE (01:31)
[2017-10-27] MEDS ORDERED: LACTATED RINGERS SOLUTION 1,000 ML/1,000 ML INFUS.BAG IV STA (01:32)
[2017-10-27] MEDS ORDERED: PANTOPRAZOLE SODIUM 40 MG VIAL IVPUSH ONE (01:32)
[2017-10-27] MEDS ORDERED: HYDROmorphone HCL CARPU-JECT 2 MG/1 ML DISP.SYRIN ONE (01:44)
[2017-10-27] MEDS ORDERED: ONDANSETRON 4 MG/2 ML VIAL ONE (01:45)
[2017-10-27] MEDS ORDERED: PANTOPRAZOLE SODIUM 40 MG VIAL ONE (02:14)
--- NOTE | 2017-10-27 11:13 | EKG ---
Test Reason : Blood Pressure : / mmHG Vent. Rate : 063 BPM Atrial Rate : 063 BPM P-R Int : 148 ms QRS Dur : 070 ms QT Int : 408 ms P-R-T Axes : 006 -16 004 degrees QTc Int : 417 ms NORMAL SINUS RHYTHM LOW VOLTAGE QRS SEPTAL INFARCT , AGE UNDETERMINED ABNORMAL ECG WHEN COMPARED WITH ECG OF 17-MAY-2017 00:29, SEPTAL INFARCT IS NOW PRESENT NONSPECIFIC T WAVE ABNORMALITY NOW EVIDENT IN ANTERIOR LEADS Confirmed by MALINI HAYWOOD, IVORY ([id number]) on 10/27/2017 11:13:23 AM Referred By: DR SALAZAR Confirmed By:IVORY NAYAK MD
[2017-10-27] MEDS ORDERED: morphine CARPU-JECT 2 MG/1 ML DISP.SYRIN IVPUSH PRN (11:31)
[2017-10-27] MEDS ORDERED: ONDANSETRON 4 MG/2 ML VIAL IVPUSH PRN (11:31)
[2017-10-27 12:40] LABS: BASO % 0.4 % (0-2.0); EOS % 0.8 % (0-4.5); HEMATOCRIT 32.5 % (32.4-45.2); HEMOGLOBIN 10.6 GM/dl (10.7-15.3); LYMPH % 8.1 % (8-40); MCH 28.5 pg (25.7-33.7); MCHC 32.7 g/dl (32.0-36.0); MEAN CELL VOLUME 87.2 fl (80-96); MONO % 6.1 % (3.8-10.2); NEUT % 84.6 % (42.8-82.8); PLATELET COUNT 292 K/MM3 (134-434); RBC 3.73 M/mm3 (3.60-5.2); RDW 13.6 % (11.6-15.6); WHITE BLOOD COUNT 12.6 K/mm3 (4.0-10.8)
[2017-10-27] MEDS: D5-1/2NS+20 MEQ KCL - 20 MEQ/1,000 ML INFUS.BAG IV SCH (12:41)
[2017-10-27 12:42] LABS: ANION GAP 9 (8-16); BLOOD UREA NITROGEN 13 mg/dl (7-18); CALCIUM 8.6 mg/dl (8.4-10.2); CHLORIDE 105 mmol/L (98-107); CO2 24 mmol/L (22-28); CREATININE 0.8 mg/dl (0.6-1.3); GLUCOSE,RANDOM 114 mg/dl (74-106); MAGNESIUM 1.5 mg/dL (1.8-2.4); PHOSPHOROUS 2.5 mg/dl (2.5-4.6); POTASSIUM 3.7 mmol/L (3.5-5.1); SODIUM 138 mmol/L (136-145)
--- NOTE | 2017-10-27 12:55 | PN ---
Progress Note (short form) - Note Progress Note: Advised floor tiling professional to call Dr. Marinelli as he is covering [facility].
--- NOTE | 2017-10-27 14:10 | PN ---
Progress Note (short form) - Note Progress Note: Patient seen and chart reviewed with consult to be dictated. Patient with known peptic disease including esophagitis and scleraderma changes to esophagus with altered motility (followed by Dr Ugalde); currently with acute onset of epigastric/substernal pain Has been oral antibiotic pills including dose at bedtime; may have had antibiotic pill remain in esophagus and cause esophageal erosion/ulcer with pain. Would begin Rx with Carafate suspension and allow PO clear liquids as tolerated. Will follow; repeat EGD deferred (has had 2 in past year) at this time.
[2017-10-27] MEDS ORDERED: PT OWN MED DRAWER 7, Y5N ONE ×2 (17:07→21:29)
[2017-10-27] MEDS: SUCRALFATE 1 GM/10 ML UNIT DOSE CUPS PO SCH ×2 (17:21→21:46)
--- NOTE | 2017-10-27 19:35 | HP ---
Admitting History and Physical - Primary Care Physician PCP: Jenn Valderrama - Admission History of Present Illness: Pt seen/ examined Chart reviewed Er records reviewed - Per ER records ---The patient is a 57 year old female with a past medical history of NSTEMI w/ stent, scleroderma, hypercholesterolemia, diabetes, GERD/hiatal hernia, hypothyroidism, recent septic bursitis of elbow who presents to the emergency department today with epigastric pain radiating to back and b/l shoulder blades and shortness of breath for 1 day. The patient reports she woke up at 4 am this morning secondary to her mid epigastric pain. She reports associated shortness of breath secondary to her epigastric pain. She describes her pain as non- radiating and denies any exacerbating or alleviating factors. No change w/ exertion, no change w/ eating, no leg swelling, last hospitalization was May. She denies nausea, vomiting, fevers, and leg swelling. The patient notes that she had a wisdom tooth removed 5 days ago and has taken Tylenol extra strength for the pain. Pt Confirms above history cta -- shows entretis Started on i/v protonix, flagyl troponins -ve Ekg- no acute changes-- pt has drug Eluting stent -- 06/23---[facility] Pt seen by gi-- appreciated pt seen by me-- still having pain-- better History Source: Patient, Medical Record Limitations to Obtaining History: No Limitations - Past Medical History Cardiovascular: Yes: HTN, Hyperlipdemia Rheumatology: Yes: Other (scleroderma) Endocrine: Yes: Diabetes Mellitus - Smoking History Smoking history: Never smoked Have you smoked in the past 12 months: No Aproximately how many cigarettes per day: 0 - Alcohol/Substance Use Hx Alcohol Use: No - Social History ADL: Independent History of Recent Travel: No Home Medications - Allergies Allergies/Adverse Reactions: Allergies Allergy/AdvReac Type Severity Reaction Status Date / Time Sulfa (Sulfonamide Allergy Mild Verified 10/26/17 21:20 Antibiotics) [Sulfa(Sulfonamide Antibiotics)] - Home Medications Home Medications: Ambulatory Orders Levothyroxine [Synthroid -] 100 mcg PO HS 01/26/12 metFORMIN HCL [Glucophage -] 500 mg PO BID@0700,1630 01/26/12 Zolpidem Tartrate [Ambien] 10 mg PO HS 04/20/16 Iron,Carbonyl/Ascorbic Acid [Vitron-C Tablet] 1 each PO DAILY 11/13/15 Nifedipine [Nifedical Xl] 30 mg PO DAILY 11/13/15 Aspirin [ASA -] 81 mg PO DAILY 08/25/16 Atorvastatin Ca [Lipitor] 40 mg PO HS 08/25/16 Clopidogrel Bisulfate [Clopidogrel] 75 mg PO DAILY 08/25/16 Pantoprazole Sodium 40 mg PO BID 09/11/16 Acetaminophen [Tylenol .Regular Strength -] 650 mg PO Q6H PRN tablet 05/12/17 Carvedilol [Coreg -] 3.125 mg PO BID #60 tablet 05/12/17 Lactobacillus Acidophilus [Bacid -] 1 tab PO DAILY #30 tab 05/12/17 Oxycodone HCl/Acetaminophen [Percocet 5-325 mg Tablet] 1 tab PO Q6H PRN #20 tablet MDD 4 05/13/17 Review of Systems Findings/Remarks: see [place] Physical Examination Vital Signs: Vital Signs Temperature 98 F 10/27/17 18:00 Pulse Rate 77 10/27/17 18:00 Respiratory Rate 18 10/27/17 18:00 Blood Pressure 106/55 10/27/17 18:00 O2 Sat by Pulse Oximetry (%) 100 10/27/17 14:00 Constitutional: Yes: Anxious, Mild Distress Eyes: Yes: Conjunctiva Clear Neck: Yes: Supple, Trachea Midline Cardiovascular: Yes: Regular Rate and Rhythm Respiratory: Yes: CTA Bilaterally Gastrointestinal: Yes: Soft, Tenderness, Epigastrium (no r/r) ...Rectal Exam: Yes: Deferred Edema: No Neurological: Yes: Alert Labs: CBC, BMP 10/27/17 12:15 10/27/17 12:15 Imaging - Results Chest X-ray: Report Reviewed Cat Scan: Report Reviewed EKG: Report Reviewed Problem List - Problems (1) Abdominal pain Code(s): R10.9 - UNSPECIFIED ABDOMINAL PAIN (2) CAD (coronary artery disease) Code(s): I25.10 - ATHSCL HEART DISEASE OF [place] CORONARY ARTERY W/O ANG PCTRS (3) Diabetes Code(s): E11.9 - TYPE 2 DIABETES MELLITUS WITHOUT COMPLICATIONS (4) Enteritis Code(s): K52.9 - NONINFECTIVE GASTROENTERITIS AND COLITIS, UNSPECIFIED (5) H/O heart artery stent Code(s): Z95.5 - PRESENCE OF CORONARY ANGIOPLASTY IMPLANT AND GRAFT (6) HLD (hyperlipidemia) Code(s): E78.5 - HYPERLIPIDEMIA, UNSPECIFIED Qualifiers: Hyperlipidemia type: pure hypercholesterolemia Qualified Code(s): E78.00 - Pure hypercholesterolemia, unspecified; E78.0 - Pure hypercholesterolemia (7) Leukocytosis Code(s): D72.829 - ELEVATED WHITE BLOOD CELL COUNT, UNSPECIFIED Qualifiers: Leukocytosis type: leukemoid reaction Qualified Code(s): D72.823 - Leukemoid reaction Assessment/Plan Discussed i/v protonix flagyl liquid diet hold asa/ plavix Plavix can be d/c ed now any ways -- more than year. hold diabetic meds. May need egd if not better. will f/u.
[2017-10-27] MEDS ORDERED: ACETAMINOPHEN 325 MG TABLET (FP) PO PRN (20:33)
[2017-10-27] MEDS: ATORVASTATIN CA 40 MG TABLET (FP) PO SCH (21:46)
[2017-10-27] MEDS: CARVEDILOL 3.125 MG TABLET (FP) PO SCH (21:46)
[2017-10-27] MEDS ORDERED: ZOLPIDEM TARTRATE 5 MG TABLET PO PRN (22:00)
[2017-10-28] MEDS: LEVOTHYROXINE NA 100 MCG TABLET (FP) PO SCH (06:02)
[2017-10-28] MEDS ORDERED: INSULIN SLIDING SCALE (NOVOLOG) 1 VIAL SQ SCH (07:00)
--- NOTE | 2017-10-28 08:22 | CONS ---
DATE OF CONSULTATION: 10/27/2017 CONSULT: Asked to evaluate this 57-year-old female with a history of scleroderma, coronary artery disease, peptic disease including gastroesophageal reflux, hypothyroidism, and diabetes. She has been followed by Dr. Haroldo Ugalde for GI issues including esophageal dysmotility and possible stricturing related to her scleroderma. She was hospitalized in May with an infected elbow postsurgical and had a GI evaluation for coffee-grounds emesis by Dr. Roland Roach. She also underwent an upper endoscopy at that time which showed evidence of gastritis and esophagitis. The patient has been on PPI therapy with fairly good relief chronically. Most recently, she has been on b.i.d. pantoprazole under the care of Dr. Ugalde. The patient also has had a recent ?ear infection and has been on 6-eamdj-s-day antibiotic including at bedtime. She apparently had the acute onset of pain in the substernal region occurring at night, prompting her to go to the emergency room. She states that it awakened her at 4 a.m., and she went to the emergency room, at which time she had an evaluation including a CAT scan of the abdomen and chest to rule out an aortic dissection. This study was unremarkable. The patient states that the pain is somewhat improved today, although she has been n.p.o. She has also been receiving pain medication. She has had no similar complaints of this type of pain, although she has had burning and heartburn in the past. PHYSICAL EXAMINATION: She is a well-developed, slightly thin female with pink conjunctivae, clear lungs, a regular rate and rhythm on cardiac exam. Her abdomen is soft. There is nonspecific tenderness in the upper abdomen, especially in the mid and epigastric areas, to palpation. There was no guarding or rebound. LABORATORY: Her laboratory tests include a white count of 12.6, hematocrit of 32.5, and normal chemistries including liver chemistries and serum lipase. Her CAT scan, as mentioned, does not show any evidence of an aortic dissection. Patient with acute onset of pain in the subxiphoid area, with a history of prior peptic disease including esophagitis. She has been taking antibiotics for the past several days for a ?ear or dental issue, including a pill at bedtime. She does have some swallowing issues with some dysmotility and may have had a pill impaction in the distal esophagus causing an erosion and associated pain as the cause of her current symptoms. In view of her having an upper endoscopy several months ago and one also a year ago, would defer this study and instead begin patient on Carafate suspension 4 times a day and monitor. She will be continued on PPI therapy as well. Further recommendations based on clinical course. Will begin on clear liquids as well. USHA HOSKINS M.D. [id number]
[2017-10-28 08:33] LABS: BASO % 0.2 % (0-2.0); EOS % 5.3 % (0-4.5); HEMOGLOBIN 9.8 GM/dl (10.7-15.3); MCH 28.7 pg (25.7-33.7); MCHC 32.6 g/dl (32.0-36.0); MEAN PLT VOLUME 6.8 fl (7.5-11.1); MONO % 8.7 % (3.8-10.2); NEUT % 69.8 % (42.8-82.8); PLATELET COUNT 262 K/MM3 (134-434); RBC 3.41 M/mm3 (3.60-5.2); RDW 14.2 % (11.6-15.6); WHITE BLOOD COUNT 10.3 K/mm3 (4.0-10.8)
--- NOTE | 2017-10-28 09:01 | PN ---
Progress Note (short form) - Note Progress Note: pt feels better decreased pain. tolerating diet --liquids Vital Signs Temp 98.4 F 10/28/17 05:37 Pulse 55 L 10/28/17 05:37 Resp 18 10/28/17 08:51 BP 97/42 10/28/17 05:37 Pulse Ox 100 10/28/17 08:51 Intake & Output 10/27/17 10/27/17 10/28/17 11:59 23:59 11:59 Intake Total 100 0 Balance 100 0 Weight 145 lb Intake: IV 100 LACTATED RINGERS SOLUTION 100 1,000 ml In 1,000 ml @ 1000 mls/hr IV ONCE STA Rx#:[id number] Oral 0 0 Other: Voiding Method Toilet Toilet Toilet # Unmeasured Voids Void 1 1 1 Height 5 ft 2 in Body Mass Index (BMI) 26.5 Active Medications Acetaminophen (Tylenol -) 650 mg PO Q6H PRN PRN Reason: FEVER Atorvastatin Calcium (Lipitor -) 40 mg PO HS [facility] Last Admin: 10/27/17 21:46 Dose: 40 mg Carvedilol (Coreg -) 3.125 mg PO BID [facility] Last Admin: 10/27/17 21:46 Dose: Not Given Heparin Sodium (Porcine) (Heparin -) 5,000 unit SQ BID [facility] Potassium Chloride/Dextrose/Sod Cl (D5-1/2ns+20 Meq Kcl -) 20 meq in 1,000 mls @ 83 mls/hr IV ASDIR [facility] Last Admin: 10/27/17 12:41 Dose: 83 mls/hr Metronidazole (Flagyl 500mg Premixed Ivpb -) 500 mg in 100 mls @ 100 mls/hr IVPB Q8H-IV [facility] Last Admin: 10/28/17 01:44 Dose: 100 mls/hr Insulin Aspart (Novolog Vial Sliding Scale -) 1 vial SQ BIDAC [facility]; Protocol Last Admin: 10/28/17 06:02 Dose: Not Given Lactobacillus Acidophilus (Bacid -) 1 tab PO DAILY [facility] Levothyroxine Sodium (Synthroid -) 100 mcg PO DAILY@0700 [facility] Last Admin: 10/28/17 06:02 Dose: 100 mcg Morphine Sulfate (Morphine Injection -) 2 mg IVPUSH Q6H PRN PRN Reason: PAIN LEVEL 4 - 6 Last Admin: 10/27/17 12:51 Dose: 2 mg Nifedipine (Procardia Xl -) 30 mg PO DAILY [facility] Ondansetron HCl (Zofran Injection) 4 mg IVPUSH Q6H PRN PRN Reason: NAUSEA AND/OR VOMITING Last Admin: 10/27/17 12:50 Dose: 4 mg Pantoprazole Sodium (Protonix Iv) 40 mg IVPUSH DAILY [facility] Sucralfate (Carafate Oral Suspension -) 1 gm PO QID [facility] Last Admin: 10/27/17 21:46 Dose: 1 gm Zolpidem Tartrate (Ambien -) 10 mg PO HS PRN PRN Reason: INSOMNIA CBC, BMP 10/28/17 08:24 Physical Examination Constitutional: Yes: alert and awake Eyes: Yes: Conjunctiva Clear Neck: Yes: Supple, Trachea Midline Cardiovascular: Yes: Regular Rate and Rhythm Respiratory: Yes: CTA Bilaterally Gastrointestinal: Yes: Soft, Tenderness, Epigastrium (no r/r)--decreased ...Rectal Exam: Yes: Deferred Edema: No Neurological: Yes: Alert Imaging - Results Chest X-ray: Report Reviewed Cat Scan: Report Reviewed EKG: Report Reviewed Assessment/Plan clinically better continue present care Advance diet slowly Will consult cardiology also--- for aspirin and Plavix Hold aspirin and Plavix for now--as I mentioned in my initial H&P Daily out of bed to chair Physical therapy If better--- anticipated discharge tomorrow Discussed with patient also Will follow. Problem List - Problems (1) Abdominal pain Code(s): R10.9 - UNSPECIFIED ABDOMINAL PAIN (2) CAD (coronary artery disease) Code(s): I25.10 - ATHSCL HEART DISEASE OF [place] CORONARY ARTERY W/O ANG PCTRS (3) Diabetes Code(s): E11.9 - TYPE 2 DIABETES MELLITUS WITHOUT COMPLICATIONS (4) Enteritis Code(s): K52.9 - NONINFECTIVE GASTROENTERITIS AND COLITIS, UNSPECIFIED (5) H/O heart artery stent Code(s): Z95.5 - PRESENCE OF CORONARY ANGIOPLASTY IMPLANT AND GRAFT (6) HLD (hyperlipidemia) Code(s): E78.5 - HYPERLIPIDEMIA, UNSPECIFIED Qualifiers: Hyperlipidemia type: pure hypercholesterolemia Qualified Code(s): E78.00 - Pure hypercholesterolemia, unspecified; E78.0 - Pure hypercholesterolemia (7) Leukocytosis Code(s): D72.829 - ELEVATED WHITE BLOOD CELL COUNT, UNSPECIFIED Qualifiers: Leukocytosis type: leukemoid reaction Qualified Code(s): D72.823 - Leukemoid reaction
[2017-10-28 09:20] LABS: ALBUMIN 2.9 g/dl (3.5-5.0); ALK PHOS 191 U/L (32-92); ANION GAP 5 (8-16); BILIRUBIN,TOTAL 0.6 mg/dl (0.2-1.0); BLOOD UREA NITROGEN 10 mg/dl (7-18); CALCIUM 8.4 mg/dl (8.4-10.2); CHLORIDE 105 mmol/L (98-107); CO2 25 mmol/L (22-28); CREATININE 0.8 mg/dl (0.6-1.3); GLUCOSE,RANDOM 154 mg/dl (74-106); POTASSIUM 4.1 mmol/L (3.5-5.1); SGOT/AST 128 U/L (10-42); SGPT/ALT 156 U/L (10-40); SODIUM 135 mmol/L (136-145)
--- NOTE | 2017-10-28 09:35 | PN ---
Progress Note (short form) - Note Progress Note: Patient with less chest/epigastric pain; has been on Carafate suspension for ? pill-induced esophageal ulcer. Toleratin PO liquids. No new GI complaints. VSS Abdomen soft +BS + tender in epigastrium but improved from yesterday Normal WBC Would advance diet to soft and continue on soft diet x 5-7 days Switch Carafate suspension to bid x 7 days and discharge home if stable
[2017-10-28] MEDS ORDERED: PT OWN MED DRAWER 7, Y5N ONE (09:49)
[2017-10-28] MEDS: CARVEDILOL 3.125 MG TABLET (FP) PO SCH ×2 (09:56→22:32)
[2017-10-28] MEDS: SUCRALFATE 1 GM/10 ML UNIT DOSE CUPS PO SCH ×4 (09:56→22:32)
[2017-10-28] MEDS: LACTOBACILLUS ACIDOPHILUS 1 TABLET PO SCH (09:57)
[2017-10-28] MEDS: PANTOPRAZOLE SODIUM 40 MG VIAL IVPUSH SCH (09:57)
[2017-10-28] MEDS: HEPARIN NA (PORCINE) 5,000 UNITS/ML 1ML VIAL SQ SCH ×2 (09:57→22:25)
[2017-10-28] MEDS ORDERED: NIFEdipine E.R. 30 MG TABLET (FP) PO SCH (10:00)
[2017-10-28] MEDS: INSULIN SLIDING SCALE (NOVOLOG) 1 VIAL SQ SCH (17:35)
[2017-10-28] MEDS: D5-1/2NS+20 MEQ KCL - 20 MEQ/1,000 ML INFUS.BAG IV SCH (17:49)
[2017-10-28] MEDS: ATORVASTATIN CA 40 MG TABLET (FP) PO SCH (22:32)
[2017-10-29] MEDS: LEVOTHYROXINE NA 100 MCG TABLET (FP) PO SCH (06:01)
[2017-10-29] MEDS: INSULIN SLIDING SCALE (NOVOLOG) 1 VIAL SQ SCH ×2 (06:01→17:27)
--- NOTE | 2017-10-29 07:48 | CON.CARD ---
Cardiology Consult (text) - Consultation Consultation Note: Cardiology IMP: Scleroderma with esophageal involvement H/o Gastritis Epigastric pain CAD s/p [place], PCI about one year ago Current symptoms do not sound consistent with previous angina, more consistent with her chronic gastric and esophageal pathology. Other consideration would be to rule out pericardial involvement, but hx and ECG do not point to pericarditis. REC: 1. Echo 2. 2nd cardiac enzyme 3. Would resume Plavix as single antiplatelet Rx now one year post PCI. Will review office records, prior cath. Full consult to follow. Thank you.
[2017-10-29] MEDS: SUCRALFATE 1 GM/10 ML UNIT DOSE CUPS PO SCH ×4 (10:15→21:23)
[2017-10-29] MEDS: LACTOBACILLUS ACIDOPHILUS 1 TABLET PO SCH (10:16)
[2017-10-29] MEDS: CARVEDILOL 3.125 MG TABLET (FP) PO SCH ×2 (10:17→21:23)
[2017-10-29] MEDS: PANTOPRAZOLE SODIUM 40 MG VIAL IVPUSH SCH (10:24)
[2017-10-29] MEDS: HEPARIN NA (PORCINE) 5,000 UNITS/ML 1ML VIAL SQ SCH ×2 (10:24→21:23)
--- NOTE | 2017-10-29 11:48 | PN ---
Progress Note (short form) - Note Progress Note: feels little better elevation of lfts Vital Signs Temp 98.0 F 10/29/17 06:19 Pulse 55 L 10/29/17 06:19 Resp 18 10/29/17 06:19 BP 112/54 10/29/17 06:19 Pulse Ox 100 10/29/17 08:19 Intake & Output 10/28/17 10/28/17 10/29/17 11:59 23:59 11:59 Intake Total 100 1371 Balance 100 1371 Intake: IV 996 D5-1/2NS+20 MEQ KCL - 20 996 meq In 1,000 ml @ 83 mls/ hr IV ASDIR [facility] Rx#: [id number] IVPB 100 Oral 375 Other: Voiding Method Toilet Toilet Toilet # Unmeasured Voids Void 1 Active Medications Acetaminophen (Tylenol -) 650 mg PO Q6H PRN PRN Reason: FEVER Carvedilol (Coreg -) 3.125 mg PO BID [facility] Last Admin: 10/29/17 10:17 Dose: Not Given Heparin Sodium (Porcine) (Heparin -) 5,000 unit SQ BID [facility] Last Admin: 10/29/17 10:24 Dose: 5,000 unit Potassium Chloride/Dextrose/Sod Cl (D5-1/2ns+20 Meq Kcl -) 20 meq in 1,000 mls @ 83 mls/hr IV ASDIR [facility] Last Admin: 10/28/17 17:49 Dose: 83 mls/hr Metronidazole (Flagyl 500mg Premixed Ivpb -) 500 mg in 100 mls @ 100 mls/hr IVPB Q8H-IV [facility] Last Admin: 10/29/17 10:17 Dose: 100 mls/hr Insulin Aspart (Novolog Vial Sliding Scale -) 1 vial SQ BIDAC [facility]; Protocol Last Admin: 10/29/17 06:01 Dose: Not Given Lactobacillus Acidophilus (Bacid -) 1 tab PO DAILY [facility] Last Admin: 10/29/17 10:16 Dose: 1 tab Levothyroxine Sodium (Synthroid -) 100 mcg PO DAILY@0700 [facility] Last Admin: 10/29/17 06:01 Dose: 100 mcg Morphine Sulfate (Morphine Injection -) 2 mg IVPUSH Q6H PRN PRN Reason: PAIN LEVEL 4 - 6 Last Admin: 10/27/17 12:51 Dose: 2 mg Ondansetron HCl (Zofran Injection) 4 mg IVPUSH Q6H PRN PRN Reason: NAUSEA AND/OR VOMITING Last Admin: 10/27/17 12:50 Dose: 4 mg Pantoprazole Sodium (Protonix Iv) 40 mg IVPUSH DAILY [facility] Last Admin: 10/29/17 10:24 Dose: 40 mg Sucralfate (Carafate Oral Suspension -) 1 gm PO QID [facility] Last Admin: 10/29/17 10:15 Dose: 1 gm Zolpidem Tartrate (Ambien -) 10 mg PO HS PRN PRN Reason: INSOMNIA CBC, BMP 10/28/17 08:24 10/28/17 08:27 CMP Sodium 135 mmol/L (136-145) L 10/28/17 08:27 Potassium 4.1 mmol/L (3.5-5.1) 10/28/17 08:27 Chloride 105 mmol/L (98-107) 10/28/17 08:27 Carbon Dioxide 25 mmol/L (22-28) 10/28/17 08:27 Anion Gap 5 (8-16) L 10/28/17 08:27 BUN 10 mg/dl (7-18) D 10/28/17 08:27 Creatinine 0.8 mg/dl (0.6-1.3) 10/28/17 08:27 Creat Clearance w eGFR > 60 (>60) 10/28/17 08:27 POC Glucometer 139 UNITS (80-120) 10/29/17 05:40 Random Glucose 154 mg/dl (74-106) H D 10/28/17 08:27 Calcium 8.4 mg/dl (8.4-10.2) 10/28/17 08:27 Phosphorus 2.5 mg/dl (2.5-4.6) D 10/27/17 12:15 Magnesium 1.5 mg/dL (1.8-2.4) L 10/27/17 12:15 Total Bilirubin 0.6 mg/dl (0.2-1.0) D 10/28/17 08:27 AST 128 U/L (10-42) H D 10/28/17 08:27 ALT 156 U/L (10-40) H D 10/28/17 08:27 Alkaline Phosphatase 191 U/L (32-92) H D 10/28/17 08:27 Creatine Kinase 80 IU/L (26-192) 10/29/17 09:38 Troponin I < 0.03 ng/ml (0.00-0.06) 10/29/17 09:38 Total Protein 5.0 g/dl (6.4-8.3) L 10/28/17 08:27 Albumin 2.9 g/dl (3.5-5.0) L D 10/28/17 08:27 Lipase 129 U/L (73-393) 10/26/17 23:20 Physical Examination Constitutional: Yes: alert and awake Eyes: Yes: Conjunctiva Clear Neck: Yes: Supple, Trachea Midline Cardiovascular: Yes: Regular Rate and Rhythm Respiratory: Yes: CTA Bilaterally Gastrointestinal: Yes: Soft, Tenderness, Epigastrium (no r/r)--decreased. ...Rectal Exam: Yes: Deferred Edema: No Neurological: Yes: Alert Imaging - Results Chest X-ray: Report Reviewed Cat Scan: Report Reviewed EKG: Report Reviewed Assessment/Plan clinically better continue present care Advance diet slowly Daily out of bed to chair Physical therapy check u.s liver monitor lfts Discussed with patient also cardiology recommends to start on plavix and d/c asa Discussed Will follow. Problem List - Problems (1) Abdominal pain Code(s): R10.9 - UNSPECIFIED ABDOMINAL PAIN Qualifiers: Abdominal location: epigastric Qualified Code(s): R10.13 - Epigastric pain (2) CAD (coronary artery disease) Code(s): I25.10 - ATHSCL HEART DISEASE OF [place] CORONARY ARTERY W/O ANG PCTRS (3) Diabetes Code(s): E11.9 - TYPE 2 DIABETES MELLITUS WITHOUT COMPLICATIONS (4) Enteritis Code(s): K52.9 - NONINFECTIVE GASTROENTERITIS AND COLITIS, UNSPECIFIED (5) H/O heart artery stent Code(s): Z95.5 - PRESENCE OF CORONARY ANGIOPLASTY IMPLANT AND GRAFT (6) HLD (hyperlipidemia) Code(s): E78.5 - HYPERLIPIDEMIA, UNSPECIFIED Qualifiers: Hyperlipidemia type: pure hypercholesterolemia Qualified Code(s): E78.00 - Pure hypercholesterolemia, unspecified; E78.0 - Pure hypercholesterolemia (7) Leukocytosis Code(s): D72.829 - ELEVATED WHITE BLOOD CELL COUNT, UNSPECIFIED Qualifiers: Leukocytosis type: leukemoid reaction Qualified Code(s): D72.823 - Leukemoid reaction
--- NOTE | 2017-10-29 13:36 | CON.CARD ---
Consult Consult Specialty:: Cardiology Referred by:: Dr. Galdamez Reason for Consultation:: CAD and chest pain - History of Present Illness Chief Complaint: Epigastric pain History of Present Illness: 57F PMHx HTN, HL, DMII, scleroderma, gastritis, NSTEMI 07/02/2016 with МАРИНА LCX ( residual non-obstx CAD) presented to [place] several days ago with severe epigastric pain. She underwent a CTA of chest and abdomen showing no aortic dissection, dilated esophagus. She was seen by GI. Cardiac enzymes are negative and ECG showed no acute ischemic changes. She described the pain as sharp epigastric, no associated CP or dyspnea. No diaphoresis as she had with her prior UT. No PND, orthopnea or edema. No palps or syncope. - History Source History Provided By: Patient, Medical Record - Past Medical History Cardio/Vascular: Yes: CAD, HTN, Hyperlipdemia Gastrointestinal: Yes: Gastritis Infectious Disease: Yes: Other (severe cellulitis/infection left elbow requiring IV abx via PICC) Rheumatology: Yes: Other (scleroderma) Endocrine: Yes: Diabetes Mellitus, Hypothyroidism - Alcohol/Substance Use Hx Alcohol Use: No - Smoking History Smoking history: Never smoked Have you smoked in the past 12 months: No Aproximately how many cigarettes per day: 0 - Social History ADL: Independent History of Recent Travel: No Home Medications - Allergies Allergies/Adverse Reactions: Allergies Allergy/AdvReac Type Severity Reaction Status Date / Time Sulfa (Sulfonamide Allergy Mild Verified 10/26/17 21:20 Antibiotics) [Sulfa(Sulfonamide Antibiotics)] - Home Medications Home Medications: Ambulatory Orders Levothyroxine [Synthroid -] 100 mcg PO HS 01/26/12 metFORMIN HCL [Glucophage -] 500 mg PO BID@0700,1630 01/26/12 Zolpidem Tartrate [Ambien] 10 mg PO HS 09/25/15 Iron,Carbonyl/Ascorbic Acid [Vitron-C Tablet] 1 each PO DAILY 11/13/15 Nifedipine [Nifedical Xl] 30 mg PO DAILY 11/13/15 Aspirin [ASA -] 81 mg PO DAILY 08/25/16 Atorvastatin Ca [Lipitor] 40 mg PO HS 08/25/16 Clopidogrel Bisulfate [Clopidogrel] 75 mg PO DAILY 08/25/16 Pantoprazole Sodium 40 mg PO BID 09/11/16 Acetaminophen [Tylenol .Regular Strength -] 650 mg PO Q6H PRN tablet 05/12/17 Carvedilol [Coreg -] 3.125 mg PO BID #60 tablet 05/12/17 Lactobacillus Acidophilus [Bacid -] 1 tab PO DAILY #30 tab 05/12/17 Oxycodone HCl/Acetaminophen [Percocet 5-325 mg Tablet] 1 tab PO Q6H PRN #20 tablet MDD 4 05/13/17 Family Disease History - Family Disease History Family History: Unremarkable (not pertinent to this presentation) Review of Systems Findings/Remarks: "The patient is a 57 year old female with a past medical history of NSTEMI w/ stent, scleroderma, hypercholesterolemia, diabetes, GERD/hiatal hernia, hypothyroidism, recent septic bursitis of elbow who presents to the emergency department today with epigastric pain radiating to back and b/l shoulder blades and shortness of breath for 1 day. The patient reports she woke up at 4 am this morning secondary to her mid epigastric pain. She reports associated shortness of breath secondary to her epigastric pain. She describes her pain as non- radiating and denies any exacerbating or alleviating factors. No change w/ exertion, no change w/ eating, no leg swelling, last hospitalization was May. She denies nausea, vomiting, fevers, and leg swelling. The patient notes that she had a wisdom tooth removed 5 days ago and has taken Tylenol extra strength for the pain." - Review of Systems Constitutional: reports: No Symptoms Eyes: reports: No Symptoms HENT: reports: No Symptoms Neck: reports: No Symptoms Respiratory: reports: No Symptoms Gastrointestinal: reports: Abdominal Pain Genitourinary: denies: No Symptoms, Burning, Discharge, Dysuria, Flank Pain, Frequency, Hematuria, Incontinence, Lesions, Menses, Pain, Testicular Mass, Testicular Pain, Testicular Swelling, Urgency, Vaginal Bleeding, Other Breasts: denies: No Symptoms Reported, See HPI, Breast Implants, Discharge from Nipple, Lumps, Pain, Skin Changes, Other Musculoskeletal: denies: No Symptoms, Back Pain, Crepitus, Decreased ROM, Extremity Pain, Joint Pain, Joint Swelling, Muscle Pain, Muscle Cramps, Muscle Weakness, Other Integumentary: reports: Other (chronic skin tightness) Neurological: denies: No Symptoms, Change in LOC, Change in Speech, Confusion, Dizziness, Headache, Incoordination, Numbness, Parasthesia, Pre-Existing Deficit , Seizure, Syncope, Tremors, Unsteady Gait, Weakness, Other Endocrine: denies: No Symptoms, Excessive Sweating, Flushing, Increased Hunger, Increased Thirst, Intolerance to Cold, Intolerance to Heat, Unexplained Weight Gain, Unexplained Weight Loss, Other Hematology/Lymphatic: denies: No Symptoms, Easily Bruised, Excessive Bleeding, Swollen Glands, Other Psychiatric: denies: No Symptoms, Altered Sleep Pattern, Anxiety, Depression, Hallucinations, Panic, Paranoia, Suicidal, Other - Risk Factors Known Risk Factors: Yes: Diabetes Mellitus, Hypercholesterolemia, Hypertension, Prior UT /Emb Stroke Vital Signs: Vital Signs Temperature 98.0 F 10/29/17 06:19 Pulse Rate 55 L 10/29/17 06:19 Respiratory Rate 18 10/29/17 06:19 Blood Pressure 112/54 10/29/17 06:19 O2 Sat by Pulse Oximetry (%) 100 10/29/17 08:19 Constitutional: Yes: No Distress, Calm Eyes: Yes: Conjunctiva Clear, EOM Intact HENT: Yes: Atraumatic, Normocephalic Neck: Yes: Supple, Trachea Midline Respiratory: Yes: CTA Bilaterally Gastrointestinal: Yes: Soft Cardiovascular: Yes: Regular Rate and Rhythm JVD: No Carotid Bruit: No PMI: Non-Displaced Heart Sounds: Yes: S1, S2 Edema: No Peripheral Pulses WNL: Yes Integumentary: Yes: Other (multiple subcutaneous nodules along the anterior aspect of shins) Neurological: Yes: Alert, Oriented ...Motor Strength: WNL Psychiatric: Yes: WNL - Other Data Labs, Other Data: CBC, BMP 10/28/17 08:24 10/28/17 08:27 INR, PTT INR 1.20 (0.82-1.09) 10/26/17 21:55 Troponin, BNP 10/29/17 09:38 Troponin I < 0.03 Troponin, BNP 10/29/17 09:38 Troponin I < 0.03 Laboratory Tests 10/26/17 10/29/17 21:55 09:38 Troponin I < 0.03 < 0.03 Reviewed in chart- nsr, low voltage, no acute ST changes Echo: Pending Prior Cardiac Procedures: PTCA with Stent Ejection Fraction %: LVEF > or = 40 % Imaging - Results Chest X-ray: Image Reviewed Cat Scan: Report Reviewed EKG: Image Reviewed Problem List - Problems (1) Scleroderma Code(s): M34.9 - SYSTEMIC SCLEROSIS, UNSPECIFIED (2) Abdominal pain Code(s): R10.9 - UNSPECIFIED ABDOMINAL PAIN Qualifiers: Abdominal location: epigastric Qualified Code(s): R10.13 - Epigastric pain (3) Gastritis Code(s): K29.70 - GASTRITIS, UNSPECIFIED, WITHOUT BLEEDING Qualifiers: Gastritis type: unspecified gastritis (4) CAD (coronary artery disease) Code(s): I25.10 - ATHSCL HEART DISEASE OF [place] CORONARY ARTERY W/O ANG PCTRS Qualifiers: Coronary Disease-Associated Artery/Lesion type: [place] artery [place] vs. transplanted heart: [place] heart Associated angina: without angina Qualified Code(s): I25.10 - Atherosclerotic heart disease of [place] coronary artery without angina pectoris (5) Stented coronary artery Code(s): Z95.5 - PRESENCE OF CORONARY ANGIOPLASTY IMPLANT AND GRAFT (6) Diabetes mellitus Code(s): E11.9 - TYPE 2 DIABETES MELLITUS WITHOUT COMPLICATIONS Qualifiers: Diabetes mellitus type: type 2 Diabetes mellitus rat exterminator insulin use: with usp use Diabetes mellitus complication status: with skin complications Diabetes mellitus complication detail: with other skin complication Qualified Code(s): E11.628 - Type 2 diabetes mellitus with other skin complications; Z79.4 - termite control service representative (current) use of insulin; Z79.4 - termite control service representative (current) use of insulin; Z79.4 - custodial (current) use of insulin; Z79.4 - custodial (current) use of insulin Assessment/Plan IMP: Scleroderma with esophageal involvement H/o Gastritis Epigastric pain CAD s/p UT, PCI LCx 07-02-16, МАРИНА at [facility] Current symptoms do not sound consistent with previous angina, more consistent with her chronic gastric and esophageal pathology. Other consideration would be to rule out pericardial involvement, but hx and ECG do not point to pericarditis. REC: 1. Echo 2. 2nd cardiac enzyme negative, rules out ACS 3. Would resume Plavix as single antiplatelet Rx now one year post PCI. ASA more likely to worsen gastritis/ and or GI ulcerations.
[2017-10-29] MEDS: CLOPIDOGREL BISULFATE 75 MG TABLET (FP) PO SCH (15:32)
[2017-10-29] MEDS: D5-1/2NS+20 MEQ KCL - 20 MEQ/1,000 ML INFUS.BAG IV SCH (15:32)
[2017-10-29] MEDS ORDERED: PT OWN MED DRAWER 7, Y5N ONE ×2 (17:31→21:15)
[2017-10-30 06:23] VITALS: BP 120/60; PULSE 55; TEMP 98.6
[2017-10-30] MEDS ORDERED: INSULIN (NOVOLOG) ASPART 100 UNITS/ML 10ML VIAL ONE (06:25)
[2017-10-30] MEDS: LEVOTHYROXINE NA 100 MCG TABLET (FP) PO SCH (06:42)
[2017-10-30] MEDS: INSULIN SLIDING SCALE (NOVOLOG) 1 VIAL SQ SCH (06:42)
[2017-10-30 08:36] LABS: ALK PHOS 174 U/L (32-92); ANION GAP 5 (8-16); BILIRUBIN,TOTAL 0.5 mg/dl (0.2-1.0); BLOOD UREA NITROGEN 6 mg/dl (7-18); CALCIUM 8.7 mg/dl (8.4-10.2); CHLORIDE 109 mmol/L (98-107); CO2 24 mmol/L (22-28); CREATININE 0.8 mg/dl (0.6-1.3); GLUCOSE,RANDOM 140 mg/dl (74-106); POTASSIUM 4.1 mmol/L (3.5-5.1); SGOT/AST 63 U/L (10-42); SGPT/ALT 105 U/L (10-40); SODIUM 138 mmol/L (136-145); TOT PROT 5.4 g/dl (6.4-8.3)
[2017-10-30 08:38] LABS: BASO % 0.2 % (0-2.0); EOS % 7.2 % (0-4.5); HEMATOCRIT 32.2 % (32.4-45.2); HEMOGLOBIN 10.3 GM/dl (10.7-15.3); LYMPH % 21.9 % (8-40); MCH 28.5 pg (25.7-33.7); MCHC 32.1 g/dl (32.0-36.0); MEAN CELL VOLUME 88.7 fl (80-96); MEAN PLT VOLUME 6.8 fl (7.5-11.1); MONO % 10.3 % (3.8-10.2); NEUT % 60.4 % (42.8-82.8); PLATELET COUNT 314 K/MM3 (134-434); RBC 3.63 M/mm3 (3.60-5.2); RDW 14.1 % (11.6-15.6); WHITE BLOOD COUNT 7.3 K/mm3 (4.0-10.8)
[2017-10-30] MEDS ORDERED: PT OWN MED DRAWER 7, Y5N ONE (09:28)
[2017-10-30] MEDS: HEPARIN NA (PORCINE) 5,000 UNITS/ML 1ML VIAL SQ SCH (09:46)
[2017-10-30] MEDS: CLOPIDOGREL BISULFATE 75 MG TABLET (FP) PO SCH (09:46)
[2017-10-30] MEDS: LACTOBACILLUS ACIDOPHILUS 1 TABLET PO SCH (09:48)
[2017-10-30] MEDS: SUCRALFATE 1 GM/10 ML UNIT DOSE CUPS PO SCH (09:48)
[2017-10-30] MEDS: PANTOPRAZOLE SODIUM 40 MG VIAL IVPUSH SCH (09:48)
[2017-10-30] MEDS: CARVEDILOL 3.125 MG TABLET (FP) PO SCH (09:54)
--- NOTE | 2017-10-30 09:54 | DS ---
Physical Examination Vital Signs: Vital Signs Temperature 98.6 F 10/30/17 06:22 Pulse Rate 55 L 10/30/17 06:22 Respiratory Rate 18 10/30/17 06:22 Blood Pressure 120/60 10/30/17 06:22 O2 Sat by Pulse Oximetry (%) 100 10/30/17 07:50 Findings/Remarks: feels much better tolerating diet no complains afebrile no n/v lfts trending down u/s - no stone no +ve toth sign noted by me Constitutional: Yes: No Distress Eyes: Yes: Conjunctiva Clear Neck: Yes: Supple Cardiovascular: Yes: Regular Rate and Rhythm Respiratory: Yes: CTA Bilaterally Gastrointestinal: Yes: Normal Bowel Sounds, Soft Edema: No Neurological: Yes: Alert Psychiatric: Yes: Alert Labs: CBC, BMP 10/30/17 07:35 10/30/17 07:35 Discharge Summary Reason For Visit: epigartic pain Current Active Problems Abdominal angina (Acute) Abdominal pain (Acute) CAD (coronary artery disease) (Acute) Diabetes (Acute) Enteritis (Acute) Gastritis (Acute) Stented coronary artery (Acute) Hospital Course: admitted for gastritis/ entritis much better gi followed sudden increase of lfts -- trending down likley due to acute illness u/s - no stone overall stable will d/c home f/u in office next weeek will repeat lfts also meds reconcilled cardiology/ gi also followed d/c asa continue plavix pt in agreement discussed with nursing staff also time spend 35 min in examing/ documenting and coordating care Condition: Stable - Instructions Disposition: HOME - Home Medications Comprehensive Discharge Medication List: Ambulatory Orders Levothyroxine [Synthroid -] 100 mcg PO HS 01/26/12 metFORMIN HCL [Glucophage -] 500 mg PO BID@0700,1630 01/26/12 Zolpidem Tartrate [Ambien] 10 mg PO HS 09/25/15 Iron,Carbonyl/Ascorbic Acid [Vitron-C Tablet] 1 each PO DAILY 11/13/15 Nifedipine [Nifedical Xl] 30 mg PO DAILY 11/13/15 Clopidogrel Bisulfate [Clopidogrel] 75 mg PO DAILY 08/25/16 Pantoprazole Sodium 40 mg PO BID 09/11/16 Acetaminophen [Tylenol .Regular Strength -] 650 mg PO Q6H PRN tablet 05/12/17 Carvedilol [Coreg -] 3.125 mg PO BID #60 tablet 05/12/17 Lactobacillus Acidophilus [Bacid -] 1 tab PO DAILY #30 tab 05/12/17 Sucralfate Oral Suspension [Carafate Oral Suspension -] 1 gm PO QID 30 Days # 120 ml 10/30/17
== END 2017-10-30 10:35 | disposition home or self-care (01) ==
LOC: FER 21:17 → FM/S 10-27 03:30 → UNDOADMOB 10-27 03:51 → FM/S 10-28 12:01
PROVIDERS: ADMIT Internal Medicine; ATTEND Internal Medicine
PROC: 3E03329 Introduction of Other Anti-infective into Peripheral Vein, Percutaneous Approach (ICD-10-PCS; principal; 2017-10-27)
PROC: 3E033NZ Introduction of Analgesics, Hypnotics, Sedatives into Peripheral Vein, Percutaneous Approach (ICD-10-PCS; 2017-10-27)
PROC: 3E033GC Introduction of Other Therapeutic Substance into Peripheral Vein, Percutaneous Approach (ICD-10-PCS; 2017-10-27)
PROC: 3E0337Z Introduction of Electrolytic and Water Balance Substance into Peripheral Vein, Percutaneous Approach (ICD-10-PCS; 2017-10-27)
PROC: 3E013VG Introduction of Insulin into Subcutaneous Tissue, Percutaneous Approach (ICD-10-PCS; 2017-10-27)
PROC: 3E013GC Introduction of Other Therapeutic Substance into Subcutaneous Tissue, Percutaneous Approach (ICD-10-PCS; 2017-10-27)
DX: R10.13 Epigastric pain (principal); I10 Essential (primary) hypertension; I25.2 Old myocardial infarction; E11.9 Type 2 diabetes mellitus without complications; E78.5 Hyperlipidemia, unspecified; E03.9 Hypothyroidism, unspecified; D64.9 Anemia, unspecified; D72.829 Elevated white blood cell count, unspecified; K21.9 Gastro-esophageal reflux disease without esophagitis; K52.9 Noninfective gastroenteritis and colitis, unspecified; K44.9 Diaphragmatic hernia without obstruction or gangrene; M34.9 Systemic sclerosis, unspecified; Z95.5 Presence of coronary angioplasty implant and graft; Z88.2 Allergy status to sulfonamides; Z79.82 Long term (current) use of aspirin; Z79.84 Long term (current) use of oral hypoglycemic drugs
CPT/HCPCS: 36415; 71046-TC-FY; 71275-TC; 74177-TC; 76705-TC; 80048; 80053; 82550; 82962; 83690; 83735; 84100; 84484; 85025; 85610; 85730; 87045; 87046; 87177; 87205; 87209; 87324; 87449; 93005; 93306-TC; 96361; 96374; 96375; 96376; 99282-25; G0378; J1644; J7030

== ENCOUNTER 2019-03-16 12:55 | Emergency (ER) | payer MEDICARE ==
[2019-03-16 13:01] VITALS: BMI 26.2
--- NOTE | 2019-03-16 13:36 | PDOC ---
History of Present Illness - General Chief Complaint: Wound Stated Complaint: LEFT TODD WOUND Time Seen by Provider: 03/16/19 13:03 - History of Present Illness Initial Comments: 03/16/19 13:55 Chief complaint: Leg lesion HPI: Patient has had a lesion on her distal left anterolateral calf for several months. For the last few weeks it has become more red and painful. For the last few days she has had constitutional symptoms of subjective fever, fatigue, and nausea. She is concerned because she has scleroderma, had severe cellulitis in 2017 of the left elbow requiring operative debridement, and prolonged intravenous therapy via an indwelling catheter. She states that skin infection in the past have rapidly developed into cellulitis because of her underlying disease. Has been on doxycycline for 2 days as prescribed by primary physician. Review of systems: As noted above, there is been subjective fever, nausea, generalized weakness and fatigue. No chest pain, shortness of breath, abdominal pain, emesis, diarrhea, visual or focal neurologic symptoms, unsteadiness of gait. No unusual numbness, tingling, or weakness distal to the lesion. No swelling or edema. The lesion is moderately painful to palpation. There is been no recent trauma Past medical history: [id number] diabetes, scleroderma, hypothyroidism, high blood pressure, GERD. Medications: Metformin, Synthroid, nifedipine, Protonix, and Coreg Social history: Lives independently, cares for herself, denies tobacco alcohol or nonprescription drugs Family history: Reviewed and noncontributory including early coronary artery disease, metabolic diseases including diabetes, autoimmune diseases, and cancer Physical exam: Alert and oriented x3, somewhat thin appearing female with tight skin consistent with scleroderma. Afebrile, vital signs normal PERRLA, fundi benign, ENT clear Neck supple without bruit mass or nodes Lungs clear CV regular without murmur rub or gallop pulses full and symmetric no JVD or edema no bruits Abdomen soft nontender without mass organomegaly bowel sounds normal nondistended Extremities shows a tight glistening skin characteristic of scleroderma. There is a 6 cm x 5 cm lesion present on the medial lateral aspect of the left distal calf, which is irregular, erythematous, warm, with a central area of duskiness, possible early necrosis. It is moderately tender to palpation. It is somewhat depressed and not indurated. There is no drainage or weeping. Skin shows no other lesions. Neurological C2 12 intact. Strength: Symmetric. No focal sensorimotor deficits. Gait stable and unimpaired Impression: Skin lesion, possibly related to scleroderma, autoimmune vasculitis versus early cellulitis. In view of the patient's history, if this is early cellulitis it would be beneficial to begin treatment early Plan: Labs and blood cultures, review history, antibiotics and close follow-up. Past History - Past Medical History Allergies/Adverse Reactions: Allergies Allergy/AdvReac Type Severity Reaction Status Date / Time Sulfa (Sulfonamide Allergy Mild Verified 03/16/19 12:56 Antibiotics) [Sulfa(Sulfonamide Antibiotics)] Home Medications: Ambulatory Orders Levothyroxine [Synthroid -] 88 mcg PO HS 01/26/12 metFORMIN HCL [Glucophage -] 500 mg PO BID@0700,1630 01/26/12 Zolpidem Tartrate [Ambien] 10 mg PO HS 09/25/15 Nifedipine [Nifedical Xl] 30 mg PO DAILY 11/13/15 Pantoprazole Sodium 40 mg PO BID 09/11/16 Carvedilol [Coreg -] 3.125 mg PO BID #60 tablet 05/12/17 Anemia: Yes Asthma: No Cancer: No Cardiac Disorders: Yes (Murmur, NSTEMI, stent) CVA: No COPD: No CHF: No Dementia: No Diabetes: Yes GI Disorders: Yes (GERD) Disorders: No HTN: Yes Hypercholesterolemia: Yes Liver Disease: No Seizures: No Thyroid Disease: Yes (HYPO) - Surgical History Abdominal Surgery: No Appendectomy: No Cardiac Surgery: No Cholecystectomy: No Lung Surgery: No Neurologic Surgery: No Orthopedic Surgery: Yes (Laminectomy x3,Right hand surgery) - Immunization History Td Vaccination: Yes Immunization Up to Date: (UNSURE) - Psycho Social/Smoking Cessation Hx Smoking Status: No Smoking History: Never smoked Have you smoked in the past 12 months: No Number of Cigarettes Smoked Daily: 0 Hx Alcohol Use: No Drug/Substance Use Hx: No Substance Use Type: None Hx Substance Use Treatment: No *Physical Exam - Vital Signs Last Vital Signs Temp Pulse Resp BP Pulse Ox 0/0 L 03/16/19 12:55 ED Treatment Course - LABORATORY CBC & Chemistry Diagram: 03/16/19 13:38 03/16/19 14:07 Medical Decision Making - Medical Decision Making 03/16/19 14:49 Old chart reviewed. Prior infections demonstrated MRSA, most recent wound culture 04/30/2017 at the time of her elbow cellulitis. There was resistance to Cipro and Levaquin, oxacillin and penicillin, and intermediate sensitivity to erythromycin. The organism was sensitive to Bactrim clindamycin gentamicin tetracycline vancomycin daptomycin and linezolid 03/16/19 16:21 CBC and chemistries including lactic acid are normal or with no significant abnormalities. The leg lesion may indeed not be infectious but a result of scleroderma/ vasculitis. However, since the patient was begun on antibiotics 2 days ago, will continue the doxycycline and close follow-up with tafe registrar. She has an appointment on . Discharge fully ambulatory and no significant pain or other distress to follow-up as directed, or return to ER if symptoms worsen. Discharge - Discharge Information Problems reviewed: Yes Clinical Impression/Diagnosis: Cellulitis Qualifiers: Site of cellulitis: extremity Site of cellulitis of extremity: lower extremity Laterality: left Qualified Code(s): L03.116 - Cellulitis of left lower limb Condition: Stable Disposition: HOME - Follow up/Referral Referrals: Jenn Valderrama MD [Primary Care Provider] - - Patient Discharge Instructions Patient Printed Discharge Instructions: DI for Cellulitis -- Adult Additional Instructions: See tafe registrar as scheduled in 2 days. Take laboratory results from today and make sure he checks your skin condition. Return to ER if there are high fevers or other serious symptoms that develop. Finish antibiotics as directed. - Post Discharge Activity
[2019-03-16 13:43] LABS: HEMATOCRIT 35.5 % (32.4-45.2); HEMOGLOBIN 11.3 GM/dl (10.7-15.3); MCH 26.6 pg (25.7-33.7); MCHC 31.8 g/dl (32.0-36.0); MEAN CELL VOLUME 83.7 fl (80-96); MEAN PLT VOLUME 7.5 fl (7.5-11.1); PLATELET COUNT 216 K/MM3 (134-434); RBC 4.25 M/mm3 (3.60-5.2); RDW 15.5 % (11.6-15.6); WHITE BLOOD COUNT 8.9 K/mm3 (4.0-10.8)
[2019-03-16 14:47] LABS: ALBUMIN 3.9 g/dl (3.4-5.0); BILIRUBIN,TOTAL 0.9 mg/dl (0.2-1); CALCIUM 8.8 mg/dl (8.5-10); CREATININE 0.9 mg/dl (0.55-1.3); POTASSIUM 4.3 mmol/L (3.5-5.1); TOT PROT 6.5 g/dl (6.4-8.2)
[2019-03-16 15:42] LABS: PLATELET ESTIMATE ADEQUATE
[2019-03-16 16:36] VITALS: BP 116/46; PULSE 60; TEMP 98.2
== END 2019-03-16 16:37 | disposition home or self-care (01) ==
LOC: FER 12:55
DX: L03.116 Cellulitis of left lower limb (principal); I10 Essential (primary) hypertension; E11.9 Type 2 diabetes mellitus without complications; E03.9 Hypothyroidism, unspecified; K21.9 Gastro-esophageal reflux disease without esophagitis; R01.1 Cardiac murmur, unspecified; I25.2 Old myocardial infarction; E78.00 Pure hypercholesterolemia, unspecified; Z79.84 Long term (current) use of oral hypoglycemic drugs; Z88.2 Allergy status to sulfonamides; Z95.5 Presence of coronary angioplasty implant and graft
CPT/HCPCS: 36415; 80053; 83605; 85025; 87040; 87070; 87205; 99283-25

== ENCOUNTER 2020-05-24 18:30 | Inpatient (IN) | payer MEDICARE, OTHER ==
[2020-05-24] MEDS ORDERED: ACETAMINOPHEN INJECTION 100 ML IVPB ONE (20:55)
[2020-05-24 21:59] LABS: BASO % 4.4 % (0-2.0); EOS % 4.2 % (0-4.5); HEMATOCRIT 35.5 % (32.4-45.2); LYMPH % 21.2 % (8-40); MCH 25.3 pg (25.7-33.7); MCHC 30.9 g/dl (32.0-36.0); MEAN CELL VOLUME 81.9 fl (80-96); MEAN PLT VOLUME 7.6 fl (7.5-11.1); MONO % 8.6 % (3.8-10.2); NEUT % 61.6 % (42.8-82.8); PLATELET COUNT 356 K/MM3 (134-434); RBC 4.33 M/mm3 (3.60-5.2); RDW 15.7 % (11.6-15.6); WHITE BLOOD COUNT 13.8 K/mm3 (4.0-10.8)
[2020-05-24 22:07] LABS: ALBUMIN 3.8 g/dl (3.4-5.0); CALCIUM 9.3 mg/dl (8.5-10); CREATININE 0.8 mg/dl (0.55-1.3); TOT PROT 6.7 g/dl (6.4-8.2)
[2020-05-24] MEDS ORDERED: ACETAMINOPHEN 1000 MG/100 ML BAG IVPB ONE (22:30)
[2020-05-24] MEDS ORDERED: VANCOMYCIN 1,000 MG in DEXTROSE 5%-WATER - 250 ML IVPB ONE (22:57)
[2020-05-24] MEDS ORDERED: VANCOMYCIN 1,000 MG VIAL (RESTRICTED TO ID ONLY) ONE (23:00)
[2020-05-25] MEDS ORDERED: ZOLPIDEM TARTRATE 5 MG TABLET PO ONE ×2 (01:04→23:45)
[2020-05-25] MEDS ORDERED: LEVOTHYROXINE NA 88 MCG TABLET (FP) PO SCH (07:00)
[2020-05-25] MEDS: ACETAMINOPHEN 325 MG TABLET (FP) PO PRN ×2 (07:24→23:53)
[2020-05-25 08:28] LABS: BASO % 0.5 % (0-2.0); EOS % 5.9 % (0-4.5); HEMOGLOBIN 9.9 GM/dl (10.7-15.3); LYMPH % 20.4 % (8-40); MCH 25.7 pg (25.7-33.7); MCHC 31.1 g/dl (32.0-36.0); MEAN CELL VOLUME 82.7 fl (80-96); MEAN PLT VOLUME 7.1 fl (7.5-11.1); MONO % 11.1 % (3.8-10.2); NEUT % 62.1 % (42.8-82.8); PLATELET COUNT 343 K/MM3 (134-434); RBC 3.86 M/mm3 (3.60-5.2); RDW 15.3 % (11.6-15.6); WHITE BLOOD COUNT 9.4 K/mm3 (4.0-10.8)
[2020-05-25 08:34] LABS: ALBUMIN 3.2 g/dl (3.4-5.0); BILIRUBIN,TOTAL 1.1 mg/dl (0.2-1); CALCIUM 8.9 mg/dl (8.5-10); CREATININE 0.8 mg/dl (0.55-1.3); TOT PROT 5.8 g/dl (6.4-8.2)
[2020-05-25] MEDS ORDERED: VANCOMYCIN 1,000 MG in DEXTROSE 5%-WATER - 250 ML IVPB SCH ×4 (09:45→23:00)
[2020-05-25] MEDS ORDERED: PANTOPRAZOLE SOD 40 MG SUSPENSION PACKET PO SCH (10:00)
[2020-05-25] MEDS ORDERED: VANCOMYCIN 1 GM in NS (PRE-DOCKED) 1,000 MG/250 ML IVPB SCH (11:30)
[2020-05-25] MEDS ORDERED: PATIENT'S OWN MEDICATION (NON-FORMULARY) (Oxycodone Hcl [Oxycodone Hcl] 10 MG Tablet) PO PRN (11:57)
[2020-05-25] MEDS ORDERED: CARVEDILOL 3.125 MG TABLET (FP) PO SCH (12:00)
[2020-05-25] MEDS: ASPIRIN 81 MG CHEWABLE TABLETS PO SCH (12:45)
[2020-05-25] MEDS: NIFEdipine E.R. 30 MG TABLET PO SCH (12:47)
[2020-05-25] MEDS: ENOXAPARIN NA (PORCINE) 40 MG/0.4 ML DISP.SYRIN SQ SCH (12:48)
[2020-05-25] MEDS: oxyCODONE HCL 5 MG TABLET PO PRN ×2 (12:48→21:44)
[2020-05-25] MEDS: ATORVASTATIN CA 40 MG TABLET (FP) PO SCH (12:48)
[2020-05-25] MEDS: INSULIN (NOVOLOG) ASPART 100 UNITS/ML 10ML VIAL SQ SCH ×2 (16:48→21:34)
[2020-05-25] MEDS: PANTOPRAZOLE 40 MG TABLET PO SCH (21:33)
[2020-05-25] MEDS: CARVEDILOL 3.125 MG TABLET (FP) PO SCH (21:34)
[2020-05-25] MEDS ORDERED: ATORVASTATIN CA 40 MG TABLET (FP) PO SCH (22:00)
[2020-05-25] MEDS ORDERED: LEVOTHYROXINE NA 50 MCG TABLET (FP) PO SCH (22:00)
[2020-05-25] MEDS: VANCOMYCIN 1 GM in D5W (PRE-DOCKED) 1,000 MG/250 ML IVPB SCH (23:07)
[2020-05-26] MEDS: INSULIN (NOVOLOG) ASPART 100 UNITS/ML 10ML VIAL SQ SCH ×4 (06:21→21:19)
[2020-05-26 08:19] LABS: BASO % 1.4 % (0-2.0); EOS % 6.6 % (0-4.5); HEMATOCRIT 30.5 % (32.4-45.2); HEMOGLOBIN 9.6 GM/dl (10.7-15.3); LYMPH % 23.9 % (8-40); MCHC 31.5 g/dl (32.0-36.0); MEAN CELL VOLUME 82.5 fl (80-96); MEAN PLT VOLUME 7.7 fl (7.5-11.1); MONO % 10.1 % (3.8-10.2); PLATELET COUNT 337 K/MM3 (134-434); RDW 15.4 % (11.6-15.6); WHITE BLOOD COUNT 10.1 K/mm3 (4.0-10.8)
[2020-05-26 08:44] LABS: ALBUMIN 3.1 g/dl (3.4-5.0); BILIRUBIN,TOTAL 0.7 mg/dl (0.2-1); CALCIUM 8.8 mg/dl (8.5-10); CREATININE 0.8 mg/dl (0.55-1.3); MAGNESIUM 1.7 mg/dL (1.8-2.4); TOT PROT 5.4 g/dl (6.4-8.2)
[2020-05-26] MEDS: ASPIRIN 81 MG CHEWABLE TABLETS PO SCH (10:14)
[2020-05-26] MEDS: NIFEdipine E.R. 30 MG TABLET PO SCH (10:14)
[2020-05-26] MEDS: PANTOPRAZOLE 40 MG TABLET PO SCH ×2 (10:14→21:10)
[2020-05-26] MEDS: ATORVASTATIN CA 40 MG TABLET (FP) PO SCH (10:14)
[2020-05-26] MEDS: CARVEDILOL 3.125 MG TABLET (FP) PO SCH ×2 (10:15→21:19)
[2020-05-26] MEDS: ENOXAPARIN NA (PORCINE) 40 MG/0.4 ML DISP.SYRIN SQ SCH (10:15)
[2020-05-26] MEDS: oxyCODONE HCL 5 MG TABLET PO PRN ×2 (11:51→21:14)
[2020-05-26] MEDS: VANCOMYCIN 1 GM in D5W (PRE-DOCKED) 1,000 MG/250 ML IVPB SCH (13:11)
[2020-05-26] MEDS: LEVOTHYROXINE NA 88 MCG TABLET (FP) PO SCH (21:18)
[2020-05-26] MEDS: ZOLPIDEM TARTRATE 5 MG TABLET PO PRN (23:02)
[2020-05-27] MEDS: INSULIN (NOVOLOG) ASPART 100 UNITS/ML 10ML VIAL SQ SCH (06:44)
[2020-05-27] MEDS: ACETAMINOPHEN 325 MG TABLET (FP) PO PRN ×2 (07:53→23:51)
[2020-05-27] MEDS: oxyCODONE HCL 5 MG TABLET PO PRN ×2 (07:54→20:12)
[2020-05-27 08:19] LABS: ALBUMIN 3.5 g/dl (3.4-5.0); BILIRUBIN,TOTAL 0.8 mg/dl (0.2-1); CALCIUM 9.2 mg/dl (8.5-10); CREATININE 0.9 mg/dl (0.55-1.3); MAGNESIUM 1.8 mg/dL (1.8-2.4); TOT PROT 6.2 g/dl (6.4-8.2)
[2020-05-27 09:04] LABS: BASO % 1.8 % (0-2.0); EOS % 6.8 % (0-4.5); HEMATOCRIT 32.9 % (32.4-45.2); LYMPH % 24.6 % (8-40); MCH 26.8 pg (25.7-33.7); MCHC 32.8 g/dl (32.0-36.0); MEAN CELL VOLUME 81.7 fl (80-96); MEAN PLT VOLUME 7.4 fl (7.5-11.1); MONO % 8.5 % (3.8-10.2); NEUT % 58.3 % (42.8-82.8); PLATELET COUNT 383 K/MM3 (134-434); RBC 4.02 M/mm3 (3.60-5.2); RDW 15.8 % (11.6-15.6)
[2020-05-27 09:05] LABS: HEMOGLOBIN 10.8 GM/dl (10.7-15.3)
[2020-05-27] MEDS: CARVEDILOL 3.125 MG TABLET (FP) PO SCH ×2 (09:26→21:39)
[2020-05-27] MEDS: PANTOPRAZOLE 40 MG TABLET PO SCH ×2 (09:27→21:39)
[2020-05-27] MEDS: ENOXAPARIN NA (PORCINE) 40 MG/0.4 ML DISP.SYRIN SQ SCH (09:27)
[2020-05-27] MEDS: ASPIRIN 81 MG CHEWABLE TABLETS PO SCH (09:27)
[2020-05-27] MEDS: NIFEdipine E.R. 30 MG TABLET PO SCH (09:27)
[2020-05-27] MEDS: ATORVASTATIN CA 40 MG TABLET (FP) PO SCH (10:00)
[2020-05-27] MEDS: INSULIN SLIDING SCALE (NOVOLOG) 1 VIAL SQ SCH ×3 (11:49→22:10)
[2020-05-27] MEDS ORDERED: HYDROCORTISONE 0.5% TOPICAL OINTMENT TUBE TP PRN ×2 (14:15→14:20)
[2020-05-27] MEDS ORDERED: HYDROCORTISONE 0.5% TOPICAL CREAM 30 GM TUBE TP PRN (14:32)
[2020-05-27] MEDS: VANCOMYCIN 1 GRAM (PRE-DOCKED) 1,000 MG/250 ML BAG IVPB SCH ×3 (15:47→19:08)
[2020-05-27] MEDS: LEVOTHYROXINE NA 88 MCG TABLET (FP) PO SCH (21:39)
[2020-05-27] MEDS: ZOLPIDEM TARTRATE 5 MG TABLET PO PRN (23:51)
[2020-05-28] MEDS: oxyCODONE HCL 5 MG TABLET PO PRN ×3 (05:25→20:13)
[2020-05-28] MEDS: INSULIN SLIDING SCALE (NOVOLOG) 1 VIAL SQ SCH ×4 (06:44→21:58)
[2020-05-28] MEDS: VANCOMYCIN 1 GRAM (PRE-DOCKED) 1,000 MG/250 ML BAG IVPB SCH ×2 (06:44→14:00)
[2020-05-28 07:50] LABS: BASO % 0.6 % (0-2.0); EOS % 7.5 % (0-4.5); HEMATOCRIT 32.2 % (32.4-45.2); HEMOGLOBIN 10.1 GM/dl (10.7-15.3); LYMPH % 23.5 % (8-40); MCH 25.8 pg (25.7-33.7); MCHC 31.3 g/dl (32.0-36.0); MEAN CELL VOLUME 82.3 fl (80-96); MEAN PLT VOLUME 6.8 fl (7.5-11.1); MONO % 8.6 % (3.8-10.2); NEUT % 59.8 % (42.8-82.8); PLATELET COUNT 377 K/MM3 (134-434); RBC 3.91 M/mm3 (3.60-5.2); RDW 15.2 % (11.6-15.6)
[2020-05-28 07:56] LABS: BILIRUBIN,TOTAL 0.8 mg/dl (0.2-1); CALCIUM 8.6 mg/dl (8.5-10); CREATININE 0.7 mg/dl (0.55-1.3); MAGNESIUM 1.8 mg/dL (1.8-2.4); TOT PROT 5.3 g/dl (6.4-8.2)
[2020-05-28] MEDS ORDERED: MIDAZOLAM HCL 2 MG/2 ML SINGLE DOSE VIAL ONE ×2 (10:04→10:30)
[2020-05-28] MEDS ORDERED: PROPOFOL 20 ML ONE (10:05)
[2020-05-28] MEDS ORDERED: LIDOCAINE HCL/PF 2% SDV 5ML VIAL ONE (10:26)
[2020-05-28] MEDS ORDERED: ONDANSETRON 4 MG/2 ML VIAL ONE (10:31)
[2020-05-28] MEDS ORDERED: ONDANSETRON 4 MG/2 ML VIAL IVPUSH PRN (11:06)
[2020-05-28] MEDS: ATORVASTATIN CA 40 MG TABLET (FP) PO SCH (14:01)
[2020-05-28] MEDS: ASPIRIN 81 MG CHEWABLE TABLETS PO SCH (14:01)
[2020-05-28] MEDS: PANTOPRAZOLE 40 MG TABLET PO SCH ×2 (14:01→21:57)
[2020-05-28] MEDS: CARVEDILOL 3.125 MG TABLET (FP) PO SCH ×2 (14:02→21:57)
[2020-05-28] MEDS: ENOXAPARIN NA (PORCINE) 40 MG/0.4 ML DISP.SYRIN SQ SCH (14:03)
[2020-05-28] MEDS: NIFEdipine E.R. 30 MG TABLET PO SCH (14:04)
[2020-05-28] MEDS: ACETAMINOPHEN 325 MG TABLET (FP) PO PRN (20:12)
[2020-05-28] MEDS: LEVOTHYROXINE NA 88 MCG TABLET (FP) PO SCH (21:57)
[2020-05-28] MEDS: ZOLPIDEM TARTRATE 5 MG TABLET PO PRN (23:21)
[2020-05-29] MEDS: ACETAMINOPHEN 325 MG TABLET (FP) PO PRN ×2 (02:20→21:38)
[2020-05-29] MEDS: oxyCODONE HCL 5 MG TABLET PO PRN ×4 (02:20→21:35)
[2020-05-29] MEDS: INSULIN SLIDING SCALE (NOVOLOG) 1 VIAL SQ SCH ×4 (06:04→21:49)
[2020-05-29 07:39] LABS: BASO % 1.3 % (0-2.0); EOS % 7.5 % (0-4.5); HEMATOCRIT 33.1 % (32.4-45.2); HEMOGLOBIN 10.2 GM/dl (10.7-15.3); LYMPH % 24.1 % (8-40); MCH 25.4 pg (25.7-33.7); MCHC 30.8 g/dl (32.0-36.0); MEAN CELL VOLUME 82.6 fl (80-96); MEAN PLT VOLUME 7.1 fl (7.5-11.1); MONO % 8.4 % (3.8-10.2); NEUT % 58.7 % (42.8-82.8); PLATELET COUNT 345 K/MM3 (134-434); RBC 4.01 M/mm3 (3.60-5.2); RDW 15.8 % (11.6-15.6); WHITE BLOOD COUNT 8.4 K/mm3 (4.0-10.8)
[2020-05-29 07:47] LABS: ALBUMIN 2.8 g/dl (3.4-5.0); BILIRUBIN,TOTAL 0.5 mg/dl (0.2-1); CALCIUM 8.6 mg/dl (8.5-10); CREATININE 0.7 mg/dl (0.55-1.3); MAGNESIUM 1.8 mg/dL (1.8-2.4); TOT PROT 5.3 g/dl (6.4-8.2)
[2020-05-29] MEDS: ENOXAPARIN NA (PORCINE) 40 MG/0.4 ML DISP.SYRIN SQ SCH (09:31)
[2020-05-29] MEDS: ATORVASTATIN CA 40 MG TABLET (FP) PO SCH (09:31)
[2020-05-29] MEDS: ASPIRIN 81 MG CHEWABLE TABLETS PO SCH (09:31)
[2020-05-29] MEDS: PANTOPRAZOLE 40 MG TABLET PO SCH ×2 (09:31→21:36)
[2020-05-29] MEDS: CARVEDILOL 3.125 MG TABLET (FP) PO SCH ×2 (09:35→21:35)
[2020-05-29] MEDS: NIFEdipine E.R. 30 MG TABLET PO SCH (09:35)
[2020-05-29] MEDS: VANCOMYCIN 1 GRAM (PRE-DOCKED) 1,000 MG/250 ML BAG IVPB SCH (12:08)
[2020-05-29] MEDS: LEVOTHYROXINE NA 88 MCG TABLET (FP) PO SCH (21:36)
[2020-05-29] MEDS: ZOLPIDEM TARTRATE 5 MG TABLET PO PRN (23:34)
[2020-05-30] MEDS: oxyCODONE HCL 5 MG TABLET PO PRN ×2 (06:11→17:30)
[2020-05-30] MEDS: INSULIN SLIDING SCALE (NOVOLOG) 1 VIAL SQ SCH ×3 (06:48→21:48)
[2020-05-30] MEDS: PANTOPRAZOLE 40 MG TABLET PO SCH ×2 (10:00→21:49)
[2020-05-30] MEDS: ATORVASTATIN CA 40 MG TABLET (FP) PO SCH (10:00)
[2020-05-30] MEDS: ENOXAPARIN NA (PORCINE) 40 MG/0.4 ML DISP.SYRIN SQ SCH (10:00)
[2020-05-30] MEDS: CARVEDILOL 3.125 MG TABLET (FP) PO SCH ×2 (10:00→21:49)
[2020-05-30] MEDS: ASPIRIN 81 MG CHEWABLE TABLETS PO SCH (10:00)
[2020-05-30] MEDS: NIFEdipine E.R. 30 MG TABLET PO SCH (10:00)
[2020-05-30] MEDS ORDERED: VANCOMYCIN 1 GRAM (PRE-DOCKED) 1,000 MG/250 ML BAG IVPB SCH (11:00)
[2020-05-30] MEDS ORDERED: CLINDAMYCIN HCL 150 MG CAPSULE (FP) PO SCH ×2 (15:00→15:13)
[2020-05-30] MEDS: CLINDAMYCIN HCL 150 MG CAPSULE (FP) PO SCH ×2 (15:32→21:48)
[2020-05-30] MEDS: ACETAMINOPHEN 325 MG TABLET (FP) PO PRN (17:31)
[2020-05-30] MEDS: LEVOTHYROXINE NA 88 MCG TABLET (FP) PO SCH (21:49)
[2020-05-30] MEDS: ZOLPIDEM TARTRATE 5 MG TABLET PO PRN (23:46)
[2020-05-31] MEDS: oxyCODONE HCL 5 MG TABLET PO PRN ×3 (01:35→21:09)
[2020-05-31] MEDS: ACETAMINOPHEN 325 MG TABLET (FP) PO PRN ×2 (01:36→21:11)
[2020-05-31] MEDS: INSULIN SLIDING SCALE (NOVOLOG) 1 VIAL SQ SCH ×5 (06:25→21:08)
[2020-05-31] MEDS: CLINDAMYCIN HCL 150 MG CAPSULE (FP) PO SCH ×3 (06:25→21:08)
[2020-05-31] MEDS: ASPIRIN 81 MG CHEWABLE TABLETS PO SCH (09:33)
[2020-05-31] MEDS: PANTOPRAZOLE 40 MG TABLET PO SCH ×2 (09:33→21:08)
[2020-05-31] MEDS: ATORVASTATIN CA 40 MG TABLET (FP) PO SCH (09:33)
[2020-05-31] MEDS: NIFEdipine E.R. 30 MG TABLET PO SCH (09:34)
[2020-05-31] MEDS: CARVEDILOL 3.125 MG TABLET (FP) PO SCH ×2 (09:34→21:12)
[2020-05-31] MEDS: ENOXAPARIN NA (PORCINE) 40 MG/0.4 ML DISP.SYRIN SQ SCH (09:34)
[2020-05-31] MEDS: LEVOTHYROXINE NA 88 MCG TABLET (FP) PO SCH (21:11)
[2020-05-31] MEDS: ZOLPIDEM TARTRATE 5 MG TABLET PO PRN (23:38)
[2020-06-01] MEDS: CLINDAMYCIN HCL 150 MG CAPSULE (FP) PO SCH ×4 (06:36→21:51)
[2020-06-01] MEDS: oxyCODONE HCL 5 MG TABLET PO PRN (06:37)
[2020-06-01] MEDS: INSULIN SLIDING SCALE (NOVOLOG) 1 VIAL SQ SCH ×4 (06:38→21:43)
[2020-06-01 08:24] VITALS: BMI 26.5
[2020-06-01] MEDS: PANTOPRAZOLE 40 MG TABLET PO SCH ×2 (10:27→21:39)
[2020-06-01] MEDS: ASPIRIN 81 MG CHEWABLE TABLETS PO SCH (10:27)
[2020-06-01] MEDS: CARVEDILOL 3.125 MG TABLET (FP) PO SCH ×2 (10:27→21:40)
[2020-06-01] MEDS: ATORVASTATIN CA 40 MG TABLET (FP) PO SCH (10:27)
[2020-06-01] MEDS: NIFEdipine E.R. 30 MG TABLET PO SCH (10:27)
[2020-06-01] MEDS: ENOXAPARIN NA (PORCINE) 40 MG/0.4 ML DISP.SYRIN SQ SCH (10:29)
[2020-06-01] MEDS ORDERED: PT OWN MED DRAWER 7, Y5N ONE (11:56)
[2020-06-01] MEDS ORDERED: ONDANSETRON *ODT* 4 MG TABLET SL PRN (14:46)
[2020-06-01] MEDS: LEVOTHYROXINE NA 88 MCG TABLET (FP) PO SCH (21:39)
[2020-06-02] MEDS ORDERED: ZOLPIDEM TARTRATE 5 MG TABLET PO ONE (01:30)
[2020-06-02] MEDS: CLINDAMYCIN HCL 150 MG CAPSULE (FP) PO SCH (05:51)
[2020-06-02] MEDS: INSULIN SLIDING SCALE (NOVOLOG) 1 VIAL SQ SCH ×2 (06:19→11:05)
[2020-06-02] MEDS: ASPIRIN 81 MG CHEWABLE TABLETS PO SCH (09:06)
[2020-06-02] MEDS: ATORVASTATIN CA 40 MG TABLET (FP) PO SCH (09:07)
[2020-06-02] MEDS: NIFEdipine E.R. 30 MG TABLET PO SCH (09:07)
[2020-06-02] MEDS: PANTOPRAZOLE 40 MG TABLET PO SCH (09:07)
[2020-06-02] MEDS: CARVEDILOL 3.125 MG TABLET (FP) PO SCH (09:07)
[2020-06-02] MEDS: ENOXAPARIN NA (PORCINE) 40 MG/0.4 ML DISP.SYRIN SQ SCH (09:07)
[2020-06-02 09:10] VITALS: BP 104/53; PULSE 62; TEMP 98.5
== END 2020-06-02 11:39 | disposition home or self-care (01) | DRG 581 ==
LOC: SUPCPDRO 18:30 → FER 18:30 → FM/S 23:50
PROVIDERS: ADMIT Internal Medicine; ATTEND Nurse Practitioner Acute Care
PROC: 0J9N0ZZ Drainage of Right Lower Leg Subcutaneous Tissue and Fascia, Open Approach (ICD-10-PCS; principal; 2020-05-28)
PROC: 0JBN0ZX Excision of Right Lower Leg Subcutaneous Tissue and Fascia, Open Approach, Diagnostic (ICD-10-PCS; 2020-05-28)
DX: L03.115 Cellulitis of right lower limb (principal); M34.9 Systemic sclerosis, unspecified; E78.5 Hyperlipidemia, unspecified; L02.415 Cutaneous abscess of right lower limb; I25.10 Atherosclerotic heart disease of native coronary artery without angina pectoris; E03.9 Hypothyroidism, unspecified; E11.628 Type 2 diabetes mellitus with other skin complications; R13.10 Dysphagia, unspecified; D72.829 Elevated white blood cell count, unspecified; I25.2 Old myocardial infarction; Z79.4 Long term (current) use of insulin; Z95.5 Presence of coronary angioplasty implant and graft; Z86.14 Personal history of Methicillin resistant Staphylococcus aureus infection
CPT/HCPCS: 36415; 71045-TC-FY; 80053; 81003; 81015; 82962; 83036; 83605; 83735; 85025; 87040; 87070; 87086; 87186; 87205; 88304-TC; 93005; 94760; 99285-25; C9803; G0480; J0131; Q0162; U0003

== ENCOUNTER 2020-06-11 11:42 | Emergency (ER) | payer MEDICARE, OTHER ==
[2020-06-11 12:07] VITALS: BP 132/70; PULSE 82; TEMP 99.3; BMI 26.3
[2020-06-11 13:15] LABS: BASO % 2.3 % (0-2.0); EOS % 8.1 % (0-4.5); HEMATOCRIT 34.4 % (32.4-45.2); HEMOGLOBIN 10.7 GM/dl (10.7-15.3); LYMPH % 10.4 % (8-40); MCH 25.3 pg (25.7-33.7); MCHC 31.3 g/dl (32.0-36.0); MEAN CELL VOLUME 81.1 fl (80-96); MEAN PLT VOLUME 6.9 fl (7.5-11.1); MONO % 5.8 % (3.8-10.2); NEUT % 73.4 % (42.8-82.8); PLATELET COUNT 547 K/MM3 (134-434); RBC 4.24 M/mm3 (3.60-5.2); RDW 15.5 % (11.6-15.6); WHITE BLOOD COUNT 13.4 K/mm3 (4.0-10.8)
[2020-06-11 13:20] LABS: ACTIVATED PTT 26.2 SECONDS (25.2-36.5)
[2020-06-11 13:22] LABS: ALBUMIN 3.8 g/dl (3.4-5.0); BILIRUBIN,TOTAL 0.6 mg/dl (0.2-1); CREATININE 0.9 mg/dl (0.55-1.3); TOT PROT 6.3 g/dl (6.4-8.2)
[2020-06-11 13:24] LABS: INR 1.26 (0.82-1.09); PROTHROMBIN TIME (PATIENT) 13.9 SEC (10.2-13.0)
[2020-06-11] MEDS ORDERED: DALBAVANCIN HCL 1,500 MG in DEXTROSE 5%-WATER - 500 ML IVPB ONE (13:37)
== END 2020-06-11 16:35 | disposition home or self-care (01) ==
LOC: FER 11:42
DX: L03.115 Cellulitis of right lower limb (principal)
CPT/HCPCS: 36415; 73590-TC-RT-FY; 80053; 85025; 85610; 85730; 87040; 87070; 87186; 87205; 99284-25; C9803; J0875; U0003

== ENCOUNTER 2020-06-13 10:55 | Emergency (ER) | payer MEDICARE, OTHER | END 2020-06-13 12:06 | disposition home or self-care (01) | LOC: FER 10:55 | CPT/HCPCS: 99283-25 ==

== ENCOUNTER 2020-07-13 13:58 | Emergency (ER) | payer MEDICARE, OTHER | END 2020-07-13 17:00 | disposition home or self-care (01) | LOC: JVIRT 13:58 | DX: Z20.822 Contact with and (suspected) exposure to COVID-19 (principal) | CPT/HCPCS: C9803; G2251-GT; Q3014-GT; U0003 ==

== ENCOUNTER 2021-11-07 12:18 | Emergency (ER) | payer MEDICARE, OTHER ==
[2021-11-07 12:28] VITALS: BP 127/63; PULSE 68; TEMP 98.3; BMI 24.7
== END 2021-11-07 14:41 | disposition home or self-care (01) ==
LOC: FER 12:18
DX: M79.671 Pain in right foot (principal)
CPT/HCPCS: 73610-TC-RT-FY; 73630-TC-RT-FY; 93971-TC; 99284-25

== ENCOUNTER 2024-05-26 04:37 | Day surgery (SDC) | payer MEDICARE, OTHER ==
[2024-05-25 11:53] VITALS: BMI 26.9
[2024-05-26] MEDS ORDERED: LIDOCAINE VISCOUS 2% ORAL/TOP 15 ML UNIT-DOSE CUP ONE (10:50)
[2024-05-26 11:38] VITALS: TEMP 97.2
[2024-05-26 12:14] VITALS: BP 129/57; PULSE 58; RESP 18
== END 2024-05-26 12:12 | disposition home or self-care (01) ==
LOC: JASU-ENDO 04:37
PROVIDERS: ATTEND Student in an Organized Health Care Education/Training Program
PROC: 0DB98ZX Excision of Duodenum, Via Natural or Artificial Opening Endoscopic, Diagnostic (ICD-10-PCS; 2024-05-26)
PROC: 0DB78ZX Excision of Stomach, Pylorus, Via Natural or Artificial Opening Endoscopic, Diagnostic (ICD-10-PCS; 2024-05-26)
PROC: 0DB68ZX Excision of Stomach, Via Natural or Artificial Opening Endoscopic, Diagnostic (ICD-10-PCS; 2024-05-26)
PROC: 0DJD8ZZ Inspection of Lower Intestinal Tract, Via Natural or Artificial Opening Endoscopic (ICD-10-PCS; principal; 2024-05-26 13:30)
DX: Z12.11 Encounter for screening for malignant neoplasm of colon (principal); K64.8 Other hemorrhoids; K20.90 Esophagitis, unspecified without bleeding; K29.50 Unspecified chronic gastritis without bleeding; K29.80 Duodenitis without bleeding; K44.9 Diaphragmatic hernia without obstruction or gangrene
CPT/HCPCS: 82962; 88305-TC; 88342-TC

== ENCOUNTER 2024-07-04 17:59 | Emergency (ER) | payer OTHER ==
[2024-07-04 18:44] VITALS: BP 130/86; PULSE 72; RESP 18; BMI 33.9
[2024-07-04] MEDS ORDERED: DEXAMETHASONE SOD PHOSPHATE 10 MG/1 ML VIAL ONE (21:54)
[2024-07-04] MEDS: DEXAMETHASONE LIQUID 0.5 MG/5 ML PO ONE (21:56)
== END 2024-07-04 22:03 | disposition home or self-care (01) ==
LOC: FER 17:59
DX: J40 Bronchitis, not specified as acute or chronic (principal); R06.02 Shortness of breath; R05.9 Cough, unspecified; Z20.822 Contact with and (suspected) exposure to COVID-19
CPT/HCPCS: 0241U-QW; 71046-TC-FY; 99284-25

== ENCOUNTER 2024-07-19 14:19 | Emergency (ER) | payer MEDICARE, OTHER ==
[2024-07-19 14:40] VITALS: BP 117/56; PULSE 83; RESP 18; TEMP 98.4; BMI 26.5
[2024-07-19] MEDS ORDERED: ACETAMINOPHEN 500 MG TABLET (FP) ONE (14:57)
[2024-07-19] MEDS: ACETAMINOPHEN 500 MG TABLET (FP) PO ONE (15:03)
[2024-07-19] MEDS ORDERED: LIDOCAINE 5% TOPICAL PATCH ONE (16:04)
[2024-07-19] MEDS ORDERED: KETOROLAC TROMETHAMINE 15 MG/ML VIAL ONE (16:04)
[2024-07-19] MEDS: LIDOCAINE 5% TOPICAL PATCH TP ONE (16:12)
[2024-07-19] MEDS: IBUPROFEN 600 MG TABLET (FP) PO ONE (16:12)
[2024-07-19] MEDS: KETOROLAC TROMETHAMINE 15 MG/ML VIAL IM ONE (16:12)
[2024-07-19] MEDS ORDERED: LIDOCAINE PATCH REMOVAL MC SCH (22:00)
== END 2024-07-19 16:20 | disposition home or self-care (01) ==
LOC: FER 14:19
PROC: 3E0233Z Introduction of Anti-inflammatory into Muscle, Percutaneous Approach (ICD-10-PCS; principal; 2024-07-19)
DX: M25.511 Pain in right shoulder (principal)
CPT/HCPCS: 73030-TC-RT-FY; 99284-25

== ENCOUNTER 2024-09-04 15:16 | Inpatient (IN) | payer MEDICARE, OTHER ==
[2024-09-04 16:42] LABS: ABSOLUTE IMMATURE GRANULOCYTES 0.04 x10^3/uL (0.0-0.031); BASOPHILS # 0.07 x10^3/uL (0.01-0.08); EOSINOPHIL % 10.1 % (0.7-5.8); EOSINOPHILS # 1.31 x10^3/uL (0.04-0.36); HEMATOCRIT 34.6 % (34.1-44.9); HEMOGLOBIN 10.5 g/dL (11.2-15.7); MCHC 30.3 g/dl (32.2-35.5); MEAN CELL VOLUME 81.8 fl (79.4-94.8); MEAN PLT VOLUME 8.7 fl (9.4-12.3); MONOCYTE # 1.06 x10^3/uL (0.24-0.86); MONOCYTE % 8.1 % (4.7-12.5); PLATELET COUNT 400 x10^3/uL (182-369); RDW 16.6 % (12.4-16.4)
[2024-09-04] MEDS ORDERED: HEPARIN NA (PORCINE) 5,000 UNITS/ML 1ML VIAL IVPUSH PRN (16:48)
[2024-09-04 16:57] LABS: INR 1.15 (0.83-1.09); PROTHROMBIN TIME (PATIENT) 12.5 SEC (9.7-13.0)
[2024-09-04 17:00] LABS: ACTIVATED PTT 30.3 SECONDS (25.2-36.5)
[2024-09-04 17:07] LABS: POTASSIUM 4.6 mmol/L (3.5-5.1)
[2024-09-04 17:08] LABS: CALCIUM 9.3 mg/dL (8.5-10.1)
[2024-09-04] MEDS ORDERED: MORPHINE SULFATE 2 MG/ML SYRINGE ONE (17:08)
[2024-09-04 17:09] LABS: ALBUMIN 3.1 g/dl (3.4-5.0); BLOOD UREA NITROGEN 16.5 mg/dL (7-18)
[2024-09-04 17:12] LABS: CREATININE 0.8 mg/dL (0.55-1.3)
[2024-09-04 17:14] LABS: BILIRUBIN,TOTAL 0.6 mg/dL (0.2-1); TOT PROT 5.9 g/dl (6.4-8.2)
[2024-09-04] MEDS ORDERED: ACETAMINOPHEN 325 MG TABLET (FP) PO PRN (17:15)
[2024-09-04] MEDS ORDERED: ALBUTEROL SO4 HFA INHALER IH PRN (17:41)
[2024-09-04] MEDS ORDERED: HEPARIN INFUSION - 25,000 UNITS/500 ML INFUS.BAG IVPB ONE (18:08)
[2024-09-04] MEDS: morphine CARPU-JECT 2 MG/1 ML DISP.SYRIN IVPUSH ONE (18:12)
[2024-09-04] MEDS: HEPARIN INFUSION - 25,000 UNITS/500 ML INFUS.BAG IVPB SCH (18:24)
[2024-09-04 23:04] LABS: POTASSIUM 4.1 mmol/L (3.5-5.1)
[2024-09-04 23:06] LABS: ALBUMIN 2.8 g/dl (3.4-5.0); BLOOD UREA NITROGEN 12.9 mg/dL (7-18); CALCIUM 8.9 mg/dL (8.5-10.1)
[2024-09-04] MEDS: PANTOPRAZOLE 40 MG TABLET PO SCH (23:07)
[2024-09-04] MEDS: oxyCODONE HCL 5 MG TABLET PO PRN (23:08)
[2024-09-04] MEDS: LEVOTHYROXINE NA 50 MCG TABLET (FP) PO SCH (23:09)
[2024-09-04 23:10] LABS: CREATININE 0.7 mg/dL (0.55-1.3)
[2024-09-04 23:11] LABS: BILIRUBIN,TOTAL 0.6 mg/dL (0.2-1); TOT PROT 5.2 g/dl (6.4-8.2)
[2024-09-04] MEDS: ZOLPIDEM TARTRATE 5 MG TABLET PO PRN (23:14)
[2024-09-04] MEDS: HEPARIN NA (PORCINE) 5,000 UNITS/ML 1ML VIAL IVPUSH PRN (23:46)
[2024-09-05 01:54] VITALS: BMI 27.2
[2024-09-05 07:08] LABS: HEMATOCRIT 30.8 % (34.1-44.9); HEMOGLOBIN 9.4 g/dL (11.2-15.7); MCHC 30.5 g/dl (32.2-35.5); MEAN CELL VOLUME 81.5 fl (79.4-94.8); PLATELET COUNT 379 x10^3/uL (182-369); RDW 16.6 % (12.4-16.4)
[2024-09-05] MEDS: CARVEDILOL 3.125 MG TABLET (FP) PO SCH ×2 (09:52→21:20)
[2024-09-05] MEDS: ATORVASTATIN CA 40 MG TABLET (FP) PO SCH (10:03)
[2024-09-05] MEDS: NIFEdipine E.R. 30 MG TABLET PO SCH (10:10)
[2024-09-05] MEDS: SODIUM CHLORIDE 1,000 ML IV SCH (10:59)
[2024-09-05] MEDS: oxyCODONE HCL 5 MG TABLET PO PRN (17:31)
[2024-09-06 08:28] LABS: ABSOLUTE IMMATURE GRANULOCYTES 0.03 x10^3/uL (0.0-0.031)
[2024-09-06 08:33] LABS: BASOPHILS # 0.04 x10^3/uL (0.01-0.08); EOSINOPHIL % 10.7 % (0.7-5.8); EOSINOPHILS # 0.85 x10^3/uL (0.04-0.36); MEAN CELL VOLUME 82.9 fl (79.4-94.8); MEAN PLT VOLUME 9.3 fl (9.4-12.3); MONOCYTE # 0.79 x10^3/uL (0.24-0.86); MONOCYTE % 9.9 % (4.7-12.5); PLATELET COUNT 334 x10^3/uL (182-369); RDW 16.7 % (12.4-16.4)
[2024-09-06 09:04] LABS: BLOOD UREA NITROGEN 6.9 mg/dL (7-18); CALCIUM 8.1 mg/dL (8.5-10.1)
[2024-09-06] MEDS ORDERED: PROTAMINE SULFATE 50 MG/5 ML VIAL ONE (09:05)
[2024-09-06] MEDS ORDERED: NITROGLYCERIN 50 MG/10 ML VIAL IVPB ONE (09:05)
[2024-09-06] MEDS ORDERED: LIDOCAINE HCL 1%, 10 MG/ML (20ML VIAL) ONE (09:06)
[2024-09-06] MEDS ORDERED: HEPARIN NA (PORCINE) 5,000 UNITS/ML 1ML VIAL ONE (09:06)
[2024-09-06 09:07] LABS: CREATININE 0.6 mg/dL (0.55-1.3)
[2024-09-06] MEDS ORDERED: MIDAZOLAM HCL 2 MG/2 ML SINGLE DOSE VIAL ONE (09:37)
[2024-09-06] MEDS ORDERED: PROPOFOL 20 ML ONE ×4 (09:37→10:56)
[2024-09-06] MEDS ORDERED: ceFAZolin SODIUM 1 GM VIAL ONE (09:57)
[2024-09-06] MEDS: ceFAZolin SODIUM 1 GM VIAL IVPB ONE ×2 (09:58)
[2024-09-06] MEDS: LIDOCAINE HCL 1%, 10 MG/ML (20ML VIAL) INF ONE ×2 (10:06)
[2024-09-06] MEDS ORDERED: ALBUTEROL SO4 HFA INHALER IH PRN (11:39)
[2024-09-06] MEDS ORDERED: oxyCODONE HCL 5 MG TABLET PO PRN (11:39)
[2024-09-06] MEDS: CLOPIDOGREL BISULFATE 300 MG TABLET PO ONE (12:42)
[2024-09-06] MEDS: ASPIRIN 81 MG CHEWABLE TABLETS PO ONE (12:43)
[2024-09-06] MEDS: SODIUM CHLORIDE 1,000 ML IV SCH (12:43)
[2024-09-06] MEDS: NIFEdipine E.R. 30 MG TABLET PO SCH (14:40)
[2024-09-06] MEDS: IRON CARBONYL 15 MG PO SCH (19:07)
[2024-09-06] MEDS: CARVEDILOL 3.125 MG TABLET (FP) PO SCH (21:36)
[2024-09-06] MEDS: PANTOPRAZOLE 40 MG TABLET PO SCH (21:36)
[2024-09-06] MEDS: ACETAMINOPHEN 325 MG TABLET (FP) PO PRN (21:37)
[2024-09-06] MEDS: ZOLPIDEM TARTRATE 5 MG TABLET PO PRN (23:38)
[2024-09-07] MEDS: LEVOTHYROXINE NA 25 MCG TABLET (FP) PO SCH (06:16)
[2024-09-07 07:59] LABS: POTASSIUM 3.9 mmol/L (3.5-5.1)
[2024-09-07 08:03] LABS: ABSOLUTE IMMATURE GRANULOCYTES 0.02 x10^3/uL (0.0-0.031); BASOPHILS # 0.04 x10^3/uL (0.01-0.08); EOSINOPHILS # 0.89 x10^3/uL (0.04-0.36); HEMATOCRIT 28.8 % (34.1-44.9); HEMOGLOBIN 8.6 g/dL (11.2-15.7); MCHC 29.9 g/dl (32.2-35.5); MEAN CELL VOLUME 82.5 fl (79.4-94.8); MONOCYTE # 0.74 x10^3/uL (0.24-0.86); PLATELET COUNT 303 x10^3/uL (182-369); RDW 16.7 % (12.4-16.4)
[2024-09-07 08:11] LABS: CALCIUM 8.1 mg/dL (8.5-10.1)
[2024-09-07 08:15] LABS: BLOOD UREA NITROGEN 5.7 mg/dL (7-18)
[2024-09-07 08:17] LABS: ALBUMIN 2.3 g/dl (3.4-5.0); TOT PROT 4.4 g/dl (6.4-8.2)
[2024-09-07 08:18] LABS: CREATININE 0.6 mg/dL (0.55-1.3)
[2024-09-07 08:19] LABS: BILIRUBIN,TOTAL 0.6 mg/dL (0.2-1)
[2024-09-07] MEDS: ASPIRIN 81 MG CHEWABLE TABLETS PO SCH (09:36)
[2024-09-07] MEDS: CLOPIDOGREL BISULFATE 75 MG TABLET (FP) PO SCH (09:36)
[2024-09-07] MEDS: ATORVASTATIN CA 20 MG TABLET (FP) PO SCH (09:39)
[2024-09-07] MEDS: NIFEdipine E.R. 30 MG TABLET PO SCH (09:39)
[2024-09-07 09:41] VITALS: RESP 20
[2024-09-07] MEDS: IRON CARBONYL 15 MG PO SCH (11:07)
[2024-09-07] MEDS: FERROUS SO4 325 MG TABLET (FP) PO SCH (11:56)
[2024-09-07 14:15] VITALS: BP 110/50; PULSE 61; TEMP 98.1
[2024-09-07] MEDS: oxyCODONE HCL 5 MG TABLET PO PRN (14:43)
[2024-09-08] MEDS ORDERED: FERROUS SO4 325 MG TABLET (FP) PO SCH (10:00)
== END 2024-09-07 16:47 | disposition home health service (06) | DRG 272 ==
LOC: JER 15:16 → JERBED 16:59 → OBSVTOIN 17:15 → J8W 19:57
PROVIDERS: ADMIT Internal Medicine; ATTEND Internal Medicine
PROC: 047 Lower Arteries, Dilation (ICD-10-PCS; 2024-09-06)
PROC: 04CL3ZZ Extirpation of Matter from Left Femoral Artery, Percutaneous Approach (ICD-10-PCS; principal; 2024-09-06 14:00)
DX: I74.3 Embolism and thrombosis of arteries of the lower extremities (principal); M79.672 Pain in left foot; I10 Essential (primary) hypertension; E11.9 Type 2 diabetes mellitus without complications; E03.9 Hypothyroidism, unspecified; E78.5 Hyperlipidemia, unspecified; I25.10 Atherosclerotic heart disease of native coronary artery without angina pectoris; I77.1 Stricture of artery
CPT/HCPCS: 36415; 76000-TC-FY; 80048; 80053; 82962; 83036; 83605; 84436; 84443; 85025; 85027; 85610; 85730; 86850; 86900; 86901; 87081; 93005; 93010; 94760; 97116-GP; 97161-GP; 99285-25; C1760; G0378; J1644

== ENCOUNTER 2025-03-02 11:40 | Inpatient (IN) | payer OTHER ==
[2025-03-02 13:12] LABS: ALK PHOS 125 U/L (45-117); CO2 24 mmol/L (21-32); CREATININE 0.8 mg/dl (0.6-1.3); GLUCOSE,RANDOM 164 mg/dl (74-106); SGOT/AST 25 U/L (15-37); SGPT/ALT 14 U/L (7-52); TOT PROT 6.2 g/dl (6.4-8.2)
[2025-03-02] MEDS ORDERED: ACETAMINOPHEN INJECTION 100 ML ONE (13:46)
[2025-03-02] MEDS ORDERED: PIPERACILLIN/TAZOBACTAM 3.375 GM VIAL IVPB ONE (13:46)
[2025-03-02] MEDS: ACETAMINOPHEN 1000 MG/100 ML BAG IVPB ONE (13:48)
[2025-03-02 13:49] LABS: MONOCYTE % 7.6 % (4.7-12.5); RDW 16.2 % (12.4-16.4)
[2025-03-02 13:55] LABS: ABSOLUTE IMMATURE GRANULOCYTES 0.02 x10^3/uL (0.0-0.031); BASOPHILS # 0.03 x10^3/uL (0.01-0.08); EOSINOPHIL % 7.1 % (0.7-5.8); EOSINOPHILS # 0.84 x10^3/uL (0.04-0.36); MCHC 30.9 g/dl (32.2-35.5); MEAN CELL VOLUME 83.2 fl (79.4-94.8); MEAN PLT VOLUME 9.0 fl (9.4-12.3); MONOCYTE # 0.90 x10^3/uL (0.24-0.86)
[2025-03-02 13:57] LABS: INR 1.1 (0.83-1.09); PROTHROMBIN TIME (PATIENT) 12.2 SEC (9.7-13.0)
[2025-03-02 13:59] LABS: ACTIVATED PTT 31.4 SECONDS (25.2-36.5)
[2025-03-02] MEDS: PIPERACILLIN/TAZOB 3.375 GM 3.375 GM in DEXTROSE 5%-WATER - 50 ML IVPB ONE (14:00)
[2025-03-02] MEDS ORDERED: VANCOMYCIN 1,000 MG VIAL (RESTRICTED TO ID ONLY) ONE (14:27)
[2025-03-02] MEDS: VANCOMYCIN/WATER 1250 MG 1,250 MG/250 ML BAG IVPB ONE (15:00)
[2025-03-02 15:11] LABS: HCV DIAGNOSTIC IN-HOUSE W/RFLX NON-REACTIVE (NONREACTIVE)
[2025-03-02 15:12] LABS: HIV INTERPRETATION NEGATIVE (NEGATIVE)
[2025-03-02 15:26] LABS: ERYTHROCYTE SEDIMENTATION RATE 11 mm/hr (0-30)
[2025-03-02] MEDS ORDERED: VANCOMYCIN 500 MG VIAL (RESTRICTED TO ID ONLY) ONE (16:19)
[2025-03-02] MEDS ORDERED: ALBUTEROL SO4 HFA INHALER IH PRN (18:08)
[2025-03-02] MEDS: ACETAMINOPHEN 1000 MG/100 ML BAG IVPB PRN (21:09)
[2025-03-02] MEDS: ZOLPIDEM TARTRATE 5 MG TABLET PO PRN (21:10)
[2025-03-02] MEDS: PANTOPRAZOLE 40 MG TABLET PO SCH (21:10)
[2025-03-02] MEDS: ATORVASTATIN CA 20 MG TABLET (FP) PO SCH (21:10)
[2025-03-02] MEDS: CARVEDILOL 3.125 MG TABLET (FP) PO SCH (21:10)
[2025-03-02] MEDS: INSULIN ASPART SLIDING SCALE (NOVOLOG) 1 VIAL SQ SCH (21:34)
[2025-03-03] MEDS: LEVOTHYROXINE NA 75 MCG TABLET (FP) PO SCH (07:05)
[2025-03-03] MEDS: NIFEdipine E.R. 30 MG TABLET PO SCH (09:35)
[2025-03-03] MEDS: AMPICILLIN NA/SULBACTAM NA 1.5 GM in SODIUM CHLORIDE 100 ML IVPB SCH (12:04)
[2025-03-04] MEDS: CLOPIDOGREL BISULFATE 75 MG TABLET (FP) PO SCH (09:33)
[2025-03-04] MEDS: FUROSEMIDE 40 MG/4 ML INJECTABLE VIAL IVPUSH ONE (11:47)
[2025-03-05 07:45] LABS: ABSOLUTE IMMATURE GRANULOCYTES 0.01 x10^3/uL (0.0-0.031); BASOPHILS # 0.02 x10^3/uL (0.01-0.08); EOSINOPHIL % 9.5 % (0.7-5.8); EOSINOPHILS # 0.84 x10^3/uL (0.04-0.36); MCHC 31.4 g/dl (32.2-35.5); MEAN CELL VOLUME 84.4 fl (79.4-94.8); MEAN PLT VOLUME 8.6 fl (9.4-12.3); MONOCYTE # 0.77 x10^3/uL (0.24-0.86); MONOCYTE % 8.7 % (4.7-12.5); RDW 16.3 % (12.4-16.4)
[2025-03-05 09:31] LABS: ALK PHOS 80.0 U/L (45-117); CO2 23.0 mmol/L (21-32); CREATININE 0.8 mg/dl (0.6-1.3); GLUCOSE,RANDOM 112.0 mg/dl (74-106); LDL CHOLESTEROL (ONLY DFH) 36.0 mg/dL (5-100); SGOT/AST 16.0 U/L (15-37); SGPT/ALT 10.0 U/L (7-52); TOT PROT 4.3 g/dl (6.4-8.2)
[2025-03-05] MEDS: ENOXAPARIN NA (PORCINE) 40 MG/0.4 ML DISP.SYRIN SQ SCH (10:08)
[2025-03-05 10:35] LABS: N-TERMINAL BNP 114.9 pg/mL (0-299.9)
[2025-03-05 16:19] VITALS: BMI 29.2
[2025-03-05] MEDS: ONDANSETRON *ODT* 4 MG TABLET SL ONE (18:33)
[2025-03-05] MEDS: CARVEDILOL 3.125 MG TABLET (FP) PO SCH (22:52)
[2025-03-05] MEDS: ZOLPIDEM TARTRATE 5 MG TABLET PO ONE (23:05)
[2025-03-06] MEDS: NIFEdipine E.R. 30 MG TABLET PO SCH (09:11)
[2025-03-06] MEDS: ZOLPIDEM TARTRATE 5 MG TABLET PO PRN (23:16)
[2025-03-07] MEDS: CEFTRIAXONE 2 GM in DEXTROSE 5%-WATER - 50 ML IVPB SCH (11:07)
[2025-03-07] MEDS ORDERED: METOCLOPRAMIDE HCL INJECTION 10 MG/2 ML VIAL IVPUSH PRN (16:58)
[2025-03-07] MEDS: MAG HYDROX/AL HYDROX/SIMETH 30 ML UNIT-DOSE CUP PO PRN (19:35)
[2025-03-08] MEDS ORDERED: MIDAZOLAM HCL 2 MG/2 ML SINGLE DOSE VIAL ONE (08:29)
[2025-03-08] MEDS ORDERED: PROPOFOL 20 ML ONE (08:29)
[2025-03-08] MEDS ORDERED: DEXMEDETOMIDINE HCL 200 MCG/2 ML IVPB ONE (09:14)
[2025-03-08] MEDS ORDERED: BUPIVACAINE HCL/PF 0.25% (2.5MG/ML) 10 ML VIAL ONE (09:29)
[2025-03-08] MEDS ORDERED: LIDOCAINE HCL 1%, 10 MG/ML (20ML VIAL) ONE (09:30)
[2025-03-08] MEDS ORDERED: ONDANSETRON 4 MG/2 ML VIAL ONE (10:07)
[2025-03-08] MEDS ORDERED: DEXAMETHASONE SOD PHOSPHATE 4 MG/1 ML VIAL ONE (10:07)
[2025-03-08] MEDS ORDERED: ONDANSETRON 4 MG/2 ML VIAL IVPUSH PRN (10:55)
[2025-03-08] MEDS: LACTATED RINGERS SOLUTION 1,000 ML IV SCH (11:28)
[2025-03-08] MEDS: diphenhydrAMINE HCL 25 MG CAPSULE (FP) PO ONE (21:51)
[2025-03-09 00:11] VITALS: RESP 18
[2025-03-09 10:19] VITALS: BP 126/56; PULSE 60; TEMP 98.1
== END 2025-03-09 13:15 | disposition home health service (06) | DRG 988 ==
LOC: FER 11:40 → FM/S 14:21
PROVIDERS: ATTEND Internal Medicine
PROC: 0X6Q0Z1 Detachment at Right Middle Finger, High, Open Approach (ICD-10-PCS; principal; 2025-03-08 09:57)
DX: E11.69 Type 2 diabetes mellitus with other specified complication (principal); M86.8X4 Other osteomyelitis, hand; L03.011 Cellulitis of right finger; I10 Essential (primary) hypertension; E78.5 Hyperlipidemia, unspecified; G89.29 Other chronic pain; K21.9 Gastro-esophageal reflux disease without esophagitis; I73.9 Peripheral vascular disease, unspecified; M34.9 Systemic sclerosis, unspecified; I25.10 Atherosclerotic heart disease of native coronary artery without angina pectoris; E03.9 Hypothyroidism, unspecified; M34.1 CR(E)ST syndrome; E83.51 Hypocalcemia
CPT/HCPCS: 36415; 73140-TC-RT-FY; 73220-TC-RT; 76775-TC; 80053; 80061; 81003; 82962; 83036; 83880; 84439; 84443; 84484; 85025; 85610; 85651; 85730; 86140; 86803; 86850; 86900; 86901; 87040; 87086; 87389; 88305-TC; 88311-TC; 93005; 93306-TC; 94760; 97116-GP; 97162-GP; 99285-25; Q0162